=== PATIENT | female | born 1970 | race Caucasian/White ===

== ENCOUNTER → 2016-09-02 | Outpatient (CLI) | payer OTHER ==
[~2016-09-02] MED LIST: AC500T PO; ALBU0.8322 IH; ALBU2.5V4 IH; ALBU8.5H2 IH; AZIT250T5 PO; BETA15CR3 TP; CEFP100T2 PO; CIPR500T78 PO; CYCL10TA45 PO; DXCC100C PO; FAMO20TA27 PO; FLUT1DIS26 IH; HCT25T PO; HYOS0.1216 PO; IBUP-15 PO; IBUP-30 PO; KETO-22 PO; KETO10TA PO; LISI10TA2 PO; LISI20TA PO; LSNP10T PO; METO100T2 PO; METO50TA7 PO; MTP50T PO; NITR-65 PO; NITR100C3 PO; NITR100C44 PO; ONDA-42 SL; PHEN100T26 PO; PRD10T PO; PRD20T PO; RNT150T PO; SULF1TAB23 PO; TAMS0.4C98 PO; TMSL.4C PO; TRAM-42 PO; TRAM50TA2 PO; TRM50T PO
[2016-09-02 12:03] LABS: MEAN PLATELET VOLUME 9.4 FL (7.4-10.4); RED BLOOD COUNT 4.09 10^6/uL (4.35-5.85); RED CELL DISTRIBUTION WIDTH 13.6 % (10.0-14.5); WHITE BLOOD COUNT 6.8 10^3/uL (4.3-11.0)
[2016-09-02 12:22] LABS: ALANINE AMINOTRANSFERASE 18 U/L (0-55); ANION GAP 5 MMOL/L (5-14); ASPARTATE AMINO TRANSFERASE 10 U/L (5-34); BILIRUBIN,TOTAL 0.8 MG/DL (0.1-1.0); BLOOD UREA NITROGEN 8 MG/DL (7-18); BUN/CREATININE RATIO 11; CALCIUM 9.3 MG/DL (8.5-10.1); CARBON DIOXIDE 27 MMOL/L (21-32); CHLORIDE 106 MMOL/L (98-107); CHOLESTEROL 169 MG/DL (< 200); CREATININE SERUM 0.73 MG/DL (0.60-1.30); DIRECT LDL 110 MG/DL (1-129); GFR ESTIMATED > 60; GLUCOSE 125 MG/DL (70-105); POTASSIUM 4.3 MMOL/L (3.6-5.0); SODIUM 138 MMOL/L (135-145); TOTAL PROTEIN 7.3 GM/DL (6.4-8.2); TRIGLYCERIDES 94 MG/DL (<150); VLDL CHOLESTEROL 19 MG/DL (5-40)
[2016-09-02 12:42] LABS: THYROID STIMULATING HORMONE 2.21 UIU/ML (0.35-4.94); TROPONIN I < 0.30 NG/ML (<0.30)
== END ==
LOC: LAB 11:40
PROVIDERS: ATTEND Family Medicine
DX: R73.09 Other abnormal glucose (principal); I10 Essential (primary) hypertension
CPT/HCPCS: 36415; 80053; 80061; 83735; 84443; 84484; 85027

== ENCOUNTER 2016-09-16 13:41 | Observation (INO) | payer OTHER ==
[~2016-09-16] VITALS: Ht 175.3 cm; Wt 118.1 kg
--- OUTSIDE RECORDS SUMMARY | 2016-09-16 13:48 | XMS REPORT ---
Author Author CAROLINA PAULSON [facility] eClinicalWorks Address Unknown Phone Unavailable Care Team Providers Care Water Server Name Role Phone CAROLINA PAULSON CP Unavailable Allergies No Known Allergies Problems Problem Type Condition Code Onset Dates Condition Status Problem Pure hypercholesterolemia E78.0 Active Problem Chronic airway obstruction, not elsewhere classified 496 Active Problem Hypertension 401.9 Active Problem Lumbago 724.2 Active Assessment Subclinical hypothyroidism E03.9 Active Problem Sciatica 724.3 Active Problem Nondependent tobacco use disorder 305.1 Active Medications No Known Medications Results No Known Results Summary Purpose eClinicalWorks Submission
--- OUTSIDE RECORDS SUMMARY | 2016-09-16 13:48 | XMS REPORT ---
Author YOHANNES Ardon [facility] eClinicalWorks Address Unknown Phone Unavailable Care Team Providers Care Nuclear Pharmacist Name Role Phone YOHANNES TABOR CP Unavailable Allergies No Known Allergies Problems Problem Type Condition Code Onset Dates Condition Status Assessment Abnormal mammogram R92.8 Active Assessment Enlarged lymph nodes in armpit R59.0 Active Problem Hypertension I10 Active Problem Enlarged lymph node R59.9 Active Problem Abnormal mammogram R92.8 Active Problem COPD (chronic obstructive pulmonary disease) J44.9 Active Problem Pure hypercholesterolemia E78.0 Active Problem Bilateral ovarian cysts N83.20 Active Problem Polyarthralgia M25.50 Active Medications No Known Medications Results No Known Results Summary Purpose eClinicalWorks Submission
--- OUTSIDE RECORDS SUMMARY | 2016-09-16 13:48 | XMS REPORT ---
Author Author CAROLINA PAULSON [facility] eClinicalWorks Address Unknown Phone Unavailable Care Team Providers Care Escape Wheel Tooth Cutter Name Role Phone CAROLINA PAULSON Unavailable Allergies No Known Allergies Problems Problem Type Condition ICD-9 Code Onset Dates Condition Status Problem Chronic airway obstruction, not elsewhere classified 496 Active Problem Sciatica 724.3 Active Problem Hypertension 401.9 Active Problem Nondependent tobacco use disorder 305.1 Active Problem Lumbago 724.2 Active Medications Medication Code System Code Instructions Start Date End Date Status Dosage Spiriva HandiHaler [facility] [address]-63 18 MCG Inhalation Once a day Nov 21, 2014 1 capsule Results No Known Results Summary Purpose eClinicalWorks Submission
--- OUTSIDE RECORDS SUMMARY | 2016-09-16 13:48 | XMS REPORT ---
Author Author CAROLINA PAULSON eClinicalWorks Address Unknown Phone Unavailable Care Team Providers Care Barrel Filler Name Role Phone CAROLINA PAULSON CP Unavailable Allergies No Known Allergies Problems Problem Type Condition Code Onset Dates Condition Status Problem Pure hypercholesterolemia E78.0 Active Problem Chronic airway obstruction, not elsewhere classified 496 Active Problem Hypertension 401.9 Active Problem Lumbago 724.2 Active Assessment Pain in joint, pain in unspecified joint M25.50 Active Problem Sciatica 724.3 Active Problem Nondependent tobacco use disorder 305.1 Active Medications No Known Medications Procedures Procedure Coding System Code Date ASSAY, TRIIODOTHYRONINE (T3) CPT-4 35219 Jan 01, 2015 VENIPUNCT, ROUTINE* CPT-4 40814 Jan 01, 2015 ASSAY OF FREE THYROXINE CPT-4 55220 Jan 01, 2015 Results Name Result Date Reference Range Unit Abnormality Flag ROUTINE VENIPUNCTURE Summary Purpose eClinicalWorks Submission
--- OUTSIDE RECORDS SUMMARY | 2016-09-16 13:48 | XMS REPORT ---
Author CAROLINA Lyon [facility] eClinicalWorks Address Unknown Phone Unavailable Care Team Providers Care Gang Sawyer Name Role Phone CAROLINA PAULSON Unavailable Allergies No Known Allergies Problems Problem Type Condition Code Onset Dates Condition Status Assessment Pure hypercholesterolemia E78.0 Active Problem Pure hypercholesterolemia E78.0 Active Assessment Hypertension I10 Active Assessment Primary osteoarthritis of right hip M16.11 Active Assessment Dyshidrotic eczema L30.1 Active Problem Dyshidrotic eczema L30.1 Active Problem Abnormal mammogram R92.8 Active Problem Primary osteoarthritis of right hip M16.11 Active Problem Polyarthralgia M25.50 Active Problem COPD (chronic obstructive pulmonary disease) J44.9 Active Problem Hypertension I10 Active Problem Enlarged lymph node R59.9 Active Medications Medication Code System Code Instructions Start Date End Date Status Dosage Tylenol Extra Strength [facility] [address]-28 500 mg August 30, 2011 take 2 tablets (1,000 mg) by oral route every 6 hours as needed Ibuprofen [facility] [address]-57 200 mg Oct 08, 2012 2 Tablet every 8 hours PRN Albuterol Sulfate [facility] [address]-75 90 mcg/actuation July 08, 2013 2 Puffs by Inhalation route every 6 hours Metoprolol Tartrate [facility] [address]-94 50 mg Orally Twice a day 1 tablet with food Zantac [facility] [address]-61 150 mg Jan 03, 2013 take 1 tablet (150 mg ) by oral route 2 times per day Benadryl [facility] [address]-92 25 MG Orally every 6 hrs 1 tablet as needed Flexeril NDC 0 10 mg Orally Three times a day Dec 28, 2015 1 tablet as needed Lisinopril [facility] [address]-82 10 mg Orally Once a day 1 tablet Betamethasone Dipropionate [facility] [address]-14 0.05 % Externally Twice a day Oct 29, 2015 Dec 24, 2015 1 application to affected area tramadol NDC 0 50 mg July 31, 2013 take 1 tablet (50 mg) by oral route every 4-6 hours as needed Procedures Procedure Coding System Code Date Office Visit, Est Pt., Level 3 CPT-4 90579 Oct 29, 2015 X-RAY EXAM HIP UNI 2-3 VIEWS CPT-4 00499 Oct 29, 2015 Vital Signs Date/Time: Oct 29, 2015 Cardiac Monitoring Heart Rate 80 bpm Weight 270.0 lbs Height 69 in BMI 39.87 Index Blood Pressure Diastolic 78 mmHg Blood Pressure Systolic 134 mmHg Results No Known Results Summary Purpose eClinicalWorks Submission
--- OUTSIDE RECORDS SUMMARY | 2016-09-16 13:48 | XMS REPORT ---
Author QIAN Mathis [facility] eClinicalWorks Address Unknown Phone Unavailable Care Team Providers Care Center Director Name Role Phone QIAN HICKS CP Unavailable Allergies, Adverse Reactions, Alerts Substance Reaction Event Type Codeine Sulfate anaphylaxis Drug Allergy Problems Problem Type Condition Code Onset Dates Condition Status Problem Pure hypercholesterolemia E78.0 Active Problem Chronic airway obstruction, not elsewhere classified 496 Active Problem Hypertension 401.9 Active Problem Lumbago 724.2 Active Assessment Pain in joint, pain in unspecified joint M25.50 Active Problem Sciatica 724.3 Active Problem Nondependent tobacco use disorder 305.1 Active Medications Medication Code System Code Instructions Start Date End Date Status Dosage Lisinopril [facility] [address]-01 10 MG Orally Once a day 1 tablet Metoprolol Tartrate [facility] 12522242727 50 MG TAKE ONE TABLET BY MOUTH TWICE DAILY tramadol ND 0 50 mg July 31, 2013 take 1 tablet (50 mg) by oral route every 4-6 hours as needed Albuterol Sulfate [facility] [address]-77 90 mcg/actuation July 08, 2013 2 Puffs by Inhalation route every 6 hours Flexeril [facility] [address]-07 10 MG Orally Three times a day 1 tablet as needed Spiriva HandiHaler [facility] [address]-03 18 MCG Inhalation Once a day Nov 21, 2014 1 capsule Ibuprofen [facility] [address]-84 200 mg Oct 08, 2012 2 Tablet every 8 hours PRN Tylenol Extra Strength [facility] [address]-63 500 mg August 30, 2011 take 2 tablets (1,000 mg) by oral route every 6 hours as needed Albuterol Sulfate [facility] [address]-98 (2.5 MG/3ML) 0.083% Inhalation every 4 hrs as needed 3 ml Zantac [facility] [address]-43 150 mg Jan 03, 2013 take 1 tablet (150 mg ) by oral route 2 times per day Procedures Procedure Coding System Code Date C-REACTIVE PROTEIN CPT-4 70200 Dec 30, 2014 ANTINUCLEAR ANTIBODIES CPT-4 33660 Dec 30, 2014 RBC SED RATE, NONAUTOMATED CPT-4 34718 Dec 30, 2014 VENIPUNCT, ROUTINE* CPT-4 65054 Dec 30, 2014 ASSAY THYROID STIM HORMONE CPT-4 94123 Dec 30, 2014 COMPLETE CBC W/AUTO DIFF WBC CPT-4 45540 Dec 30, 2014 RHEUMATOID FACTOR, QUANT CPT-4 21212 Dec 30, 2014 Office Visit, Est Pt., Level 3 CPT-4 14887 Dec 30, 2014 Vital Signs Date/Time: Dec 30, 2014 Temperature 97.3 F Weight 242.8 lbs Height 69 in Pain Scale 6-8 1-10 Blood Pressure Diastolic 90 mmHg Blood Pressure Systolic 136 mmHg Cardiac Monitoring Heart Rate 80 bpm BMI 35.85 Index Results Name Result Date Reference Range Unit Abnormality Flag ROUTINE VENIPUNCTURE SHARLENE ANALYZER Summary Purpose eClinicalWorks Submission
--- OUTSIDE RECORDS SUMMARY | 2016-09-16 13:48 | XMS REPORT ---
Author Author CAROLINA PAULSON [facility] eClinicalWorks Address Unknown Phone Unavailable Care Team Providers Care Foam Tank Laminator Name Role Phone CAROLINA PAULSON CP Unavailable [...]
--- OUTSIDE RECORDS SUMMARY | 2016-09-16 13:48 | XMS REPORT ---
Author CAROLINA Lyon eClinicalWorks Address Unknown Phone Unavailable Care Team Providers Care Rug Inspector Helper Name Role Phone CAROLINA PAULSON Unavailable Allergies, Adverse Reactions, Alerts Substance Reaction Event Type Codeine Sulfate Info Not Available Drug Allergy Problems Problem Type Condition ICD-9 Code Onset Dates Condition Status Problem Chronic airway obstruction, not elsewhere classified 496 Active Problem Sciatica 724.3 Active Problem Hypertension 401.9 Active Assessment Chronic airway obstruction, not elsewhere classified 496 Active Assessment Hypertension 401.9 Active Problem Nondependent tobacco use disorder 305.1 Active Problem Lumbago 724.2 Active Medications Medication Code System Code Instructions Start Date End Date Status Dosage Flexeril [facility] [address]-11 10 MG Orally Three times a day 1 tablet as needed Ibuprofen [facility] [address]-43 200 mg Oct 08, 2012 2 Tablet every 8 hours PRN Albuterol Sulfate [facility] [address]-42 90 mcg/actuation July 08, 2013 2 Puffs by Inhalation route every 6 hours Metoprolol Tartrate [facility] 05918960776 50 MG TAKE ONE TABLET BY MOUTH TWICE DAILY Tylenol Extra Strength [facility] [address]-31 500 mg August 30, 2011 take 2 tablets (1,000 mg) by oral route every 6 hours as needed tramadol ND 0 50 mg July 31, 2013 take 1 tablet (50 mg) by oral route every 4-6 hours as needed Albuterol Sulfate [facility] [address]-69 (2.5 MG/3ML) 0.083% Inhalation every 4 hrs as needed 3 ml Lisinopril [facility] [address]-43 10 MG Orally Once a day 1 tablet Combivent Respimat [facility] [address]-76 20-100 MCG/ACT Inhalation Four times a day Nov 18, 2014 1 puff Zantac [facility] [address]-07 150 mg Jan 03, 2013 take 1 tablet (150 mg ) by oral route 2 times per day Procedures Procedure Coding System Code Date Office Visit, Ibrahima Pt., Level 3 CPT-4 86480 Nov 18, 2014 Vital Signs Date/Time: Nov 18, 2014 Temperature 97.0 F Weight 228.0 lbs Height 69 in BMI 33.67 Index Blood Pressure Diastolic 80 mmHg Blood Pressure Systolic 118 mmHg Cardiac Monitoring Heart Rate 80 bpm Results No Known Results Summary Purpose eClinicalWorks Submission
--- OUTSIDE RECORDS SUMMARY | 2016-09-16 13:48 | XMS REPORT ---
Author Author CAROLINA PAULSON eClinicalWorks Address Unknown Phone Unavailable Care Team Providers Care [place] Machine Operator Name Role Phone CAROLINA PAULSON CP Unavailable Allergies No Known Allergies Problems Problem Type Condition Code Onset Dates Condition Status Assessment Pure hypercholesterolemia E78.0 Active Problem Pure hypercholesterolemia E78.0 Active Assessment Hypertension I10 Active Problem Dyshidrotic eczema L30.1 Active Problem Abnormal mammogram R92.8 Active Problem Primary osteoarthritis of right hip M16.11 Active Problem Polyarthralgia M25.50 Active Problem COPD (chronic obstructive pulmonary disease) J44.9 Active Problem Hypertension I10 Active Problem Enlarged lymph node R59.9 Active Medications No Known Medications Procedures Procedure Coding System Code Date COMPREHEN METABOLIC PANEL CPT-4 76664 Nov 05, 2015 VENIPUNCT, ROUTINE* CPT-4 54837 Nov 05, 2015 LIPID PANEL CPT-4 22205 Nov 05, 2015 Results No Known Results Summary Purpose eClinicalWorks Submission
--- OUTSIDE RECORDS SUMMARY | 2016-09-16 13:48 | XMS REPORT ---
Author Author ABDIFATAH FREEMAN [facility] eClinicalWorks Address Unknown Phone Unavailable Care Team Providers Care Retail Service Specialist Name Role Phone ABDIFATAH FREEMAN CP Unavailable Allergies No Known Allergies Problems Problem Type Condition ICD-9 Code Onset Dates Condition Status Problem Excessive or frequent menstruation 626.2 Active Problem Unspecified breast screening V76.10 Active Problem Screening for malignant neoplasm of the cervix V76.2 Active Assessment Dental examination V72.2 Active Problem Special screening examination, human papillomavirus [HPV] V73.81 Active Problem Other dyspnea and respiratory abnormalities 786.09 Active Problem Sciatica 724.3 Active Problem Chronic airway obstruction, not elsewhere classified 496 Active Problem Scanty or infrequent menstruation 626.1 Active Problem Lumbago 724.2 Active Problem Intestinal infection due to other organism, NEC 008.8 Active Problem Nondependent tobacco use disorder 305.1 Active Medications No Known Medications Procedures Procedure Coding System Code Date INTRAORL-PERIAPICAL 1 FILM 56041 CPT-4 D0220 Oct 23, 2014 INTRAORL-PERIAPICAL EA ADD FILM CPT-4 D0230 Oct 23, 2014 COMP ORAL EVALUATION - NEW/EST PT CPT-4 D0150 Oct 23, 2014 TOPICAL FLUORIDE VARNISH CPT-4 D1206 Oct 23, 2014 INTRAORL-PERIAPICAL EA ADD FILM CPT-4 D0230 Oct 23, 2014 INTRAORL-PERIAPICAL EA ADD FILM CPT-4 D0230 Oct 23, 2014 PROPHYLAXIS - ADULT CPT-4 D1110 Oct 23, 2014 INTRAORL-PERIAPICAL EA ADD FILM CPT-4 D0230 Oct 23, 2014 Results No Known Results Summary Purpose eClinicalWorks Submission
--- OUTSIDE RECORDS SUMMARY | 2016-09-16 13:49 | XMS REPORT | Continuity of Care Document ---
Author Author [facility] Ctr of [facility] Ctr of [facility] Address Unknown Phone Unavailable Allergies Active Description Code Type Severity Reaction Onset Reported/Identified Relationship to Patient Clinical Status Yes codeine Drug Allergy N/A N/A 09/01/2008 Yes codeine [id number] Drug Allergy Severe THROAT SWELLS S 06/28/2013 Medications Problems Date Dx Coded Attending Type Code Diagnosis Diagnosed By 09/01/2008 616.0 Cervicitis And Endocervicitis 09/01/2008 V72.3 GYNECOLOGICAL EXAMINATION 09/01/2008 YOHANNES TABOR DO 616.0 Cervicitis And Endocervicitis 09/01/2008 YOHANNES TABOR DO V72.3 GYNECOLOGICAL EXAMINATION 09/01/2008 DRAKE PENA APRN 616.0 Cervicitis And Endocervicitis 09/01/2008 DRAKE PENA APRN V72.3 GYNECOLOGICAL EXAMINATION 09/01/2008 CAROLINA PAULSON MD 616.0 Cervicitis And Endocervicitis 09/01/2008 CAROLINA PAULSON MD V72.3 GYNECOLOGICAL EXAMINATION 09/01/2008 CAROLINA PAULSON MD 616.0 Cervicitis And Endocervicitis 09/01/2008 CAROLINA PAULSON MD V72.3 GYNECOLOGICAL EXAMINATION 09/01/2008 CAROLINA PAULSON MD 616.0 Cervicitis And Endocervicitis 09/01/2008 CAROLINA PAULSON MD V72.3 GYNECOLOGICAL EXAMINATION 09/01/2008 YOHANNES TABOR DO 616.0 Cervicitis And Endocervicitis 09/01/2008 YOHANNES TABOR DO V72.3 GYNECOLOGICAL EXAMINATION 09/01/2008 RIO MOULTON MD 616.0 Cervicitis And Endocervicitis 09/01/2008 RIO MOULTON MD V72.3 GYNECOLOGICAL EXAMINATION 09/01/2008 ROE CALERO APRN 616.0 Cervicitis And Endocervicitis 09/01/2008 GALILEA GUPTA, ROE L V72.3 GYNECOLOGICAL EXAMINATION 09/01/2008 CIERRA CALERO APRNA L 616.0 Cervicitis And Endocervicitis 09/01/2008 [facility] ALON[facility], ROE L V72.3 GYNECOLOGICAL EXAMINATION 09/01/2008 CAROLINA PAULSON MD N 616.0 Cervicitis And Endocervicitis 09/01/2008 CAROLINA PAULSON MD V72.3 GYNECOLOGICAL EXAMINATION 09/01/2008 DRAKE PENA APRN A 616.0 Cervicitis And Endocervicitis 09/01/2008 DRAKE PENA APRN V72.3 GYNECOLOGICAL EXAMINATION 09/01/2008 YOHANNES TABOR DO 616.0 Cervicitis And Endocervicitis 09/01/2008 YOHANNES TABOR DO V72.3 GYNECOLOGICAL EXAMINATION 01/06/2009 724.3 Sciatica 01/06/2009 YOHANNES TABOR DO 724.3 Sciatica 01/06/2009 DRAKE PENA APRN A 724.3 Sciatica 01/06/2009 CAROLINA PAULSON MD N 724.3 Sciatica 01/06/2009 CAROLINA PAULSON MD 724.3 Sciatica 01/06/2009 CAROLINA PAULSON MD N 724.3 Sciatica 01/06/2009 YOHANNES TABOR DO 724.3 Sciatica 01/06/2009 RIO MOULTON MD 724.3 Sciatica 01/06/2009 ROE CALERO APRN L 724.3 Sciatica 01/06/2009 CIERRA CALERO APRNA L 724.3 Sciatica 01/06/2009 CAROLINA PAULSON MD N 724.3 Sciatica 01/06/2009 DRAKE PENA APRN 724.3 Sciatica 01/06/2009 YOHANNES TABOR DO 724.3 Sciatica 12/23/2009 Ot 401.9 12/23/2009 Ot 490 12/23/2009 Ot 786.50 12/25/2009 NODX No Diagnosis 12/25/2009 YOHANNES TABOR DO NODX No Diagnosis 12/25/2009 JEAN GAS PUMPING ST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, DRAKE A NODX No Diagnosis 12/25/2009 CAROLINA PAULSON MD NODX No Diagnosis 12/25/2009 CAROLINA PAULSON MD NODX No Diagnosis 12/25/2009 CAROLINA PAULSON MD NODX No Diagnosis 12/25/2009 YOHANNES TABOR DO K NODX No Diagnosis 12/25/2009 RIO MOULTON MD NODX No Diagnosis 12/25/2009 MADL GAS PUMPING ST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, ROE [place] NODX No Diagnosis 12/25/2009 GALILEA GAS PUMPING ST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, ROE L NODX No Diagnosis 12/25/2009 CAROLINA PAULSON MD NODX No Diagnosis 12/25/2009 JEANNAVA GUPTA, DRAKE A NODX No Diagnosis 12/25/2009 FARNAZ TABOR DOA K NODX No Diagnosis 12/29/2009 401.1 ESSENTIAL HYPERTENSION BENIGN 12/29/2009 V17.49 FAMILY HISTORY OF OTHER CARDIOVASCULAR DISEASES 12/29/2009 YOHANNES TABOR DO K 401.1 ESSENTIAL HYPERTENSION BENIGN 12/29/2009 YOHANNES TABOR DO V17.49 FAMILY HISTORY OF OTHER CARDIOVASCULAR DISEASES 12/29/2009 JEAN GUPTA DRAKE A 401.1 ESSENTIAL HYPERTENSION BENIGN 12/29/2009 JEAN GUPTA DRAKE A V17.49 FAMILY HISTORY OF OTHER CARDIOVASCULAR DISEASES 12/29/2009 CAROLINA PAULSON MD 401.1 ESSENTIAL HYPERTENSION BENIGN 12/29/2009 CAROLINA PAULSON MD V17.49 FAMILY HISTORY OF OTHER CARDIOVASCULAR DISEASES 12/29/2009 CAROLINA PAULSON MD 401.1 ESSENTIAL HYPERTENSION BENIGN 12/29/2009 CAROLINA PAULSON MD V17.49 FAMILY HISTORY OF OTHER CARDIOVASCULAR DISEASES 12/29/2009 CAROLINA PAULSON MD 401.1 ESSENTIAL HYPERTENSION BENIGN 12/29/2009 CAROLINA PAULSON MD V17.49 FAMILY HISTORY OF OTHER CARDIOVASCULAR DISEASES 12/29/2009 YOHANNES TABOR DO 401.1 ESSENTIAL HYPERTENSION BENIGN 12/29/2009 YOHANNES TABOR DO V17.49 FAMILY HISTORY OF OTHER CARDIOVASCULAR DISEASES 12/29/2009 RIO MOULTON MD 401.1 ESSENTIAL HYPERTENSION BENIGN 12/29/2009 RIO MOULTON MD V17.49 FAMILY HISTORY OF OTHER CARDIOVASCULAR DISEASES 12/29/2009 MADDarvin GAS PUMPING ST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, ROE L 401.1 ESSENTIAL HYPERTENSION BENIGN 12/29/2009 MADL GAS PUMPING ST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, ROE L V17.49 FAMILY HISTORY OF OTHER CARDIOVASCULAR DISEASES 12/29/2009 MADL GAS PUMPING ST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, ROE L 401.1 ESSENTIAL HYPERTENSION BENIGN 12/29/2009 MADL GAS PUMPING ST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, ROE L V17.49 FAMILY HISTORY OF OTHER CARDIOVASCULAR DISEASES 12/29/2009 CAROLINA PAULSON MD 401.1 ESSENTIAL HYPERTENSION BENIGN 12/29/2009 CAROLINA PAULSON MD V17.49 FAMILY HISTORY OF OTHER CARDIOVASCULAR DISEASES 12/29/2009 JEANSHEKHAR Ortega APRNIDI A 401.1 ESSENTIAL HYPERTENSION BENIGN 12/29/2009 JEAN GAS PUMPING ST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, DRAKE A V17.49 FAMILY HISTORY OF OTHER CARDIOVASCULAR DISEASES 12/29/2009 YOHANNES TABOR DO K 401.1 ESSENTIAL HYPERTENSION BENIGN 12/29/2009 YOHANNES TABOR DO V17.49 FAMILY HISTORY OF OTHER CARDIOVASCULAR DISEASES 02/01/2010 Ot 288.60 02/01/2010 Ot 305.1 02/01/2010 Ot 401.9 02/01/2010 Ot 466.0 02/01/2010 Ot 530.81 02/01/2010 Ot 790.29 02/01/2010 Ot 799.02 02/01/2010 Ot E932.0 02/05/2010 493.90 ASTHMA UNSPECIFIED 02/05/2010 YOHANNES TABOR DO 493.90 ASTHMA UNSPECIFIED 02/05/2010 DRAKE PNEA APRN A 493.90 ASTHMA UNSPECIFIED 02/05/2010 CAROLINA PAULSON MD 493.90 ASTHMA UNSPECIFIED 02/05/2010 CAROLINA PAULSON MD 493.90 ASTHMA UNSPECIFIED 02/05/2010 CAROLINA PAULSON MD 493.90 ASTHMA UNSPECIFIED 02/05/2010 YOHANNES TABOR DO 493.90 ASTHMA UNSPECIFIED 02/05/2010 RIO MOULTON MD 493.90 ASTHMA UNSPECIFIED 02/05/2010 MADL GAS PUMPING ST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, ROE L 493.90 ASTHMA UNSPECIFIED 02/05/2010 MADL GAS PUMPING ST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CIERRA OrtegaA L 493.90 ASTHMA UNSPECIFIED 02/05/2010 CAROLINA PAULSON MD 493.90 ASTHMA UNSPECIFIED 02/05/2010 DRAKE PENA APRN A 493.90 ASTHMA UNSPECIFIED 02/05/2010 TABOR DO, YOHANNES K 493.90 ASTHMA UNSPECIFIED 02/22/2010 462 Sore Throat 02/22/2010 478.75 Croup Spasmodic 02/22/2010 TABOR DO, YOHANNES K 462 Sore Throat 02/22/2010 TABOR DO, YOHANNES K 478.75 Croup Spasmodic 02/22/2010 JEAN GAS PUMPING ST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, DRAKE A 462 Sore Throat 02/22/2010 JEAN GAS PUMPING ST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, DRAKE A 478.75 Croup Spasmodic 02/22/2010 KHURRAM GALVIN, CAROLINA N 462 Sore Throat 02/22/2010 KHURRAM GALVIN, CAROLINA N 478.75 Croup Spasmodic 02/22/2010 KHURRAM GALVIN, CAROLINA N 462 Sore Throat 02/22/2010 KHURRAM GALVIN, CAROLINA N 478.75 Croup Spasmodic 02/22/2010 KHURRAM GALVIN, CAROLINA N 462 Sore Throat 02/22/2010 KHURRAM GALVIN, CAROL[place] N 478.75 Croup Spasmodic 02/22/2010 TABOR DO, YOHANNES K 462 Sore Throat 02/22/2010 TABOR DO, YOHANNES K 478.75 Croup Spasmodic 02/22/2010 RIO MOULTON MD 462 Sore Throat 02/22/2010 RIO MOULTON MD 478.75 Croup Spasmodic 02/22/2010 MADL GAS PUMPING ST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, ROE L 462 Sore Throat 02/22/2010 MADL GAS PUMPING ST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, ROE L 478.75 Croup Spasmodic 02/22/2010 MADL GAS PUMPING ST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, ROE L 462 Sore Throat 02/22/2010 MADL GAS PUMPING ST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, ROE L 478.75 Croup Spasmodic 02/22/2010 KHURRAM GALVIN, CAROLINA N 462 Sore Throat 02/22/2010 CAROLINA PAULSON MD N 478.75 Croup Spasmodic 02/22/2010 JEAN GAS PUMPING ST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, DRAKE A 462 Sore Throat 02/22/2010 JEAN GAS PUMPING ST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, DRAKE A 478.75 Croup Spasmodic 02/22/2010 TABOR DO, YOHANNES K 462 Sore Throat 02/22/2010 TABOR DO, YOHANNES K 478.75 Croup Spasmodic 08/18/2011 Ot 278.00 08/18/2011 Ot 305.1 08/18/2011 Ot 401.9 08/18/2011 Ot 491.22 08/18/2011 Ot 530.81 08/18/2011 Ot 799.02 08/18/2011 Ot V85.33 08/30/2011 305.1 NONDEPENDENT TOBACCO USE DISORDER 08/30/2011 466.0 Acute Bronchitis 08/30/2011 YOHANNES TABOR DO K 305.1 NONDEPENDENT TOBACCO USE DISORDER 08/30/2011 YOHANNES TABOR DO K 466.0 Acute Bronchitis 08/30/2011 DRAKE PENA APRN A 305.1 NONDEPENDENT TOBACCO USE DISORDER 08/30/2011 DRAKE PENA APRN A 466.0 Acute Bronchitis 08/30/2011 CAROLINA PAULSON MD N 305.1 NONDEPENDENT TOBACCO USE DISORDER 08/30/2011 CAROLINA PAULSON MD N 466.0 Acute Bronchitis 08/30/2011 CAROLINA PAULSON MD N 305.1 NONDEPENDENT TOBACCO USE DISORDER 08/30/2011 CAROLINA PAULSON MD N 466.0 Acute Bronchitis 08/30/2011 CAROLINA PAULSON MD N 305.1 NONDEPENDENT TOBACCO USE DISORDER 08/30/2011 CAROLINA PAULSON MD N 466.0 Acute Bronchitis 08/30/2011 YOHANNES TABOR DO K 305.1 NONDEPENDENT TOBACCO USE DISORDER 08/30/2011 YOHANNES TABOR DO K 466.0 Acute Bronchitis 08/30/2011 RIO MOULTON MD 305.1 NONDEPENDENT TOBACCO USE DISORDER 08/30/2011 RIO MOULTON MD 466.0 Acute Bronchitis 08/30/2011 GALILEA GUPTA ROE L 305.1 NONDEPENDENT TOBACCO USE DISORDER 08/30/2011 GALILEA GUPTA, ROE L 466.0 Acute Bronchitis 08/30/2011 GALILEA GUPTA ROE L 305.1 NONDEPENDENT TOBACCO USE DISORDER 08/30/2011 GALILEA GUPTA, ROE L 466.0 Acute Bronchitis 08/30/2011 CAROLINA PAULSON MD N 305.1 NONDEPENDENT TOBACCO USE DISORDER 08/30/2011 CAROLINA PAULSON MD N 466.0 Acute Bronchitis 08/30/2011 JEAN GAS PUMPING ST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, DRAKE A 305.1 NONDEPENDENT TOBACCO USE DISORDER 08/30/2011 DRAKE PENA APRN A 466.0 Acute Bronchitis 08/30/2011 YOHANNES TABOR DO 305.1 NONDEPENDENT TOBACCO USE DISORDER 08/30/2011 YOHANENS TABOR DO K 466.0 Acute Bronchitis 10/08/2012 692.9 CONTACT DERMATITIS AND OTHER ECZEMA UNSPECIFIED CAUSE 10/08/2012 YOHANNES TABOR DO 692.9 CONTACT DERMATITIS AND OTHER ECZEMA UNSPECIFIED CAUSE 10/08/2012 DRAKE PENA APRN A 692.9 CONTACT DERMATITIS AND OTHER ECZEMA UNSPECIFIED CAUSE 10/08/2012 CAROLINA PAULSON MD 692.9 CONTACT DERMATITIS AND OTHER ECZEMA UNSPECIFIED CAUSE 10/08/2012 CAROLINA PAULSON MD 692.9 CONTACT DERMATITIS AND OTHER ECZEMA UNSPECIFIED CAUSE 10/08/2012 CAROLINA PAULSON MD 692.9 CONTACT DERMATITIS AND OTHER ECZEMA UNSPECIFIED CAUSE 10/08/2012 YOHANNES TABOR DO 692.9 CONTACT DERMATITIS AND OTHER ECZEMA UNSPECIFIED CAUSE 10/08/2012 RIO MOULTON MD 692.9 CONTACT DERMATITIS AND OTHER ECZEMA UNSPECIFIED CAUSE 10/08/2012 ROE CALREO APRN 692.9 CONTACT DERMATITIS AND OTHER ECZEMA UNSPECIFIED CAUSE 10/08/2012 ROE CALERO APRN 692.9 CONTACT DERMATITIS AND OTHER ECZEMA UNSPECIFIED CAUSE 10/08/2012 CAROLINA PAULSON MD 692.9 CONTACT DERMATITIS AND OTHER ECZEMA UNSPECIFIED CAUSE 10/08/2012 DRAKE PENA APRN A 692.9 CONTACT DERMATITIS AND OTHER ECZEMA UNSPECIFIED CAUSE 10/08/2012 YOHANNES TABOR DO 692.9 CONTACT DERMATITIS AND OTHER ECZEMA UNSPECIFIED CAUSE 01/03/2013 DRAKE PENA APRN A 626.2 MENORRHAGIA 01/03/2013 DRAKE PENA APRN V73.81 HPV SCREENING 01/03/2013 DRAKE PENA APRN V76.10 BREAST CANCER SCREENING 01/03/2013 DRAKE PENA APRN V76.2 CERVICAL CANCER SCREENING (PAP SMEAR) 01/03/2013 CAROLINA PAULSON MD 626.2 MENORRHAGIA 01/03/2013 CAROLINA PAULSON MD V73.81 HPV SCREENING 01/03/2013 CAROLINA PAULSON MD V76.10 BREAST CANCER SCREENING 01/03/2013 CAROLINA PAULSON MD V76.2 CERVICAL CANCER SCREENING (PAP SMEAR) 01/03/2013 CAROLINA PAULSON MD 626.2 MENORRHAGIA 01/03/2013 CAROLINA PAULSON MD V73.81 HPV SCREENING 01/03/2013 CAROLINA PAULSON MD V76.10 BREAST CANCER SCREENING 01/03/2013 CAROLINA PAULSON MD V76.2 CERVICAL CANCER SCREENING (PAP SMEAR) 01/03/2013 CAROLINA PAULSON MD 626.2 MENORRHAGIA 01/03/2013 CAROLINA PAULSON MD V73.81 HPV SCREENING 01/03/2013 CAROLINA PAULSON MD V76.10 BREAST CANCER SCREENING 01/03/2013 CAROLINA PAULSON MD V76.2 CERVICAL CANCER SCREENING (PAP SMEAR) 01/03/2013 YOHANNES TABOR DO K 626.2 MENORRHAGIA 01/03/2013 YOHANNES TABOR DO K V73.81 HPV SCREENING 01/03/2013 FARNAZ TABOR DOA K V76.10 BREAST CANCER SCREENING 01/03/2013 FARNAZ TABOR DOA K V76.2 CERVICAL CANCER SCREENING (PAP SMEAR) 01/03/2013 RIO MOULTON MD 626.2 MENORRHAGIA 01/03/2013 RIO MOULTON MD V73.81 HPV SCREENING 01/03/2013 RIO MOULTON MD V76.10 BREAST CANCER SCREENING 01/03/2013 RIO MOULTON MD V76.2 CERVICAL CANCER SCREENING (PAP SMEAR) 01/03/2013 CIERRA CALERO APRNA L 626.2 MENORRHAGIA 01/03/2013 GALILEA GUPTA ROE L V73.81 HPV SCREENING 01/03/2013 GALILEA GUPTA ROE L V76.10 BREAST CANCER SCREENING 01/03/2013 GALILEA GUPTA ROE L V76.2 CERVICAL CANCER SCREENING (PAP SMEAR) 01/03/2013 LAURA CALERO APRNWNYA L 626.2 MENORRHAGIA 01/03/2013 GALILEA GUPTA ROE L V73.81 HPV SCREENING 01/03/2013 CIERRA CALERO APRNA L V76.10 BREAST CANCER SCREENING 01/03/2013 ROE CALERO APRN L V76.2 CERVICAL CANCER SCREENING (PAP SMEAR) 01/03/2013 CAROLINA PAULSON MD N 626.2 MENORRHAGIA 01/03/2013 CAROLINA PAULSON MD V73.81 HPV SCREENING 01/03/2013 CAROLINA PAULSON MD V76.10 BREAST CANCER SCREENING 01/03/2013 CAROLINA PAULSON MD V76.2 CERVICAL CANCER SCREENING (PAP SMEAR) 01/03/2013 DRAKE PENA APRN A 626.2 MENORRHAGIA 01/03/2013 DRAKE PENA APRN A V73.81 HPV SCREENING 01/03/2013 DRAKE PENA APRN A V76.10 BREAST CANCER SCREENING 01/03/2013 DRAKE PENA APRN A V76.2 CERVICAL CANCER SCREENING (PAP SMEAR) 01/03/2013 YOHANNES TABOR DO K 626.2 MENORRHAGIA 01/03/2013 FARNAZ TABOR DOA K V73.81 HPV SCREENING 01/03/2013 FARNAZ TABOR DOA K V76.10 BREAST CANCER SCREENING 01/03/2013 FARNAZ TABOR DOA K V76.2 CERVICAL CANCER SCREENING (PAP SMEAR) 02/22/2013 AROLDO BEGUM APRN Ot 724.2 02/22/2013 AROLDO BEGUM APRN Ot 724.3 04/25/2013 CAROLINA PAULSON MD N 724.3 SCIATICA 04/25/2013 CAROLINA PAULSON MD 724.3 SCIATICA 04/25/2013 CAROLINA PAULSON MD 724.3 SCIATICA 04/25/2013 YOHANNES TABOR DO K 724.3 SCIATICA 04/25/2013 RIO MOULTON MD 724.3 SCIATICA 04/25/2013 ROE CALERO APRN 724.3 SCIATICA 04/25/2013 ROE CALERO APRN 724.3 SCIATICA 04/25/2013 CAROLINA PAULSON MD N 724.3 SCIATICA 04/25/2013 DRAKE PENA APRN 724.3 SCIATICA 04/25/2013 YOHANNES TABOR DO K 724.3 SCIATICA 06/25/2013 KHURRAM GALVIN, CAROLINA N Ot 305.1 06/25/2013 KHURRAM GALVIN, CAROLINA N Ot 401.9 06/25/2013 KHURRAM GALVIN, CAROLINA N Ot 491.20 06/25/2013 KHURRAM GALVIN, CAROLINA N Ot 530.81 06/25/2013 KHURRAM GALVIN, CAROLINA N Ot 591 06/25/2013 KHURRAM GALVIN, CAROLINA N Ot 592.0 06/25/2013 KHURRAM GALVIN, CAROLINA N Ot 592.1 06/25/2013 KHURRAM GALVIN, CAROLINA N Ot 618.01 07/01/2013 KENNEY GALVIN, RIO Dorantes Ot 256.4 07/01/2013 KENNEY GALVIN, RIO F Ot 278.00 07/01/2013 KENNEY GALVIN, RIO F Ot 288.60 07/01/2013 KENNEY GALVIN, RIO Dorantes Ot 305.1 07/01/2013 KENNEY GALVIN, RIO F Ot 401.9 07/01/2013 KENNEY GALVIN, RIO F Ot 491.21 07/01/2013 KENNEY GALVIN, RIO Dorantes Ot 530.81 07/01/2013 KENNEY GALVIN, RIO Dorantes Ot 592.0 07/01/2013 KENNEY GALVIN, RIO Dorantes Ot 799.02 07/01/2013 KENNEY GALVIN, RIO Dorantes Ot E932.0 07/01/2013 KENNEY GALVIN, RIO Dorantes Ot V85.34 07/08/2013 LEANDER CHRISTIAN, YOHANNES K 496 CHRONIC AIRWAY OBSTRUCTION NOT ELSEWHERE CLASSIFIED 07/08/2013 LEANDER CHRISTIAN, YOHANNES K 786.09 RESPIRATORY ABNORMALITY OTHER 07/08/2013 RIO MOULTON MD 496 CHRONIC AIRWAY OBSTRUCTION NOT ELSEWHERE CLASSIFIED 07/08/2013 RIO MOULTON MD 786.09 RESPIRATORY ABNORMALITY OTHER 07/08/2013 RAMIREZL GAS PUMPING ST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, ROE L 496 CHRONIC AIRWAY OBSTRUCTION NOT ELSEWHERE CLASSIFIED 07/08/2013 MADL GAS PUMPING ST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, ROE L 786.09 RESPIRATORY ABNORMALITY OTHER 07/08/2013 MADL GAS PUMPING ST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, ROE L 496 CHRONIC AIRWAY OBSTRUCTION NOT ELSEWHERE CLASSIFIED 07/08/2013 MADL GAS PUMPING ST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, ROE L 786.09 RESPIRATORY ABNORMALITY OTHER 07/08/2013 CAROLINA PAULSON MD 496 CHRONIC AIRWAY OBSTRUCTION NOT ELSEWHERE CLASSIFIED 07/08/2013 CAROLINA PAULSON MD 786.09 RESPIRATORY ABNORMALITY OTHER 07/08/2013 DRAKE PENA APRN A 496 CHRONIC AIRWAY OBSTRUCTION NOT ELSEWHERE CLASSIFIED 07/08/2013 DRAKE PENA APRN A 786.09 RESPIRATORY ABNORMALITY OTHER 07/08/2013 YOHANNES TABOR DO 496 CHRONIC AIRWAY OBSTRUCTION NOT ELSEWHERE CLASSIFIED 07/08/2013 YOHANNES TABOR DO 786.09 RESPIRATORY ABNORMALITY OTHER 07/16/2013 MOHAMUD FONG MD Ot 592.1 07/18/2013 CINTHIADAMIEN Gomez DO Ot 592.0 07/18/2013 CINTHIA DAMIEN CHRISTIAN Ot 789.09 07/31/2013 MADROE Boston APRN L 724.2 BACK PAIN, LOWER 07/31/2013 CIERRA CALERO APRNA L 724.2 BACK PAIN, LOWER 07/31/2013 CAROLINA PAULSON MD 724.2 BACK PAIN, LOWER 07/31/2013 DRAKE PENA APRN A 724.2 BACK PAIN, LOWER 07/31/2013 YOHANNES TABOR DO 724.2 BACK PAIN, LOWER 12/03/2013 CAROLINA PAULSON MD Ot 305.1 12/03/2013 CAROLINA PAULSON MD Ot 401.9 12/03/2013 CAROLINA PAULSON MD Ot 496 12/03/2013 CAROLINA PAULSON MD Ot 530.81 12/03/2013 CAROLINA PAULSON MD Ot 780.4 12/03/2013 CAROLINA PAULSON MD Ot 786.50 03/31/2014 DRAKE PENA APRN 008.8 GASTROENTERITIS, VIRAL 03/31/2014 YOHANNES TABOR DO 008.8 GASTROENTERITIS, VIRAL 05/29/2014 DRAKE PENA APRN A 626.1 SCANTY OR INFREQUENT MENSTRUATION 05/29/2014 YOHANNES TABOR DO 626.1 SCANTY OR INFREQUENT MENSTRUATION 06/10/2014 YOHANNES TABOR DO V65.42 COUNSELING - SMOKING CESSATION 06/10/2014 YOHANNES TABOR DO V72.31 ION EXCHANGE OPERATOR EXAM, ROUTINE 06/22/2014 BELINDA ESTRELLA HELICOPTER CREW CHIEF Ot V76.12 06/22/2014 AJIT GALVIN, MOHAMUD A Ot 592.0 06/22/2014 AJIT GALVIN, MOHAMUD A Ot V72.63 06/22/2014 AIJT GALVIN, MOHAMUD A Ot V72.81 06/22/2014 AJIT GALVIN, MOHAMUD A Ot V72.83 06/22/2014 AJIT GALVIN, MOHAMUD A Ot V72.84 06/22/2014 AJIT GALVIN, MOHAMUD A Ot 592.1 06/22/2014 AJIT GALVIN, MOHAMUD A Ot 592.1 06/22/2014 RU GALVIN, PANCHITO Salazar Ot 682.4 CELLULITIS OF HAND 06/22/2014 RU GALVIN, PANCHITO Salazar Ot 729.5 PAIN IN LIMB 07/03/2014 BELINDA ESTRELLA HELICOPTER CREW CHIEF Ot V76.12 07/03/2014 AJIT GALVIN, MOHAMUD A Ot 592.0 07/03/2014 AJIT GALVIN, MOHAMUD A Ot V72.63 07/03/2014 AJIT GALVIN, MOHAMUD A Ot V72.81 07/03/2014 AJIT GALVIN, MOHAMUD A Ot V72.83 07/03/2014 AJIT GALVIN, MOHAMUD A Ot V72.84 07/03/2014 AJIT GALVIN, MOHAMUD A Ot 592.1 07/03/2014 AJIT GALVIN, MOHAMUD A Ot 592.1 07/03/2014 DRAKE PENA GAS PUMPING ST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 Ot V76.12 07/03/2014 DRAKE PENA GAS PUMPING ST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 Ot V76.12 07/25/2014 DRAKE PENA GAS PUMPING ST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 Ot V76.12 11/12/2014 DRAKE PENA GAS PUMPING ST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 Ot V76.12 11/12/2014 TYREE GALVIN, DARLENE Hewitt Ot 466.0 ACUTE BRONCHITIS 11/12/2014 TYREE GALVIN, DARLENE Hewitt Ot 491.21 OBSTR CHRONIC BRONCHITIS, W (ACUTE) EXAC 11/12/2014 TYREE GALVIN, DARLENE Hewitt Ot 786.2 COUGH 11/12/2014 TYREE GALVIN, DARLENE Hewitt Ot 786.59 CHEST PAIN NEC 03/19/2015 DRAKE PENA GAS PUMPING ST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 Ot V76.12 03/20/2015 DRAKE PENA GAS PUMPING ST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 Ot V76.12 03/20/2015 DAMIEN VICENTE DO Ot F17.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, CIGARETTES, IN JESSY 03/20/2015 DAMIEN VICENTE DO Ot N13.2 HYDRONEPHROSIS WITH RENAL AND URETERAL C 03/20/2015 DAMIEN VICENTE DO Ot N39.0 URINARY TRACT INFECTION, SITE NOT SPECIF 03/20/2015 DRAKE PENA GAS PUMPING ST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 Ot V76.12 05/27/2015 DRAKE PENA GAS PUMPING ST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 Ot V76.12 06/24/2015 BOBBI KATE GAS PUMPING ST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 Ot R59.0 LOCALIZED ENLARGED LYMPH NODES 06/25/2015 BOBBI KATE GAS PUMPING ST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 Ot R59.0 LOCALIZED ENLARGED LYMPH NODES 06/30/2015 BOBBI KATE A GAS PUMPING ST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 Ot R59.0 LOCALIZED ENLARGED LYMPH NODES 08/26/2015 DRAKE PENA GAS PUMPING ST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 Ot V76.12 OTH SCREEN MAMMO-MALIGN NEOPLASM OF RONNA 08/26/2015 BOBBI KATE GAS PUMPING ST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 Ot 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 08/26/2015 BOBBI KATE GAS PUMPING ST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 Ot N60.12 DIFFUSE CYSTIC MASTOPATHY OF LEFT BREAST 08/26/2015 BOBBI KATE GAS PUMPING ST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 Ot N92.6 IRREGULAR MENSTRUATION, UNSPECIFIED 08/26/2015 BOBBI KATE GAS PUMPING ST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 Ot R14.0 ABDOMINAL DISTENSION (GASEOUS) 08/26/2015 BOBBI KATE [employer]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 Ot R59.0 LOCALIZED ENLARGED LYMPH NODES 08/27/2015 KHURRAM GALVIN, [place] Ortega Ot R92.8 OTH ABN AND INCONCLUSIVE FINDINGS ON DX 08/27/2015 KHURRAM GALVIN, [place] Ortega Ot R92.8 OTH ABN AND INCONCLUSIVE FINDINGS ON DX 08/31/2015 KHURRAM GALVIN, [place] Ortega Ot N83.20 UNSPECIFIED OVARIAN CYSTS 09/03/2015 CAR[place]INA PAULSON MD Ot N83.20 UNSPECIFIED OVARIAN CYSTS 10/30/2015 [place] PAULSON MD Ot R59.0 LOCALIZED ENLARGED LYMPH NODES 10/30/2015 [place] PAULSON MD Ot R92.8 OTH ABN AND INCONCLUSIVE FINDINGS ON DX 11/03/2015 [place] PAULSON MD Ot R59.0 LOCALIZED ENLARGED LYMPH NODES 11/03/2015 [place] PAULSON MD Ot R92.8 OTH ABN AND INCONCLUSIVE FINDINGS ON DX 03/16/2016 DRAKE PENA Janet 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 Ot V76.12 OTH SCREEN MAMMO-MALIGN NEOPLASM OF RONNA 03/16/2016 BOBBI KATE 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 Ot 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 03/16/2016 BOBIB K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 Ot N60.12 DIFFUSE CYSTIC MASTOPATHY OF LEFT BREAST 03/16/2016 BOBBI KATE 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 Ot N92.6 IRREGULAR MENSTRUATION, UNSPECIFIED 03/16/2016 BOBBI KATE 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 Ot R14.0 ABDOMINAL DISTENSION (GASEOUS) 03/16/2016 BOBBI KATE APRN Ot R59.0 LOCALIZED ENLARGED LYMPH NODES 03/16/2016 [place] PAULSON MD Ot N83.20 UNSPECIFIED OVARIAN CYSTS 03/16/2016 [place] PAULSON MD Ot R92.8 OTH ABN AND INCONCLUSIVE FINDINGS ON DX 03/16/2016 CAR[place] PAULSON MD Ot R59.0 LOCALIZED ENLARGED LYMPH NODES 03/16/2016 CAR[place]INA PAULSON MD Ot R92.8 OTH ABN AND INCONCLUSIVE FINDINGS ON DX Procedures Code [place] [address] UA W/ CULTURE IF INDICATED 10/08/2012 08900 CULTURE URINE 08/2012 14533 MAMMOGRAM, SCREENING 01/03/2013 Q0091 PAP SMEAR OBTAIN SMEAR 01/03/2013 54908 PAP SMEAR 2012 35410 ROUTINE VENIPUNCTURE 04/29/2013 72070 LIPID PANEL 04/29 76818 XRAY HIP RIGHT UNILATERAL MIN 2 VIEWS 05/23/2013 96087 ROUTINE VENIPUNCTURE 07/08/2013 05953 CMP 07/08/2013 65506 CBC 07/08/2013 71675 OXIMETRY 2013 58517 XRAY SI JOINTS LESS THAN 3 VIEWS 08/08/2013 81880 TEST, URINE (IN-HOUSE) 05/29/2014 31736 MAMMOGRAM, SCREENING 06/10/2014 Results Test Result Range Automated blood complete blood count (hemogram) panel - 09/02/16 11:48 Blood leukocytes automated count (number/volume) 6.8 10*3/ uL 4.3-11.0 Blood erythrocytes automated count (number/volume) 4.09 10*6 /uL 4.35-5.85 Venous blood hemoglobin measurement (mass/volume) 11.8 g/dL 11.5-16.0 Blood hematocrit (volume fraction) 36 % 35-52 Automated erythrocyte mean corpuscular volume 88 [foz_us] 80-99 Automated erythrocyte mean corpuscular hemoglobin (mass per erythrocyte) 29 pg 25-34 Automated erythrocyte mean corpuscular hemoglobin concentration measurement ( mass/volume) 33 g/dL 32-36 Automated erythrocyte distribution width ratio 13.6 % 10.0-14.5 Automated blood platelet count (count/volume) 340 10*3/uL 130-400 Automated blood platelet mean volume measurement 9.4 [foz_us ] 7.4-10.4 Comprehensive metabolic panel - 09/02/16 11:48 Serum or plasma sodium measurement (moles/volume) 138 mmol/ L 135-145 Serum or plasma potassium measurement (moles/volume) 4.3 mmol/L 3.6-5.0 Serum or plasma chloride measurement (moles/volume) 106 mmol /L 98-107 Carbon dioxide 27 mmol/L 21-32 Serum or plasma anion gap determination (moles/volume) 5 mmol/L 5-14 Serum or plasma urea nitrogen measurement (mass/volume) 8 mg /dL 7-18 Serum or plasma creatinine measurement (mass/volume) 0.73 mg /dL 0.60-1.30 Serum or plasma urea nitrogen/creatinine mass ratio 11 NRG Serum or plasma creatinine measurement with calculation of estimated glomerular filtration rate > NRG Serum or plasma glucose measurement (mass/volume) 125 mg/dL 70-105 Serum or plasma calcium measurement (mass/volume) 9.3 mg/dL 8.5-10.1 Serum or plasma total bilirubin measurement (mass/volume) 0.8 mg/dL 0.1-1.0 Serum or plasma alkaline phosphatase measurement (enzymatic activity/volume) 97 U/L 40-136 Serum or plasma aspartate aminotransferase measurement (enzymatic activity/ volume) 10 U/L 5-34 Serum or plasma alanine aminotransferase measurement (enzymatic activity/volume ) 18 U/L 0-55 Serum or plasma protein measurement (mass/volume) 7.3 g/dL 6.4-8.2 Serum or plasma albumin measurement (mass/volume) 4.0 g/dL 3.2-4.5 Magnesium - 09/02/16 11:48 Magnesium 2.0 mg/dL 1.8-2.4 Serum or plasma troponin i.cardiac measurement (mass/volume) - 09/02/16 11:48 Serum or plasma troponin i.cardiac measurement (mass/volume) < ng/mL <0.30 Lipid 1996 panel - 09/02/16 11:48 Serum or plasma triglyceride measurement (mass/volume) 94 mg /dL <150 Serum or plasma cholesterol measurement (mass/volume) 169 mg /dL < 200 Serum or plasma cholesterol in HDL measurement (mass/volume) 40 mg/dL 40-60 Cholesterol in LDL [mass/volume] in serum or plasma by direct assay 110 mg/dL 1-129 Serum or plasma cholesterol in VLDL measurement (mass/volume) 19 mg/dL 5-40 THYROID STIMULATING HORMONE - 09/02/16 11:48 THYROID STIMULATING HORMONE 2.21 u[iU]/mL 0.35-4.94 Encounters ACCT No. Visit Date/Time Discharge Status Pt. Type Provider Facility Loc./Unit Complaint [id number] 06/10/2014 10:19:00 06/10/2014 23: 59:59 CLS Outpatient LEANDER CHRISTIAN YOHANNES Martin [id number] 05/29/2014 14:48:00 05/29/2014 23: 59:59 CLS Outpatient DRAKE PENA APRN [id number] 01/14/2014 14:42:00 01/14/2014 23: 59:59 CLS Outpatient CAROLINA PAULSON MD [id number] 08/07/2013 10:01:00 08/07/2013 23: 59:59 CLS Outpatient ROE CALERO APRN [id number] 07/31/2013 13:56:00 07/31/2013 23: 59:59 CLS Outpatient ROE CALERO APRN [id number] 07/11/2013 06:13:00 07/11/2013 23: 59:59 CLS Outpatient RIO MOULTON MD [id number] 07/08/2013 14:08:00 07/08/2013 23: 59:59 CLS Outpatient YOHANNES TABOR DO [id number] 05/23/2013 14:54:00 05/23/2013 23: 59:59 CLS Outpatient CAROLINA PAULSON MD [id number] 04/29/2013 15:02:00 04/29/2013 23: 59:59 CLS Outpatient CAROLINA PAULSON MD [id number] 04/25/2013 14:34:00 04/25/2013 23: 59:59 CLS Outpatient CAROLINA PAULSON MD [id number] 01/03/2013 09:26:00 01/03/2013 23: 59:59 CLS Outpatient DRAKE PENA APRN [id number] 01/01/2013 09:51:00 01/01/2013 23: 59:59 CLS Outpatient YOHANNES TABOR DO [id number] 10/08/2012 08:36:00 Document Registration
[2016-09-16] MEDS ORDERED: RANI150T15 PO (13:50)
--- NOTE | 2016-09-16 14:07 | ED Chest Pain ---
General Chief Complaint: Chest Pain Stated Complaint: CHEST PAIN/SOB Nursing Triage Note: CHEST PAIN ON AND OFF X1 MONTH. HAS AN UPCOMING APPT WITH DR VIGIL. STATES TODAY SHE IS ALSO HAVING PAIN IN HER LEFT JAW WHICH IS NEW. Nursing Sepsis Screen: No Definite Risk Source: patient Exam Limitations: no limitations History of Present Illness Time seen by provider: 14:03 Initial Comments This 46-year-old white female presents with pressure type chest pain which radiates into her left jaw. The patient has been having chest pain intermittently for the last month. The radiation to the jaw is new onset today. The patient has had mild associated shortness of breath. She has had no diaphoresis or nausea. The patient has had a previous normal cardiac catheterization approximately 5 years ago. The patient suffers from hypertension which is now under good control. Allergies and Home Medications Allergies Coded Allergies: codeine (Verified Allergy, Severe, THROAT SWELLS SHUT, 06/28/13) Home Medications Lisinopril 10 Mg Tab, 10 MG PO DAILY, #30 Ref 1 Prescribed by: JOE HEREDIA on 12/03/13 1153 Metoprolol Tartrate 50 Mg Tab, 50 MG PO BID, #60 Ref 2 Prescribed by: JOE HEREDIA on 12/03/13 1153 Ranitidine HCl 150 Mg Tablet, 150 MG PO BID, (Reported) Tramadol HCl 50 Mg Tablet, 50 MG PO Q4H, #20 Prescribed by: DAMIEN VICENTE on 03/20/15 0657 Review of Systems Constitutional: No chills, No fever EENTM: No Eye Pain, No Mouth Pain, Other (jaw pain which appears to be radiating from the chest.) Respiratory: Shortness of Air Cardiovascular: See HPI, Chest Pain, Denies Irregular Heart Rate, Denies Syncope Gastrointestinal: Denies Abdomen Distended, Denies Abdominal Pain, Denies Diarrhea, Denies Nausea, Denies Vomiting Genitourinary: Denies Burning, Denies Frequency Musculoskeletal: No see HPI, No joint swelling Skin: No change in color, No rash Psychiatric/Neurological: No Symptoms Reported Endocrine: No Symptoms Reported Hematologic/Lymphatic: No Symptoms Reported Past Myxiuuk-Exleot-Euqmmg Hx Patient Social History Alcohol Use: Denies Use Recreational Drug Use: No Smoking Status: Never a Smoker Former Smoker/When Quit: Nov 12, 2014 Recent Foreign Travel: No Contact w/Someone Who Travel: No Recent Infectious Disease Expo: No Recent Hopitalizations: Yes (Kidney stones//premature labor) Immunizations Up To Date Tetanus Booster (TDap): Unknown PED Vaccines UTD: No Date of Pneumonia Vaccine: Jun 29, 2013 Date of Influenza Vaccine: Nov 28, 2013 Seasonal Allergies Seasonal Allergies: No Surgeries HX Surgeries: Yes (R ROTATOR CUFF, KIDNEY STONE REMOVED/LITHOTRIPSY + STENT; OVARIAN CYST) Surgeries: Abdominal, Appendectomy, Cardiac, Orthopedic, Renal Respiratory Hx Respiratory Disorders: Yes Respiratory Disorders: Asthma, COPD Cardiovascular Hx Cardiac Disorders: Yes Cardiac Disorders: Hypertension Neurological Hx Neurological Disorders: Yes (CONCUSSION AT AGE 22) Neurological Disorders: Concussion Reproductive System Hx Reproductive Disorders: Yes (POLYCYSTIC OVARY--SURGERY 1999) Sexually Transmitted Disease: No HIV/AIDS: No Female Reproductive Disorders: Ovarian Cyst, Polycystic Ovarian Dis Genitourinary Hx Genitourinary Disorders: Yes ( URETERAL STENT, LITHOTRIPSY; INCONT PROBLEMS SINCE KIDNEY STONE REMOVED) Genitourinary Disorders: Kidney Infection, Bladder Infection, Kidney Stones Gastrointestinal Hx Gastrointestinal Disorders: Yes Gastrointestinal Disorders: Gastroesophageal Reflux Musculoskeletal Hx Musculoskeletal Disorders: Yes (BULGING DISC) Musculoskeletal Disorders: Degenerate Disk Disease, Chronic Back Pain Endocrine Hx Endocrine Disorders: No HEENT HX ENT Disorders: No Cancer Hx Cancer: No Psychosocial Hx Psychiatric Problems: No Integumentary HX Skin/Integumentary Disorder: Yes Skin/Integumentary Disorders: Psoriasis Blood Transfusions Hx Blood Disorders: No Adverse Reaction to a Blood Tr: No Reviewed Nursing Assessment Reviewed/Agree w Nursing PMH: Yes Family Medical History Family Medial History: Family history: Diabetes mellitus 03 MOTHER Family history: Hypertension 03 MOTHER Family history: Osteoporosis 03 MOTHER Family history: Thyroid disorder 03 MOTHER Heart disease 03 MOTHER (TRIPLE BYPASS 2009) History of - disorder 09 SISTER (lupus) History of - respiratory disease 03 FATHER (COPD) Kidney disease 03 MOTHER (KINDEY FAILURE) Myocardial infarction 03 FATHER (1990-TRIPLE BYPASS 1996 DIFIB[address] PLACES) 09 BROTHER (2010) Seizure disorder 03 FATHER (GRAND MAL) Physical Exam Vital Signs Vital Sign - Last 12Hours 09/16/16 13:41 Temp 98.0 Pulse 111 Resp 18 B/P (MAP) 128/74 Pulse Ox 98 O2 Delivery Room Air Capillary Refill : Less Than 3 Seconds General Appearance: No Apparent Distress, WD/WN HEENT: Normal ENT Inspection Neck: Normal Inspection Respiratory: Lungs Clear Cardiovascular: Regular Rate, Rhythm, No Murmur Gastrointestinal: Normal Bowel Sounds, No Organomegaly Extremity: Normal Inspection, Normal Range of Motion Neurologic/Psychiatric: Oriented x3, No Motor/Sensory Deficits Skin: Normal Color, Warm/Dry Progress/Results/Core Measures Results/Orders Lab Results Laboratory Tests Test 09/16/16 13:53 Range/Units White Blood Count 8.1 4.3-11.0 10^3/uL Red Blood Count 4.14 L 4.35-5.85 10^6/uL Hemoglobin 11.9 11.5-16.0 G/DL Hematocrit 36 35-52 % Mean Corpuscular Volume 87 80-99 FL Mean Corpuscular Hemoglobin 29 25-34 PG Mean Corpuscular Hemoglobin Concent 33 32-36 G/DL Red Cell Distribution Width 13.7 10.0-14.5 % Platelet Count 325 130-400 10^3/uL Mean Platelet Volume 9.3 7.4-10.4 FL Neutrophils (%) (Auto) 61 42-75 % Lymphocytes (%) (Auto) 29 12-44 % Monocytes (%) (Auto) 5 0-12 % Eosinophils (%) (Auto) 5 0-10 % Basophils (%) (Auto) 0 0-10 % Neutrophils # (Auto) 5.0 1.8-7.8 X 10^3 Lymphocytes # (Auto) 2.3 1.0-4.0 X 10^3 Monocytes # (Auto) 0.4 0.0-1.0 X 10^3 Eosinophils # (Auto) 0.4 H 0.0-0.3 10^3/uL Basophils # (Auto) 0.0 0.0-0.1 10^3/uL Prothrombin Time 11.5 L 12.2-14.7 SEC INR Comment 0.9 0.8-1.4 Activated Partial Thromboplast Time 34 24-35 SEC D-Dimer 0.42 0.00-0.49 UG/ML Sodium Level 138 135-145 MMOL/L Potassium Level 3.7 3.6-5.0 MMOL/L Chloride Level 106 98-107 MMOL/L Carbon Dioxide Level 23 21-32 MMOL/L Anion Gap 9 5-14 MMOL/L Blood Urea Nitrogen 8 7-18 MG/DL Creatinine 0.77 0.60-1.30 MG/DL Estimat Glomerular Filtration Rate > 60 BUN/Creatinine Ratio 10 Glucose Level 156 H 70-105 MG/DL Calcium Level 9.0 8.5-10.1 MG/DL Magnesium Level 2.0 1.8-2.4 MG/DL Total Bilirubin 0.6 0.1-1.0 MG/DL Aspartate Amino Transf (AST/SGOT) 8 5-34 U/L Alanine Aminotransferase (ALT/SGPT) 18 0-55 U/L Alkaline Phosphatase 110 40-136 U/L Myoglobin 18.3 10.0-92.0 NG/ML Troponin I < 0.30 <0.30 NG/ML B-Type Natriuretic Peptide 10.4 <100.0 PG/ML Total Protein 7.1 6.4-8.2 GM/DL Albumin 3.9 3.2-4.5 GM/DL Lipase 17 8-78 U/L My Orders Orders - DAVIS BAH MD Cbc With Automated Diff (09/16/16 14:01) Magnesium (09/16/16 14:01) Chest 1 View, Ap/Pa Only (09/16/16 14:01) Ekg Tracing (09/16/16 14:01) Cardiac Profile 1 (09/16/16 14:01) Comprehensive Metabolic Panel (09/16/16 14:) Myoglobin Serum (09/16/16 14:01) Protime With Inr (09/16/16 14:) Partial Thromboplastin Time (09/16/16 14:01) O2 (09/16/16 14:01) Monitor-Rhythm Ecg Trace Only (09/16/16 14:) Lipid Panel (09/17/16 06:00) Aspirin Chewable Tablet (Baby Aspirin Ch (09/16/16 14:15) Rx-Nitroglycerin Sl Tabs (Rx-Nitrostat S (09/16/16 14:15) Saline Lock/Iv-Start (09/16/16 14:01) Lipase (09/16/16 14:01) BNP (09/16/16 14:01) Fibrin Degradation Products (09/16/16 14:) Medications Given in ED Current Medications Medications Dose Ordered Sig/Edgardo Route Start Time Stop Time Status Last Admin Dose Admin Aspirin 324 mg ONCE ONCE PO 09/16/16 14:15 09/16/16 14:16 DC 09/16/16 14:08 324 MG Nitroglycerin 0.4 mg PRN PRN SL 09/16/16 14:15 09/16/16 14:22 0.4 MG Vital Signs/I&O Vital Sign - Last 12Hours 09/16/16 13:41 Temp 98.0 Pulse 111 Resp 18 B/P (MAP) 128/74 Pulse Ox 98 O2 Delivery Room Air Blood Pressure Mean: 92 Progress Note : Time: 14:56 Progress Note The patient's chest pain abated with 2 nitroglycerin. Chest pain diminished from a 6-0. The patient was given aspirin orally. The patient's laboratory evaluation including troponin, BNP, and d-dimer were normal. The patient's EKG demonstrated normal sinus rhythm. No acute current of injury was noted. After telephone consultation with cardiology in family practice from [facility] the patient was admitted to Dr. Talley's service for further observation and care. She was placed on a cardiac stepdown bed with telemetry. ECG Initial ECG Rhythm: Normal Sinus Initial ECG Intervals: Normal Initial ECG Impression: Normal Departure Communication Time/Spoke to Admitting Phy: 14:[address] Talley. Impression Impression: Primary Impression: Chest pain Qualified Codes: R07.9 - Chest pain, unspecified Disposition: ADMITTED INPATIENT Condition: Improved Decision to Admit Reason: Admit from ER (General) Decision to Admit/Date: Sep 16, 2016 Time/Decision to Admit Time: 14:58 Departure-Patient Inst. Referrals: CAROLINA PAULSON MD (PCP/Family) Primary Care Physician DAVIS BAH MD Sep 16, 2016 14:07
[2016-09-16 14:08] LABS: BASOPHILS % (AUTO) 0 % (0-10); EOSINOPHILS # (AUTO) 0.4 10^3/uL (0.0-0.3); EOSINOPHILS % (AUTO) 5 % (0-10); LYMPHOCYTES # (AUTO) 2.3 X 10^3 (1.0-4.0); LYMPHOCYTES % (AUTO) 29 % (12-44); MEAN CORPUSCULAR HEMOGLOBIN 29 PG (25-34); MEAN CORPUSCULAR HGB CONC 33 G/DL (32-36); MEAN CORPUSCULAR VOLUME 87 FL (80-99); MEAN PLATELET VOLUME 9.3 FL (7.4-10.4); MONOCYTES # (AUTO) 0.4 X 10^3 (0.0-1.0); MONOCYTES % (AUTO) 5 % (0-12); NEUTROPHILS % (AUTO) 61 % (42-75); PLATELET COUNT 325 10^3/uL (130-400); RED BLOOD COUNT 4.14 10^6/uL (4.35-5.85); RED CELL DISTRIBUTION WIDTH 13.7 % (10.0-14.5); WHITE BLOOD COUNT 8.1 10^3/uL (4.3-11.0)
[2016-09-16] MEDS: RX-NITROGLYCERIN 0.4 MG TAB BTL 25'S SL PRN ×2 (14:09→14:22)
[2016-09-16 14:12] LABS: INR 0.9 (0.8-1.4); PROTHROMBIN TIME PATIENT 11.5 SEC (12.2-14.7)
[2016-09-16] MEDS ORDERED: ASPIRIN 81 MG CHEW (CHILDREN'S ASA) PO ONE (14:15)
[2016-09-16 14:24] LABS: ALANINE AMINOTRANSFERASE 18 U/L (0-55); ALBUMIN 3.9 GM/DL (3.2-4.5); ANION GAP 9 MMOL/L (5-14); ASPARTATE AMINO TRANSFERASE 8 U/L (5-34); BILIRUBIN,TOTAL 0.6 MG/DL (0.1-1.0); BLOOD UREA NITROGEN 8 MG/DL (7-18); BUN/CREATININE RATIO 10; CARBON DIOXIDE 23 MMOL/L (21-32); CHLORIDE 106 MMOL/L (98-107); CREATININE SERUM 0.77 MG/DL (0.60-1.30); GFR ESTIMATED > 60; GLUCOSE 156 MG/DL (70-105); LIPASE 17 U/L (8-78); POTASSIUM 3.7 MMOL/L (3.6-5.0); SODIUM 138 MMOL/L (135-145); TOTAL PROTEIN 7.1 GM/DL (6.4-8.2)
[2016-09-16 14:31] LABS: MYOGLOBIN SERUM 18.3 NG/ML (10.0-92.0)
--- NOTE | 2016-09-16 14:59 | Diagnostic Imaging Report ---
INDICATION: Left-sided chest pain. Portable chest at 02:35 p.m. FINDINGS: Heart size and pulmonary vascularity are normal. Lungs are clear. There are no effusions or pneumothoraces. IMPRESSION: Negative chest. Dictated by: Dictated on workstation # [id number]
--- OUTSIDE RECORDS SUMMARY | 2016-09-16 15:21 | XMS REPORT | Continuity of Care Document ---
Author Author [facility] Address Unknown Phone Unavailable Allergies Active Description Code Type Severity Reaction Onset Reported/Identified Relationship to Patient Clinical Status Yes codeine Drug Allergy N/A N/A 09/01/2008 Yes codeine [id number] Drug Allergy Severe THROAT SWELLS S 06/28/2013 Medications Problems Date Dx Coded Attending Type Code Diagnosis Diagnosed By 09/01/2008 616.0 Cervicitis And Endocervicitis 09/01/2008 V72.3 GYNECOLOGICAL EXAMINATION 09/01/2008 YOHANNES TABOR DO 616.0 Cervicitis And Endocervicitis 09/01/2008 YOHANNES TABOR DO V72.3 GYNECOLOGICAL EXAMINATION 09/01/2008 DRAKE PENA APRN 616.0 Cervicitis And Endocervicitis 09/01/2008 DRAKE PENA APRN V72.3 GYNECOLOGICAL EXAMINATION 09/01/2008 CAROLINA PAULSNO MD 616.0 Cervicitis And Endocervicitis 09/01/2008 CAROLINA [...] APRNA L 616.0 Cervicitis And Endocervicitis 09/01/2008 [facility], ROE L V72.3 GYNECOLOGICAL EXAMINATION [...] TABOR DO NODX No Diagnosis 12/25/2009 JEAN OCCUPATIONAL THERAPY ASSISTANT, DRAKE A NODX No Diagnosis 12/25/2009 CAROLINA PAULSON MD NODX No Diagnosis 12/25/2009 CAROLINA PAULSON MD NODX No Diagnosis 12/25/2009 CAROLINA PAULSON MD NODX No Diagnosis 12/25/2009 YOHANNES TABOR DO K NODX No Diagnosis 12/25/2009 RIO MOULTON MD NODX No Diagnosis 12/25/2009 MADL OCCUPATIONAL THERAPY ASSISTANT, ROE [place] NODX No Diagnosis 12/25/2009 GALILEA OCCUPATIONAL THERAPY ASSISTANT, ROE L NODX No Diagnosis 12/25/2009 CAROLINA [...] HISTORY OF OTHER CARDIOVASCULAR DISEASES 12/29/2009 MADDarvin OCCUPATIONAL THERAPY ASSISTANT, ROE L 401.1 ESSENTIAL HYPERTENSION BENIGN 12/29/2009 MADL OCCUPATIONAL THERAPY ASSISTANT, ROE L V17.49 FAMILY HISTORY OF OTHER CARDIOVASCULAR DISEASES 12/29/2009 MADL OCCUPATIONAL THERAPY ASSISTANT, ROE L 401.1 ESSENTIAL HYPERTENSION BENIGN 12/29/2009 MADL OCCUPATIONAL THERAPY ASSISTANT, ROE L V17.49 FAMILY HISTORY OF OTHER CARDIOVASCULAR DISEASES 12/29/2009 CAROLINA PAULSON MD 401.1 ESSENTIAL HYPERTENSION BENIGN 12/29/2009 CAROLINA PAULSON MD V17.49 FAMILY HISTORY OF OTHER CARDIOVASCULAR DISEASES 12/29/2009 JEANSHEKHAR Ortega APRNIDI A 401.1 ESSENTIAL HYPERTENSION BENIGN 12/29/2009 JEAN OCCUPATIONAL THERAPY ASSISTANT, DRAKE A V17.49 FAMILY HISTORY OF OTHER [...] TABOR DO 493.90 ASTHMA UNSPECIFIED 02/05/2010 DRAKE PENA APRN A 493.90 ASTHMA UNSPECIFIED 02/05/2010 CAROLINA PAULSON MD 493.90 ASTHMA UNSPECIFIED 02/05/2010 CAROLINA PAULSON MD 493.90 ASTHMA UNSPECIFIED 02/05/2010 CAROLINA PAULSON MD 493.90 ASTHMA UNSPECIFIED 02/05/2010 YOHANNES TABOR DO 493.90 ASTHMA UNSPECIFIED 02/05/2010 RIO MOULTON MD 493.90 ASTHMA UNSPECIFIED 02/05/2010 MADL OCCUPATIONAL THERAPY ASSISTANT, ROE L 493.90 ASTHMA UNSPECIFIED 02/05/2010 MADL OCCUPATIONAL THERAPY ASSISTANTCIERRA OrtegaA L 493.90 ASTHMA UNSPECIFIED 02/05/2010 CAROLINA PAULSON MD 493.90 ASTHMA UNSPECIFIED 02/05/2010 DRAKE PENA APRN A 493.90 ASTHMA UNSPECIFIED 02/05/2010 TABOR DO, YOHANNES K 493.90 ASTHMA UNSPECIFIED 02/22/2010 462 Sore Throat 02/22/2010 478.75 Croup Spasmodic 02/22/2010 TABOR DO, YOHANNES K 462 Sore Throat 02/22/2010 TABOR DO, YOHANNES K 478.75 Croup Spasmodic 02/22/2010 JEAN OCCUPATIONAL THERAPY ASSISTANT, DRAKE A 462 Sore Throat 02/22/2010 JEAN OCCUPATIONAL THERAPY ASSISTANT, DRAKE A 478.75 Croup Spasmodic 02/22/2010 KHURRAM [...] MOULTON MD 478.75 Croup Spasmodic 02/22/2010 MADL OCCUPATIONAL THERAPY ASSISTANT, ROE L 462 Sore Throat 02/22/2010 MADL OCCUPATIONAL THERAPY ASSISTANT, ROE L 478.75 Croup Spasmodic 02/22/2010 MADL OCCUPATIONAL THERAPY ASSISTANT, ROE L 462 Sore Throat 02/22/2010 MADL OCCUPATIONAL THERAPY ASSISTANT, ROE L 478.75 Croup Spasmodic 02/22/2010 KHURRAM GALVIN, CAROLINA N 462 Sore Throat 02/22/2010 CAROLINA PAULSON MD N 478.75 Croup Spasmodic 02/22/2010 JEAN OCCUPATIONAL THERAPY ASSISTANT, DRAKE A 462 Sore Throat 02/22/2010 JEAN OCCUPATIONAL THERAPY ASSISTANT, DRAKE A 478.75 Croup Spasmodic 02/22/2010 TABOR [...] MD N 466.0 Acute Bronchitis 08/30/2011 JEAN OCCUPATIONAL THERAPY ASSISTANT, DRAKE A 305.1 NONDEPENDENT TOBACCO USE DISORDER 08/30/2011 DRAKE PENA APRN A 466.0 Acute Bronchitis 08/30/2011 YOHANNES TABOR DO 305.1 NONDEPENDENT TOBACCO USE DISORDER 08/30/2011 YOHANNES TABOR DO K 466.0 Acute Bronchitis 10/08/2012 [...] DOA K V76.10 BREAST CANCER SCREENING 01/03/2013 FRANAZ TABOR DOA K V76.2 CERVICAL CANCER SCREENING [...] MD 786.09 RESPIRATORY ABNORMALITY OTHER 07/08/2013 RAMIREZL OCCUPATIONAL THERAPY ASSISTANT, ROE L 496 CHRONIC AIRWAY OBSTRUCTION NOT ELSEWHERE CLASSIFIED 07/08/2013 MADL OCCUPATIONAL THERAPY ASSISTANT, ROE L 786.09 RESPIRATORY ABNORMALITY OTHER 07/08/2013 MADL OCCUPATIONAL THERAPY ASSISTANT, ROE L 496 CHRONIC AIRWAY OBSTRUCTION NOT ELSEWHERE CLASSIFIED 07/08/2013 MADL OCCUPATIONAL THERAPY ASSISTANT, ROE L 786.09 RESPIRATORY ABNORMALITY OTHER 07/08/2013 CARLOINA PAULSON MD 496 CHRONIC AIRWAY OBSTRUCTION NOT [...] SMOKING CESSATION 06/10/2014 YOHANNES TABOR DO V72.31 HOOP COILER EXAM, ROUTINE 06/22/2014 BELINDA ESTRELLA AIRBORNE SENSOR SPECIALIST Ot V76.12 06/22/2014 AJIT GALVIN, MOHAMUD A Ot 592.0 06/22/2014 AJIT GALVIN, MOHAMUD A Ot V72.63 06/22/2014 AJIT GALVIN, MOHAMUD A Ot V72.81 06/22/2014 AJIT GALVIN, MOHAMUD A Ot V72.83 06/22/2014 AJIT GALVIN, MOHAMUD A Ot V72.84 06/22/2014 AJIT GALVIN, MOHAMUD A Ot 592.1 06/22/2014 AJIT GALVIN, MOHAMUD A Ot 592.1 06/22/2014 UR GALVIN, PANCHITO Salazar Ot 682.4 CELLULITIS OF HAND 06/22/2014 RU GALVIN, PANCHITO Salazar Ot 729.5 PAIN IN LIMB 07/03/2014 BELINDA ESTRELLA AIRBORNE SENSOR SPECIALIST Ot V76.12 07/03/2014 AJIT GALVIN, MOHAMUD A Ot 592.0 07/03/2014 AJIT GALVIN, MOHAMUD A Ot V72.63 07/03/2014 AJIT GALVIN, MOHAMUD A Ot V72.81 07/03/2014 AJIT GALVIN, MOHAMUD A Ot V72.83 07/03/2014 AJIT GALVIN, MOHAMUD A Ot V72.84 07/03/2014 AJIT GALVIN, MOHAMUD A Ot 592.1 07/03/2014 AJIT GALVIN, MOHAMUD A Ot 592.1 07/03/2014 DRAKE PENA OCCUPATIONAL THERAPY ASSISTANT Ot V76.12 07/03/2014 DRAKE PENA OCCUPATIONAL THERAPY ASSISTANT Ot V76.12 07/25/2014 DRAKE PENA OCCUPATIONAL THERAPY ASSISTANT Ot V76.12 11/12/2014 DRAKE PENA OCCUPATIONAL THERAPY ASSISTANT Ot V76.12 11/12/2014 TYREE GALVIN, DARLENE Hewitt Ot 466.0 ACUTE BRONCHITIS 11/12/2014 TYREE GALVIN, DARLENE Hewitt Ot 491.21 OBSTR CHRONIC BRONCHITIS, W (ACUTE) EXAC 11/12/2014 TYREE GALVIN, DARLENE Hewitt Ot 786.2 COUGH 11/12/2014 TYREE GALVIN, DARLENE Hewitt Ot 786.59 CHEST PAIN NEC 03/19/2015 DRAKE PENA OCCUPATIONAL THERAPY ASSISTANT Ot V76.12 03/20/2015 DRAKE PENA OCCUPATIONAL THERAPY ASSISTANT Ot V76.12 03/20/2015 DAMIEN VICENTE DO Ot F17.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, CIGARETTES, IN JESSY 03/20/2015 DAMIEN VICENTE DO Ot N13.2 HYDRONEPHROSIS WITH RENAL AND URETERAL C 03/20/2015 DAMIEN VICENTE DO Ot N39.0 URINARY TRACT INFECTION, SITE NOT SPECIF 03/20/2015 DRAKE PENA OCCUPATIONAL THERAPY ASSISTANT Ot V76.12 05/27/2015 DRAKE PENA OCCUPATIONAL THERAPY ASSISTANT Ot V76.12 06/24/2015 BOBBI KATE OCCUPATIONAL THERAPY ASSISTANT Ot R59.0 LOCALIZED ENLARGED LYMPH NODES 06/25/2015 BOBBI KATE OCCUPATIONAL THERAPY ASSISTANT Ot R59.0 LOCALIZED ENLARGED LYMPH NODES 06/30/2015 BOBBI KATE A OCCUPATIONAL THERAPY ASSISTANT Ot R59.0 LOCALIZED ENLARGED LYMPH NODES 08/26/2015 DRAKE PENA OCCUPATIONAL THERAPY ASSISTANT Ot V76.12 OTH SCREEN MAMMO-MALIGN NEOPLASM OF RONNA 08/26/2015 BOBBI KATE OCCUPATIONAL THERAPY ASSISTANT Ot 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 08/26/2015 BOBBI KATE OCCUPATIONAL THERAPY ASSISTANT Ot N60.12 DIFFUSE CYSTIC MASTOPATHY OF LEFT BREAST 08/26/2015 BOBBI KATE OCCUPATIONAL THERAPY ASSISTANT Ot N92.6 IRREGULAR MENSTRUATION, UNSPECIFIED 08/26/2015 BOBBI KATE OCCUPATIONAL THERAPY ASSISTANT Ot R14.0 ABDOMINAL DISTENSION (GASEOUS) 08/26/2015 BOBBI KATE OCCUPATIONAL THERAPY ASSISTANT Ot R59.0 LOCALIZED ENLARGED LYMPH NODES 08/27/2015 [...] FINDINGS ON DX 03/16/2016 DRAKE PENA Janet OCCUPATIONAL THERAPY ASSISTANT Ot V76.12 OTH SCREEN MAMMO-MALIGN NEOPLASM OF RONNA 03/16/2016 BOBBI KATE OCCUPATIONAL THERAPY ASSISTANT Ot 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 03/16/2016 BOBBI KATE OCCUPATIONAL THERAPY ASSISTANT Ot N60.12 DIFFUSE CYSTIC MASTOPATHY OF LEFT BREAST 03/16/2016 BOBBI KATE OCCUPATIONAL THERAPY ASSISTANT Ot N92.6 IRREGULAR MENSTRUATION, UNSPECIFIED 03/16/2016 BOBBI KATE OCCUPATIONAL THERAPY ASSISTANT Ot R14.0 ABDOMINAL DISTENSION (GASEOUS) 03/16/2016 BOBBI [...] Procedures Code Description [place] [address] UA W/ CULTURE IF INDICATED 10/08/2012 51592 CULTURE URINE 08/2012 41801 MAMMOGRAM, SCREENING 01/03/2013 Q0091 PAP SMEAR OBTAIN SMEAR 01/03/2013 34136 PAP SMEAR 2012 22344 ROUTINE VENIPUNCTURE 04/29/2013 35867 LIPID PANEL 04/29 51704 XRAY HIP RIGHT UNILATERAL MIN 2 VIEWS 05/23/2013 04340 ROUTINE VENIPUNCTURE 07/08/2013 53706 CMP 07/08/2013 15744 CBC 07/08/2013 14390 OXIMETRY 2013 80935 XRAY SI JOINTS LESS THAN 3 VIEWS 08/08/2013 35124 TEST, URINE (IN-HOUSE) 05/29/2014 13691 MAMMOGRAM, SCREENING 06/10/2014 Results Test Result Range [...] 11:48 THYROID STIMULATING HORMONE 2.21 u[iU]/mL 0.35-4.94 Complete blood count (CBC) with automated white blood cell (WBC) differential - 09/16/16 13:53 Blood leukocytes automated count (number/volume) 8.1 10*3/ uL 4.3-11.0 Blood erythrocytes automated count (number/volume) 4.14 10*6 /uL 4.35-5.85 Venous blood hemoglobin measurement (mass/volume) 11.9 g/dL 11.5-16.0 Blood hematocrit (volume fraction) 36 % 35-52 Automated erythrocyte mean corpuscular volume 87 [foz_us] 80-99 Automated erythrocyte mean corpuscular hemoglobin (mass per erythrocyte) 29 pg 25-34 Automated erythrocyte mean corpuscular hemoglobin concentration measurement ( mass/volume) 33 g/dL 32-36 Automated erythrocyte distribution width ratio 13.7 % 10.0-14.5 Automated blood platelet count (count/volume) 325 10*3/uL 130-400 Automated blood platelet mean volume measurement 9.3 [foz_us ] 7.4-10.4 Automated blood neutrophils/100 leukocytes 61 % 42-75 Automated blood lymphocytes/100 leukocytes 29 % 12-44 Blood monocytes/100 leukocytes 5 % 0-12 Automated blood eosinophils/100 leukocytes 5 % 0-10 Automated blood basophils/100 leukocytes 0 % 0-10 Blood neutrophils automated count (number/volume) 5.0 10*3 1.8-7.8 Blood lymphocytes automated count (number/volume) 2.3 10*3 1.0-4.0 Blood monocytes automated count (number/volume) 0.4 10*3 0.0-1.0 Automated eosinophil count 0.4 10*3/uL 0.0-0.3 Automated blood basophil count (count/volume) 0.0 10*3/uL 0.0-0.1 PT panel in platelet poor plasma by coagulation assay - 09/16/16 13:53 Prothrombin time (PT) in platelet poor plasma by coagulation assay 11.5 s 12.2-14.7 INR in platelet poor plasma or blood by coagulation assay 0.9 0.8-1.4 Activated partial thromboplastin time (aPTT) in platelet poor plasma bycoagulation assay - 09/16/16 13:53 Activated partial thromboplastin time (aPTT) in platelet poor plasma bycoagulation assay 34 s 24-35 Fibrin D-dimer FEU measurement in platelet poor plasma (mass/volume) - 13:53 Fibrin D-dimer FEU measurement in platelet poor plasma (mass/volume) 0.42 ug/mL 0.00-0.49 Comprehensive metabolic panel - 09/16/16 13:53 Serum or plasma sodium measurement (moles/volume) 138 mmol/ L 135-145 Serum or plasma potassium measurement (moles/volume) 3.7 mmol/L 3.6-5.0 Serum or plasma chloride measurement (moles/volume) 106 mmol /L 98-107 Carbon dioxide 23 mmol/L 21-32 Serum or plasma anion gap determination (moles/volume) 9 mmol/L 5-14 Serum or plasma urea nitrogen measurement (mass/volume) 8 mg /dL 7-18 Serum or plasma creatinine measurement (mass/volume) 0.77 mg /dL 0.60-1.30 Serum or plasma urea nitrogen/creatinine mass ratio 10 NRG Serum or plasma creatinine measurement with calculation of estimated glomerular filtration rate > NRG Serum or plasma glucose measurement (mass/volume) 156 mg/dL 70-105 Serum or plasma calcium measurement (mass/volume) 9.0 mg/dL 8.5-10.1 Serum or plasma total bilirubin measurement (mass/volume) 0.6 mg/dL 0.1-1.0 Serum or plasma alkaline phosphatase measurement (enzymatic activity/volume) 110 U/L 40-136 Serum or plasma aspartate aminotransferase measurement (enzymatic activity/ volume) 8 U/L 5-34 Serum or plasma alanine aminotransferase measurement (enzymatic activity/volume ) 18 U/L 0-55 Serum or plasma protein measurement (mass/volume) 7.1 g/dL 6.4-8.2 Serum or plasma albumin measurement (mass/volume) 3.9 g/dL 3.2-4.5 Magnesium - 09/16/16 13:53 Magnesium 2.0 mg/dL 1.8-2.4 Myoglobin, serum - 09/16/16 13:53 Myoglobin, serum 18.3 ng/mL 10.0-92.0 Serum or plasma troponin i.cardiac measurement (mass/volume) - 09/16/16 13:53 Serum or plasma troponin i.cardiac measurement (mass/volume) < ng/mL <0.30 Lipase - 09/16/16 13:53 Lipase 17 U/L 8-78 Myoglobin, serum - 09/16/16 13:53 Myoglobin, serum 18.3 ng/mL 10.0-92.0 Lipase - 09/16/16 13:53 Lipase 17 U/L 8-78 Serum or plasma lithium measurement (moles/volume) - 09/16/16 13:53 BNP level 10.4 pg/mL <100.0 Encounters ACCT No. Visit Date/Time Discharge Status Pt. Type Provider Facility Loc./Unit Complaint [id number] 06/10/2014 10:19:00 06/10/2014 23: 59:59 CLS Outpatient YOHANNES TABOR DO [id number] 05/29/2014 14:48:00 05/29/2014 23: 59:59 CLS Outpatient DRAKE PENA APRN [id number] 01/14/2014 14:42:00 01/14/2014 23: 59:59 CLS Outpatient CAROLINA PAULSON MD [id number] 08/07/2013 10:01:00 08/07/2013 23: 59:59 CLS Outpatient ROE CALERO APRN [id number] 07/31/2013 13:56:00 07/31/2013 23: 59:59 CLS Outpatient ROE CALERO APRN Darvin [id number] 07/11/2013 06:13:00 07/11/2013 23: 59:59 CLS Outpatient RIO MOULTON MD [id number] 07/08/2013 14:08:00 07/08/2013 23: 59:59 CLS Outpatient YOHANNES TABOR DO [id number] 05/23/2013 14:54:00 05/23/2013 23: 59:59 CLS Outpatient CAROLINA PAULSON MD [id number] 04/29/2013 15:02:00 04/29/2013 23: 59:59 CLS Outpatient CAROLINA PAULSON MD [id number] 04/25/2013 14:34:00 04/25/2013 23: 59:59 CLS Outpatient CAROLINA PAULSON MD [id number] 01/03/2013 09:26:00 01/03/2013 23: 59:59 CLS Outpatient DRAKE PENA APRN [id number] 01/01/2013 09:51:00 01/01/2013 23: 59:59 CLS Outpatient YOHANNES TABOR DO [id number] 10/08/2012 08:36:00 Document Registration
[2016-09-16] MEDS ORDERED: METO50TA2 PO (15:27)
[2016-09-16] MEDS ORDERED: LISI10TA2 PO (15:27)
[2016-09-16] MEDS ORDERED: CYCL10TA9 PO (15:29)
[2016-09-16] MEDS ORDERED: DIPH25CA79 PO (15:30)
[2016-09-16] MEDS ORDERED: NAPR220T66 PO (15:30)
[2016-09-16] MEDS ORDERED: ACETAMINOPHEN 325 MG TABLET/CAPLET (TYLENOL) PO PRN (16:15)
[2016-09-16] MEDS ORDERED: CATHETER FLUSH 10 ML SYR IV PRN (16:15)
[2016-09-16] MEDS ORDERED: NS IV 1000 ML 1,000 ML IV SCH (16:15)
[2016-09-16] MEDS ORDERED: NITROGLYCERIN SUBLINGUAL 0.4 MG TAB (NITROSTAT) SL PRN ×2 (16:15→16:45)
[2016-09-16] MEDS ORDERED: PATIENT MAY USE OWN MEDS, ALL MC SCH (16:45)
[2016-09-16 20:00] VITALS: BP 125/79
[2016-09-17] VITALS: BP 120/78
[2016-09-17 02:31] LABS: BASOPHILS % (AUTO) 0 % (0-10); EOSINOPHILS # (AUTO) 0.4 10^3/uL (0.0-0.3); EOSINOPHILS % (AUTO) 6 % (0-10); LYMPHOCYTES # (AUTO) 2.4 X 10^3 (1.0-4.0); LYMPHOCYTES % (AUTO) 34 % (12-44); MEAN CORPUSCULAR HEMOGLOBIN 29 PG (25-34); MEAN CORPUSCULAR HGB CONC 32 G/DL (32-36); MEAN CORPUSCULAR VOLUME 88 FL (80-99); MEAN PLATELET VOLUME 9.3 FL (7.4-10.4); MONOCYTES # (AUTO) 0.5 X 10^3 (0.0-1.0); MONOCYTES % (AUTO) 7 % (0-12); NEUTROPHILS # (AUTO) 3.7 X 10^3 (1.8-7.8); NEUTROPHILS % (AUTO) 53 % (42-75); PLATELET COUNT 276 10^3/uL (130-400); RED BLOOD COUNT 3.86 10^6/uL (4.35-5.85); RED CELL DISTRIBUTION WIDTH 13.8 % (10.0-14.5); WHITE BLOOD COUNT 6.9 10^3/uL (4.3-11.0)
[2016-09-17 02:39] LABS: ALANINE AMINOTRANSFERASE 17 U/L (0-55); ALBUMIN 3.5 GM/DL (3.2-4.5); ANION GAP 8 MMOL/L (5-14); ASPARTATE AMINO TRANSFERASE 8 U/L (5-34); BILIRUBIN,TOTAL 0.5 MG/DL (0.1-1.0); BLOOD UREA NITROGEN 10 MG/DL (7-18); BUN/CREATININE RATIO 13; CALCIUM 8.8 MG/DL (8.5-10.1); CARBON DIOXIDE 24 MMOL/L (21-32); CHLORIDE 106 MMOL/L (98-107); CHOLESTEROL 153 MG/DL (< 200); CREATININE SERUM 0.75 MG/DL (0.60-1.30); DIRECT LDL 98 MG/DL (1-129); GFR ESTIMATED > 60; GLUCOSE 159 MG/DL (70-105); POTASSIUM 3.8 MMOL/L (3.6-5.0); SODIUM 138 MMOL/L (135-145); TOTAL PROTEIN 6.3 GM/DL (6.4-8.2); TRIGLYCERIDES 86 MG/DL (<150); VLDL CHOLESTEROL 17 MG/DL (5-40)
[2016-09-17 04:00] VITALS: BP 121/76
[2016-09-17 08:45] VITALS: BP 121/77
[2016-09-17] MEDS ORDERED: ASPIRIN 325 MG (5 GR) TABLET PO SCH (09:00)
--- NOTE | 2016-09-17 11:06 | Short Stay Summary ---
HPI History of Present Illness: 46 yo F with intermittent chest pain for over a month. She has seen Dr Unger several times for the pain. States that the pain starts in her left shoulder then goes up her jaw. She also has some epigastric pain. Numbness present. Also has anxiety about the symptoms. Denies any alleviating or aggravating symptoms. + family history of early CAD with IN in brother, father, mother and grandparents. Denies fatal IN. Has appt with Dr Obregon next month. h/o Cath in 2010 normal. Former tobacco use. Source: patient Exam Limitations: no limitations Date seen by provider: Sep 17, 2016 Time Seen by Provider: 11:03 Attending Physician Lisa Talley MD PCP Carolina Unger MD Consult Date of Admission Sep 16, 2016 at 15:14 Home Medications Home Medications Reviewed patient Home Medication Reconciliation Form Allergies Coded Allergies: codeine (Verified Allergy, Severe, THROAT SWELLS SHUT, 06/28/13) MKA-Lfobua-Djgtea Hx Patient Social History Living Status: Home Alcohol Use: Denies Use Recreational Drug Use: No Smoking Status: Former Smoker Former smoker/When Quit: Nov 12, 2014 Recent Foreign Travel: No Contact w/other who traveled: No Recent Hopitalizations: Yes (Kidney stones//premature labor) Recent Infectious Disease Expo: No Physical Abuse Screen: No Sexual Abuse: No Immunizations Up To Date Tetanus Booster (TDap): Unknown Date of Pneumonia Vaccine: Jun 29, 2013 Date of Influenza Vaccine: Nov 28, 2013 Past Medical History Past Medical History 1. PCOS 2. HTN 3. COPD with chronic bronchitis 4. Tobaccoism 5. Obesity 6. GERD 7. Right ureteral stone sp. JJ stent placement 8. Chronic Back Pain with "sciatica" 9. 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 NON-compliance with medications. Not taking medications as prescribed. 11. Psoriasis Past Surgical History 1. Appendectomy 2. Abdominal Surgery with lysis of adhesions 3. Rt. shoulder surgery 4. Cardiac Cath with normal coronaries 2010 Baqir 5.Cystoscopy with right ureteroscopy, JJ stent placement right ureter with Lithotripsy- [place] 06-25-13 6. Right ESWL cysto with removal of stent Family Medical History Significant Family History: Heart Disease, Diabetes Family History: Family history: Diabetes mellitus 03 MOTHER Family history: Hypertension 03 MOTHER Family history: Osteoporosis 03 MOTHER Family history: Thyroid disorder 03 MOTHER Heart disease 03 MOTHER (TRIPLE BYPASS 2009) History of - disorder 09 SISTER (lupus) History of - respiratory disease 03 FATHER (COPD) Kidney disease 03 MOTHER (KINDEY FAILURE) Myocardial infarction 03 FATHER (1990-TRIPLE BYPASS [address] DIFIB[address] PLACES) 09 BROTHER (2010) Seizure disorder 03 FATHER (GRAND MAL) Review of Systems (CHC) Constitutional: no symptoms reported EENTM: no symptoms reported Respiratory: no symptoms reported, No cough, No orthopnea, No short of breath Cardiovascular: chest pain, No edema, No palpitations, No syncope Gastrointestinal: no symptoms reported, No abdominal pain, No constipation, No diarrhea, No nausea, No vomiting Genitourinary: no symptoms reported, No dysuria, No frequency, No hematuria : No Musculoskeletal: muscle pain (Left arm) Skin: no symptoms reported Psychiatric/Neurological: Anxiety, Numbness, Denies Weakness Reviewed Test Results Reviewed Test Results Lab Laboratory Tests Test 09/16/16 13:53 09/16/16 20:05 09/17/16 02:10 09/17/16 08:24 Range/Units White Blood Count 8.1 6.9 4.3-11.0 10^3/uL Red Blood Count 4.14 L 3.86 L 4.35-5.85 10^6/uL Hemoglobin 11.9 11.0 L 11.5-16.0 G/DL Hematocrit 36 34 L 35-52 % Mean Corpuscular Volume 87 88 80-99 FL Mean Corpuscular Hemoglobin 29 29 25-34 PG Mean Corpuscular Hemoglobin Concent 33 32 32-36 G/DL Red Cell Distribution Width 13.7 13.8 10.0-14.5 % Platelet Count 325 276 130-400 10^3/uL Mean Platelet Volume 9.3 9.3 7.4-10.4 FL Neutrophils (%) (Auto) 61 53 42-75 % Lymphocytes (%) (Auto) 29 34 12-44 % Monocytes (%) (Auto) 5 7 0-12 % Eosinophils (%) (Auto) 5 6 0-10 % Basophils (%) (Auto) 0 0 0-10 % Neutrophils # (Auto) 5.0 3.7 1.8-7.8 X 10^3 Lymphocytes # (Auto) 2.3 2.4 1.0-4.0 X 10^3 Monocytes # (Auto) 0.4 0.5 0.0-1.0 X 10^3 Eosinophils # (Auto) 0.4 H 0.4 H 0.0-0.3 10^3/uL Basophils # (Auto) 0.0 0.0 0.0-0.1 10^3/uL Prothrombin Time 11.5 L 12.2-14.7 SEC INR Comment 0.9 0.8-1.4 Activated Partial Thromboplast Time 34 24-35 SEC D-Dimer 0.42 0.00-0.49 UG/ML Sodium Level 138 138 135-145 MMOL/L Potassium Level 3.7 3.8 3.6-5.0 MMOL/L Chloride Level 106 106 98-107 MMOL/L Carbon Dioxide Level 23 24 21-32 MMOL/L Anion Gap 9 8 5-14 MMOL/L Blood Urea Nitrogen 8 10 7-18 MG/DL Creatinine 0.77 0.75 0.60-1.30 MG/DL Estimat Glomerular Filtration Rate > 60 > 60 BUN/Creatinine Ratio 10 13 Glucose Level 156 H 159 H 70-105 MG/DL Calcium Level 9.0 8.8 8.5-10.1 MG/DL Magnesium Level 2.0 1.8-2.4 MG/DL Total Bilirubin 0.6 0.5 0.1-1.0 MG/DL Aspartate Amino Transf (AST/SGOT) 8 8 5-34 U/L Alanine Aminotransferase (ALT/SGPT) 18 17 0-55 U/L Alkaline Phosphatase 110 96 40-136 U/L Myoglobin 18.3 10.0-92.0 NG/ML Troponin I < 0.30 < 0.30 < 0.30 < 0.30 <0.30 NG/ML B-Type Natriuretic Peptide 10.4 <100.0 PG/ML Total Protein 7.1 6.3 L 6.4-8.2 GM/DL Albumin 3.9 3.5 3.2-4.5 GM/DL Lipase 17 8-78 U/L Triglycerides Level 86 <150 MG/DL Cholesterol Level 153 < 200 MG/DL LDL Cholesterol Direct 98 1-129 MG/DL VLDL Cholesterol 17 5-40 MG/DL HDL Cholesterol 37 L 40-60 MG/DL Radiology Date of Exam: 09/16/16 CHEST 1 VIEW, AP/PA ONLY INDICATION: Left-sided chest pain. Portable chest at 02:35 p.m. FINDINGS: Heart size and pulmonary vascularity are normal. Lungs are clear. There are no effusions or pneumothoraces. IMPRESSION: Negative chest. Physical Exam-([facility]) Physical Exam Vital Signs VS - Last 72 Hours, by Label 09/16/16 09/16/16 09/16/16 09/16/16 13:41 15:40 19:00 20:00 Temp 98.0 Pulse 111 92 102 Resp 18 16 B/P (MAP) 128/74 Pulse Ox 98 100 97 O2 Delivery Room Air Room Air Room Air 09/16/16 09/17/16 09/17/16 09/17/16 20:00 00:00 00:00 01:00 Temp 98.0 98.0 Pulse 86 85 89 Resp 14 16 B/P (MAP) 125/79 120/78 Pulse Ox 97 97 97 O2 Delivery Room Air Room Air Room Air 09/17/16 09/17/16 09/17/16 09/17/16 04:00 04:00 07:00 08:45 Temp 98.0 98.2 Pulse 84 85 84 Resp 14 20 B/P (MAP) 121/76 121/77 Pulse Ox 97 97 97 O2 Delivery Room Air Room Air Room Air 09/17/16 08:45 O2 Delivery Room Air Capillary Refill : Less Than 3 Seconds General Appearance: WD/WN, no apparent distress, obese Neck: full range of motion, normal inspection Respiratory: chest non-tender, lungs clear, normal breath sounds, no respiratory distress, no accessory muscle use Cardiovascular: normal peripheral pulses, regular rate, rhythm, no JVD, no murmur Gastrointestinal: normal bowel sounds, non tender, soft, no organomegaly Extremities: normal range of motion, non-tender, no calf tenderness, other ( trace edema bilaterally) Neurologic/Psychiatric: supervisor scouring pads II-XII nml as tested, no motor/sensory deficits, alert, normal mood/affect, oriented x 3 Skin: normal color, warm/dry Lymphatic: no adenopathy Short Stay Diagnosis Discharge Diagnosis-Short Stay Admission Diagnosis Atypical Chest pain Morbid Obesity Elevated Glucose Final Discharge Diagnosis See Above Conclusion Plan Atypical Chest pain: - CE normal x3, has outpatient appt next month with Mindi - Continue daily ASA - Discussed looking for alternative causes such as GERD and anxiety, consider EGD if cardiac workup is normal Morbid Obesity - Discussed the need for weight loss Elevated Glucose - Recommend DM screen as outpatient Clinical Quality Measures DVT/VTE Risk/Contraindication: Risk Factor Score Per Nursin RFS Level Per Nursing on Admit: 2=Moderate Copy Copies To 1: CAROLINA UNGER MD, HOLLY R MD Sep 17, 2016 11:06
[2016-09-17] MEDS ORDERED: ASPI-586 PO (11:11)
--- NOTE | 2016-09-17 11:14 | Discharge Instructions ---
Discharge Inst-[facility] Discharge Medications New, Converted or Re-Newed RX: Other (No new medications) New Medications: Aspirin (Aspir 81) 81 Mg Tablet.dr 81 MG PO DAILY for 30 Days, TAB Continued Medications: Cyclobenzaprine HCl (Cyclobenzaprine HCl) 10 Mg Tablet 10 MG PO TID PRN for MUSCLE SPASMS, TAB Lisinopril (Lisinopril) 10 Mg Tablet 10 MG PO DAILY, TAB Metoprolol Tartrate (Metoprolol Tartrate) 50 Mg Tablet 50 MG PO BID, TAB Ranitidine HCl (Zantac) 150 Mg Tablet 150 MG PO BID, TAB Discontinued Medications: Diphenhydramine HCl (Benadryl) 25 Mg Capsule 25-50 MG PO HS PRN for DRAINAGE, CAP Naproxen Sodium (Aleve) 220 Mg Tablet 220 MG PO Q8H PRN for PAIN-MILD, TAB Patient Instructions Goal/Follow Up Appt: Nurse from [facility] will call on monday with hospital followup appt Patient Instructions: - Make sure to take a daily low dose aspirin Return to The Hospital For: Shortness of breath Unable to tolerate medications Worsening chest pain Activity & Diet Discharge Diet: Cardiac Diet Activity as Tolerated: Yes Copy Copies To 1: CAROLINA PAULSON MD, HOLLY R MD Sep 17, 2016 11:14
[2016-09-17 12:55] VITALS: BP 150/75
[2016-09-17 13:25] VITALS: BP 150/75
== END 2016-09-17 11:07 | disposition home or self-care (01) ==
LOC: EDUNIT# 13:41 → ER 13:43 → ICU 15:14 → UNDOADMOB 15:14 → ICU 15:45 → UNDODISOB 09-17 13:25
PROVIDERS: ADMIT Pediatrics; ATTEND Pediatrics
DX: R07.9 Chest pain, unspecified (principal); R73.9 Hyperglycemia, unspecified; I10 Essential (primary) hypertension; J44.9 Chronic obstructive pulmonary disease, unspecified; K21.9 Gastro-esophageal reflux disease without esophagitis; E66.01 Morbid (severe) obesity due to excess calories; L40.9 Psoriasis, unspecified; Z79.899 Other long term (current) drug therapy; Z87.891 Personal history of nicotine dependence; Z96.0 Presence of urogenital implants; Z87.442 Personal history of urinary calculi
CPT/HCPCS: 36415; 71010; 80053; 80061; 83690; 83735; 83874; 83880; 84484; 85025; 85379; 85610; 85730; 93005; 93041

== ENCOUNTER → 2016-10-28 | Outpatient (CLI) | payer OTHER ==
[~2016-10-28] MED LIST changes: +ASPI-586 PO; +AZIT250T12 PO; -AZIT250T5 PO; +CYCL10TA9 PO; +DIPH25CA79 PO; +METO50TA2 PO; +NAPR220T66 PO; +RANI150T15 PO
== END ==
LOC: RAD 09:48
PROVIDERS: ATTEND Nurse Practitioner
DX: M54.31 Sciatica, right side (principal)

== ENCOUNTER → 2017-06-14 | Outpatient (CLI) | payer OTHER ==
[~2017-06-14] MED LIST changes: +METO50TA15 PO; -METO50TA2 PO
--- NOTE | 2017-06-14 17:50 | Diagnostic Imaging Report ---
INDICATION: Prominent bilateral axillary lymph nodes. Study is performed for follow-up. Correlation is made with the prior ultrasound from 10/28/2015. FINDINGS: Sonographic interrogation of the axillae was performed. Two lymph nodes in the left axilla are noted which maintain normal architecture and fatty dominique. Largest measures approximately 1.6 x 1.0 x 2.5 cm, stable. A fatty lymph node with thin overlying cortex in the right axilla measures 2.6 x 1.1 x 1.6 cm, decreased when compared to prior exam. No concerning appearing lymph nodes are identified. IMPRESSION: Fatty benign-appearing lymph nodes in the axillae bilaterally. Patient can return to routine annual screening mammography. ACR BI-RADS Category 2: Benign findings. Dictated by: Dictated on workstation # [id number]
== END ==
LOC: RAD 13:42
PROVIDERS: ATTEND Family Medicine
DX: R92.8 Other abnormal and inconclusive findings on diagnostic imaging of breast (principal)
CPT/HCPCS: 76642

== ENCOUNTER → 2017-06-14 | Outpatient (CLI) | payer OTHER ==
--- NOTE | 2017-06-14 14:53 | Diagnostic Imaging Report ---
INDICATION: Followup enlarged axillary lymph nodes. COMPARISON: 10/28/2015 and 05/27/2015. TECHNIQUE: Bilateral CC and MLO 3D mammography was performed. The current study was also evaluated with a Computer Aided Detection (CAD) system. FINDINGS: Both breasts are primarily involutional. Occasional benign calcifications are noted. No spiculated mass or malignant appearing microcalcifications are seen. The axillary lymph nodes appear stable. The right axillary lymph nodes actually appear less prominent. IMPRESSION: Stable bilateral mammograms. No mammographic features suspicious for malignancy are identified. The patient is scheduled to undergo bilateral axillary ultrasound to further evaluate the previously noted prominent axillary lymph nodes. ACR BI-RADS Category 0: Incomplete. (Needs additional imaging evaluation). Result letter will be mailed to the patient. Note: At least 10% of breast cancer is not imaged by mammography. Dictated by: Dictated on workstation # [id number]
== END ==
LOC: RAD 13:32
PROVIDERS: ATTEND Nurse Practitioner Family
DX: R92.8 Other abnormal and inconclusive findings on diagnostic imaging of breast (principal)
CPT/HCPCS: 77066

== ENCOUNTER 2018-09-10 08:15 | Emergency (ER) | payer SELFPAY ==
[~2018-09-10] VITALS: Ht 157.5 cm; Wt 81.6 kg
[~2018-09-10 08:15] MED LIST changes: -RANI150T15 PO; +RANI150T46 PO
[2018-09-10] MEDS ORDERED: LACTATED RINGERS 1,000 ML IV ONE (08:46)
[2018-09-10 08:59] LABS: BASOPHILS % (AUTO) 0 % (0-10); EOSINOPHILS # (AUTO) 0.2 10^3/uL (0.0-0.3); EOSINOPHILS % (AUTO) 3 % (0-10); HEMATOCRIT 35 % (35-52); HEMOGLOBIN 11.4 G/DL (11.5-16.0); LYMPHOCYTES # (AUTO) 1.9 X 10^3 (1.0-4.0); LYMPHOCYTES % (AUTO) 30 % (12-44); MEAN CORPUSCULAR HEMOGLOBIN 28 PG (25-34); MEAN CORPUSCULAR HGB CONC 32 G/DL (32-36); MEAN CORPUSCULAR VOLUME 88 FL (80-99); MEAN PLATELET VOLUME 9.4 FL (7.4-10.4); MONOCYTES # (AUTO) 0.5 X 10^3 (0.0-1.0); MONOCYTES % (AUTO) 7 % (0-12); NEUTROPHILS # (AUTO) 3.8 X 10^3 (1.8-7.8); NEUTROPHILS % (AUTO) 59 % (42-75); PLATELET COUNT 290 10^3/uL (130-400); RED CELL DISTRIBUTION WIDTH 14.6 % (10.0-14.5); WHITE BLOOD COUNT 6.3 10^3/uL (4.3-11.0)
[2018-09-10] MEDS ORDERED: ONDANSETRON 4 MG/2 ML (SDV) Z0FRAN IVP ONE (09:00)
[2018-09-10] MEDS ORDERED: PANTOPRAZOLE 40 MG (PROTONIX) VIAL IV ONE (09:00)
[2018-09-10] MEDS ORDERED: ESCI10TA PO (09:04)
[2018-09-10] MEDS ORDERED: METF-397 PO (09:04)
[2018-09-10] MEDS ORDERED: LEVO50TA6 PO (09:04)
[2018-09-10] MEDS ORDERED: CELE200C PO (09:04)
[2018-09-10 09:20] LABS: ALANINE AMINOTRANSFERASE 19 U/L (0-55); ALKALINE PHOSPHATASE 106 U/L (40-136); AMYLASE 41 U/L (25-125); BILIRUBIN,TOTAL 0.5 MG/DL (0.1-1.0); BUN/CREATININE RATIO 19; CALCIUM 9.1 MG/DL (8.5-10.1); CARBON DIOXIDE 24 MMOL/L (21-32); CHLORIDE 105 MMOL/L (98-107); GFR ESTIMATED > 60; GLUCOSE 123 MG/DL (70-105); LIPASE 13 U/L (8-78); SODIUM 135 MMOL/L (135-145); TOTAL PROTEIN 6.9 GM/DL (6.4-8.2)
--- NOTE | 2018-09-10 09:56 | Diagnostic Imaging Report ---
PROCEDURE: US abdomen complete. TECHNIQUE: Multiple real-time grayscale images were obtained over the abdomen in various projections. INDICATION: Abdominal pain. Study is somewhat compromised due to patient body habitus. The liver is enlarged at 20 cm. No discrete liver mass is identified. The portal vein is patent and shows normal direction of flow. Gallbladder is without stones or sludge. No wall thickening or definite biliary ductal dilatation is seen. Pancreas was obscured by is bowel gas. Spleen is normal in size at 12.4 cm. Aorta was obscured by bowel gas. IVC is patent. Kidneys are without calculi or hydronephrosis. There is no ascites. IMPRESSION: Somewhat limited study due to body habitus. The liver is enlarged. No definite cholelithiasis or acute cholecystitis is seen. No acute feature is identified. Dictated by: Dictated on workstation # [id number]
[2018-09-10 10:03] LABS: BILIRUBIN,URINE NEGATIVE (NEGATIVE); CLARITY,URINE CLEAR; COLOR,URINE YELLOW; GLUCOSE, URINE (UA) NEGATIVE (NEGATIVE); KETONES,URINE NEGATIVE (NEGATIVE); LEUKOCYTE ESTERASE ,URINE 1+ (NEGATIVE); NITRITE,URINE NEGATIVE (NEGATIVE); PH,URINE 6 (5-9); PROTEIN,URINE NEGATIVE (NEGATIVE); UROBILINOGEN,URINE NORMAL (NORMAL)
[2018-09-10 10:14] LABS: BACTERIA,URINE MODERATE /HPF
[2018-09-10] MEDS ORDERED: NS 100 ML (IVPB) BAG IV ONE (10:30)
[2018-09-10] MEDS ORDERED: IOHEXOL 350 MG/ML 100 ML (OMNIPAQUE 350) VIAL IV ONE (10:30)
[2018-09-10] MEDS ORDERED: HOLD METFORMIN - RECEIVED CONTRAST 20 ML VIAL IV SCH (10:30)
--- NOTE | 2018-09-10 11:03 | Diagnostic Imaging Report ---
PROCEDURE: CT abdomen and pelvis with contrast. TECHNIQUE: Multiple contiguous axial images were obtained through the abdomen and pelvis after administration of intravenous contrast. Auto Exposure Controls were utilized during the CT exam to meet ALARA standards for radiation dose reduction. INDICATION: Upper abdominal pain COMPARISON: CT abdomen and pelvis from 03/20/2015 FINDINGS: Lower chest: The lung bases are clear. No pericardial or pleural effusion. Peritoneum: No free intraperitoneal air or fluid. Liver and biliary system: Liver is borderline enlarged measuring 19 cm in length. It has diffuse hypoattenuation indicative of hepatic steatosis. No focal hepatic lesion. The gallbladder is normal. No biliary duct dilation. Spleen and Pancreas: Spleen is normal. The pancreas enhances normally without mass lesion or peripancreatic inflammatory changes. 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 Right adrenal gland is normal. tract: The kidneys enhance normally without suspicious mass or obstruction. There are two punctate nonobstructing 2 mm stones within the right kidney. No ureteral stones on either side. Urinary bladder is distended without wall thickening. Uterus and ovaries are normal in appearance. GI tract: Stomach is decompressed. No bowel obstruction. No pericolonic inflammatory changes. Appendix is not seen and may be surgically absent. In the absence of appendectomy, there are no features that would indicate acute appendicitis. Vasculature and Lymph nodes: Normal caliber aorta. No abdominal or pelvic lymphadenopathy. Musculoskeletal: No concerning osseous lesion. IMPRESSION: 1. No acute obstructive or inflammatory process in the abdomen or pelvis. 2. There are two punctate nonobstructing right renal stones measuring up to 2 mm. 3. Borderline hepatomegaly with mild steatosis. Dictated by: Dictated on workstation # [id number]
--- NOTE | 2018-09-10 11:14 | ED Abdominal Pain ---
General Chief Complaint: Abdominal/GI Problems Stated Complaint: UPPER ABD PAIN Nursing Triage Note: PT PRESENTS TO ED WITH COMPLAINTS OF UPPER ABDOMINAL PAIN, BLOATING , INDIGESTION, AND DIAHRREA STARTING AROUND 1630 YESTERDAY. Sepsis Screen: No Definite Risk Allergies and Home Medications Allergies Coded Allergies: codeine (Verified Allergy, Severe, THROAT SWELLS SHUT, 06/28/13) Home Medications Aspirin 81 Mg Tablet.dr, 81 MG PO DAILY Prescribed by: SHIRA MARTINEZ on 09/17/16 1111 Cyclobenzaprine HCl 10 Mg Tablet, 10 MG PO TID PRN for MUSCLE SPASMS, (Reported) Dicyclomine HCl 20 Mg Tablet, 20 MG PO Q6H Prescribed by: DAMIEN VICENTE on 09/10/18 1116 Hyoscyamine Sulfate 0.125 Mg Tab.subl, 1-2 TAB SL Q4H Prescribed by: DAMIEN VICENTE on 09/10/18 1116 Lisinopril 10 Mg Tablet, 10 MG PO DAILY, (Reported) Metformin HCl 500 Mg Tablet, 500 MG PO BID, (Reported) Metoprolol Tartrate 50 Mg Tablet, 50 MG PO BID, (Reported) Ondansetron 4 Mg Tab.rapdis, 4 MG PO Q4H Prescribed by: DAMIEN VICENTE on 09/10/18 1116 Pantoprazole Sodium 40 Mg Tablet.dr, 40 MG PO DAILY Prescribed by: DAMIEN VICENTE on 09/10/18 1116 Ranitidine HCl 150 Mg Tablet, 150 MG PO BID, (Reported) Past Wnycycl-Whlqed-Poiwyp Hx Patient Social History Alcohol Use: Denies Use Recreational Drug Use: No Smoking Status: Former Smoker Former Smoker, Quit: Nov 12, 2014 Recent Foreign Travel: No Contact w/Someone Who Travel: No Recent Infectious Disease Expo: No Recent Hopitalizations: Yes (Kidney stones//premature labor) Physical Abuse: No Sexual Abuse: No Mistreated: No Fear: No Immunizations Up To Date Tetanus Booster (TDap): Unknown PED Vaccines UTD: No Date of Pneumonia Vaccine: Jun 29, 2013 Date of Influenza Vaccine: Nov 28, 2013 Seasonal Allergies Seasonal Allergies: No Past Medical History Surgeries: Yes (R ROTATOR CUFF, KIDNEY STONE REMOVED/LITHOTRIPSY + STENT;OVARIAN CYST) Abdominal, Appendectomy, Cardiac, Orthopedic, Renal Respiratory: Yes Asthma, COPD Cardiac: Yes Hypertension Neurological: Yes (CONCUSSION AT AGE 22) Concussion Reproductive Disorders: Yes (POLYCYSTIC OVARY--SURGERY 1999) Female Reproductive Disorders: Ovarian Cyst, Polycystic Ovarian Dis Sexually Transmitted Disease: No HIV/AIDS: No Kidney Infection, Bladder Infection, Kidney Stones Gastrointestinal: Yes Gastroesophageal Reflux Musculoskeletal: Yes (BULGING DISC) Degenerate Disk Disease, Chronic Back Pain Endocrine: No Hypothyroidsim, Diabetes, Non-Insulin dep HEENT: Yes (SINUS DRAINAGE) Loss of Vision: Denies Cancer: No Psychosocial: Yes Depression Integumentary: Yes Psoriasis Blood Disorders: No Adverse Reaction/Blood Tranf: No Family Medical History Family history: Diabetes mellitus 03 MOTHER Family history: Hypertension 03 MOTHER Family history: Osteoporosis 03 MOTHER Family history: Thyroid disorder 03 MOTHER Heart disease 03 MOTHER (TRIPLE BYPASS 2009) History of - disorder 09 SISTER (lupus) History of - respiratory disease 03 FATHER (COPD) Kidney disease 03 MOTHER (KINDEY FAILURE) Myocardial infarction 03 FATHER (1990-TRIPLE BYPASS [address]) 09 BROTHER (2010) Seizure disorder 03 FATHER (GRAND MAL) Heart Disease, Diabetes Physical Exam Vital Signs Vital Signs - First Documented 09/10/18 08:53 Temp 96.9 Pulse 84 Resp 20 B/P (MAP) 140/80 (100) Pulse Ox 97 Capillary Refill : Less Than 3 Seconds Height/Weight/BMI Height: 5'2.00" Weight: 180lbs. 5.0oz. [id number]; 38.5 BMI Method:Estimated Progress/Results/Core Measures Results/Orders Lab Results Laboratory Tests Test 09/10/18 08:50 09/10/18 09:45 Range/Units White Blood Count 6.3 4.3-11.0 10^3/uL Red Blood Count 4.02 L 4.35-5.85 10^6/uL Hemoglobin 11.4 L 11.5-16.0 G/DL Hematocrit 35 35-52 % Mean Corpuscular Volume 88 80-99 FL Mean Corpuscular Hemoglobin 28 25-34 PG Mean Corpuscular Hemoglobin Concent 32 32-36 G/DL Red Cell Distribution Width 14.6 H 10.0-14.5 % Platelet Count 290 130-400 10^3/uL Mean Platelet Volume 9.4 7.4-10.4 FL Neutrophils (%) (Auto) 59 42-75 % Lymphocytes (%) (Auto) 30 12-44 % Monocytes (%) (Auto) 7 0-12 % Eosinophils (%) (Auto) 3 0-10 % Basophils (%) (Auto) 0 0-10 % Neutrophils # (Auto) 3.8 1.8-7.8 X 10^3 Lymphocytes # (Auto) 1.9 1.0-4.0 X 10^3 Monocytes # (Auto) 0.5 0.0-1.0 X 10^3 Eosinophils # (Auto) 0.2 0.0-0.3 10^3/uL Basophils # (Auto) 0.0 0.0-0.1 10^3/uL Sodium Level 135 135-145 MMOL/L Potassium Level 4.0 3.6-5.0 MMOL/L Chloride Level 105 98-107 MMOL/L Carbon Dioxide Level 24 21-32 MMOL/L Anion Gap 6 5-14 MMOL/L Blood Urea Nitrogen 13 7-18 MG/DL Creatinine 0.70 0.60-1.30 MG/DL Estimat Glomerular Filtration Rate > 60 BUN/Creatinine Ratio 19 Glucose Level 123 H 70-105 MG/DL Calcium Level 9.1 8.5-10.1 MG/DL Corrected Calcium 9.1 8.5-10.1 MG/DL Total Bilirubin 0.5 0.1-1.0 MG/DL Aspartate Amino Transf (AST/SGOT) 10 5-34 U/L Alanine Aminotransferase (ALT/SGPT) 19 0-55 U/L Alkaline Phosphatase 106 40-136 U/L Total Protein 6.9 6.4-8.2 GM/DL Albumin 4.0 3.2-4.5 GM/DL Amylase Level 41 25-125 U/L Lipase 13 8-78 U/L Urine Color YELLOW Urine Clarity CLEAR Urine pH 6 5-9 Urine Specific Buckner 1.020 1.016-1.022 Urine Protein NEGATIVE NEGATIVE Urine Glucose (UA) NEGATIVE NEGATIVE Urine Ketones NEGATIVE NEGATIVE Urine Nitrite NEGATIVE NEGATIVE Urine Bilirubin NEGATIVE NEGATIVE Urine Urobilinogen NORMAL NORMAL MG/DL Urine Leukocyte Esterase 1+ H NEGATIVE Urine RBC (Auto) NEGATIVE NEGATIVE Urine RBC NONE /HPF Urine WBC 5-10 H /HPF Urine Crystals NONE /LPF Urine Bacteria MODERATE H /HPF Urine Casts NONE /LPF Urine Mucus MODERATE H /LPF Urine Culture Indicated YES My Orders Orders - DAMIEN VICENTE DO Ed Iv/Invasive Line Start (09/10/18 08:46) Us Abdomen Complete 49617 (09/10/18 08:46) Amylase (09/10/18 08:46) Cbc With Automated Diff (09/10/18 08:46) Comprehensive Metabolic Panel (09/10/18 08:46) Lipase (09/10/18 08:46) Ua Culture If Indicated (09/10/18 08:46) Ed Iv/Invasive Line Start (09/10/18 08:46) Lactated Ringers (Lr 1000 Ml Iv Solution (09/10/18 08:46) Ondansetron Injection (Zofran Injectio (09/10/18 09:00) Pantoprazole Injection (Protonix Injecti (09/10/18 09:00) Urine Bedside (09/10/18 08:46) Urine Culture (09/10/18 09:45) Ct Abdomen/Pelvis W (09/10/18 09:59) Iohexol Injection (Omnipaque 350 Mg/Ml 1 (09/10/18 10:30) Received Contrast (Hold Metformin- Contr (09/10/18 10:30) Ns (Ivpb) (Sodium Chloride 0.9% Ivpb Bag (09/10/18 10:30) Medications Given in ED Current Medications Medications Dose Ordered Sig/Edgardo Route Start Time Stop Time Status Last Admin Dose Admin Iohexol 100 ml ONCE ONCE IV 09/10/18 10:30 09/10/18 10:31 DC 09/10/18 10:37 100 ML Lactated Ringer's 1,000 ml @ 0 mls/hr Q0M ONCE IV 09/10/18 08:46 09/10/18 08:49 DC 09/10/18 09:25 0 MLS/HR Ondansetron HCl 4 mg ONCE ONCE IVP 09/10/18 09:00 09/10/18 09:01 DC 09/10/18 09:25 4 MG Pantoprazole 40 mg ONCE ONCE IV 09/10/18 09:00 09/10/18 09:01 DC 09/10/18 09:25 40 MG Sodium Chloride 100 ml ONCE ONCE IV 09/10/18 10:30 09/10/18 10:31 DC 09/10/18 10:37 100 ML Vital Signs/I&O 09/10/18 08:53 Temp 96.9 Pulse 84 Resp 20 B/P (MAP) 140/80 (100) Pulse Ox 97 Blood Pressure Mean: 100 Diagnostic Imaging Comments ABDOMINAL ULTRASOUND--NO ACUTE PROCESS, PER RADIOLOGIST REPORT CT ABDOMEN/PELVIS--NO ACUTE PROCESS, 2 TINY NON-OBSTRUCTING INTRARENAL STONES, HEPATIC STEATOSIS--PER RADIOLOGIST REPORT AT 1110 Reviewed: Reviewed by Me Departure Impression Primary Impression: Abdominal pain Additional Impression: UTI (urinary tract infection) Disposition: HOME, SELF-CARE Condition: Improved Departure-Patient Inst. Referrals: [facility] (PCP) Primary Care Physician Patient Instructions: Acute Abdomen (Belly Pain), Adult (DC), Urinary Tract Infection, Adult (DC) Add. Discharge Instructions: CLEAR LIQUIDS--WATER, BROTH, JELLO, GATORADE BRATS DIET--BANANAS, RICE, APPLESAUCE, TOAST, SALTINES FOLLOW UP WITH YOUR DR THIS WEEK FOR FURTHER CARE All discharge instructions reviewed with patient and/or family. Voiced understan malika. Scripts Nitrofurantoin Monohyd/M-Cryst (Macrobid 100 mg Capsule) 100 Mg Capsule 100 MG PO BID, #20 CAP Prov: DAMIEN VICENTE DO 09/10/18 Pantoprazole Sodium (Protonix) 40 Mg Tablet.dr 40 MG PO DAILY, #15 TAB Prov: DAMIEN VICENTE DO 09/10/18 Dicyclomine HCl (Dicyclomine HCl) 20 Mg Tablet 20 MG PO Q6H for Abdominal Pain, #20 TAB Prov: DAMIEN VICENTE DO 09/10/18 Hyoscyamine Sulfate (Levsin-Sl) 0.125 Mg Tab.subl 1-2 TAB SL Q4H for Abdominal Pain, #15 TAB Prov: DAMIEN VICENTE DO 09/10/18 Ondansetron (Ondansetron Odt) 4 Mg Tab.rapdis 4 MG PO Q4H for Nausea/Vomiting, #10 TAB Prov: DAMIEN VICENTE DO 09/10/18 DAMIEN VICENTE DO Sep 10, 2018 11:14
[2018-09-10] MEDS ORDERED: DICY20TA10 PO (11:16)
[2018-09-10] MEDS ORDERED: PANT40TA2 PO (11:16)
[2018-09-10] MEDS ORDERED: ONDA4TAB11 PO (11:16)
[2018-09-10] MEDS ORDERED: HYOS0.1283 SL (11:16)
[2018-09-10] MEDS ORDERED: NITR-65 PO (11:18)
[2018-09-10 11:39] VITALS: BP 123/72
== END 2018-09-10 11:39 | disposition home or self-care (01) ==
LOC: EDUNIT# 08:15 → ER 08:16
DX: N39.0 Urinary tract infection, site not specified (principal); J44.9 Chronic obstructive pulmonary disease, unspecified; I10 Essential (primary) hypertension; K21.9 Gastro-esophageal reflux disease without esophagitis; E03.9 Hypothyroidism, unspecified; E11.9 Type 2 diabetes mellitus without complications; F32.9 Major depressive disorder, single episode, unspecified; Z87.442 Personal history of urinary calculi; Z88.5 Allergy status to narcotic agent; Z79.82 Long term (current) use of aspirin; Z79.84 Long term (current) use of oral hypoglycemic drugs; Z87.891 Personal history of nicotine dependence; Z90.49 Acquired absence of other specified parts of digestive tract; Z95.5 Presence of coronary angioplasty implant and graft; Z82.49 Family history of ischemic heart disease and other diseases of the circulatory system
CPT/HCPCS: 36415; 74177; 76700; 80053; 81000; 82150; 83690; 85025; 87077; 87088; 87186; 96361; 96374; 96375

== ENCOUNTER → 2018-12-06 | Outpatient (CLI) | payer OTHER ==
[~2018-12-06] MED LIST changes: +CELE200C PO; +DICY20TA10 PO; +ESCI10TA PO; +HYOS0.1283 SL; +LEVO50TA6 PO; +METF-397 PO; +ONDA4TAB11 PO; +PANT40TA2 PO; +RANI-613 PO; -RANI150T46 PO
--- NOTE | 2018-12-06 19:11 | Diagnostic Imaging Report ---
Digital mammogram bilateral screening The current study was also evaluated with a Computer Aided Detection (CAD) system. 3-D tomosynthesis was also performed and reviewed. The study was compared to the prior exams of 06/14/17, 10/28/2015 and 05/27/2015. At this time, there are no current complaints. The breasts are predominantly fatty. When compared to the previous studies there does not appear to have been any significant change. There is no primary or secondary sign of malignancy noted. IMPRESSION: There is no evidence for malignancy. ACR BI-RADS Category 1: Negative. Result letter will be mailed to the patient. Note: At least 10% of breast cancer is not imaged by mammography. Dictated by: Dictated on workstation # [id number]
== END ==
LOC: RAD 10:22
PROVIDERS: ATTEND Nurse Practitioner Family
DX: Z12.31 Encounter for screening mammogram for malignant neoplasm of breast (principal)
CPT/HCPCS: 77067

== ENCOUNTER 2019-05-13 23:06 | Inpatient (IN) | payer SELFPAY ==
[~2019-05-13] VITALS: Ht 175 cm; Wt 129.0 kg
[~2019-05-13 23:06] MED LIST changes: -TAMS0.4C98 PO
[2019-05-13] MEDS ORDERED: RT-ALBUTEROL/IPRATROPIUM 3 ML (DUONEB) VIAL INH ONE (23:15)
[2019-05-13 23:25] LABS: BASOPHILS % (AUTO) 1 % (0-10); EOSINOPHILS # (AUTO) 0.2 10^3/uL (0.0-0.3); EOSINOPHILS % (AUTO) 4 % (0-10); HEMATOCRIT 40 % (35-52); HEMOGLOBIN 12.9 G/DL (11.5-16.0); LYMPHOCYTES # (AUTO) 1.6 X 10^3 (1.0-4.0); LYMPHOCYTES % (AUTO) 37 % (12-44); MEAN CORPUSCULAR HEMOGLOBIN 28 PG (25-34); MEAN CORPUSCULAR HGB CONC 32 G/DL (32-36); MEAN CORPUSCULAR VOLUME 88 FL (80-99); MONOCYTES # (AUTO) 0.6 X 10^3 (0.0-1.0); MONOCYTES % (AUTO) 15 % (0-12); NEUTROPHILS # (AUTO) 1.9 X 10^3 (1.8-7.8); NEUTROPHILS % (AUTO) 44 % (42-75); PLATELET COUNT 289 10^3/uL (130-400); RED CELL DISTRIBUTION WIDTH 14.9 % (10.0-14.5); WHITE BLOOD COUNT 4.3 10^3/uL (4.3-11.0)
[2019-05-13 23:42] LABS: ALANINE AMINOTRANSFERASE 36 U/L (0-55); ALBUMIN 4.1 GM/DL (3.2-4.5); ALKALINE PHOSPHATASE 110 U/L (40-136); BILIRUBIN,TOTAL 0.5 MG/DL (0.1-1.0); BUN/CREATININE RATIO 14; CARBON DIOXIDE 23 MMOL/L (21-32); CHLORIDE 103 MMOL/L (98-107); CREATININE SERUM 0.76 MG/DL (0.60-1.30); GFR ESTIMATED > 60; GLUCOSE 150 MG/DL (70-105); POTASSIUM 3.9 MMOL/L (3.6-5.0); SODIUM 138 MMOL/L (135-145); TOTAL PROTEIN 7.4 GM/DL (6.4-8.2)
[2019-05-14] VITALS (7 sets, daily range): BP systolic 94–166; BP diastolic 64–166
[2019-05-14] MEDS ORDERED: cefTRIAXone FOR IV USE 1,000 MG in WATER (STERILE) FOR INJECTION 10 ML IV ONE (00:30)
[2019-05-14] MEDS ORDERED: NS IV 1000 ML 1,000 ML IV SCH ×2 (00:30→02:30)
--- NOTE | 2019-05-14 00:44 | ED Respiratory ---
General Chief Complaint: Respiratory Problems Stated Complaint: SOB Nursing Triage Note: PT PRESENTS TO THE ED AMBULATORY C/O SOB AT REST FOR THE LAST THREE DAYS THAT WORSENED TODAY. PT VERBALIZES A HX OF COPD Source: patient Exam Limitations: no limitations History of Present Illness Date Seen by Provider: May 13, 2019 Time Seen by Provider: 23:10 Initial Comments This 48-year-old woman presents to the emergency room with extreme shortness of breath and wheezing. She has a history of COPD which she has had not really had to treat since quitting smoking a few years ago. She states she sometimes requires an inhaler if she gets ill. She has been ill for about 3 days with cough and shortness of breath. She denies fever. She has not used any kind of inhaled treatment over the last 3 days. Allergies and Home Medications Allergies Coded Allergies: codeine (Verified Allergy, Severe, THROAT SWELLS SHUT, 06/28/13) Home Medications Aspirin 81 Mg Tablet.dr, 81 MG PO DAILY Prescribed by: SHIRA MARTINEZ on 09/17/16 1111 Cyclobenzaprine HCl 10 Mg Tablet, 10 MG PO TID PRN for MUSCLE SPASMS, (Reported) Dicyclomine HCl 20 Mg Tablet, 20 MG PO Q6H Prescribed by: DAMIEN VICENTE on 09/10/18 111 Hyoscyamine Sulfate 0.125 Mg Tab.subl, 1-2 TAB SL Q4H Prescribed by: DAMIEN VICENTE on 09/10/18 111 Lisinopril 10 Mg Tablet, 10 MG PO DAILY, (Reported) Metformin HCl 500 Mg Tablet, 500 MG PO BID, (Reported) Metoprolol Tartrate 50 Mg Tablet, 50 MG PO BID, (Reported) Nitrofurantoin Monohyd/M-Cryst 100 Mg Capsule, 100 MG PO BID Prescribed by: DAMIEN VICENTE on 09/10/18 1118 Ondansetron 4 Mg Tab.rapdis, 4 MG PO Q4H Prescribed by: DAMIEN VICENTE on 09/10/18 111 Pantoprazole Sodium 40 Mg Tablet.dr, 40 MG PO DAILY Prescribed by: DAMIEN VICENTE on 09/10/18 111 Ranitidine HCl 150 Mg Tablet, 150 MG PO BID, (Reported) Patient Home Medication List Home Medication List Reviewed: Yes Review of Systems Review of Systems Constitutional: no symptoms reported EENTM: no symptoms reported Respiratory: see HPI Cardiovascular: no symptoms reported Gastrointestinal: no symptoms reported Genitourinary: no symptoms reported : No Musculoskeletal: no symptoms reported Skin: no symptoms reported Psychiatric/Neurological: No Symptoms Reported Hematologic/Lymphatic: No Symptoms Reported Immunological/Allergic: no symptoms reported Past Kvkzboz-Kowuds-Aybcep Hx Past Med/Social Hx: Reviewed Nursing Past Med/Soc Hx Patient Social History Alcohol Use: Denies Use Recreational Drug Use: No Smoking Status: Former Smoker Type Used: Cigarettes Former Smoker, Quit: May 08, 2014 2nd Hand Smoke Exposure: No Recent Foreign Travel: No Contact w/Someone Who Travel: No Recent Infectious Disease Expo: No Recent Hopitalizations: Yes (Kidney stones//premature labor) Physical Abuse: No Sexual Abuse: No Mistreated: No Fear: No Immunizations Up To Date Tetanus Booster (TDap): Unknown PED Vaccines UTD: Yes Date of Pneumonia Vaccine: Jun 29, 2013 Date of Influenza Vaccine: Nov 28, 2013 Seasonal Allergies Seasonal Allergies: No Past Medical History Surgeries: Yes Abdominal, Appendectomy, Cardiac, Orthopedic, Renal Respiratory: Yes Asthma, COPD Cardiac: Yes Hypertension Neurological: Yes (CONCUSSION AT AGE 22) Concussion : No Reproductive Disorders: Yes (POLYCYSTIC OVARY--SURGERY 1999) Female Reproductive Disorders: Ovarian Cyst, Polycystic Ovarian Dis Sexually Transmitted Disease: No HIV/AIDS: No Genitourinary: Yes Kidney Infection, Bladder Infection, Kidney Stones Gastrointestinal: Yes Gastroesophageal Reflux Musculoskeletal: Yes (BULGING DISC) Degenerate Disk Disease, Chronic Back Pain Endocrine: Yes Hypothyroidsim, Diabetes, Non-Insulin dep HEENT: Yes (SINUS DRAINAGE) Loss of Vision: Denies Cancer: No Psychosocial: Yes Depression Integumentary: Yes Psoriasis Blood Disorders: No Adverse Reaction/Blood Tranf: No Family Medical History Family history: Diabetes mellitus 03 MOTHER Family history: Hypertension 03 MOTHER Family history: Osteoporosis 03 MOTHER Family history: Thyroid disorder 03 MOTHER Heart disease 03 MOTHER (TRIPLE BYPASS 2009) History of - disorder 09 SISTER (lupus) History of - respiratory disease 03 FATHER (COPD) Kidney disease 03 MOTHER (KINDEY FAILURE) Myocardial infarction 03 FATHER (1990-TRIPLE BYPASS [address]) 09 BROTHER (2010) Seizure disorder 03 FATHER (GRAND MAL) Heart Disease, Diabetes Physical Exam Vital Signs - First Documented 05/13/19 23:10 Temp 37.0 Pulse 115 Resp 26 B/P (MAP) 149/92 (111) Pulse Ox 96 O2 Delivery Nasal Cannula O2 Flow Rate 4.00 Capillary Refill : Less Than 3 Seconds Height: 5'2.00" Weight: 180lbs. 5.0oz. 81.634254mv; 35.00 BMI Method:Estimated General Appearance: WD/WN, moderate distress HEENT: PERRL/EOMI, normal ENT inspection, TMs normal, pharynx normal Neck: normal inspection Respiratory: no accessory muscle use, respiratory distress, wheezing Cardiovascular: regular rate, rhythm, no edema, no murmur Gastrointestinal: normal bowel sounds, non tender, soft Extremities: normal inspection, no pedal edema Neurologic/Psychiatric: director outpatient services II-XII nml as tested, no motor/sensory deficits, alert, normal mood/affect, oriented x 3 Skin: normal color, warm/dry Focused Exam Lactate Level 05/14/19 00:40: Lactic Acid Level 1.63 Lactic Acid Level Laboratory Tests Test 05/14/19 00:40 Lactic Acid Level 1.63 MMOL/L (0.50-2.00) Progress/Results/Core Measures Suspected Sepsis Recent Fever Within 48 Hours: Yes Infection Criteria Present: Suspected New Infection New/Unexplained Altered Menta: No Sepsis Screen: Possible Sepsis Risk SIRS Temperature: Pulse: 115 Respiratory Rate: 26 Laboratory Tests 05/13/19 23:15: White Blood Count 4.3 Blood Pressure 149 /92 Mean: 111 05/14/19 00:40: Lactic Acid Level 1.63 Laboratory Tests 05/13/19 23:15: Creatinine 0.76, Platelet Count 289, Total Bilirubin 0.5 Results/Orders Lab Results Laboratory Tests Test 05/13/19 23:15 05/14/19 00:40 Range/Units White Blood Count 4.3 4.3-11.0 10^3/uL Red Blood Count 4.61 4.35-5.85 10^6/uL Hemoglobin 12.9 11.5-16.0 G/DL Hematocrit 40 35-52 % Mean Corpuscular Volume 88 80-99 FL Mean Corpuscular Hemoglobin 28 25-34 PG Mean Corpuscular Hemoglobin Concent 32 32-36 G/DL Red Cell Distribution Width 14.9 H 10.0-14.5 % Platelet Count 289 130-400 10^3/uL Mean Platelet Volume 9.0 7.4-10.4 FL Neutrophils (%) (Auto) 44 42-75 % Lymphocytes (%) (Auto) 37 12-44 % Monocytes (%) (Auto) 15 H 0-12 % Eosinophils (%) (Auto) 4 0-10 % Basophils (%) (Auto) 1 0-10 % Neutrophils # (Auto) 1.9 1.8-7.8 X 10^3 Lymphocytes # (Auto) 1.6 1.0-4.0 X 10^3 Monocytes # (Auto) 0.6 0.0-1.0 X 10^3 Eosinophils # (Auto) 0.2 0.0-0.3 10^3/uL Basophils # (Auto) 0.0 0.0-0.1 10^3/uL Sodium Level 138 135-145 MMOL/L Potassium Level 3.9 3.6-5.0 MMOL/L Chloride Level 103 98-107 MMOL/L Carbon Dioxide Level 23 21-32 MMOL/L Anion Gap 12 5-14 MMOL/L Blood Urea Nitrogen 11 7-18 MG/DL Creatinine 0.76 0.60-1.30 MG/DL Estimat Glomerular Filtration Rate > 60 BUN/Creatinine Ratio 14 Glucose Level 150 H 70-105 MG/DL Calcium Level 9.0 8.5-10.1 MG/DL Corrected Calcium 8.9 8.5-10.1 MG/DL Total Bilirubin 0.5 0.1-1.0 MG/DL Aspartate Amino Transf (AST/SGOT) 22 5-34 U/L Alanine Aminotransferase (ALT/SGPT) 36 0-55 U/L Alkaline Phosphatase 110 40-136 U/L C-Reactive Protein High Sensitivity 2.78 H 0.00-0.50 MG/DL Total Protein 7.4 6.4-8.2 GM/DL Albumin 4.1 3.2-4.5 GM/DL Serum Test, Qualitative NEGATIVE NEGATIVE Lactic Acid Level 1.63 0.50-2.00 MMOL/L Micro Results Microbiology 05/13/19 Influenza Types A,B Antigen ([place]) - Final, Complete My Orders Orders - DARLENE CLEMENTS MD Albuterol/Ipra Inhalation Soln (Duoneb I (05/13/19 23:15) Svn Small Volume Nebulizer (05/13/19 23:14) Chest Pa/Lat (2 View) (05/13/19 23:14) Cbc With Automated Diff (3/9/20 23:14) Comprehensive Metabolic Panel (05/13/19 23:14) Hs C Reactive Protein (05/13/19 23:14) Influenza A And B Antigens (05/13/19 23:14) Ed Iv/Invasive Line Start (05/13/19 23:14) O2 (05/13/19 23:14) Hcg,Qualitative Serum (05/14/19 00:29) Blood Culture (05/14/19 00:30) Vital Signs Adult Sepsis Patie Q15M (05/14/19 00:30) Remove Rings In Anticipation O (05/14/19 00:30) Lactic Acid Analyzer (05/14/19 00:30) Ceftriaxone For Iv Use (Rocephin For I (05/14/19 00:30) Ns Iv 1000 Ml (Sodium Chloride 0.9%) (05/14/19 00:30) Methylprednisolone Sod Succ (Solu-Medrol (05/14/19 00:45) Medications Given in ED Current Medications Medications Dose Ordered Sig/Edgardo Route Start Time Stop Time Status Last Admin Dose Admin Albuterol/ Ipratropium 3 ml ONCE ONCE INH 05/13/19 23:15 05/13/19 23:16 DC 05/13/19 23:26 3 ML Ceftriaxone Sodium 1000 mg/ Sterile Water 10 ml @ 200 mls/hr ONCE ONCE IV 05/14/19 00:30 05/14/19 00:32 DC 05/14/19 00:58 200 MLS/HR Vital Signs/I&O 05/13/19 05/13/19 05/13/19 23:10 23:15 23:27 Temp 37.0 Pulse 115 Resp 26 B/P (MAP) 149/92 (111) Pulse Ox 96 97 96 O2 Delivery Nasal Cannula Nasal Cannula Nasal Cannula O2 Flow Rate 4.00 2.00 2.00 Capillary Refill : Less Than 3 Seconds Blood Pressure Mean: 111 Progress Note : Progress Note Patient received a DuoNeb treatment which improved the wheezing significantly. However, she still developed some mild hypoxia. There was some question about haziness in the left lower lung on the chest x-ray. Due to these features of her illness, admission was felt appropriate. She was started on azithromycin and Rocephin as a precaution. A repeat chest x-ray will be performed after she is hydrated well in the morning. A liter of IV fluids was initiated in the emergency room. Solu-Medrol was administered in the ER as well. Diagnostic Imaging Diagonstic Imaging: Xray Plain Films/CT/US/NM/MRI: chest Comments Two-view chest x-ray viewed by me. Report not yet available. There are some question of haziness in the left lower lung that could be early infiltrate. Departure Communication (Admissions) Time/Spoke to Admitting Phy: 00:30 Dr. Luis Impression Primary Impression: COPD exacerbation Additional Impression: Hypoxia Disposition: ADMITTED INPATIENT Condition: Improved Admissions Decision to Admit Reason: Admit from ER (General) Decision to Admit/Date: May 14, 2019 Time/Decision to Admit Time: 00:30 Departure-Patient Inst. Referrals: [facility] [place] (PCP) Primary Care Physician KAREN MARTELL (Family) Primary Care Physician DARLENE CLEMENTS MD May 14, 2019 00:44
[2019-05-14] MEDS ORDERED: methylPREDNISolone 125 MG (Solu-MEDROL) VIAL IVP ONE (00:45)
[2019-05-14] MEDS ORDERED: RT-ALBUTEROL SULF 2.5 MG/3 ML PRE-MIX VIAL INH STA (00:46)
--- NOTE | 2019-05-14 01:20 | NUR ---
Marian Stiles admitted to room 408-1, with an admitting diagnosis of COPD , on 05/14/19 from [place] via , accompanied by spouse. MARIAN STILES introduced to surroundings, call light, bed controls, phone, TV, temperature control, lights, meal times, smoking policy, visitor policy, side rail policy, bathrooms and showers. Patient Rights given to patient in the handbook. MARIAN STILES verbalizes understanding that [facility] is not responsible for the loss or damage to any personal effects or valuables that are kept in the patients possession during their hospitalization. Patient and/or family were informed about the Rapid Response Team and its purpose.
[2019-05-14] MEDS ORDERED: AZITHROMYCIN 500 MG/NS 250 ML IVPB IV ONE ×2 (02:30)
[2019-05-14] MEDS ORDERED: AZITHROMYCIN 500 MG (ZITHROMAX) VIAL ONE (02:41)
[2019-05-14] MEDS ORDERED: NS (IVPB) 250 ML ONE (02:42)
--- NOTE | 2019-05-14 02:50 | NUR ---
RT TO REASSESS OR REEVALUATE IN 72 HOURS OR NEEDED. 02 TO KEEP SAT ABOVE 90%. CAESAR Q4H AND PRN IS AND GABRIEL DOBBINS AND ELIZABETH Addendum: 05/14/19 at 0250 by HUMBERTO GALLEGOS RT Amended: Links added.
[2019-05-14] MEDS: methylPREDNISolone 40 MG/ML (Solu-MEDROL) VIAL IV SCH ×3 (05:51→18:00)
[2019-05-14] MEDS: LEVOTHYROXINE 125 MCG (LEVOTHROID) TABLET PO SCH (05:51)
[2019-05-14] MEDS: GLIMEPIRIDE 4 MG (AMARYL) TAB PO SCH (05:52)
--- NOTE | 2019-05-14 06:58 | Diagnostic Imaging Report ---
EXAMINATION: CHEST (PA AND LATERAL) CLINICAL INDICATION: 48-year-old female, shortness of breath. COMPARISON: September 16, 2016. FINDINGS: Heart size and mediastinal contours are unremarkable. There is no identified pneumothorax. There is no pleural effusion. There is no identified focal airspace consolidation. There are mild degenerative changes of the spine. IMPRESSION: 1. No identified acute cardiopulmonary abnormality. Dictated by: Dictated on workstation # [id number]
[2019-05-14 07:12] LABS: BASOPHILS % (AUTO) 0 % (0-10); EOSINOPHILS % (AUTO) 0 % (0-10); HEMATOCRIT 37 % (35-52); HEMOGLOBIN 11.9 G/DL (11.5-16.0); LYMPHOCYTES # (AUTO) 0.4 X 10^3 (1.0-4.0); LYMPHOCYTES % (AUTO) 10 % (12-44); MEAN CORPUSCULAR HEMOGLOBIN 28 PG (25-34); MEAN CORPUSCULAR HGB CONC 32 G/DL (32-36); MEAN CORPUSCULAR VOLUME 88 FL (80-99); MEAN PLATELET VOLUME 9.3 FL (7.4-10.4); MONOCYTES # (AUTO) 0.1 X 10^3 (0.0-1.0); MONOCYTES % (AUTO) 2 % (0-12); NEUTROPHILS # (AUTO) 3.8 X 10^3 (1.8-7.8); NEUTROPHILS % (AUTO) 88 % (42-75); PLATELET COUNT 273 10^3/uL (130-400); RED CELL DISTRIBUTION WIDTH 14.8 % (10.0-14.5); WHITE BLOOD COUNT 4.3 10^3/uL (4.3-11.0)
[2019-05-14 07:29] LABS: BUN/CREATININE RATIO 11; CALCIUM 8.3 MG/DL (8.5-10.1); CARBON DIOXIDE 19 MMOL/L (21-32); CHLORIDE 103 MMOL/L (98-107); CREATININE SERUM 0.76 MG/DL (0.60-1.30); GFR ESTIMATED > 60; GLUCOSE 325 MG/DL (70-105); POTASSIUM 4.2 MMOL/L (3.6-5.0); SODIUM 135 MMOL/L (135-145)
[2019-05-14] MEDS ORDERED: RT-ALBUTEROL/IPRATROPIUM 3 ML (DUONEB) VIAL INH PRN (08:15)
[2019-05-14 08:19] LABS: BAND NEUTROPHILS 6 %; BASOPHILS % (MANUAL) 0 %; EOSINOPHILS % (MANUAL) 0 %; LYMPHOCYTES % (MANUAL) 8 %; MONOCYTES % (MANUAL) 1 %; NEUTROPHILS % (MANUAL) 85 %
[2019-05-14 08:20] LABS: ANISOCYTOSIS SLIGHT
[2019-05-14] MEDS: meTOprolol TARTRATE 25 MG (LOPRESSOR) TABLET PO SCH ×2 (09:01→22:06)
[2019-05-14] MEDS: lisINopril 10 MG (PRINIVIL) TABLET PO SCH (09:01)
[2019-05-14] MEDS: RT-ALBUTEROL/IPRATROPIUM 3 ML (DUONEB) VIAL INH SCH ×4 (09:48→21:32)
--- NOTE | 2019-05-14 10:46 | NUR ---
Initial visit: Pt's dad is in ICU. Longstanding pastoral rapport established with the pt. She expressed concerns for her dad and requested prayer for him. I also affirmed and commended the pt who is celebrating her 5 years of not smoking. She said this was the first hospitalization since she quit smoking.
--- NOTE | 2019-05-14 11:06 | Diagnostic Imaging Report ---
EXAMINATION: CHEST (PA AND LATERAL) CLINICAL INDICATION: 48-year-old female, shortness of breath. COMPARISON: May 13, 2019. FINDINGS: Heart size and mediastinal contours are unremarkable. There is no identified pneumothorax. There is no pleural effusion. There is no identified focal airspace consolidation. IMPRESSION: No identified acute cardiopulmonary abnormality. Dictated by: Dictated on workstation # [id number]
--- NOTE | 2019-05-14 11:15 | History & Physical-Hospitalist ---
CASIMIRO HERNANDEZ [facility] [place] 05/14/19 1115: History of Present Illness HPI/Chief Complaint Patient presented to ED last night when she became SOB. Patient has history of COPD and used to smoke, she quit 5 years ago. Patient started having a productive cough, worse with neb treatments. Moving around aggravated the SOB and resting improved it. No pain associated with cough or SOB. Denies any other associated symptoms. Has no other complaints at this time. Source: patient Exam Limitations: no limitations Date Seen 05/14/19 Time Seen by a Provider: 08:25 Attending Physician Marian Tsang DO [facility] [place] Referring Physician Date of Admission May 14, 2019 at 00:43 Home Medications & Allergies Home Medications Reviewed patient Home Medication Reconciliation performed by pharmacy medication reconciliations apartment maintenance technician and/or nursing. Patients Allergies have been reviewed. Allergies Allergies Coded Allergies codeine (Verified Allergy, Severe, THROAT SWELLS SHUT, 06/28/13) Past Fasrslu-Rshppw-Fbjqxz Hx Past Med/Social Hx: Reviewed Nursing Past Med/Soc Hx Patient Social History Marrital Status: Number of Children: 1 Employed/Student: employed Alcohol Use: Occasionally Uses Number of Drinks Today: 0 Recreational Drug Use: No Smoking Status: Former Smoker (quit 5 years ago) Former Smoker, Quit: May 08, 2014 Type Used: Cigarettes 2nd Hand Smoke Exposure: No Recent Foreign Travel: No Contact w/other who traveled: No Recent Hopitalizations: Yes (Kidney stones//premature labor) Recent Infectious Disease Expo: No Immunizations Up To Date Tetanus Booster (TDap): Unknown Pediatric: Yes Date of Pneumonia Vaccine: Jun 29, 2013 Date of Influenza Vaccine: Dec 13, 2018 Seasonal Allergies Seasonal Allergies: No Past Medical History Surgeries: Abdominal (ex lap - removed adhesions from fallopian tubes), Appendectomy (1987), Cardiac (Cath), Orthopedic (R shoulder 2005. Torn cuff), Renal Respiratory: COPD Cardiac: Hypertension Neurological: Concussion : No Reproductive: Yes (POLYCYSTIC OVARY--SURGERY 1999) Sexually Transmitted Disease: No HIV/AIDS: No Female Reproductive Disorders: Ovarian Cyst, Polycystic Ovarian Dis Genitourinary: Kidney Stones Gastrointestinal: Gastroesophageal Reflux Musculoskeletal: Degenerate Disk Disease (was told by a therapist she had sthis), Arthritis (In Hip - Dr. Unger ), Chronic Back Pain Endocrine: Hypothyroidsim, Diabetes, Non-Insulin dep Loss of Vision: Denies Psychosocial: Depression Skin/Integumentary: Psoriasis History of Blood Disorders: No Adverse Reaction to Blood Ryan: No Family History Family history: Diabetes mellitus 03 MOTHER Family history: Hypertension 03 MOTHER Family history: Osteoporosis 03 MOTHER Family history: Thyroid disorder 03 MOTHER Heart disease 03 MOTHER (TRIPLE BYPASS 2009) History of - disorder 09 SISTER (lupus) History of - respiratory disease 03 FATHER (COPD) Kidney disease 03 MOTHER (KINDEY FAILURE) Myocardial infarction 03 FATHER (1990-TRIPLE BYPASS [address] DIFIB[address]ES) 09 BROTHER (2010) Seizure disorder 03 FATHER (GRAND MAL) Heart Disease, Cancer, COPD (Father), Diabetes, Hypertension, Renal Disease (Mom had renal failure) Review of Systems Constitutional: No dizziness, No fever EENTM: blurred vision, other (No teeth on top); No ear discharge, No hearing loss, No ear pain, No eye pain, No hoarseness, No mouth pain, No mouth swelling Respiratory: cough, dyspnea on exertion, short of breath Cardiovascular: No chest pain, No palpitations, No syncope Gastrointestinal: No abdominal pain, No constipation, No diarrhea Genitourinary: No dysuria, No hematuria Musculoskeletal: No back pain, No joint pain Skin: No hx of skin cancer, No lesions, No lumps; rash (psoriasis on bottom of both feet) Psychiatric/Neurological: Denies Anxiety, Denies Depressed Physical Exam Physical Exam Vital Signs Vital Signs - First Documented 05/13/19 23:10 Temp 37.0 Pulse 115 Resp 26 B/P (MAP) 149/92 (111) Pulse Ox 96 O2 Delivery Nasal Cannula O2 Flow Rate 4.00 Capillary Refill : Less Than 3 SecondsLess Than 3 Seconds Height, Weight, BMI Height: 5'2.00" Weight: 180lbs. 5.0oz. [id number]; 42.08 BMI Method:Estimated General Appearance: No Apparent Distress, Obese HEENT: PERRL/EOMI, Pharynx Normal; No Scleral Icterus (L), No Scleral Icterus (R) Neck: Normal Inspection, Non Tender, Supple Respiratory: Chest Non Tender, No Accessory Muscle Use, Decreased Breath Sounds, Wheezing Cardiovascular: Regular Rate, Rhythm, No Gallop, No Murmur Gastrointestinal: Non Tender, Soft Rectal: Deferred Back: Normal Inspection, No CVA Tenderness Extremity: Normal Inspection, No Pedal Edema Neurologic/Psychiatric: Alert, Oriented x3 Skin: Normal Color, Warm/Dry Lymphatic: No Adenopathy Results Results/Procedures Labs Laboratory Tests 05/13/19 23:15 05/14/19 06:48 Patient resulted labs reviewed. Assessment/Plan Assessment and Plan Acute COPD exacerbation Productive cough SOB Hyperglycemia HTN Previous Smoker Started Abx O2 Hep Lock Fluids Neb Treatments Glyburide Clinical Quality Measures DVT/VTE Risk/Contraindication: Risk Factor Score Per Nursin RFS Level Per Nursing on Admit: 3=High MARIAN TSANG DO 05/14/19 1432: History of Present Illness HPI/Chief Complaint CC: SOB HPI: This is a 48yoWF clinic Pt of Jerry Delgadillo at [facility] who presented with an exacerbation of COPD and hypoxia, workup was negative, influenza was negative, she quit smoking five years ago and does not use O2 or inhalers and does not check her sugars and does have DM. She was placed on Rocephin and Zithromax empirically, and IV steroids, will be able to heplock IV fluid and ambulate today to see if we will be able to discharge tomorrow. Past Hggtatn-Lbbhco-Tmzfdb Hx Past Med/Social Hx: Reviewed Nursing Past Med/Soc Hx, Reviewed and Corrections made Patient Social History Marrital Status: Employed/Student: employed Alcohol Use: Occasionally Uses Smoking Status: Former Smoker (quit 5 years ago) Past Medical History Cardiac: Hypertension Endocrine: Diabetes, Non-Insulin dep Family History Family history: Diabetes mellitus 03 MOTHER Family history: Hypertension 03 MOTHER Family history: Osteoporosis 03 MOTHER Family history: Thyroid disorder 03 MOTHER Heart disease 03 MOTHER (TRIPLE BYPASS 2009) History of - disorder 09 SISTER (lupus) History of - respiratory disease 03 FATHER (COPD) Kidney disease 03 MOTHER (KINDEY FAILURE) Myocardial infarction 03 FATHER (1990-TRIPLE BYPASS [address] DIFIBUL[address] PLACES) 09 BROTHER (2010) Seizure disorder 03 FATHER (GRAND MAL) Review of Systems Respiratory: cough, dyspnea on exertion Physical Exam Physical Exam General Appearance: No Apparent Distress Eyes: Right Eye Normal Inspection, Right Eye PERRL HEENT: PERRL/EOMI, TMs Normal, Normal ENT Inspection, Pharynx Normal, Moist Mucous Membranes Neck: Full Range of Motion, Normal Inspection, Non Tender Respiratory: Chest Non Tender, No Accessory Muscle Use, No Respiratory Distress, Crackles, Wheezing Cardiovascular: Regular Rate, Rhythm, No Edema, No Gallop, No JVD, No Murmur, Normal Peripheral Pulses Gastrointestinal: Normal Bowel Sounds, No Organomegaly, No Pulsatile Mass, Non Tender, Soft Back: Normal Inspection, No CVA Tenderness, No Vertebral Tenderness Extremity: Normal Capillary Refill, Normal Inspection, Normal Range of Motion, Non Tender, No Calf Tenderness, No Pedal Edema Neurologic/Psychiatric: Alert, Oriented x3, No Motor/Sensory Deficits, Normal Mood/Affect Skin: Normal Color, Warm/Dry Lymphatic: No Adenopathy Assessment/Plan Admission Diagnosis Assessment: AECOPD Hypoxia Former smoker Obesity DM HTN Plan: IV steroids HLIVF Nebs O2 ICS Singulair Flonase PFT out patient Admission Status: Observation Diagnosis/Problems Diagnosis/Problems (1) COPD exacerbation Status: Acute (2) Former smoker (3) Diabetes (4) Hypoxia Status: Acute (5) Acute bronchitis Status: Acute Supervisory-Addendum Brief Verification & Attestation Participated in pt care: history, MDM, physical Personally performed: exam, history, MDM, supervision of care Care discussed with: Medical Student Procedures: n/a Results interpretation: Verified all documentation Verification and Attestation of Medical Student E/M Service A medical student performed and documented this service in my presence. I reviewed and verified all information documented by the medical student and made modifications to such information, when appropriate. I personally performed the physical exam and medical decision making. Marian Tsang, May 14, 2019,19:42 CASIMIRO HERNANDEZ [facility] [place] May 14, 2019 11:15 MARIAN TSANG DO May 14, 2019 14:32
[2019-05-14] MEDS ORDERED: TIZA4TAB4 PO (14:06)
[2019-05-14] MEDS ORDERED: GLIM2TAB4 PO (14:06)
[2019-05-14] MEDS ORDERED: ASPI-983 PO (14:06)
[2019-05-14] MEDS ORDERED: ACET325T38 PO (14:06)
[2019-05-14] MEDS ORDERED: ESCI10TA55 PO (14:07)
--- NOTE | 2019-05-14 14:10 | NUR ---
SPOKE WITH THE PT AND GOT A MED LIST FROM [facility] TO COMPLETE THE MED REC. THE FOLLOWING ARE FILL DATES: 10-31-2018 TIZANIDINE 4MG #90/PRN 12-07-2018 METOPROLOL TAR 50MG #180/90DS- I UPDATED THE PAST DUE FILL IN THE MED REC 12-07-2018 LISINOPRIL 10MG #90/90DS- I UPDATED THE PAST DUE FILL IN THE MED REC 04-04-2019 CELEBREX 200MG #30/30DS 04-04-2019 GLIMEPIRIDE 2MG #30/30DS 04-04-2019 ESCITALOPRAM 10MG #30/30DS 04-04-2019 LEVOTHYROXINE 50MCG #30/30DS WHEN I ASKED THE PT ABOUT THE PAST DUE FILL DATES ON HER MEDS SHE INDICATED SHE SOMETIMES FORGETS TO TAKE THEM ON DAYS SHE DOESNT GO TO WORK AND SHE JUST HAS EXTRA TABS. 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 OTC MEDS: TYLENOL ASPIRIN
[2019-05-14] MEDS: RT-ADVAIR HFA 115/21 MCG PER PUFF IH SCH (18:21)
[2019-05-14] MEDS ORDERED: ENOXAPARIN 40 MG/0.4 ML (LOVENOX) SYR SC SCH (19:45)
[2019-05-14] MEDS ORDERED: fentaNYL INJECTION 100 MCG/2 ML AMP IVP PRN (21:00)
[2019-05-14] MEDS ORDERED: cloNIDine 0.1 MG (CATAPRES) TAB PO PRN (21:00)
[2019-05-14] MEDS ORDERED: HYDROcodone/APAP 5 MG/325 MG (LORTAB) TAB PO PRN (21:00)
[2019-05-14] MEDS ORDERED: FUROSEMIDE 40 MG/4 ML INJ (LASIX) IVP ONE (21:00)
[2019-05-14] MEDS ORDERED: ZOLPIDEM 5 MG (AMBIEN) TAB PO PRN (21:00)
[2019-05-14] MEDS ORDERED: amLODIPine 5 MG (NORVASC) TAB PO ONE (21:00)
[2019-05-14 21:37] LABS: ABG BASE EXCESS -1.8 MMOL/L (-2.5-2.5); ABG OXYGEN SATURATION 90 % (94-100); ABG PCO2 35 MMHG (35-45); ABG PH 7.42 (7.37-7.43); ABG PO2 62 MMHG (79-93); ABG TCO2 23.2 MMOL/L (21.0-31.0); ALLENS TEST YES-POS
[2019-05-14 21:38] LABS: INSPIRED O2 NOT INDICATED; VENTILATOR NO
[2019-05-14] MEDS: ENOXAPARIN 40 MG/0.4 ML (LOVENOX) SYR SC SCH (22:06)
[2019-05-14] MEDS: MONTELUKAST 10 MG (SINGULAIR) TAB PO SCH (22:06)
[2019-05-14] MEDS: cefTRIAXone 1,000 MG/SWFI 10 ML IV PUSH IV SCH ×2 (22:07)
[2019-05-14] MEDS: inSUlin ASPART (NovoLOG) 1 UNIT/0.01 ML (CHARGE PER UNIT) SC SCH (22:07)
[2019-05-15] VITALS: BP 143/83
[2019-05-15] MEDS: ALPRAZolam 0.5 MG (XANAX) TAB PO SCH ×2 (00:22→06:11)
[2019-05-15] MEDS: methylPREDNISolone 40 MG/ML (Solu-MEDROL) VIAL IV SCH ×4 (00:22→19:40)
[2019-05-15] MEDS: RT-ALBUTEROL/IPRATROPIUM 3 ML (DUONEB) VIAL INH SCH ×6 (02:14→23:16)
[2019-05-15 04:00] VITALS: BP 125/89
[2019-05-15] MEDS: LEVOTHYROXINE 125 MCG (LEVOTHROID) TABLET PO SCH (06:11)
[2019-05-15] MEDS: inSUlin ASPART (NovoLOG) 1 UNIT/0.01 ML (CHARGE PER UNIT) SC SCH ×4 (06:11→19:49)
[2019-05-15] MEDS: GLIMEPIRIDE 4 MG (AMARYL) TAB PO SCH (06:12)
[2019-05-15 07:06] LABS: BASOPHILS % (AUTO) 0 % (0-10); EOSINOPHILS % (AUTO) 0 % (0-10); HEMATOCRIT 38 % (35-52); HEMOGLOBIN 12.1 G/DL (11.5-16.0); LYMPHOCYTES # (AUTO) 0.9 X 10^3 (1.0-4.0); LYMPHOCYTES % (AUTO) 11 % (12-44); MEAN CORPUSCULAR HEMOGLOBIN 28 PG (25-34); MEAN CORPUSCULAR HGB CONC 32 G/DL (32-36); MEAN CORPUSCULAR VOLUME 88 FL (80-99); MEAN PLATELET VOLUME 9.3 FL (7.4-10.4); MONOCYTES # (AUTO) 0.3 X 10^3 (0.0-1.0); MONOCYTES % (AUTO) 4 % (0-12); NEUTROPHILS # (AUTO) 7.1 X 10^3 (1.8-7.8); NEUTROPHILS % (AUTO) 86 % (42-75); PLATELET COUNT 315 10^3/uL (130-400); RED CELL DISTRIBUTION WIDTH 15.1 % (10.0-14.5); WHITE BLOOD COUNT 8.4 10^3/uL (4.3-11.0)
--- NOTE | 2019-05-15 07:23 | NUR ---
patient was sleeping and O2 was on 5 L NC when this RT entered the patients room; she is satting low while sleeping
[2019-05-15 07:32] LABS: ALANINE AMINOTRANSFERASE 29 U/L (0-55); ALBUMIN 4.1 GM/DL (3.2-4.5); ALKALINE PHOSPHATASE 98 U/L (40-136); BILIRUBIN,TOTAL 0.4 MG/DL (0.1-1.0); BUN/CREATININE RATIO 19; CALCIUM 9.2 MG/DL (8.5-10.1); CARBON DIOXIDE 21 MMOL/L (21-32); CHLORIDE 103 MMOL/L (98-107); CREATININE SERUM 0.75 MG/DL (0.60-1.30); GFR ESTIMATED > 60; GLUCOSE 305 MG/DL (70-105); POTASSIUM 4.7 MMOL/L (3.6-5.0); SODIUM 134 MMOL/L (135-145); TOTAL PROTEIN 7.3 GM/DL (6.4-8.2)
[2019-05-15 08:00] VITALS: BP 141/70
[2019-05-15] MEDS: AZITHROMYCIN 250 MG TAB (ZITHROMAX) PO SCH (08:37)
[2019-05-15] MEDS: lisINopril 10 MG (PRINIVIL) TABLET PO SCH (08:37)
[2019-05-15] MEDS: FLUTICASONE NASAL SPRAY (FLONASE) 16 GM BTL NS SCH (08:37)
[2019-05-15] MEDS: meTOprolol TARTRATE 25 MG (LOPRESSOR) TABLET PO SCH ×2 (08:37→19:42)
[2019-05-15] MEDS: ENOXAPARIN 40 MG/0.4 ML (LOVENOX) SYR SC SCH ×2 (08:37→19:43)
[2019-05-15] MEDS ORDERED: ALPRAZolam 0.5 MG (XANAX) TAB PO PRN (09:45)
[2019-05-15] MEDS ORDERED: HOLD METFORMIN - RECEIVED CONTRAST 20 ML VIAL IV SCH (10:45)
[2019-05-15] MEDS ORDERED: NS 100 ML (IVPB) BAG IV ONE (10:45)
[2019-05-15] MEDS ORDERED: IOHEXOL 350 MG/ML 100 ML (OMNIPAQUE 350) VIAL IV ONE (10:45)
--- NOTE | 2019-05-15 11:19 | Progress Note - Hospitalist ---
CASIMIRO HERNANDEZ [facility] 05/15/19 1119: Subjective HPI/CC On Admission CC: SOB HPI: This is a 48yoWF clinic Pt of Jerry Delgadillo at [facility] who presented with an exacerbation of COPD and hypoxia, workup was negative, influenza was negative, she quit smoking five years ago and does not use O2 or inhalers and does not check her sugars and does have DM. She was placed on Rocephin and Zithromax empirically, and IV steroids, will be able to heplock IV fluid and ambulate today to see if we will be able to discharge tomorrow. Subjective/Events-last exam Patient was sleeping when I arrived. Last night she had an episode where she became tachy and hypertensive. Ddimer was ordered and was not significant for PE. Oxygen was increased to 5L and patient is very oxygen dependent now. Bowels moved yesterday morning. Still experiencing HU, resting SOB better with 5L via NC. Troponins were negative Review of Systems General: No Chills, No Night Sweats HEENT: No Visual Changes, No Eye Pain, No Ear Pain Pulmonary: Dyspnea; No Cough Cardiovascular: No: Chest Pain, Palpitations Gastrointestinal: No: Nausea, Vomiting Genitourinary: No Dysuria, No Hematuria Musculoskeletal: No: neck pain, back pain Neurological: No: Change in speech, Confusion Focused Exam Lactate Level 05/14/19 00:40: Lactic Acid Level 1.63 Objective Exam Vital Signs Vital Signs Date Time Temp Pulse Resp B/P (MAP) Pulse Ox O2 Delivery O2 Flow Rate FiO2 05/15/19 08:00 36.8 100 20 141/70 (93) 91 Nasal Cannula 5.00 Capillary Refill : Less Than 3 SecondsLess Than 3 Seconds General Appearance: No Apparent Distress, Obese HEENT: PERRL/EOMI, Pharynx Normal Neck: Non Tender, Supple Respiratory: No Accessory Muscle Use, Decreased Breath Sounds, Other (on 5L NC) Cardiovascular: Regular Rate, Rhythm, No Gallop, No Murmur Gastrointestinal: Non Tender, Soft Rectal: Deferred Back: No CVA Tenderness, No Vertebral Tenderness Extremity: Normal Inspection, Normal Range of Motion Neurologic/Psychiatric: Alert, Oriented x3 Skin: Normal Color, Warm/Dry Lymphatic: No Adenopathy Results/Procedures Lab Laboratory Tests 05/15/19 06:05 Patient resulted labs reviewed. Assessment/Plan Assessment and Plan Assess & Plan/Chief Complaint Acute COPD exacerbation Productive cough SOB Hyperglycemia HTN Previous Smoker Worsening episode of SOB, better now positive blood cultures Consult pulmonology CT Angio of chest Gram positive cocci in chains found on blood culture waiting for susceptibility to return Continue Abx - may change depend on susceptibility O2 - on 5L now, will think about starting to wean down after pulmonology sees h er. Hep Lock Fluids Neb Treatments Glyburide Clinical Quality Measures DVT/VTE Risk/Contraindication: Risk Factor Score Per Nursin RFS Level Per Nursing on Admit: 3=High MARIAN TSANG DO 05/15/19 1424: Subjective HPI/CC On Admission Date Seen by Provider: May 15, 2019 Time Seen by Provider: 09:00 Subjective/Events-last exam Pt doing much better but had a dicey night CT of the chest will be ordered and Dr. Ellis will be consulted Elevated D-Dimer is 0.6 barely elevated so I did not suspect a PE but will do angiogram regardless Xanax really helped her and will change that to prn since it can sedate her IV steroids are making her sugar go up, I did initiate sliding scale insulin regimen with A Novolog Review of Systems Pulmonary: Dyspnea Objective Exam General Appearance: No Apparent Distress, WD/WN HEENT: PERRL/EOMI, TMs Normal, Normal ENT Inspection, Pharynx Normal, Moist Mucous Membranes Neck: Full Range of Motion, Normal Inspection, Non Tender, Supple, Carotid Bruit Respiratory: Chest Non Tender, Lungs Clear, No Accessory Muscle Use, No Respiratory Distress, Wheezing Cardiovascular: Regular Rate, Rhythm, No Edema, No Gallop, No JVD, No Murmur, Normal Peripheral Pulses Gastrointestinal: Normal Bowel Sounds, No Organomegaly, No Pulsatile Mass, Non Tender, Soft Back: Normal Inspection, No CVA Tenderness, No Vertebral Tenderness Extremity: Normal Capillary Refill, Normal Inspection, Normal Range of Motion, Non Tender, No Calf Tenderness, No Pedal Edema Neurologic/Psychiatric: Alert, Oriented x3, No Motor/Sensory Deficits, Normal Mood/Affect Skin: Normal Color, Warm/Dry Lymphatic: No Adenopathy Assessment/Plan Assessment and Plan Assess & Plan/Chief Complaint CT chest Pulmo consult appreciated IV steroids SSI Diagnosis/Problems Diagnosis/Problems (1) COPD exacerbation Status: Acute (2) Diabetes (3) Acute bronchitis Status: Acute (4) Hypoxia Status: Acute Supervisory-Addendum Brief Verification & Attestation Participated in pt care: history, MDM, physical Personally performed: exam, history, MDM, supervision of care Care discussed with: Medical Student Procedures: n/a Results interpretation: Verified all documentation Verification and Attestation of Medical Student E/M Service A medical student performed and documented this service in my presence. I reviewed and verified all information documented by the medical student and made modifications to such information, when appropriate. I personally performed the physical exam and medical decision making. Marian Tsang, May 15, 2019,19:59 CASIMIRO HERNANDEZ [facility] May 15, 2019 11:19 MARIAN TSANG DO May 15, 2019 14:24
[2019-05-15] MEDS: RT-ADVAIR HFA 115/21 MCG PER PUFF IH SCH ×2 (11:30→23:09)
[2019-05-15 11:40] VITALS: BP 121/58
--- NOTE | 2019-05-15 13:34 | Diagnostic Imaging Report ---
PROCEDURE: CT angiography of the chest with contrast. TECHNIQUE: Multiple contiguous axial images were obtained through the chest after uneventful bolus administration of intravenous contrast. 3D reconstructed CTA MIP acquisitions were also performed. Auto Exposure Controls were utilized during the CT exam to meet ALARA standards for radiation dose reduction. INDICATION: COPD exacerbation and bronchitis. COMPARISON: Correlation is made with prior CT angiogram of the chest from 11/12/2014. FINDINGS: The thoracic aorta is normal in caliber. No dissection is identified. The pulmonary arterial system is without evidence of thromboembolism. No pericardial or pleural fluid is detected. There is some minimal ground-glass infiltrate in the left upper lobe, similar to prior CT from 2015. There is some minimal lingular ground-glass infiltrate. Lower lobes appear to be fairly clear apart from minimal subpleural scarring. No mass is identified in the chest. Upper abdomen again demonstrates a low-density nodule involving the left adrenal gland, stable. IMPRESSION: 1. No evidence of pulmonary embolism or thoracic aortic dissection. 2. Minimal ground-glass infiltrates in the left upper lobe, similar to prior CT. No new abnormality is detected. 3. Stable low-density left adrenal nodule, presumably an adenoma. Dictated by: Dictated on workstation # [id number]
--- NOTE | 2019-05-15 15:14 | Pulmonary Consultation ---
History of Present Illness History of Present Illness Date Seen by Provider: May 15, 2019 Time Seen by Provider: 15:11 Date of Admission History of Present Illness 48yo with hx of COPD presented to ED secondary to worsening SOB, cough, and wheezing over the last 3 days. denies fever. Allergies and Home Medications Allergies Coded Allergies: codeine (Verified Allergy, Severe, THROAT SWELLS SHUT, 06/28/13) Home Medications Acetaminophen 325 Mg Tablet, 650 MG PO Q8H PRN for PAIN-MILD (1-4), (Reported) Aspirin 81 Mg Tablet.dr, 81 MG PO 2200, (Reported) Celecoxib 200 Mg Capsule, 200 MG PO 2200, (Reported) Escitalopram Oxalate 10 Mg Tablet, 10 MG PO DAILY, (Reported) Glimepiride 2 Mg Tablet, 2 MG PO 2200, (Reported) Levothyroxine Sodium 50 Mcg Tablet, 50 MCG PO 2200, (Reported) Lisinopril 10 Mg Tablet, 10 MG PO 2200, (Reported) LAST FILLED 12-07-2018 #90/90 DAY SUPPLY Metoprolol Tartrate 50 Mg Tablet, 50 MG PO BID, (Reported) LAST FILLED 12-07-2018 #180/90 DAY SUPPLY Tizanidine HCl 4 Mg Tablet, 4 MG PO DAILY PRN for MUSCLE CRAMPS, (Reported) Past Gzrecik-Vzyclq-Mxccbg Hx Past Med/Social Hx: Reviewed Nursing Past Med/Soc Hx, Reviewed and Corrections made Patient Social History Alcohol Use: Occasionally Uses Number of Drinks Today: 0 Recreational Drug Use: No Smoking Status: Former Smoker (quit 5 years ago) Type Used: Cigarettes Former Smoker, Quit: May 08, 2014 2nd Hand Smoke Exposure: No Recent Foreign Travel: No Contact w/Someone Who Travel: No Recent Infectious Disease Expo: No Recent Hopitalizations: Yes (Kidney stones//premature labor) Physical Abuse: No Sexual Abuse: No Mistreated: No Fear: No Immunizations Up To Date Tetanus Booster (TDap): Unknown PED Vaccines UTD: Yes Date of Pneumonia Vaccine: Jun 29, 2013 Date of Influenza Vaccine: Dec 13, 2018 Seasonal Allergies Seasonal Allergies: No Past Medical History Surgeries: Yes Abdominal (ex lap - removed adhesions from fallopian tubes), Appendectomy (1987), Cardiac (Cath), Orthopedic (R shoulder 2006. Torn cuff), Renal Respiratory: Yes Asthma, COPD Cardiac: Yes Hypertension Neurological: Yes (CONCUSSION AT AGE 22) Concussion : No Reproductive Disorders: Yes (POLYCYSTIC OVARY--SURGERY 1999) Female Reproductive Disorders: Ovarian Cyst, Polycystic Ovarian Dis Sexually Transmitted Disease: No HIV/AIDS: No Genitourinary: Yes Kidney Stones Gastrointestinal: Yes Gastroesophageal Reflux Musculoskeletal: Yes (BULGING DISC) Degenerate Disk Disease (was told by a therapist she had sthis), Arthritis (In Hip - Dr. Unger ), Chronic Back Pain Endocrine: Yes Diabetes, Non-Insulin dep HEENT: Yes (SINUS DRAINAGE) Loss of Vision: Denies Cancer: No Psychosocial: Yes Depression Integumentary: Yes Psoriasis Blood Disorders: No Adverse Reaction/Blood Tranf: No Family Medical History Family history: Diabetes mellitus 03 MOTHER Family history: Hypertension 03 MOTHER Family history: Osteoporosis 03 MOTHER Family history: Thyroid disorder 03 MOTHER Heart disease 03 MOTHER (TRIPLE BYPASS 2009) History of - disorder 09 SISTER (lupus) History of - respiratory disease 03 FATHER (COPD) Kidney disease 03 MOTHER (KINDEY FAILURE) Myocardial infarction 03 FATHER (1990-TRIPLE BYPASS 1996 DIFIB[address]ACES) 09 BROTHER (2010) Seizure disorder 03 FATHER (GRAND MAL) Heart Disease, Cancer, COPD (Father), Diabetes, Hypertension, Renal Disease (Mom had renal failure) Sepsis Event Evaluation Height, Weight, BMI Height: 5'2.00" Weight: 180lbs. 5.0oz. 81.133812uk; 42.08 BMI Method:Estimated Exam Exam Vital Signs Date Time Temp Pulse Resp B/P (MAP) Pulse Ox O2 Delivery O2 Flow Rate FiO2 05/15/19 11:40 36.6 87 20 121/58 (79) 96 Nasal Cannula 5.00 05/15/19 11:30 93 Nasal Cannula 5.00 05/15/19 11:22 93 Nasal Cannula 5.00 05/15/19 08:00 36.8 100 20 141/70 (93) 91 Nasal Cannula 5.00 05/15/19 08:00 Nasal Cannula 5.00 05/15/19 07:13 90 Trach Collar 5.00 05/15/19 06:41 91 05/15/19 04:00 36.4 85 22 125/89 (101) 93 Nasal Cannula 3.00 05/15/19 02:14 94 Nasal Cannula 4.00 05/15/19 01:00 84 05/15/19 00:00 36.8 93 22 143/83 (103) 91 Nasal Cannula 3.00 05/14/19 22:04 114 05/14/19 21:33 91 Nasal Cannula 4.00 05/14/19 20:00 92 Nasal Cannula 4.00 05/14/19 19:50 37.2 120 22 160/74 (102) 90 Nasal Cannula 3.00 05/14/19 18:21 92 Nasal Cannula 2.00 05/14/19 18:08 106 91 Nasal Cannula 3.00 05/14/19 15:49 36.9 105 22 139/64 (89) 90 Nasal Cannula 2.00 I & O 05/15/19 07:00 Intake Total 2870 ml Balance 2870 ml Height & Weight Height: 5'2.00" Weight: 180lbs. 5.0oz. 81.870582ty; 42.08 BMI Method:Estimated General Appearance: No Apparent Distress, WD/WN HEENT: PERRL/EOMI, TMs Normal, Normal ENT Inspection, Pharynx Normal, Moist Mucous Membranes Neck: Full Range of Motion, Normal Inspection, Non Tender, Supple, Carotid Bruit Respiratory: Chest Non Tender, Lungs Clear, No Accessory Muscle Use, No Respiratory Distress, Wheezing Cardiovascular: Regular Rate, Rhythm, No Edema, No Gallop, No JVD, No Murmur, Normal Peripheral Pulses Capillary Refill: Less Than 3 Seconds Gastrointestinal: normal bowel sounds, non tender, soft Extremity: Normal Capillary Refill, Normal Inspection, Normal Range of Motion, Non Tender, No Calf Tenderness, No Pedal Edema Neurologic/Psychiatric: Alert, Oriented x3, No Motor/Sensory Deficits, Normal Mood/Affect Skin: Normal Color, Warm/Dry Lymphatic: No Adenopathy Results Lab Laboratory Tests 05/13/19 23:15 05/14/19 06:48 05/15/19 06:05 Assessment/Plan Assessment/Plan COPDAE -Solumedrol -DuoNeb Q 4 -CTA chest reviewed -Doubt PNA 1/2 BC positive for strep -I question if this is contamination -Repeat BC x 3 -Check urine strep Ag -Check procalcitonin IWONA GALLEGOS DO May 15, 2019 15:14
[2019-05-15 16:18] VITALS: BP 124/58
[2019-05-15] MEDS: MONTELUKAST 10 MG (SINGULAIR) TAB PO SCH (19:42)
[2019-05-15 19:55] VITALS: BP 145/72
[2019-05-15] MEDS: cefTRIAXone 1,000 MG/SWFI 10 ML IV PUSH IV SCH ×2 (23:16)
[2019-05-16] VITALS: BP 131/58
[2019-05-16] MEDS: methylPREDNISolone 40 MG/ML (Solu-MEDROL) VIAL IV SCH ×4 (00:09→17:02)
[2019-05-16] MEDS: RT-ALBUTEROL/IPRATROPIUM 3 ML (DUONEB) VIAL INH SCH ×6 (03:09→22:11)
[2019-05-16 04:00] VITALS: BP 162/75
[2019-05-16] MEDS: LEVOTHYROXINE 125 MCG (LEVOTHROID) TABLET PO SCH (05:08)
[2019-05-16] MEDS: GLIMEPIRIDE 4 MG (AMARYL) TAB PO SCH (05:08)
[2019-05-16 05:09] LABS: BASOPHILS % (AUTO) 0 % (0-10); EOSINOPHILS % (AUTO) 0 % (0-10); HEMATOCRIT 38 % (35-52); HEMOGLOBIN 12.3 G/DL (11.5-16.0); LYMPHOCYTES # (AUTO) 1.5 X 10^3 (1.0-4.0); LYMPHOCYTES % (AUTO) 15 % (12-44); MEAN CORPUSCULAR HEMOGLOBIN 28 PG (25-34); MEAN CORPUSCULAR HGB CONC 32 G/DL (32-36); MEAN CORPUSCULAR VOLUME 87 FL (80-99); MEAN PLATELET VOLUME 9.3 FL (7.4-10.4); MONOCYTES # (AUTO) 0.3 X 10^3 (0.0-1.0); MONOCYTES % (AUTO) 3 % (0-12); NEUTROPHILS # (AUTO) 8.2 X 10^3 (1.8-7.8); NEUTROPHILS % (AUTO) 82 % (42-75); PLATELET COUNT 345 10^3/uL (130-400); RED CELL DISTRIBUTION WIDTH 15.3 % (10.0-14.5)
[2019-05-16 05:12] LABS: SMEAR SCAN COMMENT YES
[2019-05-16 05:25] LABS: ALANINE AMINOTRANSFERASE 33 U/L (0-55); ALKALINE PHOSPHATASE 97 U/L (40-136); BILIRUBIN,TOTAL 0.4 MG/DL (0.1-1.0); BUN/CREATININE RATIO 20; CARBON DIOXIDE 22 MMOL/L (21-32); CHLORIDE 102 MMOL/L (98-107); CREATININE SERUM 0.91 MG/DL (0.60-1.30); GFR ESTIMATED > 60; GLUCOSE 360 MG/DL (70-105); POTASSIUM 4.7 MMOL/L (3.6-5.0); SODIUM 133 MMOL/L (135-145); TOTAL PROTEIN 7.1 GM/DL (6.4-8.2)
[2019-05-16] MEDS: inSUlin ASPART (NovoLOG) 1 UNIT/0.01 ML (CHARGE PER UNIT) SC SCH ×4 (05:29→22:04)
--- OUTSIDE RECORDS SUMMARY | 2019-05-16 06:57 | XMS REPORT ---
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 Name Role Phone KHURRAMNARGIS BROOKSY Unavailable PROBLEMS Type Condition ICD9-CM Code AYA02-YF Code Onset Dates Condition S tatus SNOMED Code Problem Pure hypercholesterolemia E78.0 Acti ve 41253517 Problem Prediabetes R73.09 Active 26648475 2 Problem Hypertension I10 Active 8600268 3 Problem COPD (chronic obstructive pulmonary disease) J44.9 Active 79042602 Problem Polyarthralgia M25.50 Active 94660 005 Problem Enlarged lymph node R59.9 Active 21316985 Problem Dyshidrotic eczema L30.1 Active 4 24421233 Problem Abnormal mammogram R92.8 Active 1 31114982 Problem BMI 39.0-39.9,adult Z68.39 Active 452572140 Problem Obesity (BMI 30-39.9) E66.9 Active 498198958 Problem Abnormal uterine bleeding N93.9 Acti ve 74211203410967 Problem Dysmenorrhea N94.6 Active 0061466 00 Problem Right sided sciatica M54.31 Active 79620264 Problem Psoriasis L40.9 Active 7501868 Problem Primary osteoarthritis of right hip M16.11 Active 207173485 Problem Mood disorder F39 Active 509449 05 Problem Other chronic pain G89.29 Active 8 0805064 Problem Arthritis M19.90 Active 0454395 Problem Hypothyroidism (acquired) E03.9 Acti ve 77740165 ALLERGIES No Information ENCOUNTERS Encounter Location Date Diagnosis [facility] [address] [id number] [place] [address] Jan, Skin tags, multiple acquired L91.8 [facility] [address] [id number] [place] [address] Nov, Screening for malignant neoplasm of vernell st Z12.39 [place] [address] [address] Oct, Prediabetes R73.09 [place] [address] [address] Oct, Prediabetes R73.09 ; Psoriasis L40.9 and Dysmenorrhea N94.6 [place] [address] [address] Oct, Plantar fasciitis of right foot M72.2 an d Tendonitis, Achilles, right M76.61 [facility] [address] [facility] [id number] [place] [address] Oct, Plantar fasciitis of right f oot M72.2 and Morbid obesity E66.01 [place] [address] [address] Sep, Morbid obesity E66.01 ; Upper abdominal pain R10.10 ; Bloating R14.0 ; Tinea corporis B35.4 and Hypothyroidism (acquired) E03.9 [place] [address] [address] Aug, Hypothyroidism (acquired) E03.9 [place] [address] [address] Aug, Morbid obesity E66.01 [place] [address] [address] Aug, Morbid obesity E66.01 ; Arthritis M19.90 ; Other chronic pain G89.29 ; Pain in left knee M25.562 ; Pain in right knee M25.561 ; Diarrhea, unspecified type R19.7 and Family history of thyroid disease Z83.49 [place] [address] [address] July, [place] [address] [address] July, Pure hypercholesterolemia E78.0 ; Hypert ension I10 ; Prediabetes R73.09 ; Pain of left heel M79.672 ; Cutaneous horn L85.8 ; Mood disorder F39 and Morbid obesity E66.01 [facility] [address] [address] May, Viral upper respiratory infe ction J06.[address] [address] Aug, Bronchitis J40 [facility] [address] [address] Aug, [address] [address] Jun, Abnormal mammogram R92.8 [place] [address] [address] Jun, Abnormal mammogram R92.[address] [address] May, [address] [address] May, Well woman exam Z01.419 ; Pain of left h and M79.642 ; Pain in right hand M79.641 ; Abnormal uterine bleeding N93.9 and BMI 39.0-39.9,adult Z68.[address] [address] Dec, Hypertension I10 ; BMI 39.0-39.9,adult Z 68.39 and Obesity (BMI 30- 39.9) E66.9 [facility] [address] [address] Oct, Asthma exacerbation J45.[address] [address] Oct, Right sided sciatica M54.31 [facility] [address] [address] Sep, Acute seasonal allergic rhin itis, unspecified trigger J30.2 [place] [address] [address] Aug, Primary osteoarthritis of right hip M16. 11 ; Prediabetes R73.09 ; Precordial pain R07.2 ; Hypertension I10 and Skin lesion L98.[address] [address] Aug, Hypertension I10 [facility] [place] [address] [place] [address] July, Sore throat J02.9 and Acute upper respiratory infection, unspecified J06.9 [facility] [address] [address] 14 Apr, 2016 Acute bacterial conjunctivit is of right eye H10.[address] [address] Mar, Primary osteoarthritis of right hip M16. 11 [place] [address] [address] Nov, Hypertension I10 and Pure hypercholester olemia E78.[address] [address] Oct, Hypertension I10 ; Pure hypercholesterol emia E78.0 ; Dyshidrotic eczema L30.1 and Primary osteoarthritis of right hip M16.11 [place] [address] [address] Aug, Hypertension I10 [address] [address] Aug, Weight gain R63.[address] [address] Aug, [address] [address] 15 Aug, 2015 Bilateral ovarian cysts N83.20 and Abnor mal mammogram R92.8 [place] [address] [address] Jun, Abnormal mammogram R92.8 and Enlarged ly mph nodes in armpit R59.0 [place] [address] [address] Jun, Enlarged lymph node R59.9 ; Bilateral ov varsha cysts N83.20 and Polyarthralgia M25.50 [place] [address] [address] May, Bilateral ovarian cysts N83.[address] [address] May, Screening for malignant neoplasm of vernell st Z12.39 and Enlarged lymph node R59.9 [place] [address] [address] 16 May, [address] [address] 14 May, 2015 Well woman exam Z01.419 ; BMI 38.0-38.9, adult Z68.38 ; Irregular menses N92.6 ; Abdominal bloating R14.0 ; Vaginal discharge N89.8 ; Routine screening for STI (sexually transmitted infection) Z11.3 ; Family history of uterine cancer Z80.49 ; Family history of breast cancer Z80.3 ; Fibrocystic breast, right N60.11 ; Fibrocystic breast, left N60.12 ; Screening for malignant neoplasm of breast Z12.39 and Subclinical hypothyroidism E03.9 [place] [address] [address] May, Tinea pedis B35.3 and Metrorrhagia N92.[address] [address] Mar, Onychomycosis B35.1 and Nail ingrowing L 60.[address] [address] Jan, Subclinical hypothyroidism E03.9 [facility] [address] [address] Dec, Pain in joint, pain in unspecified joint M25.50 [facility] [address] [address] Dec, Pain in joint, pain in unspecified joint M25.50 [facility] [address] [address] Dec, Pain in joint, pain in unspecified joint M25.50 [facility] [address] [address] Nov, Hypertension 401.9 [facility] [address] [address] 18 Nov, 2014 [place] [address] [address] 15 Nov, 2014 Chronic airway obstruction, not elsewher e classified 496 and Hypertension 401.9 [facility] [address] [place] [address] [place] [id number] Oct, Dental examination V72.2 [place] [address] [address] 30 Aug, 2014 Onychomycosis 110.1 and Ingrown nail [address] [address] Aug, [facility] [address] [address] 08 Aug, 2014 Onychomycosis 110.1 and Nail, ingrown 70 3.0 [place] [address] [address] 14 Jun, 2014 [facility] [address] [address] Jun, [facility] [address] [address] May, [address] [place] [address] May, [facility] [address] [id number] [place] [address] Apr, [facility] [address] [id number] [place] [address] Apr, [facility] [address] [id number] [place] [address] Apr, [facility] [address] [id number] [place] [address] Apr, [facility] [address] [id number] [place] [address] Mar, [facility] [address] [id number] [place] [address] Mar, [facility] [address] [id number] [place] [address] Feb, [facility] [address] [id number] [place] [address] Jan, [facility] [address] [id number] [place] [address] Jan, [facility] [address] [id number] [place] [address] Aug, [facility] [address] [id number] [place] [address] Aug, [facility] [address] [id number] [place] [address] Aug, [facility] [address] [id number] [place] [address] Aug, [facility] [address] [id number] [place] [address] July, [facility] [address] [id number] [place] [address] July, [facility] [address] [id number] [place] [address] July, [facility] [address] [facility] [id number] [place] [address] July, [facility] [address] [facility] [id number] [facility] [address] July, [facility] [address] [facility] [id number] [place] [address] July, [facility] [address] [id number] [facility] [address] July, [facility] [address] [facility] [id number] [facility] [address] July, [facility] [address] [id number] [place] [address] Jun, [facility] [address] [id number] [place] [address] May, [facility] [address] [id number] [place] [address] May, [facility] [address] [id number] [place] [address] May, [facility] [address] [id number] [place] [address] May, [facility] [address] [id number] [place] [address] Apr, [facility] [address] [id number] [place] [address] Apr, [facility] [address] [id number] [place] [address] Apr, [facility] [address] [id number] [place] [address] Apr, [facility] [address] [id number] [place] [address] Apr, [facility] [address] [id number] [place] [address] Apr, [facility] [address] [id number] [place] [address] Feb, [facility] [address] [id number] [place] [address] Feb, [facility] [address] [id number] [place] [address] Jan, [facility] [address] [id number] [place] [address] Jan, [facility] [address] [id number] [place] [address] Jan, [facility] [address] [id number] [place] [address] Dec, [facility] [address] [id number] [place] [address] Dec, [facility] [address] [id number] [place] [address] Dec, [facility] [address] [id number] [place] [address] Dec, [facility] [address] [id number] [place] [address] Oct, [facility] [address] [id number] [place] [address] Oct, [facility] [address] [id number] [place] [address] Nov, [facility] [address] [id number] [place] [address] Oct, [facility] [address] [id number] [place] [address] Oct, [facility] [address] [id number] [place] [address] Aug, [facility] [address] [id number] [place] [address] Aug, [facility] [address] [id number] [place] [address] July, [facility] [address] [place] [id number] [place] [address] Jun, [facility] [address] [place] [id number] [place] [address] Jun, [facility] [address] [place] [id number] [place] [address] Jun, [facility] [address] [place] [id number] [place] [address] Feb, [facility] [address] [place] [id number] [place] [address] Feb, [facility] [address] [address] Feb, [facility] [address] [place] [id number] [place] [address] Jan, [facility] [address] [address] Jan, [facility] [address] [place] [id number] [place] [address] Jan, [facility] [address] [place] [id number] [place] [address] Dec, [facility] [address] [place] [id number] [place] [address] Dec, [facility] [address] [place] [id number] [place] [address] Mar, [facility] [address] [place] [id number] [place] [address] Jan, IMMUNIZATIONS No Known Immunizations SOCIAL HISTORY Never Assessed REASON FOR VISIT PLAN OF CARE VITAL SIGNS Height 69 in 2013-05-23 Weight 230.31 lbs 2013-05-23 Temperature 98.2 degrees Fahrenheit 2013-05-23 Heart Rate 76 bpm 2013-05-23 Respiratory Rate 2013-05-23 Blood pressure systolic 111 mmHg 2013-05-23 Blood pressure diastolic 78 mmHg 2013-05-23 MEDICATIONS Unknown Medications RESULTS No Results PROCEDURES Procedure Date Ordered Result Body Site X-RAY EXAM OF HIP May 23, 2013 INSTRUCTIONS MEDICATIONS ADMINISTERED No Known Medications MEDICAL (GENERAL) HISTORY Type Description Date Medical History hypertension Medical History asthma Medical History chronic obstructive pulmonary disease (C OPD) Medical History psoriasis Medical History sciatica Medical History PCOS Medical History kidney stone Surgical History appendectomy Surgical History orthopedic surgery: right shoulder, torn muscle 2005 Surgical History kidney stone removed; stent placed in ri ght kidney x 2 03/2015 Hospitalization History [facility], acute bronchiti s 08/2011 Hospitalization History [facility] dys[facility]nea 11/2014
--- OUTSIDE RECORDS SUMMARY | 2019-05-16 06:57 | XMS REPORT ---
Author Author KHURRAM Marian [place] Organization [facility] Address [address] [place] [address] Care Team Providers Care Focuser Name Role Phone KHURRAMNARGIS BROOKSY Unavailable PROBLEMS Type Condition ICD9-CM Code JPI05-TP Code Onset Dates Condition S tatus SNOMED Code Problem Pure hypercholesterolemia E78.0 Acti ve 94487195 Problem Prediabetes R73.09 Active 27676643 2 Problem Hypertension I10 Active 9777445 3 Problem COPD (chronic obstructive pulmonary disease) J44.9 Active 85016598 Problem Polyarthralgia M25.50 Active 65028 005 Problem Enlarged lymph node R59.9 Active 61667355 Problem Dyshidrotic eczema L30.1 Active 4 98128346 Problem Abnormal mammogram R92.8 Active 1 69035647 Problem BMI 39.0-39.9,adult Z68.39 Active 004014287 Problem Obesity (BMI 30-39.9) E66.9 Active 257026445 Problem Abnormal uterine bleeding N93.9 Acti ve 25791790748322 Problem Dysmenorrhea N94.6 Active 2440444 00 Problem Right sided sciatica M54.31 Active 08847086 Problem Psoriasis L40.9 Active 8015989 Problem Primary osteoarthritis of right hip M16.11 Active 822275419 Problem Mood disorder F39 Active 202932 05 Problem Other chronic pain G89.29 Active 8 6002224 Problem Arthritis M19.90 Active 6736113 Problem Hypothyroidism (acquired) E03.9 Acti ve [id number] ALLERGIES No Information ENCOUNTERS Encounter Location Date Diagnosis [facility] [address] [id number] [place] [address] Jan, Skin tags, multiple acquired L91.8 [facility] [address] [id number] [place] [address] Nov, Screening for malignant neoplasm of vernell st Z12.39 [place] [address] [address] Oct, Prediabetes R73.09 [place] [address] [address] Oct, Prediabetes R73.09 ; Psoriasis L40.9 and Dysmenorrhea N94.6 [place] [address] [address] Oct, Plantar fasciitis of right foot M72.2 an d Tendonitis, Achilles, right M76.61 [facility] [address] [facility] [id number] [place] [address] Oct, Plantar fasciitis of right f oot M72.2 and Morbid obesity E66.01 [place] [address] [address] Sep, Morbid obesity E66.01 ; Upper abdominal pain R10.10 ; Bloating R14.0 ; Tinea corporis B35.4 and Hypothyroidism (acquired) E03.9 [place] [address] [address] Aug, Hypothyroidism (acquired) E03.9 [place] [address] [address] Aug, Morbid obesity E66.01 [place] [address] [address] Aug, Morbid obesity E66.01 ; Arthritis M19.90 ; Other chronic pain G89.29 ; Pain in left knee M25.562 ; Pain in right knee M25.561 ; Diarrhea, unspecified type R19.7 and Family history of thyroid disease Z83.49 [place] [address] [address] July, [place] [address] [address] July, Pure hypercholesterolemia E78.0 ; Hypert ension I10 ; Prediabetes R73.09 ; Pain of left heel M79.672 ; Cutaneous horn L85.8 ; Mood disorder F39 and Morbid obesity E66.01 [facility] IN [address] [address] May, Viral upper respiratory infe ction J06.[address] [address] Aug, Bronchitis J40 [facility] [address] [address] Aug, [address] [address] Jun, Abnormal mammogram R92.8 [place] [address] [address] Jun, Abnormal mammogram R92.[address] [address] May, [address] [address] May, Well woman exam Z01.419 ; Pain of left h and M79.642 ; Pain in right hand M79.641 ; Abnormal uterine bleeding N93.9 and BMI 39.0-39.9,adult Z68.[address] [address] Dec, Hypertension I10 ; BMI 39.0-39.9,adult Z 68.39 and Obesity (BMI 30- 39.9) E66.9 [facility] [address] [address] Oct, Asthma exacerbation J45.[address] [address] Oct, Right sided sciatica M54.31 [facility] [address] [address] Sep, Acute seasonal allergic rhin itis, unspecified trigger J30.2 [place] [address] [address] Aug, Primary osteoarthritis of right hip M16. 11 ; Prediabetes R73.09 ; Precordial pain R07.2 ; Hypertension I10 and Skin lesion L98.[address] [address] Aug, Hypertension I10 [facility] [place] [address] [place] [address] July, Sore throat J02.9 and Acute upper respiratory infection, unspecified J06.9 [facility] [address] [address] 14 Apr, 2016 Acute bacterial conjunctivit is of right eye H10.[address] [address] Mar, Primary osteoarthritis of right hip M16. 11 [place] [address] [address] Nov, Hypertension I10 and Pure hypercholester olemia E78.[address] [address] Oct, Hypertension I10 ; Pure hypercholesterol emia E78.0 ; Dyshidrotic eczema L30.1 and Primary osteoarthritis of right hip M16.11 [place] [address] [address] Aug, Hypertension I10 [address] [address] Aug, Weight gain R63.[address] [address] Aug, [address] [address] 15 Aug, 2015 Bilateral ovarian cysts N83.20 and Abnor mal mammogram R92.8 [place] [address] [address] Jun, Abnormal mammogram R92.8 and Enlarged ly mph nodes in armpit R59.0 [place] [address] [address] Jun, Enlarged lymph node R59.9 ; Bilateral ov varsha cysts N83.20 and Polyarthralgia M25.50 [place] [address] [address] May, Bilateral ovarian cysts N83.[address] [address] May, Screening for malignant neoplasm of vernell st Z12.39 and Enlarged lymph node R59.9 [place] [address] [address] 16 May, [address] [address] 14 May, 2015 Well woman exam Z01.419 [...] of breast Z12.39 and Subclinical hypothyroidism E03.9 [place] [address] [address] May, Tinea pedis B35.3 and Metrorrhagia N92.[address] [address] Mar, Onychomycosis B35.1 and Nail ingrowing L 60.[address] [address] Jan, Subclinical hypothyroidism E03.9 [facility] [address] [address] Dec, Pain in joint, pain in unspecified joint M25.50 [facility] [address] [address] Dec, Pain in joint, pain in unspecified joint M25.50 [facility] [address] [address] Dec, Pain in joint, pain in unspecified joint M25.50 [facility] [address] [address] Nov, Hypertension 401.9 [facility] [address] [address] 18 Nov, 2014 [place] [address] [address] 15 Nov, 2014 Chronic airway obstruction, not elsewher e classified 496 and Hypertension 401.9 [facility] [address] [place] [id number] [place] [id number] Oct, Dental examination V72.2 [place] [address] [address] 30 Aug, 2014 Onychomycosis 110.1 and Ingrown nail [address] [address] Aug, [facility] [address] [address] 08 Aug, 2014 Onychomycosis 110.1 and Nail, ingrown 70 3.0 [place] [address] [address] 14 Jun, 2014 [facility] [address] [address] Jun, [facility] [address] [address] May, [id number] [place] [address] May, [facility] [address] [id number] [place] [address] Apr, [facility] [address] [id number] [place] [address] Apr, [facility] [address] [id number] [place] [address] Apr, [facility] [address] [id number] [place] [address] Apr, [facility] [address] [id number] [place] [address] Mar, [facility] [address] [id number] [place] [address] Mar, [facility] [address] [id number] [place] [address] Feb, [facility] [address] [id number] [place] [address] Jan, [facility] [address] [id number] [place] [address] Jan, [facility] [address] [id number] [place] [address] Aug, [facility] [address] [id number] [place] [address] Aug, [facility] [address] [id number] [place] [address] Aug, [facility] [address] [id number] [place] [address] Aug, [facility] [address] [id number] [place] [address] July, [facility] [address] [id number] [place] [address] July, [facility] [address] [id number] [place] [address] July, [facility] [address] [facility] [id number] [place] [address] July, [facility] [address] [facility] [id number] [facility] [place] [address] July, [facility] [address] [facility] [id number] [place] [address] July, [facility] [address] [id number] [facility] [place] [address] July, [facility] [address] [facility] [id number] [facility] [place] [address] July, [facility] [address] [id number] [place] [address] Jun, [facility] [address] [id number] [place] [address] May, [facility] [address] [id number] [place] [address] May, [facility] [address] [id number] [place] [address] May, [facility] [address] [id number] [place] [address] May, [facility] [address] [id number] [place] [address] Apr, [facility] [address] [id number] [place] [address] Apr, [facility] [address] [id number] [place] [address] Apr, [facility] [address] [id number] [place] [address] Apr, [facility] [address] [id number] [place] [address] Apr, [facility] [address] [id number] [place] [address] Apr, [facility] [address] [id number] [place] [address] Feb, [facility] [address] [id number] [place] [address] Feb, [facility] [address] [id number] [place] [address] Jan, [facility] [address] [id number] [place] [address] Jan, [facility] [address] [id number] [place] [address] Jan, [facility] [address] [id number] [place] [address] Dec, [facility] [address] [id number] [place] [address] Dec, [facility] [address] [id number] [place] [address] Dec, [facility] [address] [id number] [place] [address] Dec, [facility] [address] [id number] [place] [address] Oct, [facility] [address] [id number] [place] [address] Oct, [facility] [address] [id number] [place] [address] Nov, [facility] [address] [id number] [place] [address] Oct, [facility] [address] [id number] [place] [address] Oct, [facility] [address] [id number] [place] [address] Aug, [facility] [address] [id number] [place] [address] Aug, [facility] [address] [id number] [place] [address] July, [facility] [address] [place] [id number] [place] [address] Jun, [facility] [address] [place] [id number] [place] [address] Jun, [facility] [address] [place] [id number] [place] [address] Jun, [facility] [address] [place] [id number] [place] [address] Feb, [facility] [address] [place] [id number] [place] [address] Feb, [facility] [address] [address] Feb, [facility] [address] [address] Jan, [facility] [address] [address] Jan, [facility] [address] [place] [id number] [place] [address] Jan, [facility] [address] [address] Dec, [facility] [address] [address] Dec, [facility] [address] [address] Mar, [facility] [address] [place] [id number] [place] [address] Jan, IMMUNIZATIONS No Known Immunizations SOCIAL HISTORY Never Assessed REASON FOR VISIT PLAN OF CARE VITAL SIGNS Height 69 in 2013-04-25 Weight 231.5 lbs 2013-04-25 Temperature 97.5 degrees Fahrenheit 2013-04-25 Heart Rate 84 bpm 2013-04-25 Respiratory Rate 2013-04-25 Blood pressure systolic 142 mmHg 2013-04-25 Blood pressure diastolic 98 mmHg 2013-04-25 MEDICATIONS Unknown Medications RESULTS No Results PROCEDURES No Known procedures INSTRUCTIONS MEDICATIONS ADMINISTERED No Known Medications MEDICAL (GENERAL) HISTORY Type Description Date Medical History hypertension Medical History asthma Medical History chronic obstructive pulmonary disease (C OPD) Medical History psoriasis Medical History sciatica Medical History PCOS Medical History kidney stone Surgical History appendectomy Surgical History orthopedic surgery: right shoulder, torn muscle 2005 Surgical History kidney stone removed; stent placed in ri t kidney x 2 03/2015 Hospitalization History [facility], acute bronchiti s 08/2011 Hospitalization History [facility] dys[facility]nea 11/2014
--- OUTSIDE RECORDS SUMMARY | 2019-05-16 06:57 | XMS REPORT ---
Author Author KHURRAM Marian [place] Organization [facility] Address [address] [place] [address] Care Team Providers Care Water Carter Name Role Phone KHURRAMNARGIS BROOKSY Unavailable PROBLEMS Type Condition ICD9-CM Code [id number] Code Onset Dates Condition S tatus SNOMED Code Problem Pure hypercholesterolemia E78.0 Acti ve 81327806 Problem Prediabetes R73.09 Active 25878605 2 Problem Hypertension I10 Active 5650001 3 Problem COPD (chronic obstructive pulmonary disease) J44.9 Active 60185785 Problem Polyarthralgia M25.50 Active 98647 005 Problem Enlarged lymph node R59.9 Active 97526551 Problem Dyshidrotic eczema L30.1 Active 4 56443261 Problem Abnormal mammogram R92.8 Active 1 02558491 Problem BMI 39.0-39.9,adult Z68.39 Active 107866438 Problem Obesity (BMI 30-39.9) E66.9 Active 185754577 Problem Abnormal uterine bleeding N93.9 Acti ve [id number] Problem Dysmenorrhea N94.6 Active 7519038 00 Problem Right sided sciatica M54.31 Active 78278012 Problem Psoriasis L40.9 Active 1365041 Problem Primary osteoarthritis of right hip M16.11 Active 429975990 Problem Mood disorder F39 Active 915150 05 Problem Other chronic pain G89.29 Active 8 4053359 Problem Arthritis M19.90 Active 1385933 Problem Hypothyroidism (acquired) E03.9 Acti ve [id number] ALLERGIES No Information ENCOUNTERS Encounter Location Date Diagnosis [facility] [address] [id number] [place] [address] Jan, Skin tags, multiple acquired L91.8 [facility] [address] [id number] [place] [address] Nov, Screening for malignant neoplasm of vernell st Z12.39 [place] [address] [address] Oct, Prediabetes R73.09 [place] [address] [address] Oct, Prediabetes R73.09 ; Psoriasis L40.9 and Dysmenorrhea N94.6 [place] [address] [address] Oct, Plantar fasciitis of right foot M72.2 an d Tendonitis, Achilles, right M76.61 [facility] [address] [facility] [id number] [place] [address] Oct, Plantar fasciitis of right f oot M72.2 and Morbid obesity E66.01 [place] [address] [address] Sep, Morbid obesity E66.01 ; Upper abdominal pain R10.10 ; Bloating R14.0 ; Tinea corporis B35.4 and Hypothyroidism (acquired) E03.9 [place] [address] [address] Aug, Hypothyroidism (acquired) E03.9 [place] [address] [address] Aug, Morbid obesity E66.01 [place] [address] [address] Aug, Morbid obesity E66.01 ; Arthritis M19.90 ; Other chronic pain G89.29 ; Pain in left knee M25.562 ; Pain in right knee M25.561 ; Diarrhea, unspecified type R19.7 and Family history of thyroid disease Z83.49 [place] [address] [address] July, [place] [address] [address] July, Pure hypercholesterolemia E78.0 ; Hypert ension I10 ; Prediabetes R73.09 ; Pain of left heel M79.672 ; Cutaneous horn L85.8 ; Mood disorder F39 and Morbid obesity E66.01 [facility] IN [address] [address] May, Viral upper respiratory infe ction J06.[address] [address] Aug, Bronchitis J40 [facility] [address] [address] Aug, [address] [address] Jun, Abnormal mammogram R92.8 [place] [address] [address] Jun, Abnormal mammogram R92.[address] [address] May, [address] [address] May, Well woman exam Z01.419 ; Pain of left h and M79.642 ; Pain in right hand M79.641 ; Abnormal uterine bleeding N93.9 and BMI 39.0-39.9,adult Z68.[address] [address] Dec, Hypertension I10 ; BMI 39.0-39.9,adult Z 68.39 and Obesity (BMI 30- 39.9) E66.9 [facility] [address] [address] Oct, Asthma exacerbation J45.[address] [address] Oct, Right sided sciatica M54.31 [facility] [address] [address] Sep, Acute seasonal allergic rhin itis, unspecified trigger J30.2 [place] [address] [address] Aug, Primary osteoarthritis of right hip M16. 11 ; Prediabetes R73.09 ; Precordial pain R07.2 ; Hypertension I10 and Skin lesion L98.[address] [address] Aug, Hypertension I10 [facility] [place] [address] [place] [address] July, Sore throat J02.9 and Acute upper respiratory infection, unspecified J06.9 [facility] [address] [address] 14 Apr, 2016 Acute bacterial conjunctivit is of right eye H10.[address] [address] Mar, Primary osteoarthritis of right hip M16. 11 [place] [address] [address] Nov, Hypertension I10 and Pure hypercholester olemia E78.[address] [address] Oct, Hypertension I10 ; Pure hypercholesterol emia E78.0 ; Dyshidrotic eczema L30.1 and Primary osteoarthritis of right hip M16.11 [place] [address] [address] Aug, Hypertension I10 [address] [address] Aug, Weight gain R63.[address] [address] Aug, [address] [address] 15 Aug, 2015 Bilateral ovarian cysts N83.20 and Abnor mal mammogram R92.8 [place] [address] [address] Jun, Abnormal mammogram R92.8 and Enlarged ly mph nodes in armpit R59.0 [place] [address] [address] Jun, Enlarged lymph node R59.9 ; Bilateral ov varsha cysts N83.20 and Polyarthralgia M25.50 [place] [address] [address] May, Bilateral ovarian cysts N83.[address] [address] May, Screening for malignant neoplasm of vernell st Z12.39 and Enlarged lymph node R59.9 [place] [address] [address] 16 May, [address] [address] 14 May, 2015 Well woman exam Z01.419 [...] of breast Z12.39 and Subclinical hypothyroidism E03.9 [place] [address] [address] May, Tinea pedis B35.3 and Metrorrhagia N92.[address] [address] Mar, Onychomycosis B35.1 and Nail ingrowing L 60.[address] [address] Jan, Subclinical hypothyroidism E03.9 [facility] [address] [address] Dec, Pain in joint, pain in unspecified joint M25.50 [facility] [address] [address] Dec, Pain in joint, pain in unspecified joint M25.50 [facility] [address] [address] Dec, Pain in joint, pain in unspecified joint M25.50 [facility] [address] [address] Nov, Hypertension 401.9 [facility] [address] [address] 18 Nov, 2014 [place] [address] [address] 15 Nov, 2014 Chronic airway obstruction, not elsewher e classified 496 and Hypertension 401.9 [facility] [address] [place] [id number] [place] [id number] Oct, Dental examination V72.2 [place] [address] [address] 30 Aug, 2014 Onychomycosis 110.1 and Ingrown nail [address] [address] Aug, [facility] [address] [address] 08 Aug, 2014 Onychomycosis 110.1 and Nail, ingrown 70 3.0 [place] [address] [address] 14 Jun, 2014 [facility] [address] [address] Jun, [facility] [address] [address] May, [address] [place] [address] May, [facility] [address] [id number] [place] [address] Apr, [facility] [address] [id number] [place] [address] Apr, [facility] [address] [id number] [place] [address] Apr, [facility] [address] [id number] [place] [address] Apr, [facility] [address] [id number] [place] [address] Mar, [facility] [address] [id number] [place] [address] Mar, [facility] [address] [id number] [place] [address] Feb, [facility] [address] [id number] [place] [address] Jan, [facility] [address] [id number] [place] [address] Jan, [facility] [address] [id number] [place] [address] Aug, [facility] [address] [id number] [place] [address] Aug, [facility] [address] [id number] [place] [address] Aug, [facility] [address] [id number] [place] [address] Aug, [facility] [address] [id number] [place] [address] July, [facility] [address] [id number] [place] [address] July, [facility] [address] [id number] [place] [address] July, [facility] [address] [facility] [id number] [place] [address] July, [facility] [address] [facility] [id number] [place] [address] July, [facility] [address] [facility] [id number] [place] [address] July, [facility] [address] [id number] [facility] [address] July, [facility] [address] [facility] [id number] [facility] [address] July, [facility] [address] [id number] [place] [address] Jun, [facility] [address] [id number] [place] [address] May, [facility] [address] [id number] [place] [address] May, [facility] [address] [id number] [place] [address] May, [facility] [address] [id number] [place] [address] May, [facility] [address] [id number] [place] [address] Apr, [facility] [address] [id number] [place] [address] Apr, [facility] [address] [id number] [place] [address] Apr, [facility] [address] [id number] [place] [address] Apr, [facility] [address] [id number] [place] [address] Apr, [facility] [address] [id number] [place] [address] Apr, [facility] [address] [id number] [place] [address] Feb, [facility] [address] [id number] [place] [address] Feb, [facility] [address] [id number] [place] [address] Jan, [facility] [address] [id number] [place] [address] Jan, [facility] [address] [id number] [place] [address] Jan, [facility] [address] [id number] [place] [address] Dec, [facility] [address] [id number] [place] [address] Dec, [facility] [address] [id number] [place] [address] Dec, [facility] [address] [id number] [place] [address] Dec, [facility] [address] [id number] [place] [address] Oct, [facility] [address] [id number] [place] [address] Oct, [facility] [address] [id number] [place] [address] Nov, [facility] [address] [id number] [place] [address] Oct, [facility] [address] [id number] [place] [address] Oct, [facility] [address] [id number] [place] [address] Aug, [facility] [address] [id number] [place] [address] Aug, [facility] [address] [id number] [place] [address] July, [facility] [address] [place] [id number] [place] [address] Jun, [facility] [address] [place] [id number] [place] [address] Jun, [facility] [address] [place] [id number] [place] [address] Jun, [facility] [address] [place] [id number] [place] [address] Feb, [facility] [address] [place] [id number] [place] [address] Feb, [facility] [address] [address] Feb, [facility] [address] [address] Jan, [facility] [address] [address] Jan, [facility] [address] [place] [id number] [place] [address] Jan, [facility] [address] [address] Dec, [facility] [address] [address] Dec, [facility] [address] [address] Mar, [facility] [address] [place] [id number] [place] [address] Jan, IMMUNIZATIONS No Known Immunizations SOCIAL HISTORY Never Assessed REASON FOR VISIT PLAN OF CARE VITAL SIGNS MEDICATIONS Unknown Medications RESULTS No Results PROCEDURES [...]
--- OUTSIDE RECORDS SUMMARY | 2019-05-16 06:58 | XMS REPORT ---
Author Author Marian CALERO Organization [facility] Address [address] [place] [address] Care Team Providers Care Coremaking Supervisor Name Role Phone ROE CALERO Unavailable PROBLEMS Type Condition ICD9-CM Code [id number] Code Onset Dates Condition S tatus SNOMED Code Problem Pure hypercholesterolemia E78.0 Acti ve 55528289 Problem Prediabetes R73.09 Active 97132731 2 Problem Hypertension I10 Active 9166376 3 Problem COPD (chronic obstructive pulmonary disease) J44.9 Active 14279724 Problem Polyarthralgia M25.50 Active 98625 005 Problem Enlarged lymph node R59.9 Active 13047663 Problem Dyshidrotic eczema L30.1 Active 4 87898165 Problem Abnormal mammogram R92.8 Active 1 54329357 Problem BMI 39.0-39.9,adult Z68.39 Active 532286941 Problem Obesity (BMI 30-39.9) E66.9 Active 972892820 Problem Abnormal uterine bleeding N93.9 Acti ve [id number] Problem Dysmenorrhea N94.6 Active 8132462 00 Problem Right sided sciatica M54.31 Active 04108834 Problem Psoriasis L40.9 Active 4799656 Problem Primary osteoarthritis of right hip M16.11 Active 016342058 Problem Mood disorder F39 Active 384354 05 Problem Other chronic pain G89.29 Active 8 9183076 Problem Arthritis M19.90 Active 7156406 Problem Hypothyroidism (acquired) E03.9 Acti ve [id number] ALLERGIES No Information ENCOUNTERS Encounter Location Date Diagnosis [facility] [address] [id number] [place] [address] Jan, Skin tags, multiple acquired L91.8 [facility] [address] [id number] [place] [address] Nov, Screening for malignant neoplasm of vernell st Z12.39 [place] [address] [address] Oct, Prediabetes R73.09 [place] [address] [address] Oct, Prediabetes R73.09 ; Psoriasis L40.9 and Dysmenorrhea N94.6 [place] [address] [address] Oct, Plantar fasciitis of right foot M72.2 an d Tendonitis, Achilles, right M76.61 [facility] [address] [facility] [id number] [place] [address] Oct, Plantar fasciitis of right f oot M72.2 and Morbid obesity E66.01 [place] [address] [address] Sep, Morbid obesity E66.01 ; Upper abdominal pain R10.10 ; Bloating R14.0 ; Tinea corporis B35.4 and Hypothyroidism (acquired) E03.9 [place] [address] [address] Aug, Hypothyroidism (acquired) E03.9 [place] [address] [address] Aug, Morbid obesity E66.01 [place] [address] [address] Aug, Morbid obesity E66.01 ; Arthritis M19.90 ; Other chronic pain G89.29 ; Pain in left knee M25.562 ; Pain in right knee M25.561 ; Diarrhea, unspecified type R19.7 and Family history of thyroid disease Z83.49 [place] [address] [address] July, [place] [address] [address] July, Pure hypercholesterolemia E78.0 ; Hypert ension I10 ; Prediabetes R73.09 ; Pain of left heel M79.672 ; Cutaneous horn L85.8 ; Mood disorder F39 and Morbid obesity E66.01 [facility] [address] [address] May, Viral upper respiratory infe ction J06.[address] [address] Aug, Bronchitis J40 [facility] [place] [address] [address] Aug, [place] [address] [address] Jun, Abnormal mammogram R92.8 [place] [address] [address] Jun, Abnormal mammogram R92.8 [place] [address] [address] May, [place] [address] [address] May, Well woman exam Z01.419 ; Pain of left h and M79.642 ; Pain in right hand M79.641 ; Abnormal uterine bleeding N93.9 and BMI 39.0-39.9,adult Z68.[address] [address] Dec, Hypertension I10 ; BMI 39.0-39.9,adult Z 68.39 and Obesity (BMI 30- 39.9) E66.9 [facility] [address] [address] Oct, Asthma exacerbation J45.[address] [address] Oct, Right sided sciatica M54.31 [facility] [address] [address] Sep, Acute seasonal allergic rhin itis, unspecified trigger J30.2 [place] [address] [address] Aug, Primary osteoarthritis of right hip M16. 11 ; Prediabetes R73.09 ; Precordial pain R07.2 ; Hypertension I10 and Skin lesion L98.[address] [address] Aug, Hypertension I10 [facility] [address] [place] [address] July, Sore throat J02.9 and Acute upper respiratory infection, unspecified J06.9 [facility] [place] [id number] [place] [address] 14 Apr, 2016 Acute bacterial conjunctivit is of right eye H10.[address] [address] Mar, Primary osteoarthritis of right hip M16. [address] [address] Nov, Hypertension I10 and Pure hypercholester olemia E78.[address] [address] Oct, Hypertension I10 ; Pure hypercholesterol emia E78.0 ; Dyshidrotic eczema L30.1 and Primary osteoarthritis of right hip M16.11 [place] [address] [address] Aug, Hypertension I10 [address] [address] Aug, Weight gain R63.[address] [address] Aug, [address] [address] Aug, Bilateral ovarian cysts N83.20 and Abnor mal mammogram R92.8 [place] [address] [address] Jun, Abnormal mammogram R92.8 and Enlarged ly mph nodes in armpit R59.0 [place] [address] [address] Jun, Enlarged lymph node R59.9 ; Bilateral ov varsha cysts N83.20 and Polyarthralgia M25.50 [place] [address] [address] May, Bilateral ovarian cysts N83.[address] [address] May, Screening for malignant neoplasm of vernell st Z12.39 and Enlarged lymph node R59.[address] [address] 16 May, [address] [address] 14 May, 2015 Well woman exam Z01.419 [...] of breast Z12.39 and Subclinical hypothyroidism E03.9 [place] [address] [address] May, Tinea pedis B35.3 and Metrorrhagia N92.[address] [address] Mar, Onychomycosis B35.1 and Nail ingrowing L 60.[address] [address] Jan, Subclinical hypothyroidism E03.9 [facility] [address] [address] Dec, Pain in joint, pain in unspecified joint M25.50 [facility] [address] [address] Dec, Pain in joint, pain in unspecified joint M25.50 [facility] [address] [address] Dec, Pain in joint, pain in unspecified joint M25.50 [facility] [address] [address] Nov, Hypertension 401.9 [place] [address] [address] 18 Nov, 2014 [place] [address] [address] 15 Nov, 2014 Chronic airway obstruction, not elsewher e classified 496 and Hypertension 401.9 [facility] [address] [facility] [place] [id number] Oct, Dental examination V72.2 [place] [address] [address] 30 Aug, 2014 Onychomycosis 110.1 and Ingrown nail [address] [address] Aug, [place] [address] [address] 08 Aug, 2014 Onychomycosis 110.1 and Nail, ingrown 70 3.0 [place] [address] [address] 14 Jun, 2014 [facility] [address] [address] Jun, [facility] [address] [address] May, [place] [address] [id number] [place] [address] May, [facility] [address] [id number] [place] [address] Apr, [facility] [address] [id number] [place] [address] Apr, [facility] [address] [id number] [place] [address] Apr, [facility] [address] [id number] [place] [address] Apr, [facility] [address] [id number] [place] [address] Mar, [facility] [address] [id number] [place] [address] Mar, [facility] [address] [place] [id number] [place] [address] Feb, [facility] [address] [id number] [place] [address] Jan, [facility] [address] [id number] [place] [address] Jan, [facility] [address] [id number] [place] [address] Aug, [facility] [address] [id number] [place] [address] Aug, [facility] [address] [id number] [place] [address] Aug, [facility] [address] [id number] [place] [address] Aug, [facility] [address] [place] [id number] [place] [address] July, [facility] [address] [id number] [place] [address] July, [facility] [address] [id number] [place] [address] July, [facility] [address] [id number] [place] [address] July, [facility] [address] [id number] [place] [address] July, [facility] [address] [id number] [place] [address] July, [facility] [address] [id number] [place] [address] July, [facility] [address] [facility] [id number] [facility] [address] July, [facility] [address] [id number] [place] [address] Jun, [facility] [address] [id number] [place] [address] May, [facility] [address] [id number] [place] [address] May, [facility] [address] [id number] [place] [address] May, [facility] [address] [id number] [place] [address] May, [facility] [address] [id number] [place] [address] Apr, [facility] [address] [id number] [place] [address] Apr, [facility] [address] [id number] [place] [address] Apr, [facility] [address] [id number] [place] [address] Apr, [facility] [address] [id number] [place] [address] Apr, [facility] [address] [id number] [place] [address] Apr, [facility] [address] [id number] [place] [address] Feb, [facility] [address] [id number] [place] [address] Feb, [facility] [address] [id number] [place] [address] Jan, [facility] [address] [id number] [place] [address] Jan, [facility] [address] [id number] [place] [address] Jan, [facility] [address] [id number] [place] [address] Dec, [facility] [address] [id number] [place] [address] Dec, [facility] [address] [id number] [place] [address] Dec, [facility] [address] [id number] [place] [address] Dec, [facility] [address] [id number] [place] [address] Oct, [facility] [address] [id number] [place] [address] Oct, [facility] [address] [id number] [place] [address] Nov, [facility] [address] [id number] [place] [address] Oct, [facility] [address] [id number] [place] [address] Oct, [facility] [address] [place] [id number] [place] [address] Aug, [facility] [address] [id number] [place] [address] Aug, [facility] [address] [id number] [place] [address] July, [facility] [address] [place] [id number] [place] [address] Jun, [facility] [address] [place] [id number] [place] [address] Jun, [facility] [address] [place] [id number] [place] [address] Jun, [facility] [address] [place] [id number] [place] [address] Feb, [facility] [address] [place] [id number] [place] [address] Feb, [facility] [address] [address] Feb, [facility] [address] [address] Jan, [facility] [address] [address] Jan, [facility] [address] [place] [id number] [place] [address] Jan, [facility] [address] [place] [id number] [place] [address] Dec, [facility] [address] [address] Dec, [facility] [address] [address] Mar, [facility] [address] [place] [id number] [place] [address] Jan, IMMUNIZATIONS No Known Immunizations SOCIAL HISTORY [...]
--- OUTSIDE RECORDS SUMMARY | 2019-05-16 06:58 | XMS REPORT ---
Author Author Marian CALERO Organization [facility] Address [address] [place] [address] Care Team Providers Care Automotive Service Director Name Role Phone ROE CALERO Unavailable PROBLEMS Type Condition ICD9-CM Code [id number] Code Onset Dates Condition S tatus SNOMED Code Problem Pure hypercholesterolemia E78.0 Acti ve 05061738 Problem Prediabetes R73.09 Active 01856376 2 Problem Hypertension I10 Active 3252146 3 Problem COPD (chronic obstructive pulmonary disease) J44.9 Active 13628543 Problem Polyarthralgia M25.50 Active 40742 005 Problem Enlarged lymph node R59.9 Active 52615133 Problem Dyshidrotic eczema L30.1 Active 4 86662088 Problem Abnormal mammogram R92.8 Active 1 52154025 Problem BMI 39.0-39.9,adult Z68.39 Active 909025375 Problem Obesity (BMI 30-39.9) E66.9 Active 105033674 Problem Abnormal uterine bleeding N93.9 Acti ve [id number] Problem Dysmenorrhea N94.6 Active 0183171 00 Problem Right sided sciatica M54.31 Active 31873268 Problem Psoriasis L40.9 Active 2357881 Problem Primary osteoarthritis of right hip M16.11 Active 359657256 Problem Mood disorder F39 Active 903100 05 Problem Other chronic pain G89.29 Active 8 8069469 Problem Arthritis M19.90 Active 1719086 Problem Hypothyroidism (acquired) E03.9 Acti ve [id number] ALLERGIES No Information ENCOUNTERS Encounter Location Date Diagnosis [facility] [address] [id number] [place] [address] Jan, Skin tags, multiple acquired L91.8 [facility] [address] [id number] [place] [address] Nov, Screening for malignant neoplasm of vernell st Z12.39 [place] [address] [address] Oct, Prediabetes R73.09 [place] [address] [address] Oct, Prediabetes R73.09 ; Psoriasis L40.9 and Dysmenorrhea N94.6 [place] [address] [address] Oct, Plantar fasciitis of right foot M72.2 an d Tendonitis, Achilles, right M76.61 [facility] [address] [facility] [id number] [place] [address] Oct, Plantar fasciitis of right f oot M72.2 and Morbid obesity E66.01 [place] [address] [address] Sep, Morbid obesity E66.01 ; Upper abdominal pain R10.10 ; Bloating R14.0 ; Tinea corporis B35.4 and Hypothyroidism (acquired) E03.9 [place] [address] [address] Aug, Hypothyroidism (acquired) E03.9 [place] [address] [address] Aug, Morbid obesity E66.01 [place] [address] [address] Aug, Morbid obesity E66.01 ; Arthritis M19.90 ; Other chronic pain G89.29 ; Pain in left knee M25.562 ; Pain in right knee M25.561 ; Diarrhea, unspecified type R19.7 and Family history of thyroid disease Z83.49 [place] [address] [address] July, [place] [address] [address] July, Pure hypercholesterolemia E78.0 ; Hypert ension I10 ; Prediabetes R73.09 ; Pain of left heel M79.672 ; Cutaneous horn L85.8 ; Mood disorder F39 and Morbid obesity E66.01 [facility] IN [address] [address] May, Viral upper respiratory infe ction J06.[address] [address] Aug, Bronchitis J40 [facility] [place] [address] [address] Aug, [place] [address] [address] Jun, Abnormal mammogram R92.8 [place] [address] [address] Jun, Abnormal mammogram R92.8 [place] [address] [address] May, [place] [address] [address] May, Well woman exam Z01.419 ; Pain of left h and M79.642 ; Pain in right hand M79.641 ; Abnormal uterine bleeding N93.9 and BMI 39.0-39.9,adult Z68.[address] [address] Dec, Hypertension I10 ; BMI 39.0-39.9,adult Z 68.39 and Obesity (BMI 30- 39.9) E66.9 [facility] [address] [address] Oct, Asthma exacerbation J45.[address] [address] Oct, Right sided sciatica M54.31 [facility] [address] [address] Sep, Acute seasonal allergic rhin itis, unspecified trigger J30.2 [place] [address] [address] Aug, Primary osteoarthritis of right hip M16. 11 ; Prediabetes R73.09 ; Precordial pain R07.2 ; Hypertension I10 and Skin lesion L98.[address] [address] Aug, Hypertension I10 [facility] [address] [place] [address] July, Sore throat J02.9 and Acute upper respiratory infection, unspecified J06.9 [facility] IN [place] [id number] [place] [address] 14 Apr, 2016 Acute bacterial conjunctivit is of right eye H10.[address] [address] Mar, Primary osteoarthritis of right hip M16. [address] [address] Nov, Hypertension I10 and Pure hypercholester olemia E78.[address] [address] Oct, Hypertension I10 ; Pure hypercholesterol emia E78.0 ; Dyshidrotic eczema L30.1 and Primary osteoarthritis of right hip M16.11 [place] [address] [address] Aug, Hypertension I10 [address] [address] Aug, Weight gain R63.[address] [address] Aug, [address] [address] Aug, Bilateral ovarian cysts N83.20 and Abnor mal mammogram R92.8 [place] [address] [address] Jun, Abnormal mammogram R92.8 and Enlarged ly mph nodes in armpit R59.0 [place] [address] [address] Jun, Enlarged lymph node R59.9 ; Bilateral ov varsha cysts N83.20 and Polyarthralgia M25.50 [place] [address] [address] May, Bilateral ovarian cysts N83.[address] [address] May, Screening for malignant neoplasm of vernell st Z12.39 and Enlarged lymph node R59.[address] [address] 16 May, [address] [address] 14 May, 2015 Well woman exam Z01.419 [...] of breast Z12.39 and Subclinical hypothyroidism E03.9 [place] [address] [address] May, Tinea pedis B35.3 and Metrorrhagia N92.[address] [address] Mar, Onychomycosis B35.1 and Nail ingrowing L 60.[address] [address] Jan, Subclinical hypothyroidism E03.9 [facility] [address] [address] Dec, Pain in joint, pain in unspecified joint M25.50 [facility] [address] [address] Dec, Pain in joint, pain in unspecified joint M25.50 [facility] [address] [address] Dec, Pain in joint, pain in unspecified joint M25.50 [facility] [address] [address] Nov, Hypertension 401.9 [place] [address] [address] 18 Nov, 2014 [place] [address] [address] 15 Nov, 2014 Chronic airway obstruction, not elsewher e classified [address] [facility] [address] [id number] [place] [id number] Oct, Dental examination V72.2 [place] [address] [address] 30 Aug, 2014 Onychomycosis 110.1 and Ingrown nail [address] [address] Aug, [place] [address] [address] 08 Aug, 2014 Onychomycosis 110.1 and Nail, ingrown 70 3.0 [place] [address] [address] 14 Jun, 2014 [facility] [address] [address] Jun, [facility] [address] [address] May, [place] [address] [id number] [place] [address] May, [facility] [address] [id number] [place] [address] Apr, [facility] [address] [id number] [place] [address] Apr, [facility] [address] [id number] [place] [address] Apr, [facility] [address] [id number] [place] [address] Apr, [facility] [address] [id number] [place] [address] Mar, [facility] [address] [id number] [place] [address] Mar, [facility] [address] [place] [id number] [place] [address] Feb, [facility] [address] [id number] [place] [address] Jan, [facility] [address] [id number] [place] [address] Jan, [facility] [address] [id number] [place] [address] Aug, [facility] [address] [id number] [place] [address] Aug, [facility] [address] [id number] [place] [address] Aug, [facility] [address] [id number] [place] [address] Aug, [facility] [address] [place] [id number] [place] [address] July, [facility] [address] [id number] [place] [address] July, [facility] [address] [id number] [place] [address] July, [facility] [address] [id number] [place] [address] July, [facility] [address] [id number] [place] [address] July, [facility] [address] [id number] [place] [address] July, [facility] [address] [id number] [place] [address] July, [facility] [address] [facility] [id number] [facility] [address] July, [facility] [address] [id number] [place] [address] Jun, [facility] [address] [id number] [place] [address] May, [facility] [address] [id number] [place] [address] May, [facility] [address] [id number] [place] [address] May, [facility] [address] [id number] [place] [address] May, [facility] [address] [id number] [place] [address] Apr, [facility] [address] [id number] [place] [address] Apr, [facility] [address] [id number] [place] [address] Apr, [facility] [address] [id number] [place] [address] Apr, [facility] [address] [id number] [place] [address] Apr, [facility] [address] [id number] [place] [address] Apr, [facility] [address] [id number] [place] [address] Feb, [facility] [address] [id number] [place] [address] Feb, [facility] [address] [id number] [place] [address] Jan, [facility] [address] [id number] [place] [address] Jan, [facility] [address] [id number] [place] [address] Jan, [facility] [address] [id number] [place] [address] Dec, [facility] [address] [id number] [place] [address] Dec, [facility] [address] [id number] [place] [address] Dec, [facility] [address] [id number] [place] [address] Dec, [facility] [address] [id number] [place] [address] Oct, [facility] [address] [id number] [place] [address] Oct, [facility] [address] [id number] [place] [address] Nov, [facility] [address] [id number] [place] [address] Oct, [facility] [address] [id number] [place] [address] Oct, [facility] [address] [place] [id number] [place] [address] Aug, [facility] [address] [id number] [place] [address] Aug, [facility] [address] [id number] [place] [address] July, [facility] [address] [place] [id number] [place] [address] Jun, [facility] [address] [place] [id number] [place] [address] Jun, [facility] [address] [place] [id number] [place] [address] Jun, [facility] [address] [place] [id number] [place] [address] Feb, [facility] [address] [place] [id number] [place] [address] Feb, [facility] [address] [address] Feb, [facility] [address] [address] Jan, [facility] [address] [address] Jan, [facility] [address] [place] [id number] [place] [address] Jan, [facility] [address] [place] [id number] [place] [address] Dec, [facility] [address] [address] Dec, [facility] [address] [address] Mar, [facility] [address] [place] [id number] [place] [address] Jan, IMMUNIZATIONS No Known Immunizations SOCIAL HISTORY [...]
--- OUTSIDE RECORDS SUMMARY | 2019-05-16 06:58 | XMS REPORT ---
Author Author Marian CALERO Organization [facility] Address [address] [place] [address] Care Team Providers Care Manager Customer Service Name Role Phone ROE CALERO Unavailable PROBLEMS Type Condition ICD9-CM Code AOS32-AX Code Onset Dates Condition S tatus SNOMED Code Problem Pure hypercholesterolemia E78.0 Acti ve 86294151 Problem Prediabetes R73.09 Active 12474707 2 Problem Hypertension I10 Active 7216711 3 Problem COPD (chronic obstructive pulmonary disease) J44.9 Active 24123690 Problem Polyarthralgia M25.50 Active 65859 005 Problem Enlarged lymph node R59.9 Active 83174498 Problem Dyshidrotic eczema L30.1 Active 4 66761414 Problem Abnormal mammogram R92.8 Active 1 07611040 Problem BMI 39.0-39.9,adult Z68.39 Active 253646399 Problem Obesity (BMI 30-39.9) E66.9 Active 953021805 Problem Abnormal uterine bleeding N93.9 Acti ve [id number] Problem Dysmenorrhea N94.6 Active 1353025 00 Problem Right sided sciatica M54.31 Active 84138121 Problem Psoriasis L40.9 Active 3754271 Problem Primary osteoarthritis of right hip M16.11 Active 145616936 Problem Mood disorder F39 Active 450172 05 Problem Other chronic pain G89.29 Active 8 8617166 Problem Arthritis M19.90 Active 8459606 Problem Hypothyroidism (acquired) E03.9 Acti ve 85339130 ALLERGIES No Information ENCOUNTERS Encounter Location Date Diagnosis [facility] [address] [id number] [place] [address] Jan, Skin tags, multiple acquired L91.8 [facility] [address] [id number] [place] [address] Nov, Screening for malignant neoplasm of vernell st Z12.39 [place] [address] [address] Oct, Prediabetes R73.09 [place] [address] [address] Oct, Prediabetes R73.09 ; Psoriasis L40.9 and Dysmenorrhea N94.6 [place] [address] [address] Oct, Plantar fasciitis of right foot M72.2 an d Tendonitis, Achilles, right M76.61 [facility] [address] [facility] [id number] [place] [address] Oct, Plantar fasciitis of right f oot M72.2 and Morbid obesity E66.01 [place] [address] [address] Sep, Morbid obesity E66.01 ; Upper abdominal pain R10.10 ; Bloating R14.0 ; Tinea corporis B35.4 and Hypothyroidism (acquired) E03.9 [place] [address] [address] Aug, Hypothyroidism (acquired) E03.9 [place] [address] [address] Aug, Morbid obesity E66.01 [place] [address] [address] Aug, Morbid obesity E66.01 ; Arthritis M19.90 ; Other chronic pain G89.29 ; Pain in left knee M25.562 ; Pain in right knee M25.561 ; Diarrhea, unspecified type R19.7 and Family history of thyroid disease Z83.49 [place] [address] [address] July, [place] [address] [address] July, Pure hypercholesterolemia E78.0 ; Hypert ension I10 ; Prediabetes R73.09 ; Pain of left heel M79.672 ; Cutaneous horn L85.8 ; Mood disorder F39 and Morbid obesity E66.01 [facility] [address] [address] May, Viral upper respiratory infe ction J06.[address] [address] Aug, Bronchitis J40 [facility] [place] [address] [address] Aug, [place] [address] [address] Jun, Abnormal mammogram R92.8 [place] [address] [address] Jun, Abnormal mammogram R92.8 [place] [address] [address] May, [place] [address] [address] May, Well woman exam Z01.419 ; Pain of left h and M79.642 ; Pain in right hand M79.641 ; Abnormal uterine bleeding N93.9 and BMI 39.0-39.9,adult Z68.[address] [address] Dec, Hypertension I10 ; BMI 39.0-39.9,adult Z 68.39 and Obesity (BMI 30- 39.9) E66.9 [facility] [address] [address] Oct, Asthma exacerbation J45.[address] [address] Oct, Right sided sciatica M54.31 [facility] [address] [address] Sep, Acute seasonal allergic rhin itis, unspecified trigger J30.2 [place] [address] [address] Aug, Primary osteoarthritis of right hip M16. 11 ; Prediabetes R73.09 ; Precordial pain R07.2 ; Hypertension I10 and Skin lesion L98.[address] [address] Aug, Hypertension I10 [facility] [address] [place] [address] July, Sore throat J02.9 and Acute upper respiratory infection, unspecified J06.9 [facility] [place] [id number] [place] [address] 14 Apr, 2016 Acute bacterial conjunctivit is of right eye H10.[address] [address] Mar, Primary osteoarthritis of right hip M16. [address] [address] Nov, Hypertension I10 and Pure hypercholester olemia E78.[address] [address] Oct, Hypertension I10 ; Pure hypercholesterol emia E78.0 ; Dyshidrotic eczema L30.1 and Primary osteoarthritis of right hip M16.11 [place] [address] [address] Aug, Hypertension I10 [address] [address] Aug, Weight gain R63.[address] [address] Aug, [address] [address] Aug, Bilateral ovarian cysts N83.20 and Abnor mal mammogram R92.8 [place] [address] [address] Jun, Abnormal mammogram R92.8 and Enlarged ly mph nodes in armpit R59.0 [place] [address] [address] Jun, Enlarged lymph node R59.9 ; Bilateral ov varsha cysts N83.20 and Polyarthralgia M25.50 [place] [address] [address] May, Bilateral ovarian cysts N83.[address] [address] May, Screening for malignant neoplasm of vernell st Z12.39 and Enlarged lymph node R59.[address] [address] 16 May, [address] [address] 14 May, 2015 Well woman exam Z01.419 [...] of breast Z12.39 and Subclinical hypothyroidism E03.9 [place] [address] [address] May, Tinea pedis B35.3 and Metrorrhagia N92.[address] [address] Mar, Onychomycosis B35.1 and Nail ingrowing L 60.[address] [address] Jan, Subclinical hypothyroidism E03.9 [facility] [address] [address] Dec, Pain in joint, pain in unspecified joint M25.50 [facility] [address] [address] Dec, Pain in joint, pain in unspecified joint M25.50 [facility] [address] [address] Dec, Pain in joint, pain in unspecified joint M25.50 [facility] [address] [address] Nov, Hypertension 401.9 [place] [address] [address] 18 Nov, 2014 [place] [address] [address] 15 Nov, 2014 Chronic airway obstruction, not elsewher e classified 496 and Hypertension 401.9 [facility] [address] [facility] [place] [id number] Oct, Dental examination V72.2 [place] [address] [address] 30 Aug, 2014 Onychomycosis 110.1 and Ingrown nail [address] [address] Aug, [place] [address] [address] 08 Aug, 2014 Onychomycosis 110.1 and Nail, ingrown 70 3.0 [place] [address] [address] 14 Jun, 2014 [facility] [address] [address] Jun, [facility] [address] [address] May, [place] [address] [id number] [place] [address] May, [facility] [address] [id number] [place] [address] Apr, [facility] [address] [id number] [place] [address] Apr, [facility] [address] [id number] [place] [address] Apr, [facility] [address] [id number] [place] [address] Apr, [facility] [address] [id number] [place] [address] Mar, [facility] [address] [id number] [place] [address] Mar, [facility] [address] [place] [id number] [place] [address] Feb, [facility] [address] [id number] [place] [address] Jan, [facility] [address] [id number] [place] [address] Jan, [facility] [address] [id number] [place] [address] Aug, [facility] [address] [id number] [place] [address] Aug, [facility] [address] [id number] [place] [address] Aug, [facility] [address] [id number] [place] [address] Aug, [facility] [address] [place] [id number] [place] [address] July, [facility] [address] [id number] [place] [address] July, [facility] [address] [id number] [place] [address] July, [facility] [address] [id number] [place] [address] July, [facility] [address] [id number] [place] [address] July, [facility] [address] [id number] [place] [address] July, [facility] [address] [id number] [place] [address] July, [facility] [address] [facility] [id number] [facility] [place] [facility] [place] [address] July, [facility] [address] [id number] [place] [address] Jun, [facility] [address] [id number] [place] [address] May, [facility] [address] [id number] [place] [address] May, [facility] [address] [id number] [place] [address] May, [facility] [address] [id number] [place] [address] May, [facility] [address] [id number] [place] [address] Apr, [facility] [address] [id number] [place] [address] Apr, [facility] [address] [id number] [place] [address] Apr, [facility] [address] [id number] [place] [address] Apr, [facility] [address] [id number] [place] [address] Apr, [facility] [address] [id number] [place] [address] Apr, [facility] [address] [id number] [place] [address] Feb, [facility] [address] [id number] [place] [address] Feb, [facility] [address] [id number] [place] [address] Jan, [facility] [address] [id number] [place] [address] Jan, [facility] [address] [id number] [place] [address] Jan, [facility] [address] [id number] [place] [address] Dec, [facility] [address] [id number] [place] [address] Dec, [facility] [address] [id number] [place] [address] Dec, [facility] [address] [id number] [place] [address] Dec, [facility] [address] [id number] [place] [address] Oct, [facility] [address] [id number] [place] [address] Oct, [facility] [address] [id number] [place] [address] Nov, [facility] [address] [id number] [place] [address] Oct, [facility] [address] [id number] [place] [address] Oct, [facility] [address] [place] [id number] [place] [address] Aug, [facility] [address] [id number] [place] [address] Aug, [facility] [address] [id number] [place] [address] July, [facility] [address] [place] [id number] [place] [address] Jun, [facility] [address] [place] [id number] [place] [address] Jun, [facility] [address] [place] [id number] [place] [address] Jun, [facility] [address] [place] [id number] [place] [address] Feb, [facility] [address] [place] [id number] [place] [address] Feb, [facility] [address] [address] Feb, [facility] [address] [address] Jan, [facility] [address] [address] Jan, [facility] [address] [place] [id number] [place] [address] Jan, [facility] [address] [place] [id number] [place] [address] Dec, [facility] [address] [address] Dec, [facility] [address] [address] Mar, [facility] [address] [place] [id number] [place] [address] Jan, IMMUNIZATIONS No Known Immunizations SOCIAL HISTORY [...]
--- OUTSIDE RECORDS SUMMARY | 2019-05-16 06:58 | XMS REPORT ---
Author Author Marian CALERO Organization [facility] Address [address] [place] [address] Care Team Providers Care Spanish Instructor Name Role Phone ROE CALERO Unavailable PROBLEMS Type Condition ICD9-CM Code JQW23-EC Code Onset Dates Condition S tatus SNOMED Code Problem Pure hypercholesterolemia E78.0 Acti ve 37521681 Problem Prediabetes R73.09 Active 61069167 2 Problem Hypertension I10 Active 0016259 3 Problem COPD (chronic obstructive pulmonary disease) J44.9 Active 01805199 Problem Polyarthralgia M25.50 Active 35019 005 Problem Enlarged lymph node R59.9 Active 11168317 Problem Dyshidrotic eczema L30.1 Active 4 18539380 Problem Abnormal mammogram R92.8 Active 1 08619993 Problem BMI 39.0-39.9,adult Z68.39 Active 470815354 Problem Obesity (BMI 30-39.9) E66.9 Active 943924193 Problem Abnormal uterine bleeding N93.9 Acti ve [id number] Problem Dysmenorrhea N94.6 Active 5328269 00 Problem Right sided sciatica M54.31 Active 78201845 Problem Psoriasis L40.9 Active 5977171 Problem Primary osteoarthritis of right hip M16.11 Active 478198186 Problem Mood disorder F39 Active 686975 05 Problem Other chronic pain G89.29 Active 8 2822558 Problem Arthritis M19.90 Active 4451983 Problem Hypothyroidism (acquired) E03.9 Acti ve [id number] ALLERGIES No Information ENCOUNTERS Encounter Location Date Diagnosis [facility] [address] [facility] [id number] [address] [place] [address] Nov, Screening for malignant neop lasm of breast Z12.39 [facility] [address] [facility] [id number] [address] [place] [address] Oct, Prediabetes R73.09 [place] [address] [address] Oct, Prediabetes R73.09 ; Psorias is L40.9 and Dysmenorrhea N94.6 [place] [address] [address] [place] [id number] [address] [place] [address] Oct, Plantar fasciitis of right f oot M72.2 and Tendonitis, Achilles, right M76.61 [facility] [address] [address] Oct, Plantar fasciitis of right f oot M72.2 and Morbid obesity E66.01 [place] [address] [address] Sep, Morbid obesity E66.01 ; Uppe r abdominal pain R10.10 ; Bloating R14.0 ; Tinea corporis B35.4 and Hypothyroidism (acquired) E03.9 [place] [address] [address] Aug, Hypothyroidism (acquired) E0 3.[address] [address] Aug, Morbid obesity E66.01 [place] [address] [address] Aug, Morbid obesity E66.01 ; Arth ritis M19.90 ; Other chronic pain G89.29 ; Pain in left knee M25.562 ; Pain in right knee M25.561 ; Diarrhea, unspecified type R19.7 and Family history of thyroid disease Z83.49 [place] [address] [address] July, [place] [address] [address] July, Pure hypercholesterolemia E7 8.0 ; Hypertension I10 ; Prediabetes R73.09 ; Pain of left heel M79.672 ; Cutaneous horn L85.8 ; Mood disorder F39 and Morbid obesity E66.01 [facility] [place] [address] [address] May, Viral upper respiratory infe ction J06.9 [place] [address] [address] Aug, Bronchitis J40 [facility] [place] [address] [address] Aug, [place] [address] [address] Jun, Abnormal mammogram R92.8 [place] [address] [address] Jun, Abnormal mammogram R92.8 [place] [address] [address] May, [place] [address] [address] May, Well woman exam Z01.419 ; Pa in of left hand M79.642 ; Pain in right hand M79.641 ; Abnormal uterine bleeding N93.9 and BMI 39.0-39.9,adult Z68.39 [place] [address] [address] Dec, Hypertension I10 ; BMI 39.0- 39.9,adult Z68.39 and Obesity (BMI 30- 39.9) E66.9 [facility] [place] [address] [address] Oct, Asthma exacerbation J45.901 [place] [address] [address] Oct, Right sided sciatica M54.31 [facility] [place] [address] [address] Sep, Acute seasonal allergic rhin itis, unspecified trigger J30.2 [facility] [address] [place] [id number] [address] [place] [address] Aug, Primary osteoarthritis of ri ght hip M16.11 ; Prediabetes R73.09 ; Precordial pain R07.2 ; Hypertension I10 and Skin lesion L98.9 [facility] [address] [address] Aug, Hypertension I10 [facility] [address] [place] [id number] [place] [address] July, Sore throat J02.9 and Acute upper respiratory infection, unspecified J06.9 [facility] [address] [place] [id number] [place] [address] 14 Apr, 2016 Acute bacterial conjunctivit is of right eye H10.31 [place] [address] [address] Mar, Primary osteoarthritis of ri ght hip M16.11 [place] [address] [address] Nov, Hypertension I10 and Pure hy percholesterolemia E78.0 [place] [address] [address] [place] [id number] [address] [place] [address] Oct, Hypertension I10 ; Pure hype rcholesterolemia E78.0 ; Dyshidrotic eczema L30.1 and Primary osteoarthritis of right hip M16.11 [place] [address] [place] [address] Aug, Hypertension I10 [place] [address] [address] Aug, Weight gain R63.5 [place] [address] [address] [place] [id number] [address] [place] [address] Aug, [place] [address] [address] Aug, Bilateral ovarian cysts N83. 20 and Abnormal mammogram R92.[address] [address] Jun, Abnormal mammogram R92.8 and Enlarged lymph nodes in armpit R59.[address] [address] Jun, Enlarged lymph node R59.9 ; Bilateral ovarian cysts N83.20 and Polyarthralgia M25.[address] [address] May, Bilateral ovarian cysts N83. [address] [address] May, Screening for malignant neop lasm of breast Z12.39 and Enlarged lymph node R59.[address] [address] May, [address] [address] 14 May, 2015 Well woman exam Z01.419 ; BM I 38.0-38.9,adult Z68.38 ; Irregular menses N92.6 ; Abdominal bloating R14.0 ; Vaginal discharge N89.8 ; Routine screening for STI (sexually transmitted infection) Z11.3 ; Family history of uterine cancer Z80.49 ; Family history of breast cancer Z80.3 ; Fibrocystic breast, right N60.11 ; Fibrocystic breast, left N60.12 ; Screening for malignant neoplasm of breast Z12.39 and Subclinical hypothyroidism E03.[address] [address] May, Tinea pedis B35.3 and Metror rhagia N92.[address] [address] Mar, Onychomycosis B35.1 and Nail ingrowing L60.0 [facility] [address] [id number] [address] [place] [address] Jan, Subclinical hypothyroidism E 03.9 [facility] [address] [id number] [address] [place] [address] Dec, Pain in joint, pain in unspe cified joint M25.50 [facility] [address] [id number] [address] [place] [address] Dec, Pain in joint, pain in unspe cified joint M25.50 [facility] [address] [id number] [address] [place] [address] Dec, Pain in joint, pain in unspe cified joint M25.50 [facility] [address] [id number] [address] [place] [address] Nov, Hypertension 401.9 [facility] [address] [id number] [address] [place] [address] 18 Nov, 2014 [facility] [address] [id number] [address] [place] [address] 15 Nov, 2014 Chronic airway obstruction, not elsewhere classified [address] [facility] [address] [id number] [address] [place] [id number] Oct, Dental examination V72.2 [facility] [address] [id number] [address] [place] [address] Aug, Onychomycosis 110.1 and Ingr own nail 703.0 [facility] [address] [id number] [address] [place] [address] Aug, [place] [address] [facility] [id number] [address] [place] [address] 08 Aug, 2014 Onychomycosis 110.1 and Nail , ingrown 703.0 [facility] [address] [facility] [id number] [address] [place] [address] 14 Jun, 2014 [facility] [address] [id number] [address] [place] [address], [place] [address] Jun, [facility] [address] [id number] [address] [place] [address], [place] [address] May, [facility] [address] [id number] [address] [place] [address], [place] [address] May, [facility] [address] [id number] [address] [place] [address], [place] [address] Apr, [facility] [address] [id number] [address] [place] [address], [place] [address] Apr, [facility] [address] [id number] [address] [place] [address], [place] [address] Apr, [facility] [address] [id number] [address] [place] [address], [place] [address] Apr, [facility] [address] [id number] [address] [place] [address], [place] [address] Mar, [facility] [address] [id number] [address] [place] [address], [place] [address] Mar, [facility] [address] [id number] [address] [place] [address], [place] [address] Feb, [facility] [address] [id number] [address] [place] [address], [place] [address] Jan, [facility] [address] [id number] [address] [place] [address], [place] [address] Jan, [facility] [address] [id number] [address] [place] [address], [place] [address] Aug, [facility] [address] [id number] [address] [place] [address], [place] [address] Aug, [facility] [address] [id number] [address] [place] [address], [place] [address] Aug, [facility] [address] [id number] [address] [place] [address], [place] [address] Aug, [facility] [address] [id number] [address] [place] [address], [place] [address] July, [facility] [address] [id number] [address] [place] [address], [place] [address] July, [facility] [address] [id number] [address] [place] [address], [place] [address] July, [facility] [address] [id number] [address] [place] [address], [place] [address] July, [facility] [address] [id number] [address] [place] [address], [place] [address] July, [facility] [address] [id number] [address] [place] [address], [place] [address] July, [facility] [address] [id number] [address] [place] [address], [place] [address] July, [facility] [address] [id number] [address] [place] [address], [place] [address] July, [facility] [address] [id number] [address] [place] [address], [place] [address] Jun, [facility] [address] [id number] [address] [place] [address], [place] [address] May, [facility] [address] [id number] [address] [place] [address], [place] [address] May, [facility] [address] [id number] [address] [place] [address], [place] [address] May, [facility] [address] [id number] [address] [place] [address], [place] [address] May, [facility] [address] [id number] [address] [place] [address], [place] [address] Apr, [facility] [address] [id number] [address] [place] [address], [place] [address] Apr, [facility] [address] [id number] [address] [place] [address], [place] [address] Apr, [facility] [address] [id number] [address] [place] [address], [place] [address] Apr, [facility] [address] [id number] [address] [place] [address], [place] [address] Apr, [facility] [address] [id number] [address] [place] [address], [place] [address] Apr, [facility] [address] [id number] [address] [place] [address], [place] [address] Feb, [facility] [address] [id number] [address] [place] [address], [place] [address] Feb, [facility] [address] [id number] [address] [place] [address], [place] [address] Jan, [facility] [address] [id number] [address] [place] [address], [place] [address] Jan, [facility] [address] [id number] [address] [place] [address], [place] [address] Jan, [facility] [address] [id number] [address] [place] [address], [place] [address] Dec, [facility] [address] [id number] [address] [place] [address], [place] [address] Dec, [facility] [address] [id number] [address] [place] [address], [place] [address] Dec, [facility] [address] [id number] [address] [place] [address], [place] [address] Dec, [facility] [address] [id number] [address] [place] [address], [place] [address] Oct, [facility] [address] [id number] [address] [place] [address], [place] [address] Oct, [facility] [address] [id number] [address] [place] [address], [place] [address] Nov, [facility] [address] [id number] [address] [place] [address], [place] [address] Oct, [facility] [address] [id number] [address] [place] [address], [place] [address] Oct, [facility] [address] [id number] [address] [place] [address], [place] [address] Aug, [facility] [address] [id number] [address] [place] [address], [place] [address] Aug, [facility] [address] [id number] [address] [place] [address], [place] [address] July, [facility] [address] [id number] [address] [place] [address], [place] [address] Jun, [facility] [address] [id number] [address] [place] [address], [place] [address] Jun, [facility] [address] [id number] [address] [place] [address], [place] [address] Jun, [facility] [address] [id number] [address] [place] [address], [place] [address] Feb, [facility] [address] [id number] [address] [place] [address], [place] [address] Feb, [facility] [address] [id number] [address] [place] [address], [place] [address] Feb, [facility] [address] [id number] [address] [place] [address], [place] [address] 30 Jan, 2010 [facility] [address] [id number] [address] [place] [address], [place] [address] 24 Jan, 2010 [facility] [address] [id number] [address] [place] [address], [place] [address] 15 Jan, 2010 [facility] [address] [id number] [address] [place] [address], [place] [address] Dec, [facility] [address] [facility] [id number] [address] [place] [address] Dec, [facility] [address] [facility] [id number] [address] [place] [id number] Mar, [facility] [address] [facility] [id number] [address] [place] [address] Jan, IMMUNIZATIONS No Known Immunizations SOCIAL HISTORY Never Assessed REASON FOR VISIT PLAN OF CARE VITAL SIGNS Height 69 in 2013-08-07 Weight 235 lbs 2013-08-07 Temperature 98 degrees Fahrenheit 2013-08-07 Heart Rate 80 bpm 2013-08-07 Respiratory Rate 18 2013-08-07 Blood pressure systolic 130 mmHg 2013-08-07 Blood pressure diastolic 72 mmHg 2013-08-07 MEDICATIONS No Known Medications RESULTS No Results PROCEDURES Procedure Date Ordered Result Body Site X-RAY EXAM SACROILIAC JOINTS August 07, 2013 INSTRUCTIONS MEDICATIONS ADMINISTERED No Known Medications [...]
--- OUTSIDE RECORDS SUMMARY | 2019-05-16 06:58 | XMS REPORT ---
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 Name Role Phone ROE CALERO Unavailable PROBLEMS Type Condition ICD9-CM Code BUF24-UE Code Onset Dates Condition S tatus SNOMED Code Problem Pure hypercholesterolemia E78.0 Acti ve 46175092 Problem Prediabetes R73.09 Active 20521038 2 Problem Hypertension I10 Active 3925773 3 Problem COPD (chronic obstructive pulmonary disease) J44.9 Active 03183005 Problem Polyarthralgia M25.50 Active 91118 005 Problem Enlarged lymph node R59.9 Active 28664696 Problem Dyshidrotic eczema L30.1 Active 4 85635414 Problem Abnormal mammogram R92.8 Active 1 06095558 Problem BMI 39.0-39.9,adult Z68.39 Active 191452092 Problem Obesity (BMI 30-39.9) E66.9 Active 165926875 Problem Abnormal uterine bleeding N93.9 Acti ve [id number] Problem Dysmenorrhea N94.6 Active 8366834 00 Problem Right sided sciatica M54.31 Active 86007971 Problem Psoriasis L40.9 Active 7382623 Problem Primary osteoarthritis of right hip M16.11 Active 613529777 Problem Mood disorder F39 Active 839057 05 Problem Other chronic pain G89.29 Active 8 9936418 Problem Arthritis M19.90 Active 8031262 Problem Hypothyroidism (acquired) E03.9 Acti ve [id number] ALLERGIES No Information ENCOUNTERS Encounter Location Date Diagnosis [facility] [address] [id number] [place] [address] Jan, Skin tags, multiple acquired L91.8 [facility] [place] [address] [id number] [place] [address] Nov, Screening for malignant neoplasm of vernell st Z12.39 [place] [address] [address] Oct, Prediabetes R73.09 [place] [address] [address] Oct, Prediabetes R73.09 ; Psoriasis L40.9 and Dysmenorrhea N94.6 [place] [address] [address] Oct, Plantar fasciitis of right foot M72.2 an d Tendonitis, Achilles, right M76.61 [facility] [address] [facility] [id number] [place] [address] Oct, Plantar fasciitis of right f oot M72.2 and Morbid obesity E66.01 [place] [address] [address] Sep, Morbid obesity E66.01 ; Upper abdominal pain R10.10 ; Bloating R14.0 ; Tinea corporis B35.4 and Hypothyroidism (acquired) E03.9 [place] [address] [address] Aug, Hypothyroidism (acquired) E03.9 [place] [address] [address] Aug, Morbid obesity E66.01 [place] [address] [address] Aug, Morbid obesity E66.01 ; Arthritis M19.90 ; Other chronic pain G89.29 ; Pain in left knee M25.562 ; Pain in right knee M25.561 ; Diarrhea, unspecified type R19.7 and Family history of thyroid disease Z83.49 [place] [address] [address] July, [place] [address] [address] July, Pure hypercholesterolemia E78.0 ; Hypert ension I10 ; Prediabetes R73.09 ; Pain of left heel M79.672 ; Cutaneous horn L85.8 ; Mood disorder F39 and Morbid obesity E66.01 [facility] [address] [address] May, Viral upper respiratory infe ction J06.[address] [address] Aug, Bronchitis J40 [facility] [place] [address] [address] Aug, [place] [address] [address] Jun, Abnormal mammogram R92.8 [place] [address] [address] Jun, Abnormal mammogram R92.8 [place] [address] [address] May, [place] [address] [address] May, Well woman exam Z01.419 ; Pain of left h and M79.642 ; Pain in right hand M79.641 ; Abnormal uterine bleeding N93.9 and BMI 39.0-39.9,adult Z68.[address] [address] Dec, Hypertension I10 ; BMI 39.0-39.9,adult Z 68.39 and Obesity (BMI 30- 39.9) E66.9 [facility] [address] [address] Oct, Asthma exacerbation J45.[address] [address] Oct, Right sided sciatica M54.31 [facility] [address] [address] Sep, Acute seasonal allergic rhin itis, unspecified trigger J30.2 [place] [address] [address] Aug, Primary osteoarthritis of right hip M16. 11 ; Prediabetes R73.09 ; Precordial pain R07.2 ; Hypertension I10 and Skin lesion L98.[address] [address] Aug, Hypertension I10 [facility] IN [address] [place] [address] July, Sore throat J02.9 and Acute upper respiratory infection, unspecified J06.9 [facility] IN [place] [id number] [place] [address] 14 Apr, 2016 Acute bacterial conjunctivit is of right eye H10.[address] [address] Mar, Primary osteoarthritis of right hip M16. [address] [address] Nov, Hypertension I10 and Pure hypercholester olemia E78.[address] [address] Oct, Hypertension I10 ; Pure hypercholesterol emia E78.0 ; Dyshidrotic eczema L30.1 and Primary osteoarthritis of right hip M16.11 [place] [address] [address] Aug, Hypertension I10 [address] [address] Aug, Weight gain R63.[address] [address] Aug, [address] [address] Aug, Bilateral ovarian cysts N83.20 and Abnor mal mammogram R92.8 [place] [address] [address] Jun, Abnormal mammogram R92.8 and Enlarged ly mph nodes in armpit R59.0 [place] [address] [address] Jun, Enlarged lymph node R59.9 ; Bilateral ov varsha cysts N83.20 and Polyarthralgia M25.50 [place] [address] [address] May, Bilateral ovarian cysts N83.[address] [address] May, Screening for malignant neoplasm of vernell st Z12.39 and Enlarged lymph node R59.[address] [address] 16 May, [address] [address] 14 May, 2015 Well woman exam Z01.419 [...] of breast Z12.39 and Subclinical hypothyroidism E03.9 [place] [address] [address] May, Tinea pedis B35.3 and Metrorrhagia N92.[address] [address] Mar, Onychomycosis B35.1 and Nail ingrowing L 60.[address] [address] Jan, Subclinical hypothyroidism E03.9 [facility] [place] [address] [address] Dec, Pain in joint, pain in unspecified joint M25.50 [facility] [place] [address] [address] Dec, Pain in joint, pain in unspecified joint M25.50 [facility] [place] [address] [address] Dec, Pain in joint, pain in unspecified joint M25.50 [facility] [place] [address] [address] Nov, Hypertension 401.9 [place] [address] [address] 18 Nov, 2014 [place] [address] [address] 15 Nov, 2014 Chronic airway obstruction, not elsewher e classified 496 and Hypertension 401.9 [facility] [address] [id number] [place] [id number] Oct, Dental examination V72.2 [place] [address] [address] 30 Aug, 2014 Onychomycosis 110.1 and Ingrown nail [address] [address] Aug, [place] [address] [address] 08 Aug, 2014 Onychomycosis 110.1 and Nail, ingrown 70 3.0 [place] [address] [address] 14 Jun, 2014 [facility] [address] [address] Jun, [facility] [place] [address] [address] May, [place] [address] [id number] [place] [address] May, [facility] [address] [id number] [place] [address] Apr, [facility] [address] [id number] [place] [address] Apr, [facility] [address] [id number] [place] [address] Apr, [facility] [address] [id number] [place] [address] Apr, [facility] [address] [id number] [place] [address] Mar, [facility] [address] [id number] [place] [address] Mar, [facility] [address] [place] [id number] [place] [address] Feb, [facility] [address] [id number] [place] [address] Jan, [facility] [address] [id number] [place] [address] Jan, [facility] [address] [id number] [place] [address] Aug, [facility] [address] [id number] [place] [address] Aug, [facility] [address] [id number] [place] [address] Aug, [facility] [address] [id number] [place] [address] Aug, [facility] [address] [place] [id number] [place] [address] July, [facility] [address] [id number] [place] [address] July, [facility] [address] [id number] [place] [address] July, [facility] [address] [id number] [place] [address] July, [facility] [address] [id number] [place] [address] July, [facility] [address] [id number] [place] [address] July, [facility] [address] [id number] [place] [address] July, [facility] [address] [facility] [id number] [place] [address] July, [facility] [address] [id number] [place] [address] Jun, [facility] [address] [id number] [place] [address] May, [facility] [address] [id number] [place] [address] May, [facility] [address] [id number] [place] [address] May, [facility] [address] [id number] [place] [address] May, [facility] [address] [id number] [place] [address] Apr, [facility] [address] [id number] [place] [address] Apr, [facility] [address] [id number] [place] [address] Apr, [facility] [address] [id number] [place] [address] Apr, [facility] [address] [id number] [place] [address] Apr, [facility] [address] [id number] [place] [address] Apr, [facility] [address] [id number] [place] [address] Feb, [facility] [address] [id number] [place] [address] Feb, [facility] [address] [id number] [place] [address] Jan, [facility] [address] [id number] [place] [address] Jan, [facility] [address] [id number] [place] [address] Jan, [facility] [address] [id number] [place] [address] Dec, [facility] [address] [id number] [place] [address] Dec, [facility] [address] [id number] [place] [address] Dec, [facility] [address] [id number] [place] [address] Dec, [facility] [address] [id number] [place] [address] Oct, [facility] [address] [id number] [place] [address] Oct, [facility] [address] [id number] [place] [address] Nov, [facility] [address] [id number] [place] [address] Oct, [facility] [address] [id number] [place] [address] Oct, [facility] [address] [place] [id number] [place] [address] Aug, [facility] [address] [id number] [place] [address] Aug, [facility] [address] [id number] [place] [address] July, [facility] [place] [address] [place] [id number] [place] [address] Jun, [facility] [place] [address] [place] [id number] [place] [address] Jun, [facility] [place] [address] [place] [id number] [place] [address] Jun, [facility] [place] [address] [place] [id number] [place] [address] Feb, [facility] [place] [address] [place] [id number] [place] [address] Feb, [facility] [place] [address] [address] Feb, [facility] [place] [address] [place] [id number] [place] [address] Jan, [facility] [place] [address] [place] [id number] [place] [address] Jan, [facility] [place] [address] [place] [id number] [place] [address] Jan, [facility] [place] [address] [place] [id number] [place] [address] Dec, [facility] [place] [address] [place] [id number] [place] [address] Dec, [facility] [place] [address] [place] [id number] [place] [address] Mar, [facility] [place] [address] [place] [id number] [place] [address] Jan, IMMUNIZATIONS No Known Immunizations SOCIAL HISTORY Never Assessed REASON FOR VISIT PLAN OF CARE VITAL SIGNS Height 69 in 2013-07-08 Weight 235 lbs 2013-07-08 Temperature 96.5 degrees Fahrenheit 2013-07-08 Heart Rate 90 bpm 2013-07-08 Respiratory Rate 22 2013-07-08 Blood pressure systolic 112 mmHg 2013-07-08 Blood pressure diastolic 64 mmHg 2013-07-08 MEDICATIONS Unknown Medications RESULTS No Results PROCEDURES Procedure Date Ordered Result Body Site COMPLETE CBC W/AUTO DIFF WBC July 08, 2013 MEASURE BLOOD OXYGEN LEVEL July 08, 2013 COMPREHEN METABOLIC PANEL July 08, 2013 VENIPUNCT, ROUTINE* July 08, 2013 INSTRUCTIONS MEDICATIONS ADMINISTERED No Known Medications [...]
--- OUTSIDE RECORDS SUMMARY | 2019-05-16 06:59 | XMS REPORT ---
Author Author Marian MEZA Organization [facility] Address [address] [place] [address] Care Team Providers Care Talent Engineer Name Role Phone CAREY MEZA Unavailable PROBLEMS Type Condition ICD9-CM Code VTZ18-PM Code Onset Dates Condition S tatus SNOMED Code Problem Pure hypercholesterolemia E78.0 Acti ve 32106218 Problem Prediabetes R73.09 Active 51460954 2 Problem Hypertension I10 Active 6634930 3 Problem COPD (chronic obstructive pulmonary disease) J44.9 Active 49423218 Problem Polyarthralgia M25.50 Active 24095 005 Problem Enlarged lymph node R59.9 Active 44804825 Problem Dyshidrotic eczema L30.1 Active 4 02274352 Problem Abnormal mammogram R92.8 Active 1 76393790 Problem BMI 39.0-39.9,adult Z68.39 Active 738947123 Problem Obesity (BMI 30-39.9) E66.9 Active 886001844 Problem Abnormal uterine bleeding N93.9 Acti ve [id number] Problem Dysmenorrhea N94.6 Active 4274749 00 Problem Right sided sciatica M54.31 Active 60318142 Problem Psoriasis L40.9 Active 4566430 Problem Primary osteoarthritis of right hip M16.11 Active 535517933 Problem Mood disorder F39 Active 708842 05 Problem Other chronic pain G89.29 Active 8 0401452 Problem Arthritis M19.90 Active 9469249 Problem Hypothyroidism (acquired) E03.9 Acti ve 27431044 ALLERGIES No Information ENCOUNTERS Encounter Location Date Diagnosis [facility] [address] [facility] [id number] [address] [place] [id number] 04 Dec, 2018 [facility] [address] [facility] [id number] [address] [place] [address] Nov, Screening for malignant neop lasm of breast Z12.39 [place] [address] [address] [place] [id number] [address] [place] [address] Oct, Prediabetes R73.09 [place] [address] [address] Oct, Prediabetes R73.09 ; Psorias is L40.9 and Dysmenorrhea N94.6 [place] [address] [address] Oct, Plantar fasciitis of right f oot M72.2 and Tendonitis, Achilles, right M76.61 [facility] [place] [address] [address] Oct, Plantar fasciitis of right f oot M72.2 and Morbid obesity E66.01 [place] [address] [address] Sep, Morbid obesity E66.01 ; Uppe r abdominal pain R10.10 ; Bloating R14.0 ; Tinea corporis B35.4 and Hypothyroidism (acquired) E03.[address] [address] Aug, Hypothyroidism (acquired) E0 3.9 [place] [address] [address] Aug, Morbid obesity E66.01 [place] [address] [address] Aug, Morbid obesity E66.01 ; Arth ritis M19.90 ; Other chronic pain G89.29 ; Pain in left knee M25.562 ; Pain in right knee M25.561 ; Diarrhea, unspecified type R19.7 and Family history of thyroid disease Z83.49 [place] [address] [address] July, [place] [address] [address] July, Pure hypercholesterolemia E7 8.0 ; Hypertension I10 ; Prediabetes R73.09 ; Pain of left heel M79.672 ; Cutaneous horn L85.8 ; Mood disorder F39 and Morbid obesity E66.01 [facility] [place] [address] [address] May, Viral upper respiratory infe ction J06.9 [place] [address] [address] Aug, Bronchitis J40 [facility] [place] [address] [address] Aug, [place] [address] [address] Jun, Abnormal mammogram R92.8 [place] [address] [address] Jun, Abnormal mammogram R92.8 [place] [address] [address] May, [place] [address] [address] May, Well woman exam Z01.419 ; Pa in of left hand M79.642 ; Pain in right hand M79.641 ; Abnormal uterine bleeding N93.9 and BMI 39.0-39.9,adult Z68.39 [place] [address] [address] Dec, Hypertension I10 ; BMI 39.0- 39.9,adult Z68.39 and Obesity (BMI 30- 39.9) E66.9 [facility] [place] [address] [address] Oct, Asthma exacerbation J45.901 [place] [address] [address] Oct, Right sided sciatica M54.31 [facility] [address] [place] [id number] [address] [place] [address] Sep, Acute seasonal allergic rhin itis, unspecified trigger J30.2 [facility] [address] [place] [id number] [address] [place] [address] 30 Aug, 2016 Primary osteoarthritis of ri ght hip M16.11 ; Prediabetes R73.09 ; Precordial pain R07.2 ; Hypertension I10 and Skin lesion L98.9 [place] [address] [address] Aug, Hypertension I10 [facility] [address] [address] July, Sore throat J02.9 and Acute upper respiratory infection, unspecified J06.9 [facility] [address] [address] 14 Apr, 2016 Acute bacterial conjunctivit is of right eye H10.31 [place] [address] [place] [id number] [address] [place] [address] Mar, Primary osteoarthritis of ri ght hip M16.11 [place] [address] [address] Nov, Hypertension I10 and Pure hy percholesterolemia E78.0 [place] [address] [address] [place] [id number] [address] [place] [address] Oct, Hypertension I10 ; Pure hype rcholesterolemia E78.0 ; Dyshidrotic eczema L30.1 and Primary osteoarthritis of right hip M16.11 [place] [address] [address] Aug, Hypertension I10 [place] [address] [address] Aug, Weight gain R63.5 [place] [address] [address] [place] [id number] [place] [address] 17 Aug, 2015 [place] [address] [address] 15 Aug, 2015 Bilateral ovarian cysts N83. 20 and Abnormal mammogram R92.8 [place] [address] [address] Jun, Abnormal mammogram R92.8 and Enlarged lymph nodes in armpit R59.0 [place] [address] [address] Jun, Enlarged lymph node R59.9 ; Bilateral ovarian cysts N83.20 and Polyarthralgia M25.50 [place] [address] [address] May, Bilateral ovarian cysts N83. 20 [place] [address] [address] May, Screening for malignant neop lasm of breast Z12.39 and Enlarged lymph node R59.9 [place] [address] [address] 16 May, 2015 [place] [address] [address] 14 May, 2015 Well woman exam Z01.419 [...] of breast Z12.39 and Subclinical hypothyroidism E03.9 [place] [address] [address] [place] [id number] [address] [place] [address] 04 May, 2015 Tinea pedis B35.3 and Metror rhagia N92.1 [facility] [address] [id number] [address] [place] [address] Mar, Onychomycosis B35.1 and Nail ingrowing L60.0 [facility] [address] [facility] [id number] [address] [place] [address] Jan, Subclinical hypothyroidism E 03.9 [facility] [address] [id number] [address] [place] [address] Dec, Pain in joint, pain in unspe cified joint M25.50 [facility] [address] [id number] [address] [place] [address] Dec, Pain in joint, pain in unspe cified joint M25.50 [facility] [address] [facility] [id number] [address] [place] [address] Dec, Pain in joint, pain in unspe cified joint M25.50 [facility] [address] [facility] [id number] [address] [place] [address] Nov, Hypertension 401.9 [facility] [address] [id number] [address] [place] [address] Nov, [facility] [address] [facility] [id number] [address] [place] [address] 15 Nov, 2014 Chronic airway obstruction, not elsewhere classified 496 and Hypertension 401.9 [facility] [address] [id number] [address] [place] [id number] Oct, Dental examination V72.2 [facility] [address] [facility] [id number] [address] [place] [address] Aug, Onychomycosis 110.1 and Ingr own nail 703.0 [facility] [address] [facility] [id number] [address] [place] [address] Aug, [facility] [address] [facility] [id number] [address] [place] [address] Aug, Onychomycosis 110.1 and Nail , ingrown 703.0 [facility] [address] [id number] [address] [place] [address], [place] [address] Jun, [facility] [address] [id number] [address] [place] [address], [place] [address] Jun, [facility] [address] [id number] [address] [place] [address], [place] [address] May, [facility] [address] [id number] [address] [place] [address], [place] [address] May, [facility] [address] [id number] [address] [place] [address], [place] [address] Apr, [facility] [address] [id number] [address] [place] [address], [place] [address] Apr, [facility] [address] [id number] [address] [place] [address], [place] [address] Apr, [facility] [address] [id number] [address] [place] [address], [place] [address] Apr, [facility] [address] [id number] [address] [place] [address], [place] [address] Mar, [facility] [address] [id number] [address] [place] [address], [place] [address] Mar, [facility] [address] [id number] [address] [place] [address], [place] [address] Feb, [facility] [address] [id number] [address] [place] [address], [place] [address] Jan, [facility] [address] [id number] [address] [place] [address], [place] [address] Jan, [facility] [address] [id number] [address] [place] [address], [place] [address] Aug, [facility] [address] [id number] [address] [place] [address], [place] [address] Aug, [facility] [address] [id number] [address] [place] [address], [place] [address] Aug, [facility] [address] [id number] [address] [place] [address], [place] [address] Aug, [facility] [address] [id number] [address] [place] [address], [place] [id number] July, [facility] [address] [id number] [address] [place] [address], [place] [id number] July, [facility] [address] [id number] [address] [place] [address], [place] [address] July, [facility] [address] [id number] [address] [place] [address], [place] [address] July, [facility] [address] [id number] [address] [place] [address], [place] [id number] July, [facility] [address] [id number] [address] [place] [address], [place] [address] July, [facility] [address] [id number] [address] [place] [address], [place] [id number] July, [facility] [address] [id number] [address] [place] [address], [place] [address] July, [facility] [address] [id number] [address] [place] [address], [place] [id number] Jun, [facility] [address] [id number] [address] [place] [address], [place] [address] May, [facility] [address] [id number] [address] [place] [address], [place] [address] May, [facility] [address] [id number] [address] [place] [address], [place] [address] May, [facility] [address] [id number] [address] [place] [address], [place] [address] May, [facility] [address] [id number] [address] [place] [address], [place] [address] Apr, [facility] [address] [id number] [address] [place] [address], [place] [address] Apr, [facility] [address] [id number] [address] [place] [address], [place] [address] Apr, [facility] [address] [id number] [address] [place] [address], [place] [address] Apr, [facility] [address] [id number] [address] [place] [address], [place] [address] Apr, [facility] [address] [id number] [address] [place] [address], [place] [address] Apr, [facility] [address] [id number] [address] [place] [address], [place] [id number] Feb, [facility] [address] [id number] [address] [place] [address], [place] [id number] Feb, [facility] [address] [id number] [address] [place] [address], [place] [address] Jan, [facility] [address] [id number] [address] [place] [address], [place] [id number] Jan, [facility] [address] [id number] [address] [place] [address], [place] [id number] Jan, [facility] [address] [id number] [address] [place] [address], [place] [id number] Dec, [facility] [address] [id number] [address] [place] [address], [place] [id number] Dec, [facility] [address] [id number] [address] [place] [address], [place] [address] Dec, [facility] [address] [id number] [address] [place] [address], [place] [address] Dec, [facility] [address] [id number] [address] [place] [address], [place] [address] Oct, [facility] [address] [id number] [address] [place] [address], [place] [id number] Oct, [facility] [address] [id number] [address] [place] [address], [place] [address] Nov, [facility] [address] [id number] [address] [place] [address], [place] [id number] Oct, [facility] [address] [id number] [address] [place] [address], [place] [address] Oct, [facility] [address] [id number] [address] [place] [address], [place] [address] Aug, [facility] [address] [id number] [address] [place] [address], [place] [address] Aug, [facility] [address] [id number] [address] [place] [address], [place] [address] July, [facility] [address] [id number] [address] [place] [address], [place] [address] Jun, [facility] [address] [id number] [address] [place] [address], [place] [address] Jun, [facility] [address] [id number] [address] [place] [address], [place] [address] Jun, [facility] [address] [id number] [address] [place] [address], [place] [address] Feb, [facility] [address] [id number] [address] [place] [address], [place] [address] Feb, [facility] [address] [id number] [address] [place] [address], [place] [address] Feb, [facility] [address] [id number] [address] [place] [address], [place] [address] 30 Jan, 2010 [facility] [address] [id number] [address] [place] [address], [place] [address] 24 Jan, 2010 [facility] [address] [id number] [address] [place] [address], [place] [address] Jan, [facility] [address] [facility] [id number] [address] [place] [id number] Dec, [facility] [address] [facility] [id number] [address] [place] [id number] Dec, [facility] [address] [facility] [id number] [address] [place] [id number] Mar, [facility] [address] [facility] [id number] [address] [place] [id number] Jan, IMMUNIZATIONS No Known Immunizations SOCIAL HISTORY Never Assessed REASON FOR VISIT PLAN OF CARE VITAL SIGNS Height 69 in 2014-03-31 Weight 227.3 lbs 2014-03-31 Temperature 99.2 degrees Fahrenheit 2014-03-31 Heart Rate 88 bpm 2014-03-31 Respiratory Rate 20 2014-03-31 Blood pressure systolic 104 mmHg 2014-03-31 Blood pressure diastolic 60 mmHg 2014-03-31 MEDICATIONS Unknown Medications RESULTS No Results PROCEDURES [...]
--- OUTSIDE RECORDS SUMMARY | 2019-05-16 06:59 | XMS REPORT ---
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 Name Role Phone KHURRAMNARGIS BROOKSY Unavailable PROBLEMS Type Condition ICD9-CM Code NKS04-SO Code Onset Dates Condition S tatus SNOMED Code Problem Pure hypercholesterolemia E78.0 Acti ve 99473770 Problem Prediabetes R73.09 Active 14369588 2 Problem Hypertension I10 Active 7848322 3 Problem COPD (chronic obstructive pulmonary disease) J44.9 Active 82717728 Problem Polyarthralgia M25.50 Active 06671 005 Problem Enlarged lymph node R59.9 Active 65055050 Problem Dyshidrotic eczema L30.1 Active 4 08485607 Problem Abnormal mammogram R92.8 Active 1 55512352 Problem BMI 39.0-39.9,adult Z68.39 Active 788522278 Problem Obesity (BMI 30-39.9) E66.9 Active 489665059 Problem Abnormal uterine bleeding N93.9 Acti ve [id number] Problem Dysmenorrhea N94.6 Active 7466908 00 Problem Right sided sciatica M54.31 Active 28020701 Problem Psoriasis L40.9 Active 0795752 Problem Primary osteoarthritis of right hip M16.11 Active 655756439 Problem Mood disorder F39 Active 681265 05 Problem Other chronic pain G89.29 Active 8 3228081 Problem Arthritis M19.90 Active 0661933 Problem Hypothyroidism (acquired) E03.9 Acti ve [id number] ALLERGIES No Information ENCOUNTERS Encounter Location Date Diagnosis [facility] [address] [facility] [id number] [address] [place] [address] 04 Dec, 2018 [facility] [address] [facility] [id number] [address] [place] [address] Nov, Screening for malignant neop lasm of breast Z12.39 [place] [address] [address] Oct, Prediabetes R73.09 [place] [address] [address] Oct, Prediabetes R73.09 ; Psorias is L40.9 and Dysmenorrhea N94.6 [place] [address] [address] Oct, Plantar fasciitis of right f oot M72.2 and Tendonitis, Achilles, right M76.61 [facility] [place] [address] [address] Oct, Plantar fasciitis of right f oot M72.2 and Morbid obesity E66.01 [place] [address] [address] Sep, Morbid obesity E66.01 ; Uppe r abdominal pain R10.10 ; Bloating R14.0 ; Tinea corporis B35.4 and Hypothyroidism (acquired) E03.[address] [address] Aug, Hypothyroidism (acquired) E0 3.9 [place] [address] [address] Aug, Morbid obesity E66.[address] [address] Aug, Morbid obesity E66.01 ; Arth ritis M19.90 ; Other chronic pain G89.29 ; Pain in left knee M25.562 ; Pain in right knee M25.561 ; Diarrhea, unspecified type R19.7 and Family history of thyroid disease Z83.49 [place] [address] [address] July, [place] [address] [address] July, Pure hypercholesterolemia E7 8.0 ; Hypertension I10 ; Prediabetes R73.09 ; Pain of left heel M79.672 ; Cutaneous horn L85.8 ; Mood disorder F39 and Morbid obesity E66.01 [facility] [address] [address] May, Viral upper respiratory infe ction J06.9 [place] [address] [address] Aug, Bronchitis J40 [facility] [place] [address] [address] Aug, [place] [address] [address] Jun, Abnormal mammogram R92.8 [place] [address] [address] Jun, Abnormal mammogram R92.8 [place] [address] [address] May, [place] [address] [address] May, Well woman exam Z01.419 ; Pa in of left hand M79.642 ; Pain in right hand M79.641 ; Abnormal uterine bleeding N93.9 and BMI 39.0-39.9,adult Z68.39 [place] [address] [address] Dec, Hypertension I10 ; BMI 39.0- 39.9,adult Z68.39 and Obesity (BMI 30- 39.9) E66.9 [facility] [place] [address] [address] Oct, Asthma exacerbation J45.901 [place] [address] [address] Oct, Right sided sciatica M54.31 [facility] [address] [place] [id number] [address] [place] [address] Sep, Acute seasonal allergic rhin itis, unspecified trigger J30.2 [facility] [address] [place] [id number] [address] [place] [address] 30 Aug, 2016 Primary osteoarthritis of ri ght hip M16.11 ; Prediabetes R73.09 ; Precordial pain R07.2 ; Hypertension I10 and Skin lesion L98.9 [facility] [address] [address] Aug, Hypertension I10 [facility] [address] [address] July, Sore throat J02.9 and Acute upper respiratory infection, unspecified J06.9 [facility] [address] [address] 14 Apr, 2016 Acute bacterial conjunctivit is of right eye H10.31 [place] [address] [address] Mar, Primary osteoarthritis of ri ght hip M16.11 [place] [address] [address] Nov, Hypertension I10 and Pure hy percholesterolemia E78.0 [place] [address] [address] Oct, Hypertension I10 ; Pure hype rcholesterolemia E78.0 ; Dyshidrotic eczema L30.1 and Primary osteoarthritis of right hip M16.11 [place] [address] [address] Aug, Hypertension I10 [place] [address] [address] Aug, Weight gain R63.5 [place] [address] [place] [address] 17 Aug, 2015 [place] [address] [address] 15 Aug, 2015 Bilateral ovarian cysts N83. 20 and Abnormal mammogram R92.8 [place] [address] [address] Jun, Abnormal mammogram R92.8 and Enlarged lymph nodes in armpit R59.0 [place] [address] [address] Jun, Enlarged lymph node R59.9 ; Bilateral ovarian cysts N83.20 and Polyarthralgia M25.50 [place] [address] [address] May, Bilateral ovarian cysts N83. 20 [place] [address] [address] May, Screening for malignant neop lasm of breast Z12.39 and Enlarged lymph node R59.9 [place] [address] [address] 16 May, 2015 [place] [address] [address] 14 May, 2015 Well woman exam Z01.419 [...] of breast Z12.39 and Subclinical hypothyroidism E03.9 [place] [address] [address] [place] [id number] [address] [place] [address] 04 May, 2015 Tinea pedis B35.3 and Metror rhagia N92.1 [facility] [address] [id number] [address] [place] [address] Mar, Onychomycosis B35.1 and Nail ingrowing L60.0 [facility] [address] [facility] [id number] [address] [place] [address] Jan, Subclinical hypothyroidism E 03.9 [facility] [address] [id number] [address] [place] [address] Dec, Pain in joint, pain in unspe cified joint M25.50 [facility] [address] [id number] [address] [place] [address] Dec, Pain in joint, pain in unspe cified joint M25.50 [facility] [address] [id number] [address] [place] [address] Dec, Pain in joint, pain in unspe cified joint M25.50 [facility] [address] [facility] [id number] [address] [place] [address] Nov, Hypertension 401.9 [facility] [address] [id number] [address] [place] [address] Nov, [facility] [address] [facility] [id number] [address] [place] [address] 15 Nov, 2014 Chronic airway obstruction, not elsewhere classified 496 and Hypertension 401.9 [facility] [address] [id number] [address] [place] [id number] Oct, Dental examination V72.2 [facility] [address] [id number] [address] [place] [address] Aug, Onychomycosis 110.1 and Ingr own nail 703.0 [facility] [address] [id number] [address] [place] [address] Aug, [facility] [address] [facility] [id number] [address] [place] [address] Aug, Onychomycosis 110.1 and Nail , ingrown 703.0 [facility] [address] [id number] [address] [place] [address], [place] [address] 14 Jun, 2014 [facility] [place] [facility] [address] [id number] [address] [place] [address], [place] [address] Jun, [facility] [address] [id number] [address] [place] [address], [place] [address] May, [facility] [place] [facility] [address] [id number] [address] [place] [address], [place] [address] May, [facility] [address] [id number] [address] [place] [address], [place] [address] Apr, [facility] [place] [facility] [address] [id number] [address] [place] [address], [place] [address] Apr, [facility] [address] [id number] [address] [place] [address], [place] [address] Apr, [facility] [address] [id number] [address] [place] [address], [place] [address] Apr, [facility] [address] [id number] [address] [place] [address], [place] [address] Mar, [facility] [address] [id number] [address] [place] [address], [place] [address] Mar, [facility] [address] [id number] [address] [place] [address], [place] [address] Feb, [facility] [place] [facility] [address] [id number] [address] [place] [address] Jan, [facility] [place] [facility] [address] [id number] [address] [place] [address], [place] [address] Jan, [facility] [place] [facility] [address] [id number] [address] [place] [address], [place] [address] Aug, [facility] [place] [facility] [address] [id number] [address] [place] [address], [place] [address] Aug, [facility] [place] [facility] [address] [id number] [address] [place] [address], [place] [address] Aug, [facility] [address] [id number] [address] [place] [address], [place] [address] Aug, [facility] [address] [id number] [address] [place] [address], [place] [address] July, [facility] [address] [id number] [address] [place] [address], [place] [address] July, [facility] [address] [id number] [address] [place] [address], [place] [address] July, [facility] [address] [id number] [address] [place] [address], [place] [address] July, [facility] [address] [id number] [address] [place] [address], [place] [address] July, [facility] [address] [id number] [address] [place] [address], [place] [address] July, [facility] [address] [id number] [address] [place] [address], [place] [address] July, [facility] [address] [id number] [address] [place] [address], [place] [address] July, [facility] [address] [id number] [address] [place] [address], [place] [address] Jun, [facility] [address] [id number] [address] [place] [address], [place] [address] May, [facility] [address] [id number] [address] [place] [address], [place] [address] May, [facility] [address] [id number] [address] [place] [address], [place] [address] May, [facility] [address] [id number] [address] [place] [address], [place] [address] May, [facility] [address] [id number] [address] [place] [address], [place] [address] Apr, [facility] [address] [id number] [address] [place] [address], [place] [address] Apr, [facility] [address] [id number] [address] [place] [address], [place] [address] Apr, [facility] [address] [id number] [address] [place] [address], [place] [address] Apr, [facility] [address] [id number] [address] [place] [address], [place] [address] Apr, [facility] [address] [id number] [address] [place] [address], [place] [address] Apr, [facility] [address] [id number] [address] [place] [address], [place] [address] Feb, [facility] [address] [id number] [address] [place] [address], [place] [address] Feb, [facility] [address] [id number] [address] [place] [address], [place] [address] Jan, [facility] [address] [id number] [address] [place] [address], [place] [address] Jan, [facility] [address] [id number] [address] [place] [address], [place] [address] Jan, [facility] [address] [id number] [address] [place] [address], [place] [address] Dec, [facility] [place] [facility] [address] [id number] [address] [place] [address] Dec, [facility] [place] [facility] [address] [id number] [address] [place] [address], [place] [address] Dec, [facility] [address] [id number] [address] [place] [address], [place] [address] Dec, [facility] [place] [facility] [address] [id number] [address] [place] [address], [place] [address] Oct, [facility] [address] [id number] [address] [place] [address], [place] [address] Oct, [facility] [address] [id number] [address] [place] [address], [place] [address] Nov, [facility] [address] [id number] [address] [place] [address], [place] [address] Oct, [facility] [address] [id number] [address] [place] [address], [place] [address] Oct, [facility] [address] [id number] [address] [place] [address], [place] [address] Aug, [facility] [address] [id number] [address] [place] [address], [place] [address] Aug, [facility] [address] [id number] [address] [place] [address], [place] [address] July, [facility] [address] [id number] [address] [place] [address], [place] [address] Jun, [facility] [address] [id number] [address] [place] [address], [place] [address] Jun, [facility] [address] [id number] [address] [place] [address], [place] [address] Jun, [facility] [address] [id number] [address] [place] [address], [place] [address] Feb, [facility] [address] [id number] [address] [place] [address], [place] [address] Feb, [facility] [address] [id number] [address] [place] [address], [place] [address] Feb, [facility] [address] [id number] [address] [place] [address], [place] [address] 30 Jan, 2010 [facility] [address] [id number] [address] [place] [address], [place] [address] Jan, [facility] [address] [id number] [address] [place] [address], [place] [address] 15 Jan, 2010 [facility] [address] [facility] [id number] [address] [place] [address] Dec, [facility] [address] [facility] [id number] [address] [place] [address] Dec, [facility] [address] [facility] [id number] [address] [place] [address] Mar, [facility] [address] [facility] [id number] [address] [place] [address] Jan, IMMUNIZATIONS No Known Immunizations SOCIAL HISTORY [...]
--- OUTSIDE RECORDS SUMMARY | 2019-05-16 06:59 | XMS REPORT ---
Author Author Marian CALERO Organization [facility] Address [address] [place] [address] Care Team Providers Care Sock Examiner Name Role Phone ROE CALERO Unavailable PROBLEMS Type Condition ICD9-CM Code [id number] Code Onset Dates Condition S tatus SNOMED Code Problem Pure hypercholesterolemia E78.0 Acti ve 91187205 Problem Prediabetes R73.09 Active 05988937 2 Problem Hypertension I10 Active 7539832 3 Problem COPD (chronic obstructive pulmonary disease) J44.9 Active 76457248 Problem Polyarthralgia M25.50 Active 95524 005 Problem Enlarged lymph node R59.9 Active 08952171 Problem Dyshidrotic eczema L30.1 Active 4 06856182 Problem Abnormal mammogram R92.8 Active 1 32224921 Problem BMI 39.0-39.9,adult Z68.39 Active 939123786 Problem Obesity (BMI 30-39.9) E66.9 Active 878130725 Problem Abnormal uterine bleeding N93.9 Acti ve [id number] Problem Dysmenorrhea N94.6 Active 7963010 00 Problem Right sided sciatica M54.31 Active 93943483 Problem Psoriasis L40.9 Active 9768955 Problem Primary osteoarthritis of right hip M16.11 Active 918682097 Problem Mood disorder F39 Active 451472 05 Problem Other chronic pain G89.29 Active 8 5370610 Problem Arthritis M19.90 Active 5436169 Problem Hypothyroidism (acquired) E03.9 Acti ve [id number] ALLERGIES No Information ENCOUNTERS Encounter Location Date Diagnosis [facility] [address] [facility] [facility] [id number] [address] [place] [address] Nov, Screening for malignant neop lasm of breast Z12.39 [facility] [address] [id number] [address] [address] Oct, Prediabetes R73.09 [place] [address] [address] Oct, Prediabetes R73.09 ; Psorias is L40.9 and Dysmenorrhea N94.6 [place] [address] [address] [place] [id number] [address] [address] Oct, Plantar fasciitis of right f oot M72.2 and Tendonitis, Achilles, right M76.61 [facility] [address] [address] Oct, Plantar fasciitis of right f oot M72.2 and Morbid obesity E66.01 [place] [address] [address] Sep, Morbid obesity E66.01 ; Uppe r abdominal pain R10.10 ; Bloating R14.0 ; Tinea corporis B35.4 and Hypothyroidism (acquired) E03.9 [place] [address] [address] Aug, Hypothyroidism (acquired) E0 3.[address] [address] Aug, Morbid obesity E66.01 [place] [address] [address] Aug, Morbid obesity E66.01 ; Arth ritis M19.90 ; Other chronic pain G89.29 ; Pain in left knee M25.562 ; Pain in right knee M25.561 ; Diarrhea, unspecified type R19.7 and Family history of thyroid disease Z83.49 [place] [address] [address] July, [place] [address] [address] July, Pure hypercholesterolemia E7 8.0 ; Hypertension I10 ; Prediabetes R73.09 ; Pain of left heel M79.672 ; Cutaneous horn L85.8 ; Mood disorder F39 and Morbid obesity E66.01 [facility] [place] [address] [address] May, Viral upper respiratory infe ction J06.9 [place] [address] [address] Aug, Bronchitis J40 [facility] [place] [address] [address] Aug, [place] [address] [address] Jun, Abnormal mammogram R92.8 [place] [address] [address] Jun, Abnormal mammogram R92.8 [place] [address] [address] May, [place] [address] [address] May, Well woman exam Z01.419 ; Pa in of left hand M79.642 ; Pain in right hand M79.641 ; Abnormal uterine bleeding N93.9 and BMI 39.0-39.9,adult Z68.39 [place] [address] [address] Dec, Hypertension I10 ; BMI 39.0- 39.9,adult Z68.39 and Obesity (BMI 30- 39.9) E66.9 [facility] [place] [address] [address] Oct, Asthma exacerbation J45.901 [place] [address] [address] Oct, Right sided sciatica M54.31 [facility] [place] [address] [address] Sep, Acute seasonal allergic rhin itis, unspecified trigger J30.2 [facility] [address] [place] [id number] [address] [address] Aug, Primary osteoarthritis of ri ght hip M16.11 ; Prediabetes R73.09 ; Precordial pain R07.2 ; Hypertension I10 and Skin lesion L98.9 [facility] [address] [address] Aug, Hypertension I10 [facility] [address] [place] [id number] [place] [address] July, Sore throat J02.9 and Acute upper respiratory infection, unspecified J06.9 [facility] [address] [place] [id number] [place] [address] 14 Apr, 2016 Acute bacterial conjunctivit is of right eye H10.31 [place] [address] [address] Mar, Primary osteoarthritis of ri ght hip M16.11 [place] [address] [address] Nov, Hypertension I10 and Pure hy percholesterolemia E78.0 [place] [address] [place] [id number] [address] [place] [address] Oct, Hypertension I10 ; Pure hype rcholesterolemia E78.0 ; Dyshidrotic eczema L30.1 and Primary osteoarthritis of right hip M16.11 [place] [address] [place] [address] Aug, Hypertension I10 [place] [address] [address] Aug, Weight gain R63.5 [place] [address] [place] [id number] [address] [place] [address] Aug, [place] [address] [address] Aug, Bilateral ovarian cysts N83. 20 and Abnormal mammogram R92.[address] [address] Jun, Abnormal mammogram R92.8 and Enlarged lymph nodes in armpit R59.[address] [address] Jun, Enlarged lymph node R59.9 ; Bilateral ovarian cysts N83.20 and Polyarthralgia M25.[address] [address] May, Bilateral ovarian cysts N83. [address] [address] May, Screening for malignant neop lasm of breast Z12.39 and Enlarged lymph node R59.[address] [address] May, [address] [address] 14 May, 2015 Well woman exam Z01.419 [...] of breast Z12.39 and Subclinical hypothyroidism E03.[address] [address] May, Tinea pedis B35.3 and Metror rhagia N92.[address] [address] Mar, Onychomycosis B35.1 and Nail ingrowing L60.0 [facility] [address] [id number] [address] [address] Jan, Subclinical hypothyroidism E 03.9 [facility] [address] [id number] [address] [address] Dec, Pain in joint, pain in unspe cified joint M25.50 [facility] [address] [id number] [address] [address] Dec, Pain in joint, pain in unspe cified joint M25.50 [facility] [address] [id number] [address] [address] Dec, Pain in joint, pain in unspe cified joint M25.50 [facility] [address] [id number] [address] [address] Nov, Hypertension 401.9 [facility] [address] [id number] [address] [address] 18 Nov, 2014 [facility] [address] [id number] [address] [address] 15 Nov, 2014 Chronic airway obstruction, not elsewhere classified 496 and Hypertension 401.9 [facility] [address] [id number] [address] [place] [id number] Oct, Dental examination V72.2 [facility] [address] [id number] [address] [address] Aug, Onychomycosis 110.1 and Ingr own nail 703.0 [facility] [address] [id number] [address] [address] Aug, [place] [address] [facility] [id number] [address] [address] 08 Aug, 2014 Onychomycosis 110.1 and Nail , ingrown 703.0 [facility] [address] [id number] [address] [address] 14 Jun, 2014 [facility] [address] [id number] [address] [place] [address], [place] [address] Jun, [facility] [address] [id number] [address] [place] [address], [place] [address] May, [facility] [address] [id number] [address] [place] [address], [place] [address] May, [facility] [address] [id number] [address] [place] [address], [place] [address] Apr, [facility] [address] [id number] [address] [place] [address], [place] [address] Apr, [facility] [address] [id number] [address] [place] [address], [place] [address] Apr, [facility] [address] [id number] [address] [place] [address], [place] [address] Apr, [facility] [address] [id number] [address] [place] [address], [place] [address] Mar, [facility] [address] [id number] [address] [place] [address], [place] [address] Mar, [facility] [address] [id number] [address] [place] [address], [place] [address] Feb, [facility] [address] [id number] [address] [place] [address], [place] [address] Jan, [facility] [address] [id number] [address] [place] [address], [place] [address] Jan, [facility] [address] [id number] [address] [place] [address], [place] [address] Aug, [facility] [address] [id number] [address] [place] [address], [place] [address] Aug, [facility] [address] [id number] [address] [place] [address], [place] [address] Aug, [facility] [address] [id number] [address] [place] [address], [place] [address] Aug, [facility] [address] [id number] [address] [place] [address], [place] [address] July, [facility] [address] [id number] [address] [place] [address], [place] [address] July, [facility] [address] [id number] [address] [place] [address], [place] [address] July, [facility] [address] [id number] [address] [place] [address], [place] [address] July, [facility] [address] [id number] [address] [place] [address], [place] [address] July, [facility] [address] [id number] [address] [place] [address], [place] [address] July, [facility] [address] [id number] [address] [place] [address], [place] [address] July, [facility] [address] [id number] [address] [place] [address], [place] [address] July, [facility] [address] [id number] [address] [place] [address], [place] [address] Jun, [facility] [address] [id number] [address] [place] [address], [place] [address] May, [facility] [address] [id number] [address] [place] [address], [place] [address] May, [facility] [address] [id number] [address] [place] [address], [place] [address] May, [facility] [address] [id number] [address] [place] [address], [place] [address] May, [facility] [address] [id number] [address] [place] [address], [place] [address] Apr, [facility] [address] [id number] [address] [place] [address], [place] [address] Apr, [facility] [address] [id number] [address] [place] [address], [place] [address] Apr, [facility] [address] [id number] [address] [place] [address], [place] [address] Apr, [facility] [address] [id number] [address] [place] [address], [place] [address] Apr, [facility] [address] [id number] [address] [place] [address], [place] [address] Apr, [facility] [address] [id number] [address] [place] [address], [place] [address] Feb, [facility] [address] [id number] [address] [place] [address], [place] [address] Feb, [facility] [address] [id number] [address] [place] [address], [place] [address] Jan, [facility] [address] [id number] [address] [place] [address], [place] [address] Jan, [facility] [address] [id number] [address] [place] [address], [place] [address] Jan, [facility] [address] [id number] [address] [place] [address], [place] [address] Dec, [facility] [address] [id number] [address] [place] [address], [place] [address] Dec, [facility] [address] [id number] [address] [place] [address], [place] [address] Dec, [facility] [address] [id number] [address] [place] [address], [place] [address] Dec, [facility] [address] [id number] [address] [place] [address], [place] [address] Oct, [facility] [address] [id number] [address] [place] [address], [place] [address] Oct, [facility] [address] [id number] [address] [place] [address], [place] [address] Nov, [facility] [address] [id number] [address] [place] [address], [place] [address] Oct, [facility] [address] [id number] [address] [place] [address], [place] [address] Oct, [facility] [address] [id number] [address] [place] [address], [place] [address] Aug, [facility] [address] [id number] [address] [place] [address], [place] [address] Aug, [facility] [address] [id number] [address] [place] [address], [place] [address] July, [facility] [address] [id number] [address] [place] [address], [place] [address] Jun, [facility] [address] [id number] [address] [place] [address], [place] [address] Jun, [facility] [address] [id number] [address] [place] [address], [place] [address] Jun, [facility] [address] [id number] [address] [place] [address], [place] [address] Feb, [facility] [address] [id number] [address] [place] [address], [place] [address] Feb, [facility] [address] [id number] [address] [place] [address], [place] [address] Feb, [facility] [address] [id number] [address] [place] [address], [place] [address] 30 Jan, 2010 [facility] [address] [id number] [address] [place] [address], [place] [address] 24 Jan, 2010 [facility] [address] [id number] [address] [place] [address], [place] [address] 15 Jan, 2010 [facility] [address] [id number] [address] [place] [address], [place] [address] Dec, [facility] [address] [id number] [place] [address] Dec, [facility] [address] [id number] [address] [place] [address] Mar, [facility] [address] [id number] [address] [place] [address] Jan, IMMUNIZATIONS No Known Immunizations SOCIAL HISTORY Never Assessed REASON FOR VISIT PLAN OF CARE VITAL SIGNS Height 69 in 2013-07-31 Weight 233.3 lbs 2013-07-31 Temperature 98.2 degrees Fahrenheit 2013-07-31 Heart Rate 92 bpm 2013-07-31 Respiratory Rate 16 2013-07-31 Blood pressure systolic 102 mmHg 2013-07-31 Blood pressure diastolic 64 mmHg 2013-07-31 MEDICATIONS No Known Medications RESULTS No Results PROCEDURES No Known [...]
--- OUTSIDE RECORDS SUMMARY | 2019-05-16 06:59 | XMS REPORT ---
Author Author Marian King Organization [facility] Address [address] [place] [address] Care Team Providers Care Autotransfusionist Name Role Phone LUIS King Unavailable PROBLEMS Type Condition ICD9-CM Code UHG48-HN Code Onset Dates Condition S tatus SNOMED Code Problem Pure hypercholesterolemia E78.0 Acti ve 25462967 Problem Prediabetes R73.09 Active 67210071 2 Problem Hypertension I10 Active 9084099 3 Problem COPD (chronic obstructive pulmonary disease) J44.9 Active 99100803 Problem Polyarthralgia M25.50 Active 07337 005 Problem Enlarged lymph node R59.9 Active 05690788 Problem Primary osteoarthritis of right hip M16.11 Active 957186941 Problem Right sided sciatica M54.31 Active 47686399 Problem BMI 39.0-39.9,adult Z68.39 Active 705432974 Problem Arthritis M19.90 Active 0711524 Problem Dyshidrotic eczema L30.1 Active 4 71713149 Problem Hypothyroidism (acquired) E03.9 Acti ve 18993334 Problem Abnormal mammogram R92.8 Active 1 21863420 Problem Obesity (BMI 30-39.9) E66.9 Active 484208794 Problem Abnormal uterine bleeding N93.9 Acti ve [id number] Problem Mood disorder F39 Active 097570 05 Problem Other chronic pain G89.29 Active 8 [id number] ALLERGIES No Information ENCOUNTERS Encounter Location Date Diagnosis [facility] [address] [facility] [id number] [address] [place] [address] Oct, [facility] [address] [facility] [id number] [address] [place] [address] Oct, [facility] [address] [facility] [id number] [address] [place] [address] Sep, Morbid obesity E66.01 ; Uppe r abdominal pain R10.10 ; Bloating R14.0 ; Tinea corporis B35.4 and Hypothyroidism (acquired) E03.9 [place] [address] [address] Aug, Hypothyroidism (acquired) E0 3.[address] [address] Aug, Morbid obesity E66.01 [place] [address] [address] Aug, Morbid obesity E66.01 ; Arth ritis M19.90 ; Other chronic pain G89.29 ; Pain in left knee M25.562 ; Pain in right knee M25.561 ; Diarrhea, unspecified type R19.7 and Family history of thyroid disease Z83.[address] [address] July, [place] [address] [address] July, Pure hypercholesterolemia E7 8.0 ; Hypertension I10 ; Prediabetes R73.09 ; Pain of left heel M79.672 ; Cutaneous horn L85.8 ; Mood disorder F39 and Morbid obesity E66.01 [facility] [place] [address] [address] May, Viral upper respiratory infe ction J06.9 [place] [address] [address] Aug, Bronchitis J40 [facility] [place] [address] [address] Aug, [place] [address] [address] Jun, Abnormal mammogram R92.[address] [address] Jun, Abnormal mammogram R92.8 [place] [address] [address] May, [place] [address] [address] May, Well woman exam Z01.419 ; Pa in of left hand M79.642 ; Pain in right hand M79.641 ; Abnormal uterine bleeding N93.9 and BMI 39.0-39.9,adult Z68.39 [place] [address] [address] Dec, Hypertension I10 ; BMI 39.0- 39.9,adult Z68.39 and Obesity (BMI 30- 39.9) E66.9 [facility] [place] [address] [address] Oct, Asthma exacerbation J45.901 [place] [address] [address] Oct, Right sided sciatica M54.31 [facility] [address] [address] Sep, Acute seasonal allergic rhin itis, unspecified trigger J30.[address] [address] Aug, Primary osteoarthritis of ri ght hip M16.11 ; Prediabetes R73.09 ; Precordial pain R07.2 ; Hypertension I10 and Skin lesion L98.9 [place] [address] [address] Aug, Hypertension I10 [facility] [address] [address] July, Sore throat J02.9 and Acute upper respiratory infection, unspecified J06.9 [facility] [address] [address] 14 Apr, 2016 Acute bacterial conjunctivit is of right eye H10.31 [place] [address] [place] [id number] [address] [place] [address] Mar, Primary osteoarthritis of ri ght hip M16.11 [place] [address] [place] [id number] [address] [place] [address] Nov, Hypertension I10 and Pure hy percholesterolemia E78.0 [place] [address] [facility] [id number] [address] [place] [address] Oct, Hypertension I10 ; Pure hype rcholesterolemia E78.0 ; Dyshidrotic eczema L30.1 and Primary osteoarthritis of right hip M16.11 [place] [address] [place] [id number] [address] [place] [address] 29 Aug, 2015 Hypertension I10 [place] [address] [place] [id number] [place] [address] Aug, Weight gain R63.5 [place] [address] [place] [id number] [address] [place] [address] 17 Aug, 2015 [place] [address] [address] 15 Aug, 2015 Bilateral ovarian cysts N83. 20 and Abnormal mammogram R92.8 [place] [address] [place] [id number] [address] [place] [address] Jun, Abnormal mammogram R92.8 and Enlarged lymph nodes in armpit R59.0 [place] [address] [place] [id number] [address] [place] [address] 08 Jun, 2015 Enlarged lymph node R59.9 ; Bilateral ovarian cysts N83.20 and Polyarthralgia M25.50 [place] [address] [place] [id number] [address] [place] [address] May, Bilateral ovarian cysts N83. 20 [place] [address] [place] [id number] [address] [place] [address] 24 May, 2015 Screening for malignant neop lasm of breast Z12.39 and Enlarged lymph node R59.9 [place] [address] [facility] [id number] [address] [place] [address] 16 May, 2015 [place] [address] [facility] [id number] [address] [place] [address] 14 May, 2016 Well woman exam Z01.419 ; BM I [...] of breast Z12.39 and Subclinical hypothyroidism E03.9 [place] [address] [facility] [id number] [address] [place] [address] 04 May, 2015 Tinea pedis B35.3 and Metror rhagia N92.1 [place] [address] [facility] [id number] [address] [place] [address] Mar, Onychomycosis B35.1 and Nail ingrowing L60.0 [place] [address] [facility] [id number] [address] [place] [address] Jan, Subclinical hypothyroidism E 03.9 [place] [address] [facility] [id number] [address] [place] [address] Dec, Pain in joint, pain in unspe cified joint M25.50 [place] [address] [id number] [address] [place] [address] Dec, Pain in joint, pain in unspe cified joint M25.50 [place] [address] [id number] [address] [place] [address] Dec, Pain in joint, pain in unspe cified joint M25.50 [place] [address] [id number] [address] [place] [address] 25 Nov, 2014 Hypertension 401.9 [facility] [address] [id number] [address] [place] [address] 18 Nov, 2014 [facility] [address] [facility] [id number] [address] [place] [address] 15 Nov, 2014 Chronic airway obstruction, not elsewhere classified 496 and Hypertension 401.9 [facility] [address] [id number] [address] [place] [id number] Oct, Dental examination V72.2 [facility] [address] [id number] [address] [place] [address] 30 Aug, 2014 Onychomycosis 110.1 and Ingr own nail 703.0 [facility] [address] [id number] [address] [place] [address] Aug, [facility] [address] [id number] [address] [place] [address] 08 Aug, 2014 Onychomycosis 110.1 and Nail , ingrown 703.0 [facility] [address] [id number] [address] [place] [address] Jun, [facility] [address] [facility] [id number] [address] [place] [address] Jun, [facility] [address] [facility] [id number] [address] [place] [address] May, [facility] [address] [id number] [address] [place] [address] May, [facility] [address] [id number] [address] [place] [address] Apr, [facility] [address] [facility] [id number] [address] [place] [id number] Apr, [facility] [address] [facility] [id number] [address] [place] [address] Apr, [facility] [address] [id number] [address] [place] [address], [place] [address] Apr, [facility] [address] [id number] [address] [place] [address], [place] [address] Mar, [facility] [address] [id number] [address] [place] [address], [place] [address] Mar, [facility] [address] [id number] [address] [place] [address], [place] [address] Feb, [facility] [address] [id number] [address] [place] [address], [place] [address] Jan, [facility] [address] [id number] [address] [place] [address], [place] [address] Jan, [facility] [address] [id number] [address] [place] [address], [place] [address] Aug, [facility] [address] [id number] [address] [place] [address], [place] [address] Aug, [facility] [address] [id number] [address] [place] [address], [place] [address] Aug, [facility] [address] [id number] [address] [place] [address], [place] [address] Aug, [facility] [address] [id number] [address] [place] [address], [place] [address] July, [facility] [address] [id number] [address] [place] [address], [place] [address] July, [facility] [address] [id number] [address] [place] [address], [place] [address] July, [facility] [address] [id number] [address] [place] [address], [place] [address] July, [facility] [address] [id number] [address] [place] [address], [place] [address] July, [facility] [address] [id number] [address] [place] [address], [place] [address] July, [facility] [address] [id number] [address] [place] [address], [place] [address] July, [facility] [address] [id number] [address] [place] [address], [place] [address] July, [facility] [address] [id number] [address] [place] [address], [place] [address] Jun, [facility] [address] [id number] [address] [place] [address], [place] [address] May, [facility] [address] [id number] [address] [place] [address], [place] [address] May, [facility] [address] [id number] [address] [place] [address], [place] [address] May, [facility] [address] [id number] [address] [place] [address], [place] [address] May, [facility] [address] [id number] [address] [place] [address], [place] [address] Apr, [facility] [address] [id number] [address] [place] [address], [place] [address] Apr, [facility] [address] [id number] [address] [place] [address], [place] [address] Apr, [facility] [address] [id number] [address] [place] [address], [place] [address] Apr, [facility] [address] [id number] [address] [place] [address], [place] [address] Apr, [facility] [address] [id number] [address] [place] [address], [place] [address] Apr, [facility] [address] [id number] [address] [place] [address], [place] [address] Feb, [facility] [address] [id number] [address] [place] [address], [place] [address] Feb, [facility] [address] [id number] [address] [place] [address], [place] [address] Jan, [facility] [address] [id number] [address] [place] [address], [place] [address] Jan, [facility] [address] [id number] [address] [place] [address], [place] [address] Jan, [facility] [address] [id number] [address] [place] [address], [place] [address] Dec, [facility] [address] [id number] [address] [place] [address], [place] [address] Dec, [facility] [address] [id number] [address] [place] [address], [place] [address] Dec, [facility] [address] [id number] [address] [place] [address], [place] [address] Dec, [facility] [address] [id number] [address] [place] [address], [place] [address] Oct, [facility] [address] [id number] [address] [place] [address], [place] [address] Oct, [facility] [address] [id number] [address] [place] [address], [place] [address] Nov, [facility] [address] [id number] [address] [place] [address], [place] [address] Oct, [facility] [address] [id number] [address] [place] [address], [place] [address] Oct, [facility] [address] [id number] [address] [place] [address], [place] [address] Aug, [facility] [address] [id number] [address] [place] [address], [place] [address] Aug, [facility] [address] [id number] [address] [place] [address], [place] [address] July, [facility] [address] [id number] [address] [place] [address], [place] [address] Jun, [facility] [address] [id number] [address] [place] [address] Jun, [facility] [address] [id number] [address] [place] [address] Jun, [facility] [address] [id number] [address] [place] [address] Feb, [facility] [address] [id number] [address] [place] [address] Feb, [facility] [address] [id number] [address] [place] [address] Feb, [facility] [address] [id number] [address] [place] [address] Jan, [facility] [address] [id number] [address] [place] [address] Jan, [facility] [address] [id number] [address] [place] [address] Jan, [facility] [address] [id number] [address] [place] [address] Dec, [facility] [address] [id number] [address] [place] [address] Dec, [facility] [address] [id number] [address] [place] [address] Mar, [facility] [address] [id number] [address] [place] [address] Jan, IMMUNIZATIONS No Known Immunizations SOCIAL HISTORY [...] kidney x 2 03/2015 Hospitalization History [facility]-dyspnea, acute bronchiti s 08/2011 Hospitalization History [facility] dys[facility] 11/2014
--- OUTSIDE RECORDS SUMMARY | 2019-05-16 06:59 | XMS REPORT ---
Author Author KHURRAM Marian BARILLASY Organization [facility] Address [address] [place] [address] Care Team Providers Care Public Affairs Officer Name Role Phone CAROLINA PAULSON Unavailable PROBLEMS Type Condition ICD9-CM Code QOL05-SC Code Onset Dates Condition S tatus SNOMED Code Problem Pure hypercholesterolemia E78.0 Acti ve 19842248 Problem Prediabetes R73.09 Active 95562443 2 Problem Hypertension I10 Active 4002074 3 Problem COPD (chronic obstructive pulmonary disease) J44.9 Active 19850062 Problem Polyarthralgia M25.50 Active 53294 005 Problem Enlarged lymph node R59.9 Active 29212559 Problem Primary osteoarthritis of right hip M16.11 Active 072751560 Problem Right sided sciatica M54.31 Active 68584172 Problem BMI 39.0-39.9,adult Z68.39 Active 430490981 Problem Arthritis M19.90 Active 5824259 Problem Dyshidrotic eczema L30.1 Active 4 36392020 Problem Hypothyroidism (acquired) E03.9 Acti ve 84326853 Problem Abnormal mammogram R92.8 Active 1 96669087 Problem Obesity (BMI 30-39.9) E66.9 Active 335619591 Problem Abnormal uterine bleeding N93.9 Acti ve [id number] Problem Mood disorder F39 Active 738026 05 Problem Other chronic pain G89.29 Active 8 [id number] ALLERGIES No Information ENCOUNTERS Encounter Location Date Diagnosis [facility] [address] [facility] [id number] [address] [place] [address] Oct, [facility] [address] [facility] [id number] [address] [place] [address] Oct, [facility] [address] [facility] [id number] [address] [place] [address] Sep, Morbid obesity E66.01 ; Uppe r abdominal pain R10.10 ; Bloating R14.0 ; Tinea corporis B35.4 and Hypothyroidism (acquired) E03.9 [place] [address] [address] Aug, Hypothyroidism (acquired) E0 3.[address] [address] Aug, Morbid obesity E66.[address] [address] Aug, Morbid obesity E66.01 ; Arth ritis M19.90 ; Other chronic pain G89.29 ; Pain in left knee M25.562 ; Pain in right knee M25.561 ; Diarrhea, unspecified type R19.7 and Family history of thyroid disease Z83.[address] [address] July, [address] [address] July, Pure hypercholesterolemia E7 8.0 ; Hypertension I10 ; Prediabetes R73.09 ; Pain of left heel M79.672 ; Cutaneous horn L85.8 ; Mood disorder F39 and Morbid obesity E66.01 [facility] [address] [address] May, Viral upper respiratory infe ction J06.[address] [address] Aug, Bronchitis J40 [facility] [address] [address] Aug, [address] [address] Jun, Abnormal mammogram R92.[address] [address] Jun, Abnormal mammogram R92.8 [place] [address] [address] May, [place] [address] [address] May, Well woman exam Z01.419 ; Pa in of left hand M79.642 ; Pain in right hand M79.641 ; Abnormal uterine bleeding N93.9 and BMI 39.0-39.9,adult Z68.39 [place] [address] [address] Dec, Hypertension I10 ; BMI 39.0- 39.9,adult Z68.39 and Obesity (BMI 30- 39.9) E66.9 [facility] [place] [address] [address] Oct, Asthma exacerbation J45.[address] [address] Oct, Right sided sciatica M54.31 [facility] [address] [address] Sep, Acute seasonal allergic rhin itis, unspecified trigger J30.[address] [address] Aug, Primary osteoarthritis of ri ght hip M16.11 ; Prediabetes R73.09 ; Precordial pain R07.2 ; Hypertension I10 and Skin lesion L98.9 [place] [address] [address] Aug, Hypertension I10 [facility] [address] [address] July, Sore throat J02.9 and Acute upper respiratory infection, unspecified J06.9 [facility] [address] [address] Apr, Acute bacterial conjunctivit is of right eye H10.31 [place] [address] [place] [id number] [address] [place] [address] Mar, Primary osteoarthritis of ri ght hip M16.11 [place] [address] [place] [id number] [address] [place] [address] Nov, Hypertension I10 and Pure hy percholesterolemia E78.0 [place] [address] [address] Oct, Hypertension I10 ; Pure hype rcholesterolemia E78.0 ; Dyshidrotic eczema L30.1 and Primary osteoarthritis of right hip M16.11 [place] [address] [address] 29 Aug, 2015 Hypertension I10 [place] [address] [address] 28 Aug, 2015 Weight gain R63.5 [place] [address] [address] 17 Aug, 2015 [place] [address] [address] 15 Aug, 2015 Bilateral ovarian cysts N83. 20 and Abnormal mammogram R92.8 [place] [address] [address] Jun, Abnormal mammogram R92.8 and Enlarged lymph nodes in armpit R59.0 [place] [address] [place] [id number] [address] [place] [address] Jun, Enlarged lymph node R59.9 ; Bilateral ovarian cysts N83.20 and Polyarthralgia M25.50 [place] [address] [place] [address] May, Bilateral ovarian cysts N83. 20 [place] [address] [address] May, Screening for malignant neop lasm of breast Z12.39 and Enlarged lymph node R59.9 [place] [address] [id number] [address] [place] [address] 16 May, 2015 [place] [address] [id number] [address] [place] [address] 14 May, 2015 Well woman exam Z01.419 [...] of breast Z12.39 and Subclinical hypothyroidism E03.9 [place] [address] [id number] [address] [place] [address] 04 May, 2015 Tinea pedis B35.3 and Metror rhagia N92.1 [place] [address] [id number] [address] [place] [address] Mar, Onychomycosis B35.1 and Nail ingrowing L60.0 [place] [address] [id number] [address] [place] [address] Jan, Subclinical hypothyroidism E 03.9 [place] [address] [id number] [address] [place] [address] Dec, Pain in joint, pain in unspe cified joint M25.50 [place] [address] [id number] [address] [place] [address] Dec, Pain in joint, pain in unspe cified joint M25.50 [place] [address] [id number] [address] [place] [address] Dec, Pain in joint, pain in unspe cified joint M25.50 [place] [address] [id number] [address] [place] [address] 25 Nov, 2014 Hypertension 401.9 [facility] [address] [id number] [address] [place] [address] 18 Nov, 2014 [facility] [address] [facility] [id number] [address] [place] [address] 15 Nov, 2014 Chronic airway obstruction, not elsewhere classified 496 and Hypertension 401.9 [facility] [address] [id number] [address] [place] [id number] Oct, Dental examination V72.2 [facility] [address] [facility] [id number] [address] [place] [address] 30 Aug, 2014 Onychomycosis 110.1 and Ingr own nail 703.0 [facility] [address] [id number] [address] [place] [address] Aug, [facility] [address] [facility] [id number] [address] [place] [address] 08 Aug, 2014 Onychomycosis 110.1 and Nail , ingrown 703.0 [facility] [address] [id number] [address] [place] [address] 14 Jun, 2014 [facility] [address] [facility] [id number] [address] [place] [address] Jun, [facility] [address] [id number] [address] [place] [address] May, [facility] [address] [facility] [id number] [address] [place] [address] May, [facility] [address] [facility] [id number] [address] [place] [address] Apr, [facility] [address] [facility] [id number] [address] [place] [address] Apr, [facility] [address] [facility] [id number] [address] [place] [address] Apr, [facility] [address] [id number] [address] [place] [address], [place] [address] Apr, [facility] [address] [id number] [address] [place] [address], [place] [address] Mar, [facility] [address] [id number] [address] [place] [address], [place] [address] Mar, [facility] [address] [id number] [address] [place] [address], [place] [address] Feb, [facility] [address] [id number] [address] [place] [address], [place] [address] Jan, [facility] [address] [id number] [address] [place] [address], [place] [address] Jan, [facility] [address] [id number] [address] [place] [address], [place] [address] Aug, [facility] [address] [id number] [address] [place] [address], [place] [address] Aug, [facility] [address] [id number] [address] [place] [address], [place] [address] Aug, [facility] [address] [id number] [address] [place] [address], [place] [address] Aug, [facility] [address] [id number] [address] [place] [address], [place] [address] July, [facility] [address] [id number] [address] [place] [address], [place] [address] July, [facility] [address] [id number] [address] [place] [address], [place] [address] July, [facility] [address] [id number] [address] [place] [address], [place] [address] July, [facility] [address] [id number] [address] [place] [address], [place] [address] July, [facility] [address] [id number] [address] [place] [address], [place] [address] July, [facility] [address] [id number] [address] [place] [address], [place] [address] July, [facility] [address] [id number] [address] [place] [address], [place] [address] July, [facility] [address] [id number] [address] [place] [address], [place] [address] Jun, [facility] [address] [id number] [address] [place] [address], [place] [address] May, [facility] [address] [id number] [address] [place] [address], [place] [address] May, [facility] [address] [id number] [address] [place] [address], [place] [address] May, [facility] [address] [id number] [address] [place] [address], [place] [address] May, [facility] [address] [id number] [address] [place] [address], [place] [address] Apr, [facility] [address] [id number] [address] [place] [address], [place] [address] Apr, [facility] [address] [id number] [address] [place] [address], [place] [address] Apr, [facility] [address] [id number] [address] [place] [address], [place] [address] Apr, [facility] [address] [id number] [address] [place] [address], [place] [address] Apr, [facility] [address] [id number] [address] [place] [address], [place] [address] Apr, [facility] [address] [id number] [address] [place] [address], [place] [address] Feb, [facility] [address] [id number] [address] [place] [address], [place] [address] Feb, [facility] [address] [id number] [address] [place] [address], [place] [address] Jan, [facility] [address] [id number] [address] [place] [address], [place] [address] Jan, [facility] [address] [id number] [address] [place] [address], [place] [address] Jan, [facility] [address] [id number] [address] [place] [address], [place] [address] Dec, [facility] [address] [id number] [address] [place] [address], [place] [address] Dec, [facility] [address] [id number] [address] [place] [address], [place] [address] Dec, [facility] [address] [id number] [address] [place] [address], [place] [address] Dec, [facility] [address] [id number] [address] [place] [address], [place] [address] Oct, [facility] [address] [id number] [address] [place] [address], [place] [address] Oct, [facility] [address] [id number] [address] [place] [address], [place] [address] Nov, [facility] [address] [id number] [address] [place] [address], [place] [address] Oct, [facility] [address] [id number] [address] [place] [address], [place] [address] Oct, [facility] [address] [id number] [address] [place] [address], [place] [address] Aug, [facility] [address] [id number] [address] [place] [address], [place] [address] Aug, [facility] [address] [id number] [address] [place] [address], [place] [address] July, [facility] [address] [id number] [address] [place] [address], [place] [address] Jun, [facility] [address] [id number] [address] [place] [address] Jun, [facility] [address] [id number] [address] [place] [address] Jun, [facility] [address] [id number] [address] [place] [address] Feb, [facility] [address] [id number] [address] [place] [address] Feb, [facility] [address] [id number] [address] [place] [address] Feb, [facility] [address] [id number] [address] [place] [address] Jan, [facility] [address] [id number] [address] [place] [address] Jan, [facility] [address] [id number] [address] [place] [address] Jan, [facility] [address] [id number] [address] [place] [address] Dec, [facility] [address] [id number] [address] [place] [address] Dec, [facility] [address] [id number] [address] [place] [address] Mar, [facility] [address] [id number] [address] [place] [address] Jan, IMMUNIZATIONS No Known Immunizations SOCIAL HISTORY [...]
--- OUTSIDE RECORDS SUMMARY | 2019-05-16 06:59 | XMS REPORT ---
Author Author KHURRAM Marian CAROLINA Organization [facility] Address [address] [place] [address] Care Team Providers Care Healthcare Social Worker Name Role Phone CAROLINA PAULSON Unavailable PROBLEMS Type Condition ICD9-CM Code WSR48-JJ Code Onset Dates Condition S tatus SNOMED Code Problem Pure hypercholesterolemia E78.0 Acti ve 80279752 Problem Prediabetes R73.09 Active 11931131 2 Problem Hypertension I10 Active 5096145 3 Problem COPD (chronic obstructive pulmonary disease) J44.9 Active 34289447 Problem Polyarthralgia M25.50 Active 84967 005 Problem Enlarged lymph node R59.9 Active 28011356 Problem Primary osteoarthritis of right hip M16.11 Active 727558885 Problem Right sided sciatica M54.31 Active 50418810 Problem BMI 39.0-39.9,adult Z68.39 Active 991555214 Problem Arthritis M19.90 Active 5532720 Problem Dyshidrotic eczema L30.1 Active 4 77720845 Problem Hypothyroidism (acquired) E03.9 Acti ve 91092326 Problem Abnormal mammogram R92.8 Active 1 84514628 Problem Obesity (BMI 30-39.9) E66.9 Active 697143466 Problem Abnormal uterine bleeding N93.9 Acti ve [id number] Problem Mood disorder F39 Active 975087 05 Problem Other chronic pain G89.29 Active 8 [id number] ALLERGIES No Information ENCOUNTERS Encounter Location Date Diagnosis [facility] [address] [facility] [id number] [address] [place] [id number] Oct, [facility] [address] [facility] [id number] [address] [place] [id number] Oct, [facility] [address] [facility] [id number] [address] [place] [address] Oct, Plantar fasciitis of right f oot M72.2 and Morbid obesity E66.01 [place] [address] [address] Sep, Morbid obesity E66.01 ; Uppe r abdominal pain R10.10 ; Bloating R14.0 ; Tinea corporis B35.4 and Hypothyroidism (acquired) E03.[address] [address] Aug, Hypothyroidism (acquired) E0 3.9 [place] [address] [address] Aug, Morbid obesity E66.[address] [address] Aug, Morbid obesity E66.01 ; Arth ritis M19.90 ; Other chronic pain G89.29 ; Pain in left knee M25.562 ; Pain in right knee M25.561 ; Diarrhea, unspecified type R19.7 and Family history of thyroid disease Z83.49 [place] [address] [address] July, [address] [address] July, Pure hypercholesterolemia E7 8.0 ; Hypertension I10 ; Prediabetes R73.09 ; Pain of left heel M79.672 ; Cutaneous horn L85.8 ; Mood disorder F39 and Morbid obesity E66.01 [facility] [address] [address] May, Viral upper respiratory infe ction J06.[address] [address] Aug, Bronchitis J40 [facility] [address] [address] Aug, [place] [address] [address] Jun, Abnormal mammogram R92.8 [place] [address] [address] Jun, Abnormal mammogram R92.8 [place] [address] [address] May, [place] [address] [address] May, Well woman exam Z01.419 ; Pa in of left hand M79.642 ; Pain in right hand M79.641 ; Abnormal uterine bleeding N93.9 and BMI 39.0-39.9,adult Z68.39 [place] [address] [address] Dec, Hypertension I10 ; BMI 39.0- 39.9,adult Z68.39 and Obesity (BMI 30- 39.9) E66.9 [facility] [place] [address] [address] Oct, Asthma exacerbation J45.[address] [address] Oct, Right sided sciatica M54.31 [facility] [address] [address] Sep, Acute seasonal allergic rhin itis, unspecified trigger J30.2 [place] [address] [address] Aug, Primary osteoarthritis of ri ght hip M16.11 ; Prediabetes R73.09 ; Precordial pain R07.2 ; Hypertension I10 and Skin lesion L98.9 [place] [address] [address] Aug, Hypertension I10 [facility] [address] [address] July, Sore throat J02.9 and Acute upper respiratory infection, unspecified J06.9 [facility] [address] [address] 14 Apr, 2016 Acute bacterial conjunctivit is of right eye H10.31 [facility] [address] [address] Mar, Primary osteoarthritis of ri ght hip M16.11 [facility] [address] [address] Nov, Hypertension I10 and Pure hy percholesterolemia E78.0 [place] [address] [address] Oct, Hypertension I10 ; Pure hype rcholesterolemia E78.0 ; Dyshidrotic eczema L30.1 and Primary osteoarthritis of right hip M16.11 [place] [address] [address] 29 Aug, 2015 Hypertension I10 [place] [address] [address] 28 Aug, 2015 Weight gain R63.5 [place] [address] [address] 17 Aug, 2015 [place] [address] [address] 15 Aug, 2015 Bilateral ovarian cysts N83. 20 and Abnormal mammogram R92.8 [place] [address] [address] Jun, Abnormal mammogram R92.8 and Enlarged lymph nodes in armpit R59.0 [place] [address] [address] 08 Jun, 2015 Enlarged lymph node R59.9 ; Bilateral ovarian cysts N83.20 and Polyarthralgia M25.50 [place] [address] [place] [address] May, Bilateral ovarian cysts N83. 20 [place] [address] [address] 24 May, 2015 Screening for malignant neop lasm of breast Z12.39 and Enlarged lymph node R59.9 [place] [address] [address] 16 May, 2015 [place] [address] [address] 14 May, 2015 Well woman exam Z01.419 [...] of breast Z12.39 and Subclinical hypothyroidism E03.9 [place] [address] [address] May, Tinea pedis B35.3 and Metror rhagia N92.1 [place] [address] [address] Mar, Onychomycosis B35.1 and Nail ingrowing L60.0 [place] [address] [address] Jan, Subclinical hypothyroidism E 03.9 [place] [address] [address] Dec, Pain in joint, pain in unspe cified joint M25.50 [place] [address] [place] [id number] [address] [place] [address] Dec, Pain in joint, pain in unspe cified joint M25.50 [place] [address] [place] [id number] [address] [place] [address] 27 Dec, 2014 Pain in joint, pain in unspe cified joint M25.50 [facility] [address] [id number] [address] [place] [address] 25 Nov, 2014 Hypertension 401.9 [facility] [address] [facility] [id number] [address] [place] [address] 18 Nov, 2014 [facility] [address] [facility] [id number] [address] [place] [address] 15 Nov, 2014 Chronic airway obstruction, not elsewhere classified 496 and Hypertension 401.9 [facility] [address] [id number] [address] [place] [id number] Oct, Dental examination V72.2 [facility] [address] [facility] [id number] [address] [place] [address] 30 Aug, 2014 Onychomycosis 110.1 and Ingr own nail 703.0 [facility] [address] [id number] [address] [place] [address] Aug, [facility] [address] [id number] [address] [place] [address] 08 Aug, 2014 Onychomycosis 110.1 and Nail , ingrown 703.0 [facility] [address] [facility] [id number] [address] [place] [address] 14 Jun, 2014 [facility] [address] [facility] [id number] [address] [place] [address] Jun, [facility] [address] [facility] [id number] [address] [place] [id number] May, [facility] [address] [facility] [id number] [address] [place] [id number] May, [facility] [address] [facility] [id number] [address] [place] [id number] 16 Apr, 2014 [facility] [address] [facility] [id number] [address] [place] [id number] Apr, [facility] [address] [id number] [address] [place] [address], [place] [address] Apr, [facility] [address] [id number] [address] [place] [address], [place] [address] Apr, [facility] [address] [id number] [address] [place] [address], [place] [address] Mar, [facility] [address] [id number] [address] [place] [address], [place] [address] Mar, [facility] [address] [id number] [address] [place] [address], [place] [address] Feb, [facility] [address] [id number] [address] [place] [address], [place] [address] Jan, [facility] [address] [id number] [address] [place] [address], [place] [address] Jan, [facility] [address] [id number] [address] [place] [address], [place] [address] Aug, [facility] [address] [id number] [address] [place] [address], [place] [address] Aug, [facility] [address] [id number] [address] [place] [address], [place] [address] Aug, [facility] [address] [id number] [address] [place] [address], [place] [address] Aug, [facility] [address] [id number] [address] [place] [address], [place] [address] July, [facility] [address] [id number] [address] [place] [address], [place] [address] July, [facility] [address] [id number] [address] [place] [address], [place] [address] July, [facility] [address] [id number] [address] [place] [address], [place] [address] July, [facility] [address] [id number] [address] [place] [address], [place] [address] July, [facility] [address] [id number] [address] [place] [address], [place] [address] July, [facility] [address] [id number] [address] [place] [address], [place] [address] July, [facility] [address] [id number] [address] [place] [address], [place] [address] July, [facility] [address] [id number] [address] [place] [address], [place] [address] Jun, [facility] [address] [id number] [address] [place] [address], [place] [address] May, [facility] [address] [id number] [address] [place] [address], [place] [address] May, [facility] [address] [id number] [address] [place] [address], [place] [address] May, [facility] [address] [id number] [address] [place] [address], [place] [address] May, [facility] [address] [id number] [address] [place] [address], [place] [address] Apr, [facility] [address] [id number] [address] [place] [address], [place] [address] Apr, [facility] [address] [id number] [address] [place] [address], [place] [address] Apr, [facility] [address] [id number] [address] [place] [address], [place] [address] Apr, [facility] [address] [id number] [address] [place] [address], [place] [address] Apr, [facility] [address] [id number] [address] [place] [address], [place] [address] Apr, [facility] [address] [id number] [address] [place] [address], [place] [address] Feb, [facility] [address] [id number] [address] [place] [address], [place] [address] Feb, [facility] [address] [id number] [address] [place] [address], [place] [address] Jan, [facility] [address] [id number] [address] [place] [address], [place] [address] Jan, [facility] [address] [id number] [address] [place] [address], [place] [address] Jan, [facility] [address] [id number] [address] [place] [address], [place] [address] Dec, [facility] [address] [id number] [address] [place] [address], [place] [address] Dec, [facility] [address] [id number] [address] [place] [address], [place] [address] Dec, [facility] [address] [id number] [address] [place] [address], [place] [address] Dec, [facility] [address] [id number] [address] [place] [address], [place] [address] Oct, [facility] [address] [id number] [address] [place] [address], [place] [address] Oct, [facility] [address] [id number] [address] [place] [address], [place] [address] Nov, [facility] [address] [id number] [address] [place] [address], [place] [address] Oct, [facility] [address] [id number] [address] [place] [address], [place] [address] Oct, [facility] [address] [id number] [address] [place] [address], [place] [address] Aug, [facility] [address] [id number] [address] [place] [address], [place] [address] Aug, [facility] [address] [id number] [address] [place] [id number] July, [facility] [address] [id number] [address] [place] [id number] Jun, [facility] [address] [id number] [address] [place] [address] Jun, [facility] [address] [id number] [address] [place] [id number] Jun, [facility] [address] [id number] [address] [place] [id number] Feb, [facility] [address] [id number] [address] [place] [id number] Feb, [facility] [address] [id number] [address] [place] [id number] Feb, [facility] [address] [id number] [address] [place] [id number] Jan, [facility] [address] [id number] [address] [place] [id number] Jan, [facility] [address] [id number] [address] [place] [id number] Jan, [facility] [address] [id number] [address] [place] [id number] Dec, [facility] [address] [id number] [address] [place] [id number] Dec, [facility] [address] [id number] [address] [place] [id number] Mar, [facility] [address] [id number] [address] [place] [id number] Jan, IMMUNIZATIONS No Known Immunizations SOCIAL HISTORY [...]
--- OUTSIDE RECORDS SUMMARY | 2019-05-16 07:00 | XMS REPORT ---
Author Author Marian MARTELL Organization [facility] Address [address] [place] [address] Care Team Providers Care Junior Automation Engineer Name Role Phone KAREN MARTELL Unavailable PROBLEMS Type Condition ICD9-CM Code [id number] Code Onset Dates Condition S tatus SNOMED Code Problem Pure hypercholesterolemia E78.0 Acti ve 46895917 Problem Prediabetes R73.09 Active 08769565 2 Problem Hypertension I10 Active 4880099 3 Problem COPD (chronic obstructive pulmonary disease) J44.9 Active 55536828 Problem Polyarthralgia M25.50 Active 22486 005 Problem Enlarged lymph node R59.9 Active 51228701 Problem Primary osteoarthritis of right hip M16.11 Active 982628135 Problem Right sided sciatica M54.31 Active 34267925 Problem BMI 39.0-39.9,adult Z68.39 Active 126827140 Problem Arthritis M19.90 Active 3032332 Problem Dyshidrotic eczema L30.1 Active 4 90407162 Problem Hypothyroidism (acquired) E03.9 Acti ve 47266971 Problem Abnormal mammogram R92.8 Active 1 68931054 Problem Obesity (BMI 30-39.9) E66.9 Active 409701456 Problem Abnormal uterine bleeding N93.9 Acti ve [id number] Problem Mood disorder F39 Active 719551 05 Problem Other chronic pain G89.29 Active 8 6190365 ALLERGIES Substance Reaction Event Type Date Status Codeine Sulfate anaphylaxis Drug Allergy May, Active ENCOUNTERS Encounter Location Date Diagnosis [facility] [address] [facility] [id number] [address] [place] [address] Oct, [facility] [address] [facility] [id number] [address] [place] [address] Sep, [facility] [address] [facility] [id number] [address] [place] [address] Aug, Hypothyroidism (acquired) E0 3.9 [facility] [address] [address] Aug, Morbid obesity E66.01 [place] [address] [address] Aug, Morbid obesity E66.01 ; Arth ritis M19.90 ; Other chronic pain G89.29 ; Pain in left knee M25.562 ; Pain in right knee M25.561 ; Diarrhea, unspecified type R19.7 and Family history of thyroid disease Z83.49 [place] [address] [address] July, [place] [address] [address] July, Pure hypercholesterolemia E7 8.0 ; Hypertension I10 ; Prediabetes R73.09 ; Pain of left heel M79.672 ; Cutaneous horn L85.8 ; Mood disorder F39 and Morbid obesity E66.01 [facility] [address] [address] May, Viral upper respiratory infe ction J06.9 [place] [address] [address] Aug, Bronchitis J40 [facility] [address] [address] Aug, [place] [address] [address] Jun, Abnormal mammogram R92.8 [place] [address] [address] Jun, Abnormal mammogram R92.8 [place] [address] [address] May, [place] [address] [address] May, Well woman exam Z01.419 ; Pa in of left hand M79.642 ; Pain in right hand M79.641 ; Abnormal uterine bleeding N93.9 and BMI 39.0-39.9,adult Z68.39 [place] [address] [address] Dec, Hypertension I10 ; BMI 39.0- 39.9,adult Z68.39 and Obesity (BMI 30- 39.9) E66.9 [facility] [address] [address] Oct, Asthma exacerbation J45.[address] [address] Oct, Right sided sciatica M54.31 [facility] [address] [address] Sep, Acute seasonal allergic rhin itis, unspecified trigger J30.[address] [address] Aug, Primary osteoarthritis of ri ght hip M16.11 ; Prediabetes R73.09 ; Precordial pain R07.2 ; Hypertension I10 and Skin lesion L98.[address] [address] Aug, Hypertension I10 [facility] [address] [address] July, Sore throat J02.9 and Acute upper respiratory infection, unspecified J06.9 [facility] [address] [address] Apr, Acute bacterial conjunctivit is of right eye H10.[address] [address] Mar, Primary osteoarthritis of ri ght hip M16.11 [place] [address] [place] [id number] [address] [place] [address] Nov, Hypertension I10 and Pure hy percholesterolemia E78.0 [place] [address] [address] Oct, Hypertension I10 ; Pure hype rcholesterolemia E78.0 ; Dyshidrotic eczema L30.1 and Primary osteoarthritis of right hip M16.11 [place] [address] [address] Aug, Hypertension I10 [place] [address] [address] Aug, Weight gain R63.5 [place] [address] [address] 17 Aug, 2015 [place] [address] [address] Aug, Bilateral ovarian cysts N83. 20 and Abnormal mammogram R92.8 [place] [address] [address] Jun, Abnormal mammogram R92.8 and Enlarged lymph nodes in armpit R59.0 [place] [address] [address] 08 Jun, 2015 Enlarged lymph node R59.9 ; Bilateral ovarian cysts N83.20 and Polyarthralgia M25.50 [place] [address] [place] [id number] [address] [place] [address] May, Bilateral ovarian cysts N83. 20 [place] [address] [address] May, Screening for malignant neop lasm of breast Z12.39 and Enlarged lymph node R59.9 [place] [address] [place] [id number] [place] [address] 16 May, 2015 [place] [address] [facility] [id number] [address] [place] [address] 14 May, 2016 Well woman exam Z01.419 [...] of breast Z12.39 and Subclinical hypothyroidism E03.9 [place] [address] [facility] [id number] [address] [place] [address] 04 May, 2015 Tinea pedis B35.3 and Metror rhagia N92.1 [place] [address] [facility] [id number] [address] [place] [address] 26 Mar, 2015 Onychomycosis B35.1 and Nail ingrowing L60.0 [place] [address] [id number] [address] [place] [address] Jan, Subclinical hypothyroidism E 03.9 [place] [address] [id number] [address] [place] [address] Dec, Pain in joint, pain in unspe cified joint M25.50 [place] [address] [id number] [address] [place] [address] Dec, Pain in joint, pain in unspe cified joint M25.50 [place] [address] [id number] [address] [place] [address] Dec, Pain in joint, pain in unspe cified joint M25.50 [place] [address] [id number] [address] [place] [address] Nov, Hypertension 401.9 [facility] [address] [id number] [address] [place] [address] 18 Nov, 2014 [place] [address] [facility] [id number] [address] [place] [address] 15 Nov, 2014 Chronic airway obstruction, not elsewhere classified 496 and Hypertension 401.9 [facility] [address] [id number] [address] [place] [id number] Oct, Dental examination V72.2 [facility] [address] [id number] [address] [place] [address] 30 Aug, 2014 Onychomycosis 110.1 and Ingr own nail 703.0 [facility] [address] [id number] [address] [place] [address] Aug, [facility] [address] [id number] [address] [place] [address] 08 Aug, 2014 Onychomycosis 110.1 and Nail , ingrown 703.0 [facility] [address] [id number] [address] [place] [address] Jun, [facility] [address] [id number] [address] [place] [address] Jun, [facility] [address] [id number] [address] [place] [address] May, [facility] [address] [id number] [address] [place] [address] May, [facility] [address] [id number] [address] [place] [address] Apr, [facility] [address] [id number] [address] [place] [address] Apr, [facility] [address] [id number] [address] [place] [address] Apr, [facility] [address] [id number] [address] [place] [address] Apr, [facility] [address] [id number] [address] [place] [address] Mar, [facility] [address] [id number] [address] [place] [address], [place] [address] Mar, [facility] [address] [id number] [address] [place] [address], [place] [address] Feb, [facility] [address] [id number] [address] [place] [address], [place] [address] Jan, [facility] [address] [id number] [address] [place] [address], [place] [address] Jan, [facility] [address] [id number] [address] [place] [address], [place] [address] Aug, [facility] [address] [id number] [address] [place] [address], [place] [address] Aug, [facility] [address] [id number] [address] [place] [address], [place] [address] Aug, [facility] [address] [id number] [address] [place] [address], [place] [address] Aug, [facility] [address] [id number] [address] [place] [address], [place] [address] July, [facility] [address] [id number] [address] [place] [address], [place] [address] July, [facility] [address] [id number] [address] [place] [address], [place] [address] July, [facility] [address] [id number] [address] [place] [address], [place] [address] July, [facility] [address] [id number] [address] [place] [address], [place] [address] July, [facility] [address] [id number] [address] [place] [address], [place] [address] July, [facility] [address] [id number] [address] [place] [address], [place] [address] July, [facility] [address] [id number] [address] [place] [address], [place] [address] July, [facility] [address] [id number] [address] [place] [address], [place] [address] Jun, [facility] [address] [id number] [address] [place] [address], [place] [address] May, [facility] [address] [id number] [address] [place] [address], [place] [address] May, [facility] [address] [id number] [address] [place] [address], [place] [address] May, [facility] [address] [id number] [address] [place] [address], [place] [address] May, [facility] [address] [id number] [address] [place] [address], [place] [address] Apr, [facility] [address] [id number] [address] [place] [address], [place] [address] Apr, [facility] [address] [id number] [address] [place] [address], [place] [address] Apr, [facility] [address] [id number] [address] [place] [address], [place] [address] Apr, [facility] [address] [id number] [address] [place] [address], [place] [address] Apr, [facility] [address] [id number] [address] [place] [address], [place] [address] Apr, [facility] [address] [id number] [address] [place] [address], [place] [address] Feb, [facility] [address] [id number] [address] [place] [address], [place] [address] Feb, [facility] [address] [id number] [address] [place] [address], [place] [address] Jan, [facility] [address] [id number] [address] [place] [address], [place] [address] Jan, [facility] [address] [id number] [address] [place] [address], [place] [address] Jan, [facility] [address] [id number] [address] [place] [address], [place] [address] Dec, [facility] [address] [id number] [address] [place] [address], [place] [address] Dec, [facility] [address] [id number] [address] [place] [address], [place] [address] Dec, [facility] [address] [id number] [address] [place] [address], [place] [address] Dec, [facility] [address] [id number] [address] [place] [address], [place] [address] Oct, [facility] [address] [id number] [address] [place] [address], [place] [address] Oct, [facility] [address] [id number] [address] [place] [address], [place] [address] Nov, [facility] [address] [id number] [address] [place] [address], [place] [address] Oct, [facility] [address] [id number] [address] [place] [address], [place] [address] Oct, [facility] [address] [id number] [address] [place] [address], [place] [address] Aug, [facility] [address] [id number] [address] [place] [address], [place] [address] Aug, [facility] [address] [id number] [address] [place] [address], [place] [address] July, [facility] [address] [id number] [address] [place] [address], [place] [address] Jun, [facility] [address] [id number] [address] [place] [address], [place] [address] Jun, [facility] [address] [id number] [address] [place] [address], [place] [address] Jun, [facility] [address] [id number] [address] [place] [address] Feb, [facility] [address] [id number] [address] [place] [address] Feb, [facility] [address] [id number] [address] [place] [address] Feb, [facility] [address] [id number] [address] [place] [address] Jan, [facility] [address] [id number] [address] [place] [address] Jan, [facility] [address] [id number] [address] [place] [address] Jan, [facility] [address] [id number] [address] [place] [address] Dec, [facility] [address] [id number] [address] [place] [address] Dec, [facility] [address] [id number] [address] [place] [address] Mar, [facility] [address] [id number] [address] [place] [address] Jan, IMMUNIZATIONS No Known Immunizations SOCIAL HISTORY Never Assessed REASON FOR VISIT sore throat et cough for the past week. started having diarrhea et a fever at wo rk this am. [email or web address] PLAN OF CARE VITAL SIGNS Height 69 in 2018-05-19 Weight 282.8 lbs 2018-05-19 Temperature 97.8 degrees Fahrenheit 2018-05-19 Heart Rate 88 bpm 2018-05-19 Respiratory Rate 20 2018-05-19 BMI 41.76 kg/m2 2018-05-19 Blood pressure systolic 148 mmHg 2018-05-19 Blood pressure diastolic 88 mmHg 2018-05-19 MEDICATIONS Medication Instructions Dosage Frequency Start Date End Date Duration S tatus Benadryl 25 MG Orally every 6 hrs 1 tablet as needed 6h Not-Taking PredniSONE 20 mg Orally Once a day 2 tablets 24h May, 5 days Active Tylenol Extra Strength 500 mg take 2 tab lets (1,000 mg) by oral route every 6 hours as needed Aug, Not-Taking Cetirizine HCl 10 MG Orally Once a day 1 tablet 24h Not-Taking Metoprolol Tartrate 50 MG TAKE ONE TABLET BY MOUTH TWICE D AILY WITH FOOD 90 Not-Taking Zantac 150 mg take 1 tablet (150 mg) by oral route 2 t imes per day Dec, Not-Taking Ibuprofen 200 mg 2 Tablet every 8 hours PRN Oct, Not-Taking Lisinopril 10 MG TAKE ONE TABLET BY MOUTH ONCE DAILY 90 Not-Taking Fluticasone Propionate 50 MCG/ACT Nasally Twice a day 1 spray in each nostril 12h Sep, 30 day(s) Not-Taking RESULTS No Results PROCEDURES No Known procedures [...]
--- OUTSIDE RECORDS SUMMARY | 2019-05-16 07:00 | XMS REPORT ---
Author Author Bruce, Marian Doctor Organization [facility] Address Unknown Phone Unavailable Care Team Providers Care Developer Programmer Analyst Name Role Phone Migration, Doctor Unavailable Unavailable PROBLEMS Type Condition ICD9-CM Code SRL15-YE Code Onset Dates Condition S tatus SNOMED Code Problem Prediabetes R73.09 Active 11654694 2 Problem COPD (chronic obstructive pulmonary disease) J44.9 Active 16265616 Problem Pure hypercholesterolemia E78.0 Acti ve 60880991 Problem Hypertension I10 Active 2624477 3 Problem Abnormal mammogram R92.8 Active 1 25500929 Problem Dyshidrotic eczema L30.1 Active 4 52759764 Problem Abnormal uterine bleeding N93.9 Acti ve 15782266003244 Problem Polyarthralgia M25.50 Active 71642 005 Problem Mood disorder F39 Active 598769 05 Problem Enlarged lymph node R59.9 Active 89238349 Problem Primary osteoarthritis of right hip M16.11 Active 615269132 Problem Right sided sciatica M54.31 Active 81786537 Problem Obesity (BMI 30-39.9) E66.9 Active 854440494 Problem BMI 39.0-39.9,adult Z68.39 Active [id number] ALLERGIES No Information ENCOUNTERS Encounter Location Date Diagnosis [place] [address] [facility] [id number] [address] [place] [address] Oct, [facility] [address] [facility] [id number] [address] [place] [address] Aug, [place] [address] [facility] [id number] [address] [place] [address] July, [place] [address] [facility] [id number] [address] [place] [address] July, Pure hypercholesterolemia E7 8.0 ; Hypertension I10 ; Prediabetes R73.09 ; Pain of left heel M79.672 ; Cutaneous horn L85.8 ; Mood disorder F39 and Morbid obesity E66.01 [facility] [address] [address] May, Viral upper respiratory infe ction J06.9 [place] [address] [place] [id number] [place] [address] Aug, Bronchitis J40 [facility] [place] [address] [address] Aug, [place] [address] [address] Jun, Abnormal mammogram R92.8 [place] [address] [address] Jun, Abnormal mammogram R92.8 [place] [address] [address] May, [place] [address] [address] May, Well woman exam Z01.419 ; Pa in of left hand M79.642 ; Pain in right hand M79.641 ; Abnormal uterine bleeding N93.9 and BMI 39.0-39.9,adult Z68.39 [place] [address] [address] Dec, Hypertension I10 ; BMI 39.0- 39.9,adult Z68.39 and Obesity (BMI 30- 39.9) E66.9 [facility] [address] [address] Oct, Asthma exacerbation J45.901 [place] [address] [address] Oct, Right sided sciatica M54.31 [facility] [place] [address] [address] Sep, Acute seasonal allergic rhin itis, unspecified trigger J30.2 [place] [address] [place] [id number] [address] [place] [address] 30 Aug, 2016 Primary osteoarthritis of ri ght hip M16.11 ; Prediabetes R73.09 ; Precordial pain R07.2 ; Hypertension I10 and Skin lesion L98.9 [place] [address] [address] Aug, Hypertension I10 [facility] [address] [address] July, Sore throat J02.9 and Acute upper respiratory infection, unspecified J06.9 [facility] [place] [address] [address] 14 Apr, 2016 Acute bacterial conjunctivit is of right eye H10.31 [place] [address] [address] Mar, Primary osteoarthritis of ri ght hip M16.11 [place] [address] [address] Nov, Hypertension I10 and Pure hy percholesterolemia E78.0 [place] [address] [address] Oct, Hypertension I10 ; Pure hype rcholesterolemia E78.0 ; Dyshidrotic eczema L30.1 and Primary osteoarthritis of right hip M16.11 [place] [address] [address] 29 Aug, 2015 Hypertension I10 [place] [address] [address] 28 Aug, 2015 Weight gain R63.5 [place] [address] [place] [id number] [place] [address] 17 Aug, 2015 [place] [address] [address] 15 Aug, 2015 Bilateral ovarian cysts N83. 20 and Abnormal mammogram R92.8 [place] [address] [address] Jun, Abnormal mammogram R92.8 and Enlarged lymph nodes in armpit R59.0 [place] [address] [address] Jun, Enlarged lymph node R59.9 ; Bilateral ovarian cysts N83.20 and Polyarthralgia M25.50 [place] [address] [address] May, Bilateral ovarian cysts N83. 20 [place] [address] [address] May, Screening for malignant neop lasm of breast Z12.39 and Enlarged lymph node R59.9 [place] [address] [address] May, [place] [address] [address] 14 May, 2015 Well woman exam Z01.419 [...] of breast Z12.39 and Subclinical hypothyroidism E03.9 [place] [address] [address] 04 May, 2015 Tinea pedis B35.3 and Metror rhagia N92.1 [place] [address] [place] [id number] [address] [place] [address] Mar, Onychomycosis B35.1 and Nail ingrowing L60.0 [place] [address] [id number] [address] [place] [address] 02 Jan, 2015 Subclinical hypothyroidism E 03.9 [facility] [address] [id number] [address] [place] [address] Dec, Pain in joint, pain in unspe cified joint M25.50 [facility] [address] [id number] [address] [place] [address] Dec, Pain in joint, pain in unspe cified joint M25.50 [facility] [address] [id number] [address] [place] [address] Dec, Pain in joint, pain in unspe cified joint M25.50 [facility] [address] [id number] [address] [place] [address] 25 Nov, 2014 Hypertension 401.9 [facility] [address] [id number] [address] [place] [address] 18 Nov, 2014 [facility] [address] [id number] [address] [place] [address] 15 Nov, 2014 Chronic airway obstruction, not elsewhere classified 496 and Hypertension 401.9 [facility] [address] [id number] [address] [place] [id number] Oct, Dental examination V72.2 [facility] [address] [id number] [address] [place] [address] Aug, Onychomycosis 110.1 and Ingr own nail 703.0 [facility] [address] [id number] [address] [place] [address] Aug, [facility] [address] [id number] [address] [place] [address] 08 Aug, 2014 Onychomycosis 110.1 and Nail , ingrown 703.0 [facility] [address] [id number] [address] [place] [address] Jun, [facility] [address] [id number] [address] [place] [address], [place] [address] Jun, [facility] [address] [id number] [address] [place] [address], [place] [address] May, [facility] [address] [id number] [address] [place] [address], [place] [address] May, [facility] [address] [id number] [address] [place] [address], [place] [address] Apr, [facility] [address] [id number] [address] [place] [address], [place] [address] Apr, [facility] [address] [id number] [address] [place] [address], [place] [address] Apr, [facility] [address] [id number] [address] [place] [address], [place] [address] Apr, [facility] [address] [id number] [address] [place] [address], [place] [address] Mar, [facility] [address] [id number] [address] [place] [address], [place] [address] Mar, [facility] [address] [id number] [address] [place] [address], [place] [address] Feb, [facility] [address] [id number] [address] [place] [address], [place] [address] Jan, [facility] [address] [id number] [address] [place] [address], [place] [address] Jan, [facility] [address] [id number] [address] [place] [address], [place] [address] Aug, [facility] [address] [id number] [address] [place] [address], [place] [address] Aug, [facility] [address] [id number] [address] [place] [address], [place] [address] Aug, [facility] [address] [id number] [address] [place] [address], [place] [address] Aug, [facility] [address] [id number] [address] [place] [address], [place] [address] July, [facility] [address] [id number] [address] [place] [address], [place] [address] July, [facility] [address] [id number] [address] [place] [address], [place] [address] July, [facility] [address] [id number] [address] [place] [address], [place] [address] July, [facility] [address] [id number] [address] [place] [address], [place] [address] July, [facility] [address] [id number] [address] [place] [address], [place] [address] July, [facility] [address] [id number] [address] [place] [address], [place] [address] July, [facility] [address] [id number] [address] [place] [address], [place] [address] July, [facility] [address] [id number] [address] [place] [address], [place] [address] Jun, [facility] [address] [id number] [address] [place] [address], [place] [address] May, [facility] [address] [id number] [address] [place] [address], [place] [address] May, [facility] [address] [id number] [address] [place] [address], [place] [address] May, [facility] [address] [id number] [address] [place] [address], [place] [address] May, [facility] [address] [id number] [address] [place] [address], [place] [address] Apr, [facility] [address] [id number] [address] [place] [address], [place] [address] Apr, [facility] [address] [id number] [address] [place] [address], [place] [address] Apr, [facility] [address] [id number] [address] [place] [address], [place] [address] Apr, [facility] [address] [id number] [address] [place] [address], [place] [address] Apr, [facility] [address] [id number] [address] [place] [address], [place] [address] Apr, [facility] [address] [id number] [address] [place] [address], [place] [address] Feb, [facility] [address] [id number] [address] [place] [address], [place] [address] Feb, [facility] [address] [id number] [address] [place] [address], [place] [address] Jan, [facility] [address] [id number] [address] [place] [address], [place] [address] Jan, [facility] [address] [id number] [address] [place] [address], [place] [address] Jan, [facility] [address] [id number] [address] [place] [address], [place] [address] Dec, [facility] [address] [id number] [address] [place] [address], [place] [address] Dec, [facility] [address] [id number] [address] [place] [address], [place] [address] Dec, [facility] [address] [id number] [address] [place] [address], [place] [address] Dec, [facility] [address] [id number] [address] [place] [address], [place] [address] Oct, [facility] [address] [id number] [address] [place] [address], [place] [address] Oct, [facility] [address] [id number] [address] [place] [address], [place] [address] Nov, [facility] [address] [id number] [address] [place] [address], [place] [address] Oct, [facility] [address] [id number] [address] [place] [address], [place] [address] Oct, [facility] [address] [id number] [address] [place] [address], [place] [address] Aug, [facility] [address] [id number] [address] [place] [address], [place] [address] Aug, [facility] [address] [id number] [address] [place] [address], [place] [address] July, [facility] [address] [id number] [address] [place] [address], [place] [address] Jun, [facility] [address] [id number] [address] [place] [address], [place] [address] Jun, [facility] [address] [id number] [address] [place] [address], [place] [address] Jun, [facility] [address] [id number] [address] [place] [address], [place] [address] Feb, [facility] [address] [id number] [address] [place] [address], [place] [address] Feb, [facility] [address] [id number] [address] [place] [address], [place] [address] Feb, [facility] [address] [id number] [address] [place] [address], [place] [address] Jan, [facility] [address] [id number] [address] [place] [address], [place] [address] Jan, [facility] [address] [id number] [address] [place] [address], [place] [address] Jan, [facility] [address] [id number] [address] [place] [address], [place] [address] Dec, [facility] [address] [id number] [address] [place] [address] Dec, [facility] [address] [facility] [id number] [address] [place] [address] Mar, [facility] [address] [facility] [id number] [address] [place] [address] Jan, IMMUNIZATIONS No Known Immunizations SOCIAL HISTORY Never Assessed REASON FOR VISIT EMR-[facility] PLAN OF CARE VITAL SIGNS MEDICATIONS Unknown [...]
--- OUTSIDE RECORDS SUMMARY | 2019-05-16 07:00 | XMS REPORT ---
Author Author Bruce, Marian Doctor Organization [facility] Address Unknown Phone Unavailable Care Team Providers Care Office Machines Teacher Name Role Phone Migration, Doctor Unavailable Unavailable PROBLEMS Type Condition ICD9-CM Code DOS34-SZ Code Onset Dates Condition S tatus SNOMED Code Problem Prediabetes R73.09 Active 19420260 2 Problem COPD (chronic obstructive pulmonary disease) J44.9 Active 29375072 Problem Pure hypercholesterolemia E78.0 Acti ve 59042125 Problem Hypertension I10 Active 8058700 3 Problem Abnormal mammogram R92.8 Active 1 18157923 Problem Dyshidrotic eczema L30.1 Active 4 68492643 Problem Abnormal uterine bleeding N93.9 Acti ve 59034898528701 Problem Polyarthralgia M25.50 Active 82920 005 Problem Mood disorder F39 Active 892092 05 Problem Enlarged lymph node R59.9 Active 41972613 Problem Primary osteoarthritis of right hip M16.11 Active 260448749 Problem Right sided sciatica M54.31 Active 72435521 Problem Obesity (BMI 30-39.9) E66.9 Active 885034279 Problem BMI 39.0-39.9,adult Z68.39 Active [id number] ALLERGIES No Information ENCOUNTERS Encounter Location Date Diagnosis [place] [address] [facility] [id number] [address] [place] [address] Oct, [facility] [address] [facility] [id number] [address] [place] [address] Aug, [place] [address] [place] [id number] [address] [place] [address] July, [place] [address] [facility] [id number] [address] [place] [address] July, Pure hypercholesterolemia E7 8.0 ; Hypertension I10 ; Prediabetes R73.09 ; Pain of left heel M79.672 ; Cutaneous horn L85.8 ; Mood disorder F39 and Morbid obesity E66.01 [facility] [address] [address] May, Viral upper respiratory infe ction J06.9 [place] [address] [place] [id number] [place] [address] Aug, Bronchitis J40 [facility] [place] [address] [address] Aug, [place] [address] [address] Jun, Abnormal mammogram R92.8 [place] [address] [address] Jun, Abnormal mammogram R92.8 [place] [address] [address] May, [place] [address] [address] May, Well woman exam Z01.419 ; Pa in of left hand M79.642 ; Pain in right hand M79.641 ; Abnormal uterine bleeding N93.9 and BMI 39.0-39.9,adult Z68.39 [place] [address] [address] Dec, Hypertension I10 ; BMI 39.0- 39.9,adult Z68.39 and Obesity (BMI 30- 39.9) E66.9 [facility] [address] [address] Oct, Asthma exacerbation J45.901 [place] [address] [address] Oct, Right sided sciatica M54.31 [facility] [place] [address] [address] Sep, Acute seasonal allergic rhin itis, unspecified trigger J30.2 [place] [address] [address] [place] [id number] [address] [place] [address] 30 Aug, 2016 Primary osteoarthritis of ri ght hip M16.11 ; Prediabetes R73.09 ; Precordial pain R07.2 ; Hypertension I10 and Skin lesion L98.9 [place] [address] [address] Aug, Hypertension I10 [facility] [address] [address] July, Sore throat J02.9 and Acute upper respiratory infection, unspecified J06.9 [facility] [place] [address] [address] 14 Apr, 2016 Acute bacterial conjunctivit is of right eye H10.31 [place] [address] [address] Mar, Primary osteoarthritis of ri ght hip M16.11 [place] [address] [address] Nov, Hypertension I10 and Pure hy percholesterolemia E78.0 [place] [address] [address] Oct, Hypertension I10 ; Pure hype rcholesterolemia E78.0 ; Dyshidrotic eczema L30.1 and Primary osteoarthritis of right hip M16.11 [place] [address] [address] 29 Aug, 2015 Hypertension I10 [place] [address] [address] 28 Aug, 2015 Weight gain R63.5 [place] [address] [place] [id number] [place] [address] 17 Aug, 2015 [place] [address] [address] 15 Aug, 2015 Bilateral ovarian cysts N83. 20 and Abnormal mammogram R92.8 [place] [address] [address] Jun, Abnormal mammogram R92.8 and Enlarged lymph nodes in armpit R59.0 [place] [address] [address] Jun, Enlarged lymph node R59.9 ; Bilateral ovarian cysts N83.20 and Polyarthralgia M25.50 [place] [address] [address] May, Bilateral ovarian cysts N83. 20 [place] [address] [address] May, Screening for malignant neop lasm of breast Z12.39 and Enlarged lymph node R59.9 [place] [address] [address] May, [place] [address] [address] 14 May, 2015 Well woman exam Z01.419 [...] of breast Z12.39 and Subclinical hypothyroidism E03.9 [place] [address] [address] 04 May, 2015 Tinea pedis B35.3 and Metror rhagia N92.1 [place] [address] [address] [place] [id number] [address] [place] [address] Mar, Onychomycosis B35.1 and Nail ingrowing L60.0 [place] [address] [id number] [address] [place] [address] 02 Jan, 2015 Subclinical hypothyroidism E 03.9 [facility] [address] [id number] [address] [place] [address] Dec, Pain in joint, pain in unspe cified joint M25.50 [facility] [address] [id number] [address] [place] [address] Dec, Pain in joint, pain in unspe cified joint M25.50 [facility] [address] [id number] [address] [place] [address] Dec, Pain in joint, pain in unspe cified joint M25.50 [facility] [address] [id number] [address] [place] [address] 25 Nov, 2014 Hypertension 401.9 [facility] [address] [id number] [address] [place] [address] 18 Nov, 2014 [facility] [address] [id number] [address] [place] [address] 15 Nov, 2014 Chronic airway obstruction, not elsewhere classified 496 and Hypertension 401.9 [facility] [address] [id number] [address] [place] [id number] Oct, Dental examination V72.2 [facility] [address] [id number] [address] [place] [address] Aug, Onychomycosis 110.1 and Ingr own nail 703.0 [facility] [address] [id number] [address] [place] [address] Aug, [facility] [address] [id number] [address] [place] [address] 08 Aug, 2014 Onychomycosis 110.1 and Nail , ingrown 703.0 [facility] [address] [id number] [address] [place] [address] Jun, [facility] [address] [id number] [address] [place] [address], [place] [address] Jun, [facility] [address] [id number] [address] [place] [address], [place] [address] May, [facility] [address] [id number] [address] [place] [address], [place] [address] May, [facility] [address] [id number] [address] [place] [address], [place] [address] Apr, [facility] [address] [id number] [address] [place] [address], [place] [address] Apr, [facility] [address] [id number] [address] [place] [address], [place] [address] Apr, [facility] [address] [id number] [address] [place] [address], [place] [address] Apr, [facility] [address] [id number] [address] [place] [address], [place] [address] Mar, [facility] [address] [id number] [address] [place] [address], [place] [address] Mar, [facility] [address] [id number] [address] [place] [address], [place] [address] Feb, [facility] [address] [id number] [address] [place] [address], [place] [address] Jan, [facility] [address] [id number] [address] [place] [address], [place] [address] Jan, [facility] [address] [id number] [address] [place] [address], [place] [address] Aug, [facility] [address] [id number] [address] [place] [address], [place] [address] Aug, [facility] [address] [id number] [address] [place] [address], [place] [address] Aug, [facility] [address] [id number] [address] [place] [address], [place] [address] Aug, [facility] [address] [id number] [address] [place] [address], [place] [address] July, [facility] [address] [id number] [address] [place] [address], [place] [address] July, [facility] [address] [id number] [address] [place] [address], [place] [address] July, [facility] [address] [id number] [address] [place] [address], [place] [address] July, [facility] [address] [id number] [address] [place] [address], [place] [address] July, [facility] [address] [id number] [address] [place] [address], [place] [address] July, [facility] [address] [id number] [address] [place] [address], [place] [address] July, [facility] [address] [id number] [address] [place] [address], [place] [address] July, [facility] [address] [id number] [address] [place] [address], [place] [address] Jun, [facility] [address] [id number] [address] [place] [address], [place] [address] May, [facility] [address] [id number] [address] [place] [address], [place] [address] May, [facility] [address] [id number] [address] [place] [address], [place] [address] May, [facility] [address] [id number] [address] [place] [address], [place] [address] May, [facility] [address] [id number] [address] [place] [address], [place] [address] Apr, [facility] [address] [id number] [address] [place] [address], [place] [address] Apr, [facility] [address] [id number] [address] [place] [address], [place] [address] Apr, [facility] [address] [id number] [address] [place] [address], [place] [address] Apr, [facility] [address] [id number] [address] [place] [address], [place] [address] Apr, [facility] [address] [id number] [address] [place] [address], [place] [address] Apr, [facility] [address] [id number] [address] [place] [address], [place] [address] Feb, [facility] [address] [id number] [address] [place] [address], [place] [address] Feb, [facility] [address] [id number] [address] [place] [address], [place] [address] Jan, [facility] [address] [id number] [address] [place] [address], [place] [address] Jan, [facility] [address] [id number] [address] [place] [address], [place] [address] Jan, [facility] [address] [id number] [address] [place] [address], [place] [address] Dec, [facility] [address] [id number] [address] [place] [address], [place] [address] Dec, [facility] [address] [id number] [address] [place] [address], [place] [address] Dec, [facility] [address] [id number] [address] [place] [address], [place] [address] Dec, [facility] [address] [id number] [address] [place] [address], [place] [address] Oct, [facility] [address] [id number] [address] [place] [address], [place] [address] Oct, [facility] [address] [id number] [address] [place] [address], [place] [address] Nov, [facility] [address] [id number] [address] [place] [address], [place] [address] Oct, [facility] [address] [id number] [address] [place] [address], [place] [address] Oct, [facility] [address] [id number] [address] [place] [address], [place] [address] Aug, [facility] [address] [id number] [address] [place] [address], [place] [address] Aug, [facility] [address] [id number] [address] [place] [address], [place] [address] July, [facility] [address] [id number] [address] [place] [address], [place] [address] Jun, [facility] [address] [id number] [address] [place] [address], [place] [address] Jun, [facility] [address] [id number] [address] [place] [address], [place] [address] Jun, [facility] [address] [id number] [address] [place] [address], [place] [address] Feb, [facility] [address] [id number] [address] [place] [address], [place] [address] Feb, [facility] [address] [id number] [address] [place] [address], [place] [address] Feb, [facility] [address] [id number] [address] [place] [address], [place] [address] Jan, [facility] [address] [id number] [address] [place] [address], [place] [address] Jan, [facility] [address] [id number] [address] [place] [address], [place] [address] Jan, [facility] [address] [id number] [address] [place] [address], [place] [address] Dec, [facility] [address] [id number] [address] [place] [address] Dec, [facility] [address] [facility] [id number] [address] [place] [address] Mar, [facility] [address] [facility] [id number] [address] [place] [address] Jan, IMMUNIZATIONS No Known Immunizations SOCIAL HISTORY Never Assessed REASON FOR VISIT EMR-[facility] PLAN OF CARE VITAL SIGNS MEDICATIONS Unknown [...]
--- OUTSIDE RECORDS SUMMARY | 2019-05-16 07:00 | XMS REPORT ---
Author Author Marian Barrera Doctor Organization [facility] Address Unknown Phone Unavailable Care Team Providers Care Schedule Maker Name Role Phone Migration, Doctor Unavailable Unavailable PROBLEMS Type Condition ICD9-CM Code [id number] Code Onset Dates Condition S tatus SNOMED Code Problem Pure hypercholesterolemia E78.0 Acti ve 07091720 Problem Prediabetes R73.09 Active 93507374 2 Problem Polyarthralgia M25.50 Active 92778 005 Problem Hypertension I10 Active 8571104 3 Problem Abnormal mammogram R92.8 Active 1 13361104 Problem BMI 39.0-39.9,adult Z68.39 Active 198290060 Problem Enlarged lymph node R59.9 Active 73945240 Problem Abnormal uterine bleeding N93.9 Acti ve [id number] Problem COPD (chronic obstructive pulmonary disease) J44.9 Active 26711880 Problem Primary osteoarthritis of right hip M16.11 Active 851605072 Problem Dyshidrotic eczema L30.1 Active 4 80241750 Problem Right sided sciatica M54.31 Active 41716262 Problem Obesity (BMI 30-39.9) E66.9 Active 950828532 ALLERGIES No Information ENCOUNTERS Encounter Location Date Diagnosis [facility] [address] [id number] [address] [place] [address] July, [facility] [address] [id number] [address] [place] [address] May, Viral upper respiratory infe ction J06.9 [facility] [address] [facility] [id number] [address] [place] [address] Aug, Bronchitis J40 [facility] [address] [facility] [id number] [address] [place] [id number] Aug, [facility] [address] [facility] [id number] [address] [place] [address] Jun, Abnormal mammogram R92.8 [place] [address] [place] [id number] [address] [place] [address] Jun, Abnormal mammogram R92.8 [place] [address] [address] May, [place] [address] [address] May, Well woman exam Z01.419 ; Pa in of left hand M79.642 ; Pain in right hand M79.641 ; Abnormal uterine bleeding N93.9 and BMI 39.0-39.9,adult Z68.39 [place] [address] [address] Dec, Hypertension I10 ; BMI 39.0- 39.9,adult Z68.39 and Obesity (BMI 30- 39.9) E66.9 [facility] [place] [address] [address] Oct, Asthma exacerbation J45.901 [place] [address] [address] Oct, Right sided sciatica M54.31 [facility] [place] [address] [address] Sep, Acute seasonal allergic rhin itis, unspecified trigger J30.2 [place] [address] [address] Aug, Primary osteoarthritis of ri ght hip M16.11 ; Prediabetes R73.09 ; Precordial pain R07.2 ; Hypertension I10 and Skin lesion L98.9 [place] [address] [address] Aug, Hypertension I10 [facility] [place] [address] [address] July, Sore throat J02.9 and Acute upper respiratory infection, unspecified J06.9 [facility] [id number] [place] [id number] 14 Apr, 2016 Acute bacterial conjunctivit is of right eye H10.31 [facility] [address] [id number] [address] [place] [id number] 06 Mar, 2016 Primary osteoarthritis of ri ght hip M16.11 [facility] [address] [address] Nov, Hypertension I10 and Pure hy percholesterolemia E78.0 [place] [address] [place] [address] [id number] [place] [address] Oct, Hypertension I10 ; Pure hype rcholesterolemia E78.0 ; Dyshidrotic eczema L30.1 and Primary osteoarthritis of right hip M16.11 [place] [address] [address] 29 Aug, 2015 Hypertension I10 [place] [address] [address] Aug, Weight gain R63.5 [place] [address] [address] Aug, [place] [address] [address] Aug, Bilateral ovarian cysts N83. 20 and Abnormal mammogram R92.8 [place] [address] [address] Jun, Abnormal mammogram R92.8 and Enlarged lymph nodes in armpit R59.0 [place] [address] [address] Jun, Enlarged lymph node R59.9 ; Bilateral ovarian cysts N83.20 and Polyarthralgia M25.50 [place] [address] [address] May, Bilateral ovarian cysts N83. 20 [place] [address] [place] [id number] [address] [place] [address] 24 May, 2015 Screening for malignant neop lasm of breast Z12.39 and Enlarged lymph node R59.9 [place] [address] [place] [id number] [address] [place] [id number] 16 May, 2015 [place] [address] [address] 14 May, 2015 Well woman exam Z01.419 [...] Z12.39 and Subclinical hypothyroidism E03.9 [place] [address] [address] 04 May, 2015 Tinea pedis B35.3 and Metror rhagia N92.[address] [address] Mar, Onychomycosis B35.1 and Nail ingrowing L60.0 [place] [address] [address] Jan, Subclinical hypothyroidism E 03.9 [place] [address] [place] [id number] [address] [place] [address] Dec, Pain in joint, pain in unspe cified joint M25.50 [place] [address] [place] [id number] [address] [place] [address] Dec, Pain in joint, pain in unspe cified joint M25.50 [place] [address] [address] Dec, Pain in joint, pain in unspe cified joint M25.50 [facility] [address] [id number] [address] [place] [id number] 25 Nov, 2014 Hypertension 401.9 [facility] [address] [id number] [address] [place] [id number] 18 Nov, 2014 [facility] [address] [facility] [id number] [address] [place] [id number] 15 Nov, 2014 Chronic airway obstruction, not elsewhere classified 496 and Hypertension 401.9 [facility] [address] [id number] [address] [place] [id number] Oct, Dental examination V72.2 [facility] [address] [facility] [id number] [address] [place] [id number] 30 Aug, 2014 Onychomycosis 110.1 and Ingr own nail 703.0 [facility] [address] [facility] [id number] [address] [place] [address] Aug, [facility] [address] [id number] [address] [place] [id number] 08 Aug, 2014 Onychomycosis 110.1 and Nail , ingrown 703.0 [facility] [address] [facility] [id number] [address] [place] [id number] 14 Jun, 2014 [facility] [address] [facility] [id number] [address] [place] [phone] Jun, [facility] [address] [facility] [id number] [address] [place] [address] May, [facility] [address] [facility] [id number] [address] [place] [address] May, [facility] [address] [facility] [id number] [address] [place] [address] Apr, [facility] [address] [facility] [id number] [address] [place] [address] Apr, [facility] [address] [id number] [address] [place] [address], [place] [address] Apr, [facility] [address] [id number] [address] [place] [address], [place] [address] Apr, [facility] [address] [id number] [address] [place] [address], [place] [address] Mar, [facility] [address] [id number] [address] [place] [address], [place] [address] Mar, [facility] [address] [id number] [address] [place] [address], [place] [address] Feb, [facility] [address] [id number] [address] [place] [address], [place] [address] Jan, [facility] [address] [id number] [address] [place] [address], [place] [address] Jan, [facility] [address] [id number] [address] [place] [address], [place] [address] Aug, [facility] [address] [id number] [address] [place] [address], [place] [address] Aug, [facility] [address] [id number] [address] [place] [address], [place] [address] Aug, [facility] [address] [id number] [address] [place] [address], [place] [address] Aug, [facility] [address] [id number] [address] [place] [address], [place] [address] July, [facility] [address] [id number] [address] [place] [address], [place] [address] July, [facility] [address] [id number] [address] [place] [address], [place] [address] July, [facility] [address] [id number] [address] [place] [address], [place] [address] July, [facility] [address] [id number] [address] [place] [address], [place] [address] July, [facility] [address] [id number] [address] [place] [address], [place] [address] July, [facility] [address] [id number] [address] [place] [address], [place] [address] July, [facility] [address] [id number] [address] [place] [address], [place] [address] July, [facility] [address] [id number] [address] [place] [address], [place] [address] Jun, [facility] [address] [id number] [address] [place] [address], [place] [address] May, [facility] [address] [id number] [address] [place] [address], [place] [address] May, [facility] [address] [id number] [address] [place] [address], [place] [address] May, [facility] [address] [id number] [address] [place] [address], [place] [address] May, [facility] [address] [id number] [address] [place] [address], [place] [address] Apr, [facility] [address] [id number] [address] [place] [address], [place] [address] Apr, [facility] [address] [id number] [address] [place] [address], [place] [address] Apr, [facility] [address] [id number] [address] [place] [address], [place] [address] Apr, [facility] [address] [id number] [address] [place] [address], [place] [address] Apr, [facility] [address] [id number] [address] [place] [address], [place] [address] Apr, [facility] [address] [id number] [address] [place] [address], [place] [address] Feb, [facility] [address] [id number] [address] [place] [address], [place] [address] Feb, [facility] [address] [id number] [address] [place] [address], [place] [address] Jan, [facility] [address] [id number] [address] [place] [address], [place] [address] Jan, [facility] [address] [id number] [address] [place] [address], [place] [address] Jan, [facility] [address] [id number] [address] [place] [address], [place] [address] Dec, [facility] [address] [id number] [address] [place] [address], [place] [address] Dec, [facility] [address] [id number] [address] [place] [address], [place] [address] Dec, [facility] [address] [id number] [address] [place] [address], [place] [address] Dec, [facility] [address] [id number] [address] [place] [address], [place] [address] Oct, [facility] [address] [id number] [address] [place] [address], [place] [address] Oct, [facility] [address] [id number] [address] [place] [address], [place] [address] Nov, [facility] [address] [id number] [address] [place] [address], [place] [address] Oct, [facility] [address] [id number] [address] [place] [address], [place] [address] Oct, [facility] [address] [id number] [address] [place] [address], [place] [address] Aug, [facility] [address] [id number] [address] [place] [address], [place] [address] Aug, [facility] [address] [id number] [address] [place] [address], [place] [address] July, [facility] [address] [id number] [address] [place] [address] Jun, [facility] [address] [id number] [address] [place] [address] Jun, [facility] [address] [id number] [address] [place] [address] Jun, [facility] [address] [id number] [address] [place] [address] Feb, [facility] [address] [id number] [address] [place] [address] Feb, [facility] [address] [id number] [address] [place] [address] Feb, [facility] [address] [id number] [address] [place] [address] Jan, [facility] [address] [id number] [address] [place] [address] Jan, [facility] [address] [id number] [address] [place] [address] Jan, [facility] [address] [id number] [address] [place] [address] Dec, [facility] [address] [id number] [address] [place] [address] Dec, [facility] [address] [id number] [address] [place] [address] Mar, [facility] [address] [id number] [address] [place] [id number] Jan, IMMUNIZATIONS No Known Immunizations SOCIAL HISTORY Never Assessed REASON FOR VISIT EMR-[facility] [place] PLAN OF CARE VITAL SIGNS MEDICATIONS [...]
--- OUTSIDE RECORDS SUMMARY | 2019-05-16 07:00 | XMS REPORT ---
Author Author Marian Roblero Organization [facility] Address [address] [place] [address] Care Team Providers Care Paper Winder Name Role Phone DRAKE Roblero Unavailable PROBLEMS Type Condition ICD9-CM Code [id number] Code Onset Dates Condition S tatus SNOMED Code Problem Pure hypercholesterolemia E78.0 Acti ve 83441884 Problem Prediabetes R73.09 Active 41731499 2 Problem Hypertension I10 Active 7876570 3 Problem COPD (chronic obstructive pulmonary disease) J44.9 Active 77362602 Problem Polyarthralgia M25.50 Active 48647 005 Problem Enlarged lymph node R59.9 Active 21603029 Problem Primary osteoarthritis of right hip M16.11 Active 859797572 Problem Right sided sciatica M54.31 Active 89823392 Problem BMI 39.0-39.9,adult Z68.39 Active 236010749 Problem Arthritis M19.90 Active 1776311 Problem Dyshidrotic eczema L30.1 Active 4 76091080 Problem Hypothyroidism (acquired) E03.9 Acti ve 09282465 Problem Abnormal mammogram R92.8 Active 1 42814974 Problem Obesity (BMI 30-39.9) E66.9 Active 720185644 Problem Abnormal uterine bleeding N93.9 Acti ve [id number] Problem Mood disorder F39 Active 490063 05 Problem Other chronic pain G89.29 Active 8 [id number] ALLERGIES No Information ENCOUNTERS Encounter Location Date Diagnosis [facility] [address] [facility] [id number] [address] [place] [address] Oct, [facility] [address] [facility] [id number] [address] [place] [address] Sep, [facility] [address] [facility] [id number] [address] [place] [address] Aug, Hypothyroidism (acquired) E0 3.9 [place] [id number] [address] Aug, Morbid obesity E66.01 [place] [address] [address] Aug, Morbid obesity E66.01 ; Arth ritis M19.90 ; Other chronic pain G89.29 ; Pain in left knee M25.562 ; Pain in right knee M25.561 ; Diarrhea, unspecified type R19.7 and Family history of thyroid disease Z83.49 [place] [address] [address] July, [place] [address] [address] July, Pure hypercholesterolemia E7 8.0 ; Hypertension I10 ; Prediabetes R73.09 ; Pain of left heel M79.672 ; Cutaneous horn L85.8 ; Mood disorder F39 and Morbid obesity E66.01 [facility] [address] [address] May, Viral upper respiratory infe ction J06.9 [place] [address] [address] Aug, Bronchitis J40 [facility] [address] [address] Aug, [place] [address] [address] Jun, Abnormal mammogram R92.8 [place] [address] [address] Jun, Abnormal mammogram R92.8 [place] [address] [place] [id number] [place] [address] May, [place] [address] [address] 06 Mar, 2018 Well woman exam Z01.419 ; Pa in of left hand M79.642 ; Pain in right hand M79.641 ; Abnormal uterine bleeding N93.9 and BMI 39.0-39.9,adult Z68.39 [place] [address] [place] [id number] [place] [address] Dec, Hypertension I10 ; BMI 39.0- 39.9,adult Z68.39 and Obesity (BMI 30- 39.9) E66.9 [facility] [address] [address] Oct, Asthma exacerbation J45.[address] [address] Oct, Right sided sciatica M54.31 [facility] [address] [address] Sep, Acute seasonal allergic rhin itis, unspecified trigger J30.2 [place] [address] [address] Aug, Primary osteoarthritis of ri ght hip M16.11 ; Prediabetes R73.09 ; Precordial pain R07.2 ; Hypertension I10 and Skin lesion L98.9 [place] [address] [address] Aug, Hypertension I10 [facility] [place] [address] [address] July, Sore throat J02.9 and Acute upper respiratory infection, unspecified J06.9 [facility] [address] [address] 14 Apr, 2016 Acute bacterial conjunctivit is of right eye H10.31 [place] [address] [place] [id number] [address] [place] [address] Mar, Primary osteoarthritis of ri ght hip M16.11 [place] [address] [place] [address] Nov, Hypertension I10 and Pure hy percholesterolemia E78.0 [place] [address] [address] Oct, Hypertension I10 ; Pure hype rcholesterolemia E78.0 ; Dyshidrotic eczema L30.1 and Primary osteoarthritis of right hip M16.11 [place] [address] [address] Aug, Hypertension I10 [place] [address] [address] Aug, Weight gain R63.5 [place] [address] [address] 17 Aug, 2015 [place] [address] [address] 15 Aug, 2015 Bilateral ovarian cysts N83. 20 and Abnormal mammogram R92.8 [place] [address] [address] Jun, Abnormal mammogram R92.8 and Enlarged lymph nodes in armpit R59.0 [place] [address] [address] 08 Jun, 2015 Enlarged lymph node R59.9 ; Bilateral ovarian cysts N83.20 and Polyarthralgia M25.50 [place] [address] [address] May, Bilateral ovarian cysts N83. 20 [place] [address] [address] May, Screening for malignant neop lasm of breast Z12.39 and Enlarged lymph node R59.9 [place] [address] [address] 16 May, 2015 [place] [address] [place] [address] 14 May, 2016 Well woman exam Z01.419 [...] of breast Z12.39 and Subclinical hypothyroidism E03.9 [place] [address] [facility] [id number] [address] [place] [address] 04 May, 2015 Tinea pedis B35.3 and Metror rhagia N92.1 [place] [address] [facility] [id number] [address] [place] [address] Mar, Onychomycosis B35.1 and Nail ingrowing L60.0 [place] [address] [facility] [id number] [address] [place] [address] Jan, Subclinical hypothyroidism E 03.9 [place] [address] [facility] [id number] [address] [place] [address] Dec, Pain in joint, pain in unspe cified joint M25.50 [place] [address] [facility] [id number] [address] [place] [address] Dec, Pain in joint, pain in unspe cified joint M25.50 [place] [address] [id number] [address] [place] [address] Dec, Pain in joint, pain in unspe cified joint M25.50 [place] [address] [facility] [id number] [address] [place] [address] Nov, Hypertension 401.9 [place] [address] [facility] [id number] [address] [place] [address] 18 Nov, 2014 [place] [address] [id number] [address] [place] [address] 15 Nov, 2014 Chronic airway obstruction, not elsewhere classified 496 and Hypertension 401.9 [facility] [address] [id number] [address] [place] [id number] Oct, Dental examination V72.2 [facility] [address] [id number] [address] [place] [address] 30 Aug, 2014 Onychomycosis 110.1 and Ingr own nail 703.0 [facility] [address] [id number] [address] [place] [address] Aug, [facility] [address] [id number] [address] [place] [address] Aug, Onychomycosis 110.1 and Nail , ingrown 703.0 [facility] [address] [id number] [address] [place] [address] Jun, [facility] [address] [id number] [address] [place] [address] Jun, [facility] [address] [id number] [address] [place] [address] May, [facility] [address] [id number] [address] [place] [address] May, [facility] [address] [id number] [address] [place] [address] Apr, [facility] [address] [id number] [address] [place] [address] Apr, [facility] [address] [id number] [address] [place] [address] Apr, [facility] [address] [id number] [address] [place] [address] Apr, [facility] [address] [id number] [address] [place] [address] Mar, [facility] [address] [id number] [address] [place] [address], [place] [address] Mar, [facility] [address] [id number] [address] [place] [address], [place] [address] Feb, [facility] [address] [id number] [address] [place] [address], [place] [address] Jan, [facility] [address] [id number] [address] [place] [address], [place] [address] Jan, [facility] [address] [id number] [address] [place] [address], [place] [address] Aug, [facility] [address] [id number] [address] [place] [address], [place] [address] Aug, [facility] [address] [id number] [address] [place] [address], [place] [address] Aug, [facility] [address] [id number] [address] [place] [address], [place] [address] Aug, [facility] [address] [id number] [address] [place] [address], [place] [address] July, [facility] [address] [id number] [address] [place] [address], [place] [address] July, [facility] [address] [id number] [address] [place] [address], [place] [address] July, [facility] [address] [id number] [address] [place] [address], [place] [address] July, [facility] [address] [id number] [address] [place] [address], [place] [address] July, [facility] [address] [id number] [address] [place] [address], [place] [address] July, [facility] [address] [id number] [address] [place] [address], [place] [address] July, [facility] [address] [id number] [address] [place] [address], [place] [address] July, [facility] [address] [id number] [address] [place] [address], [place] [address] Jun, [facility] [address] [id number] [address] [place] [address], [place] [address] May, [facility] [place] [facility] [address] [id number] [address] [place] [address], [place] [address] May, [facility] [place] [facility] [address] [id number] [address] [place] [address], [place] [address] May, [facility] [address] [id number] [address] [place] [address], [place] [address] May, [facility] [place] [facility] [address] [id number] [address] [place] [address], [place] [address] Apr, [facility] [address] [id number] [address] [place] [address], [place] [address] Apr, [facility] [address] [id number] [address] [place] [address], [place] [address] Apr, [facility] [address] [id number] [address] [place] [address], [place] [address] Apr, [facility] [address] [id number] [address] [place] [address], [place] [address] Apr, [facility] [address] [id number] [address] [place] [address], [place] [address] Apr, [facility] [place] [facility] [address] [id number] [address] [place] [address], [place] [address] Feb, [facility] [place] [facility] [address] [id number] [address] [place] [address], [place] [address] Feb, [facility] [place] [facility] [address] [id number] [address] [place] [address], [place] [address] Jan, [facility] [place] [facility] [address] [id number] [address] [place] [address], [place] [address] Jan, [facility] [place] [facility] [address] [id number] [address] [place] [address], [place] [address] Jan, [facility] [address] [id number] [address] [place] [address], [place] [address] Dec, [facility] [address] [id number] [address] [place] [address], [place] [address] Dec, [facility] [address] [id number] [address] [place] [address], [place] [address] Dec, [facility] [address] [id number] [address] [place] [address], [place] [address] Dec, [facility] [address] [id number] [address] [place] [address], [place] [address] Oct, [facility] [address] [id number] [address] [place] [address], [place] [address] Oct, [facility] [address] [id number] [address] [place] [address], [place] [address] Nov, [facility] [address] [id number] [address] [place] [address], [place] [address] Oct, [facility] [address] [id number] [address] [place] [address], [place] [address] Oct, [facility] [address] [id number] [address] [place] [address], [place] [address] Aug, [facility] [address] [id number] [address] [place] [address], [place] [address] Aug, [facility] [address] [id number] [address] [place] [address], [place] [address] July, [facility] [address] [id number] [address] [place] [address], [place] [address] Jun, [facility] [address] [id number] [address] [place] [address], [place] [address] Jun, [facility] [address] [id number] [address] [place] [address], [place] [address] Jun, [facility] [address] [id number] [address] [place] [address] Feb, [facility] [address] [id number] [address] [place] [address] Feb, [facility] [address] [id number] [address] [place] [address] Feb, [facility] [address] [id number] [address] [place] [address] Jan, [facility] [address] [id number] [address] [place] [address] Jan, [facility] [address] [id number] [address] [place] [address] Jan, [facility] [address] [id number] [address] [place] [address] Dec, [facility] [address] [id number] [address] [place] [address] Dec, [facility] [address] [id number] [address] [place] [address] Mar, [facility] [address] [id number] [address] [place] [address] Jan, IMMUNIZATIONS No Known Immunizations SOCIAL HISTORY Never Assessed REASON FOR VISIT PLAN OF CARE VITAL SIGNS Height 69 in 2014-05-29 Weight 229.09 lbs 2014-05-29 Temperature 97.7 degrees Fahrenheit 2014-05-29 Heart Rate 80 bpm 2014-05-29 Respiratory Rate 18 2014-05-29 Blood pressure systolic 124 mmHg 2014-05-29 Blood pressure diastolic 78 mmHg 2014-05-29 MEDICATIONS Unknown Medications RESULTS No Results PROCEDURES Procedure Date Ordered Result Body Site URINE TEST May 29, 2014 INSTRUCTIONS MEDICATIONS ADMINISTERED No Known Medications MEDICAL [...]
--- OUTSIDE RECORDS SUMMARY | 2019-05-16 07:01 | XMS REPORT ---
Author Author Marian TABOR [facility] Address [address] [place] [address] Care Team Providers Care Loan Collector Name Role Phone YOHANNES TABOR Unavailable PROBLEMS Type Condition ICD9-CM Code JKS54-AI Code Onset Dates Condition S tatus SNOMED Code Problem Polyarthralgia M25.50 Active 80312 005 Problem Abnormal mammogram R92.8 Active 1 40247986 Problem Hypertension I10 Active 7219385 3 Problem Prediabetes R73.09 Active 89694096 2 Problem Pure hypercholesterolemia E78.0 Acti ve 91817186 Problem COPD (chronic obstructive pulmonary disease) J44.9 Active 59124104 Problem Enlarged lymph node R59.9 Active 71029061 Problem Abnormal uterine bleeding N93.9 Acti ve [id number] Problem BMI 39.0-39.9,adult Z68.39 Active 914809382 Problem Dyshidrotic eczema L30.1 Active 4 98235791 Problem Primary osteoarthritis of right hip M16.11 Active 781627406 Problem Obesity (BMI 30-39.9) E66.9 Active 339243930 Problem Right sided sciatica M54.31 Active 99909808 ALLERGIES No Information ENCOUNTERS Encounter Location Date Diagnosis [facility] [address] [facility] [id number] [address] [place] [id number] Aug, Bronchitis J40 [facility] [address] [facility] [id number] [address] [place] [address] Aug, [facility] [address] [facility] [id number] [address] [place] [phone] Jun, Abnormal mammogram R92.8 [facility] [address] [facility] [id number] [address] [place] [address] Jun, Abnormal mammogram R92.8 [facility] [address] [address] May, [place] [address] [address] May, Well woman exam Z01.419 ; Pa in of left hand M79.642 ; Pain in right hand M79.641 ; Abnormal uterine bleeding N93.9 and BMI 39.0-39.9,adult Z68.39 [place] [address] [address] Dec, Hypertension I10 ; BMI 39.0- 39.9,adult Z68.39 and Obesity (BMI 30- 39.9) E66.9 [facility] [address] [address] Oct, Asthma exacerbation J45.[address] [address] Oct, Right sided sciatica M54.31 [facility] [address] [address] Sep, Acute seasonal allergic rhin itis, unspecified trigger J30.2 [place] [address] [address] Aug, Primary osteoarthritis of ri ght hip M16.11 ; Prediabetes R73.09 ; Precordial pain R07.2 ; Hypertension I10 and Skin lesion L98.9 [place] [address] [address] Aug, Hypertension I10 [facility] [address] [place] [address] July, Sore throat J02.9 and Acute upper respiratory infection, unspecified J06.9 [facility] [address] [place] [phone] 14 Apr, 2016 Acute bacterial conjunctivit is of right eye H10.31 [place] [address] [facility] [id number] [address] [place] [address] Mar, Primary osteoarthritis of ri ght hip M16.11 [place] [address] [place] [id number] [address] [place] [address] Nov, Hypertension I10 and Pure hy percholesterolemia E78.0 [place] [address] [place] [id number] [address] [place] [address] Oct, Hypertension I10 ; Pure hype rcholesterolemia E78.0 ; Dyshidrotic eczema L30.1 and Primary osteoarthritis of right hip M16.11 [place] [address] [place] [id number] [address] [place] [address] Aug, Hypertension I10 [place] [address] [place] [id number] [place] [address] Aug, Weight gain R63.5 [place] [address] [place] [id number] [address] [place] [phone] 17 Aug, 2015 [place] [address] [address] 15 Aug, 2015 Bilateral ovarian cysts N83. 20 and Abnormal mammogram R92.8 [place] [address] [place] [id number] [address] [place] [address] Jun, Abnormal mammogram R92.8 and Enlarged lymph nodes in armpit R59.0 [place] [address] [place] [id number] [address] [place] [phone] Jun, Enlarged lymph node R59.9 ; Bilateral ovarian cysts N83.20 and Polyarthralgia M25.50 [place] [address] [place] [id number] [address] [place] [phone] May, Bilateral ovarian cysts N83. 20 [place] [address] [place] [id number] [address] [place] [address] May, Screening for malignant neop lasm of breast Z12.39 and Enlarged lymph node R59.9 [place] [address] [place] [id number] [address] [place] [id number] 16 May, 2015 [place] [address] [place] [id number] [place] [address] 14 May, 2015 Well woman exam Z01.419 [...] Z12.39 and Subclinical hypothyroidism E03.9 [place] [address] [address] 04 May, 2015 Tinea pedis B35.3 and Metror rhagia N92.1 [place] [address] [place] [id number] [place] [address] Mar, Onychomycosis B35.1 and Nail ingrowing L60.0 [place] [address] [place] [id number] [address] [place] [address] Jan, Subclinical hypothyroidism E 03.9 [place] [address] [place] [id number] [address] [place] [id number] Dec, Pain in joint, pain in unspe cified joint M25.50 [place] [address] [place] [id number] [address] [place] [address] Dec, Pain in joint, pain in unspe cified joint M25.50 [place] [address] [place] [id number] [address] [place] [id number] Dec, Pain in joint, pain in unspe cified joint M25.50 [place] [address] [place] [id number] [address] [place] [phone] Nov, Hypertension 401.9 [facility] [address] [id number] [address] [place] [id number] 18 Nov, 2014 [facility] [address] [id number] [address] [place] [id number] 15 Nov, 2014 Chronic airway obstruction, not elsewhere classified 496 and Hypertension 401.9 [facility] [address] [id number] [address] [place] [id number] Oct, Dental examination V72.2 [facility] [address] [id number] [address] [place] [id number] 30 Aug, 2014 Onychomycosis 110.1 and Ingr own nail 703.0 [facility] [address] [id number] [address] [place] [phone] Aug, [facility] [address] [id number] [address] [place] [phone] 08 Aug, 2014 Onychomycosis 110.1 and Nail , ingrown 703.0 [facility] [address] [id number] [address] [place] [id number] 14 Jun, 2014 [facility] [address] [facility] [id number] [address] [place] [phone] Jun, [facility] [address] [facility] [id number] [address] [place] [phone] May, [facility] [address] [facility] [id number] [address] [place] [phone] May, [facility] [address] [id number] [address] [place] [phone] Apr, [facility] [address] [facility] [id number] [address] [place] [phone] Apr, [facility] [address] [facility] [id number] [address] [place] [phone] Apr, [facility] [address] [facility] [id number] [address] [place] [phone] Apr, [facility] [address] [id number] [address] [place] [address], [place] [address] Mar, [facility] [address] [id number] [address] [place] [address], [place] [address] Mar, [facility] [address] [id number] [address] [place] [address], [place] [address] Feb, [facility] [address] [id number] [address] [place] [address], [place] [address] Jan, [facility] [address] [id number] [address] [place] [address], [place] [address] Jan, [facility] [address] [id number] [address] [place] [address], [place] [address] Aug, [facility] [address] [id number] [address] [place] [address], [place] [address] Aug, [facility] [address] [id number] [address] [place] [address], [place] [address] Aug, [facility] [address] [id number] [address] [place] [address], [place] [address] Aug, [facility] [address] [id number] [address] [place] [address], [place] [address] July, [facility] [address] [id number] [address] [place] [address], [place] [address] July, [facility] [address] [id number] [address] [place] [address], [place] [address] July, [facility] [address] [id number] [address] [place] [address], [place] [address] July, [facility] [address] [id number] [address] [place] [address], [place] [address] July, [facility] [address] [id number] [address] [place] [address], [place] [address] July, [facility] [address] [id number] [address] [place] [address], [place] [address] July, [facility] [address] [id number] [address] [place] [address], [place] [address] July, [facility] [address] [id number] [address] [place] [address], [place] [address] Jun, [facility] [address] [id number] [address] [place] [address], [place] [address] May, [facility] [address] [id number] [address] [place] [address], [place] [address] May, [facility] [address] [id number] [address] [place] [address], [place] [address] May, [facility] [address] [id number] [address] [place] [address], [place] [address] May, [facility] [address] [id number] [address] [place] [address], [place] [address] Apr, [facility] [address] [id number] [address] [place] [address], [place] [address] Apr, [facility] [address] [id number] [address] [place] [address], [place] [address] Apr, [facility] [address] [id number] [address] [place] [address], [place] [address] Apr, [facility] [address] [id number] [address] [place] [address], [place] [address] Apr, [facility] [address] [id number] [address] [place] [address], [place] [address] Apr, [facility] [address] [id number] [address] [place] [address], [place] [address] Feb, [facility] [address] [id number] [address] [place] [address], [place] [address] Feb, [facility] [address] [id number] [address] [place] [address], [place] [address] Jan, [facility] [address] [id number] [address] [place] [address], [place] [address] Jan, [facility] [address] [id number] [address] [place] [address], [place] [address] Jan, [facility] [address] [id number] [address] [place] [address], [place] [address] Dec, [facility] [address] [id number] [address] [place] [address], [place] [address] Dec, [facility] [address] [id number] [address] [place] [address], [place] [address] Dec, [facility] [address] [id number] [address] [place] [address], [place] [address] Dec, [facility] [address] [id number] [address] [place] [address], [place] [address] Oct, [facility] [address] [id number] [address] [place] [address], [place] [address] Oct, [facility] [address] [id number] [address] [place] [address], [place] [address] Nov, [facility] [address] [id number] [address] [place] [address], [place] [address] Oct, [facility] [address] [id number] [address] [place] [address], [place] [address] Oct, [facility] [address] [id number] [address] [place] [address], [place] [address] Aug, [facility] [address] [id number] [address] [place] [address], [place] [address] Aug, [facility] [address] [id number] [address] [place] [address], [place] [address] July, [facility] [address] [id number] [address] [place] [address], [place] [address] Jun, [facility] [address] [id number] [address] [place] [address] Jun, [facility] [address] [id number] [address] [place] [phone] Jun, [facility] [address] [id number] [address] [place] [address] Feb, [facility] [address] [id number] [address] [place] [address] Feb, [facility] [address] [id number] [address] [place] [address] Feb, [facility] [address] [id number] [address] [place] [address] Jan, [facility] [address] [facility] [id number] [address] [place] [address] Jan, [facility] [address] [facility] [id number] [address] [place] [phone] Jan, [facility] [address] [id number] [address] [place] [address] Dec, [facility] [address] [facility] [id number] [address] [place] [address] Dec, [facility] [address] [facility] [id number] [address] [place] [phone] Mar, [facility] [address] [facility] [id number] [address] [place] [phone] Jan, IMMUNIZATIONS No Known Immunizations SOCIAL HISTORY Never Assessed REASON FOR VISIT sore throat that started yesterday. now has a runny nose, coughing et doesnt fee l good. perryardrn, continue with the tylenol et motrin in case fever develops. also continue zyrtec. increase fluid intake. pt scheduled with damien tomorrow at 1140. pt verbalized understanding. PLAN OF CARE VITAL SIGNS Height 69 in 2017-08-27 Weight 268.4 lbs 2017-08-27 Temperature 98.9 degrees Fahrenheit 2017-08-27 Heart Rate 78 bpm 2017-08-27 Respiratory Rate 20 2017-08-27 BMI 39.63 kg/m2 2017-08-27 Blood pressure systolic 132 mmHg 2017-08-27 Blood pressure diastolic 82 mmHg 2017-08-27 MEDICATIONS Medication Instructions Dosage Frequency Start Date End Date Duration S landon Lisinopril 10 mg Orally Once a day 1 tablet 24h 90 d ays Active Ibuprofen 200 mg 2 Tablet every 8 hours PRN Oct, Active Claritin Not-Taking Fluticasone Propionate 50 MCG/ACT Nasally Twice a day 1 spray in each nostril 12h Sep, 30 day(s) Not-Taking Tylenol Extra Strength 500 mg take 2 tab lets (1,000 mg) by oral route every 6 hours as needed Aug, Not-Taking Flexeril Active Zantac 150 mg take 1 tablet (150 mg) by oral route 2 t imes per day Dec, Active Benadryl 25 MG Orally every 6 hrs 1 tablet as needed 6h Not-Taking Metoprolol Tartrate 50 mg Orally Twice a day 1 tablet with food 12h 90 days Active Cetirizine HCl 10 MG Orally Once a day 1 tablet 24h Active RESULTS No Results PROCEDURES No Known procedures [...]
--- OUTSIDE RECORDS SUMMARY | 2019-05-16 07:01 | XMS REPORT ---
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 Name Role Phone RAVI DANIELS Unavailable PROBLEMS Type Condition ICD9-CM Code EES12-VZ Code Onset Dates Condition S tatus SNOMED Code Problem Polyarthralgia M25.50 Active 57014 005 Problem Abnormal mammogram R92.8 Active 1 63746938 Problem Hypertension I10 Active 8126581 3 Problem Prediabetes R73.09 Active 80588199 2 Problem Pure hypercholesterolemia E78.0 Acti ve 02336592 Problem COPD (chronic obstructive pulmonary disease) J44.9 Active 08557050 Problem Enlarged lymph node R59.9 Active 00089293 Problem Abnormal uterine bleeding N93.9 Acti ve [id number] Problem BMI 39.0-39.9,adult Z68.39 Active 721745168 Problem Dyshidrotic eczema L30.1 Active 4 99159612 Problem Primary osteoarthritis of right hip M16.11 Active 263335013 Problem Obesity (BMI 30-39.9) E66.9 Active 877767842 Problem Right sided sciatica M54.31 Active 81570751 ALLERGIES No Information ENCOUNTERS Encounter Location Date Diagnosis [facility] [address] [facility] [id number] [address] [place] [address] Aug, Bronchitis J40 [facility] [address] [facility] [id number] [address] [place] [address] Aug, [facility] [address] [facility] [id number] [address] [place] [address] Jun, Abnormal mammogram R92.8 [facility] [address] [facility] [id number] [address] [place] [address] Jun, Abnormal mammogram R92.8 [facility] [address] [place] [id number] [address] [place] [address] May, [address] [address] May, Well woman exam Z01.419 ; Pa in of left hand M79.642 ; Pain in right hand M79.641 ; Abnormal uterine bleeding N93.9 and BMI 39.0-39.9,adult Z68.39 [place] [address] [address] Dec, Hypertension I10 ; BMI 39.0- 39.9,adult Z68.39 and Obesity (BMI 30- 39.9) E66.9 [facility] [address] [address] Oct, Asthma exacerbation J45.[address] [address] Oct, Right sided sciatica M54.31 [facility] [address] [address] Sep, Acute seasonal allergic rhin itis, unspecified trigger J30.[address] [address] Aug, Primary osteoarthritis of ri ght hip M16.11 ; Prediabetes R73.09 ; Precordial pain R07.2 ; Hypertension I10 and Skin lesion L98.[address] [address] Aug, Hypertension I10 [facility] [address] [address] July, Sore throat J02.9 and Acute upper respiratory infection, unspecified J06.9 [facility] [address] [address] 14 Apr, 2016 Acute bacterial conjunctivit is of right eye H10.31 [place] [address] [facility] [id number] [address] [place] [address] Mar, Primary osteoarthritis of ri ght hip M16.11 [place] [address] [facility] [id number] [address] [place] [address] Nov, Hypertension I10 and Pure hy percholesterolemia E78.0 [place] [address] [place] [id number] [address] [place] [address] Oct, Hypertension I10 ; Pure hype rcholesterolemia E78.0 ; Dyshidrotic eczema L30.1 and Primary osteoarthritis of right hip M16.11 [place] [address] [place] [id number] [address] [place] [address] Aug, Hypertension I10 [place] [address] [place] [id number] [place] [address] Aug, Weight gain R63.5 [place] [id number] [place] [address] 17 Aug, 2015 [place] [address] [address] 15 Aug, 2015 Bilateral ovarian cysts N83. 20 and Abnormal mammogram R92.8 [place] [address] [place] [id number] [address] [place] [address] Jun, Abnormal mammogram R92.8 and Enlarged lymph nodes in armpit R59.0 [place] [address] [place] [id number] [address] [place] [address] Jun, Enlarged lymph node R59.9 ; Bilateral ovarian cysts N83.20 and Polyarthralgia M25.50 [place] [address] [place] [id number] [address] [place] [address] May, Bilateral ovarian cysts N83. 20 [place] [address] [place] [id number] [address] [place] [address] May, Screening for malignant neop lasm of breast Z12.39 and Enlarged lymph node R59.9 [place] [address] [facility] [id number] [address] [place] [address] 16 May, 2015 [place] [address] [facility] [id number] [address] [place] [address] 14 May, 2015 Well woman exam Z01.419 [...] of breast Z12.39 and Subclinical hypothyroidism E03.9 [place] [address] [place] [id number] [address] [place] [address] 04 May, 2015 Tinea pedis B35.3 and Metror rhagia N92.1 [place] [address] [facility] [id number] [address] [place] [address] Mar, Onychomycosis B35.1 and Nail ingrowing L60.0 [place] [address] [facility] [id number] [address] [place] [address] Jan, Subclinical hypothyroidism E 03.9 [place] [address] [facility] [id number] [address] [place] [address] Dec, Pain in joint, pain in unspe cified joint M25.50 [place] [address] [facility] [id number] [address] [place] [address] Dec, Pain in joint, pain in unspe cified joint M25.50 [place] [address] [facility] [id number] [address] [place] [address] Dec, Pain in joint, pain in unspe cified joint M25.50 [place] [address] [facility] [id number] [address] [place] [address] Nov, Hypertension 401.9 [facility] [address] [id number] [address] [place] [address] 18 Nov, 2014 [facility] [address] [id number] [address] [place] [address] 15 Nov, 2014 Chronic airway obstruction, not elsewhere classified 496 and Hypertension 401.9 [facility] [address] [id number] [address] [place] [id number] Oct, Dental examination V72.2 [facility] [address] [id number] [address] [place] [address] 30 Aug, 2014 Onychomycosis 110.1 and Ingr own nail 703.0 [facility] [address] [id number] [address] [place] [address] Aug, [facility] [address] [id number] [address] [place] [address] Aug, Onychomycosis 110.1 and Nail , ingrown 703.0 [facility] [address] [id number] [address] [place] [address] Jun, [facility] [address] [id number] [address] [place] [address] Jun, [facility] [address] [facility] [id number] [address] [place] [address] May, [facility] [address] [id number] [address] [place] [address] May, [facility] [address] [id number] [address] [place] [address] Apr, [facility] [address] [id number] [address] [place] [address] Apr, [facility] [address] [facility] [id number] [address] [place] [address] Apr, [facility] [address] [facility] [id number] [address] [place] [address] Apr, [facility] [address] [id number] [address] [place] [address], [place] [address] Mar, [facility] [address] [id number] [address] [place] [address], [place] [address] Mar, [facility] [address] [id number] [address] [place] [address], [place] [address] Feb, [facility] [address] [id number] [address] [place] [address], [place] [address] Jan, [facility] [address] [id number] [address] [place] [address], [place] [address] Jan, [facility] [address] [id number] [address] [place] [address], [place] [address] Aug, [facility] [address] [id number] [address] [place] [address], [place] [address] Aug, [facility] [address] [id number] [address] [place] [address], [place] [address] Aug, [facility] [address] [id number] [address] [place] [address], [place] [address] Aug, [facility] [address] [id number] [address] [place] [address], [place] [address] July, [facility] [address] [id number] [address] [place] [address], [place] [address] July, [facility] [address] [id number] [address] [place] [address], [place] [address] July, [facility] [address] [id number] [address] [place] [address], [place] [address] July, [facility] [address] [id number] [address] [place] [address], [place] [address] July, [facility] [address] [id number] [address] [place] [address], [place] [address] July, [facility] [address] [id number] [address] [place] [address], [place] [address] July, [facility] [address] [id number] [address] [place] [address], [place] [address] July, [facility] [address] [id number] [address] [place] [address], [place] [address] Jun, [facility] [address] [id number] [address] [place] [address], [place] [address] May, [facility] [address] [id number] [address] [place] [address], [place] [address] May, [facility] [address] [id number] [address] [place] [address], [place] [address] May, [facility] [address] [id number] [address] [place] [address], [place] [address] May, [facility] [address] [id number] [address] [place] [address], [place] [address] Apr, [facility] [address] [id number] [address] [place] [address], [place] [address] Apr, [facility] [address] [id number] [address] [place] [address], [place] [address] Apr, [facility] [address] [id number] [address] [place] [address], [place] [address] Apr, [facility] [address] [id number] [address] [place] [address], [place] [address] Apr, [facility] [address] [id number] [address] [place] [address], [place] [address] Apr, [facility] [address] [id number] [address] [place] [address], [place] [address] Feb, [facility] [address] [id number] [address] [place] [address], [place] [address] Feb, [facility] [address] [id number] [address] [place] [address] [address] Jan, [facility] [address] [id number] [address] [place] [address], [place] [address] Jan, [facility] [address] [id number] [address] [place] [address], [place] [address] Jan, [facility] [address] [id number] [address] [place] [address], [place] [address] Dec, [facility] [address] [id number] [address] [place] [address], [place] [address] Dec, [facility] [address] [id number] [address] [place] [address], [place] [address] Dec, [facility] [address] [id number] [address] [place] [address], [place] [address] Dec, [facility] [address] [id number] [address] [place] [address], [place] [address] Oct, [facility] [address] [id number] [address] [place] [address], [place] [address] Oct, [facility] [address] [id number] [address] [place] [address], [place] [address] Nov, [facility] [address] [id number] [address] [place] [address], [place] [address] Oct, [facility] [address] [id number] [address] [place] [address], [place] [address] Oct, [facility] [address] [id number] [address] [place] [address], [place] [address] Aug, [facility] [address] [id number] [address] [place] [address], [place] [address] Aug, [facility] [address] [id number] [address] [place] [address], [place] [address] July, [facility] [address] [id number] [address] [place] [address], [place] [address] Jun, [facility] [address] [id number] [address] [place] [address] Jun, [facility] [address] [id number] [address] [place] [address] Jun, [facility] [address] [id number] [address] [place] [address] Feb, [facility] [address] [id number] [address] [place] [address] Feb, [facility] [address] [id number] [address] [place] [address] Feb, [facility] [address] [id number] [address] [place] [address] Jan, [facility] [address] [id number] [address] [place] [address] Jan, [facility] [address] [id number] [address] [place] [address] Jan, [facility] [address] [id number] [address] [place] [address] Dec, [facility] [address] [id number] [address] [place] [address] Dec, [facility] [address] [id number] [address] [place] [address] Mar, [facility] [address] [id number] [address] [place] [address] Jan, IMMUNIZATIONS No Known Immunizations SOCIAL HISTORY Never Assessed REASON FOR VISIT Mammo order changed PLAN OF CARE VITAL SIGNS MEDICATIONS No Known Medications RESULTS Name Result Date Reference Range Mammogram Dx, Bilateral 2017-06-14 PROCEDURES No Known procedures INSTRUCTIONS MEDICATIONS ADMINISTERED [...]
--- OUTSIDE RECORDS SUMMARY | 2019-05-16 07:01 | XMS REPORT ---
Author Author Marian Barrera Doctor Organization [facility] Address Unknown Phone Unavailable Care Team Providers Care Bushing And Broach Operator Name Role Phone Migration, Doctor Unavailable Unavailable PROBLEMS Type Condition ICD9-CM Code [id number] Code Onset Dates Condition S tatus SNOMED Code Problem Pure hypercholesterolemia E78.0 Acti ve 48003026 Problem Prediabetes R73.09 Active 70896680 2 Problem Polyarthralgia M25.50 Active 01306 005 Problem Hypertension I10 Active 3039642 3 Problem Abnormal mammogram R92.8 Active 1 16896780 Problem BMI 39.0-39.9,adult Z68.39 Active 858800461 Problem Enlarged lymph node R59.9 Active 78667358 Problem Abnormal uterine bleeding N93.9 Acti ve [id number] Problem COPD (chronic obstructive pulmonary disease) J44.9 Active 48445680 Problem Primary osteoarthritis of right hip M16.11 Active 121259401 Problem Dyshidrotic eczema L30.1 Active 4 07976780 Problem Right sided sciatica M54.31 Active 88792830 Problem Obesity (BMI 30-39.9) E66.9 Active 900263546 ALLERGIES No Information ENCOUNTERS Encounter Location Date Diagnosis [facility] [address] [id number] [address] [place] [phone] July, [facility] [address] [id number] [address] [place] [phone] May, Viral upper respiratory infe ction J06.9 [facility] [address] [facility] [id number] [address] [place] [phone] Aug, Bronchitis J40 [facility] [address] [facility] [id number] [address] [place] [address] Aug, [facility] [address] [id number] [address] [place] [id number] Jun, Abnormal mammogram R92.8 [place] [address] [place] [address] [id number] [address] [place] [phone] Jun, Abnormal mammogram R92.8 [place] [address] [address] May, [place] [address] [address] May, Well woman exam Z01.419 ; Pa in of left hand M79.642 ; Pain in right hand M79.641 ; Abnormal uterine bleeding N93.9 and BMI 39.0-39.9,adult Z68.39 [place] [address] [address] Dec, Hypertension I10 ; BMI 39.0- 39.9,adult Z68.39 and Obesity (BMI 30- 39.9) E66.9 [facility] [place] [address] [address] Oct, Asthma exacerbation J45.901 [place] [address] [address] Oct, Right sided sciatica M54.31 [facility] [place] [address] [address] Sep, Acute seasonal allergic rhin itis, unspecified trigger J30.2 [place] [address] [address] Aug, Primary osteoarthritis of ri ght hip M16.11 ; Prediabetes R73.09 ; Precordial pain R07.2 ; Hypertension I10 and Skin lesion L98.9 [place] [address] [address] Aug, Hypertension I10 [facility] [place] [address] [address] July, Sore throat J02.9 and Acute upper respiratory infection, unspecified J06.9 [facility] [id number] [place] [id number] 14 Apr, 2016 Acute bacterial conjunctivit is of right eye H10.31 [facility] [id number] [address] [place] [id number] 06 Mar, 2016 Primary osteoarthritis of ri ght hip M16.11 [facility] [address] [address] Nov, Hypertension I10 and Pure hy percholesterolemia E78.0 [place] [address] [id number] [place] [address] Oct, Hypertension I10 ; Pure hype rcholesterolemia E78.0 ; Dyshidrotic eczema L30.1 and Primary osteoarthritis of right hip M16.11 [place] [address] [address] 29 Aug, 2015 Hypertension I10 [place] [address] [address] Aug, Weight gain R63.5 [place] [address] [address] Aug, [place] [address] [address] Aug, Bilateral ovarian cysts N83. 20 and Abnormal mammogram R92.8 [place] [address] [address] Jun, Abnormal mammogram R92.8 and Enlarged lymph nodes in armpit R59.0 [place] [address] [address] Jun, Enlarged lymph node R59.9 ; Bilateral ovarian cysts N83.20 and Polyarthralgia M25.50 [place] [address] [address] May, Bilateral ovarian cysts N83. 20 [place] [address] [place] [id number] [address] [place] [id number] 24 May, 2015 Screening for malignant neop lasm of breast Z12.39 and Enlarged lymph node R59.9 [place] [address] [id number] [place] [address] 16 May, 2015 [place] [address] [address] 14 May, 2015 Well woman exam Z01.419 [...] of breast Z12.39 and Subclinical hypothyroidism E03.9 [place] [address] [address] 04 May, 2015 Tinea pedis B35.3 and Metror rhagia N92.[address] [address] Mar, Onychomycosis B35.1 and Nail ingrowing L60.0 [place] [address] [address] Jan, Subclinical hypothyroidism E 03.9 [place] [address] [id number] [address] [place] [id number] Dec, Pain in joint, pain in unspe cified joint M25.50 [place] [address] [id number] [address] [place] [address] Dec, Pain in joint, pain in unspe cified joint M25.50 [place] [address] [address] Dec, Pain in joint, pain in unspe cified joint M25.50 [facility] [address] [id number] [address] [place] [address] 25 Nov, 2014 Hypertension 401.9 [facility] [address] [id number] [address] [place] [phone] 18 Nov, 2014 [facility] [address] [facility] [id number] [address] [place] [phone] 15 Nov, 2014 Chronic airway obstruction, not elsewhere classified 496 and Hypertension 401.9 [facility] [address] [id number] [address] [place] [id number] Oct, Dental examination V72.2 [facility] [address] [facility] [id number] [address] [place] [id number] 30 Aug, 2014 Onychomycosis 110.1 and Ingr own nail 703.0 [facility] [address] [facility] [id number] [address] [place] [id number] Aug, [facility] [address] [id number] [address] [place] [id number] 08 Aug, 2014 Onychomycosis 110.1 and Nail , ingrown 703.0 [facility] [address] [facility] [id number] [address] [place] [id number] 14 Jun, 2014 [facility] [address] [facility] [id number] [address] [place] [id number] Jun, [facility] [address] [facility] [id number] [address] [place] [phone] May, [facility] [address] [facility] [id number] [address] [place] [id number] May, [facility] [address] [facility] [id number] [address] [place] [phone] Apr, [facility] [address] [facility] [id number] [address] [place] [phone] Apr, [facility] [address] [id number] [address] [place] [address], [place] [address] Apr, [facility] [address] [id number] [address] [place] [address], [place] [address] Apr, [facility] [address] [id number] [address] [place] [address], [place] [address] Mar, [facility] [address] [id number] [address] [place] [address], [place] [address] Mar, [facility] [address] [id number] [address] [place] [address], [place] [address] Feb, [facility] [address] [id number] [address] [place] [address], [place] [address] Jan, [facility] [address] [id number] [address] [place] [address], [place] [address] Jan, [facility] [address] [id number] [address] [place] [address], [place] [address] Aug, [facility] [address] [id number] [address] [place] [address], [place] [address] Aug, [facility] [address] [id number] [address] [place] [address], [place] [address] Aug, [facility] [address] [id number] [address] [place] [address], [place] [address] Aug, [facility] [address] [id number] [address] [place] [address], [place] [address] July, [facility] [address] [id number] [address] [place] [address], [place] [address] July, [facility] [address] [id number] [address] [place] [address], [place] [address] July, [facility] [address] [id number] [address] [place] [address], [place] [address] July, [facility] [address] [id number] [address] [place] [address], [place] [address] July, [facility] [address] [id number] [address] [place] [address], [place] [address] July, [facility] [address] [id number] [address] [place] [address], [place] [address] July, [facility] [address] [id number] [address] [place] [address], [place] [address] July, [facility] [address] [id number] [address] [place] [address], [place] [address] Jun, [facility] [address] [id number] [address] [place] [address], [place] [address] May, [facility] [address] [id number] [address] [place] [address], [place] [address] May, [facility] [address] [id number] [address] [place] [address], [place] [address] May, [facility] [address] [id number] [address] [place] [address], [place] [address] May, [facility] [address] [id number] [address] [place] [address], [place] [address] Apr, [facility] [address] [id number] [address] [place] [address], [place] [address] Apr, [facility] [address] [id number] [address] [place] [address], [place] [address] Apr, [facility] [address] [id number] [address] [place] [address], [place] [address] Apr, [facility] [address] [id number] [address] [place] [address], [place] [address] Apr, [facility] [address] [id number] [address] [place] [address], [place] [address] Apr, [facility] [address] [id number] [address] [place] [address], [place] [address] Feb, [facility] [address] [id number] [address] [place] [address], [place] [address] Feb, [facility] [address] [id number] [address] [place] [address], [place] [address] Jan, [facility] [address] [id number] [address] [place] [address], [place] [address] Jan, [facility] [address] [id number] [address] [place] [address], [place] [address] Jan, [facility] [address] [id number] [address] [place] [address], [place] [address] Dec, [facility] [address] [id number] [address] [place] [address], [place] [address] Dec, [facility] [address] [id number] [address] [place] [address], [place] [address] Dec, [facility] [address] [id number] [address] [place] [address], [place] [address] Dec, [facility] [address] [id number] [address] [place] [address], [place] [address] Oct, [facility] [address] [id number] [address] [place] [address], [place] [address] Oct, [facility] [address] [id number] [address] [place] [address], [place] [address] Nov, [facility] [address] [id number] [address] [place] [address], [place] [address] Oct, [facility] [address] [id number] [address] [place] [address], [place] [address] Oct, [facility] [address] [id number] [address] [place] [address], [place] [address] Aug, [facility] [address] [id number] [address] [place] [address], [place] [address] Aug, [facility] [address] [id number] [address] [place] [address], [place] [address] July, [facility] [address] [id number] [address] [place] [address] Jun, [facility] [address] [id number] [address] [place] [address] Jun, [facility] [address] [id number] [address] [place] [address] Jun, [facility] [address] [id number] [address] [place] [address] Feb, [facility] [address] [id number] [address] [place] [address] Feb, [facility] [address] [id number] [address] [place] [address] Feb, [facility] [address] [id number] [address] [place] [address] Jan, [facility] [address] [id number] [address] [place] [address] Jan, [facility] [address] [id number] [address] [place] [address] Jan, [facility] [address] [id number] [address] [place] [address] Dec, [facility] [address] [id number] [address] [place] [address] Dec, [facility] [address] [id number] [address] [place] [phone] Mar, [facility] [address] [id number] [address] [place] [phone] Jan, IMMUNIZATIONS No Known Immunizations SOCIAL HISTORY Never Assessed REASON FOR VISIT EMR[place] CARE VITAL SIGNS MEDICATIONS Medication Instructions Dosage Frequency Start Date End Date Duration S tatus Tylenol Extra Strength 500 mg take 2 tab lets (1,000 mg) by oral route every 6 hours as needed Aug, Active Zantac 150 mg take 1 tablet (150 mg) by oral route 2 t imes per day Dec, Active Metoprolol Tartrate 50 mg take 1 tablet (50 mg) by oral route 2 times per day with meals Apr, Active Albuterol Sulfate 90 mcg/actuation 2 Puffs by In halation route every 6 hours July, Active Ibuprofen 200 mg 2 Tablet every 8 hours PRN Oct, Active Flexeril 10 mg 1 tablet by Oral route 3 times per day PRN muscle spasm May, Active Bystolic 10 mg 1 tablet by Oral route 1 time per day f or 30 day(s) Oct, Active PredniSONE 10 mg 1 tablet by Oral route 2 times per da y for 5 day(s) Oct, Active tramadol 50 mg take 1 tablet (50 mg) by oral ro mike every 4-6 hours as needed July, Active RESULTS No Results PROCEDURES No Known [...]
--- OUTSIDE RECORDS SUMMARY | 2019-05-16 07:01 | XMS REPORT ---
Author Author Marian PAULSON [place] Organization [facility] Address [address] [place] [address] Care Team Providers Care Composition Roofer Name Role Phone NARGIS PAULSONY Unavailable PROBLEMS Type Condition ICD9-CM Code EMX19-BI Code Onset Dates Condition S tatus SNOMED Code Problem Polyarthralgia M25.50 Active 34919 005 Problem Abnormal mammogram R92.8 Active 1 02855692 Problem Hypertension I10 Active 0295296 3 Problem Prediabetes R73.09 Active 08859095 2 Problem Pure hypercholesterolemia E78.0 Acti ve 76451658 Problem COPD (chronic obstructive pulmonary disease) J44.9 Active 56925658 Problem Enlarged lymph node R59.9 Active 72902844 Problem Abnormal uterine bleeding N93.9 Acti ve [id number] Problem BMI 39.0-39.9,adult Z68.39 Active 366194864 Problem Dyshidrotic eczema L30.1 Active 4 85086829 Problem Primary osteoarthritis of right hip M16.11 Active 038764669 Problem Obesity (BMI 30-39.9) E66.9 Active 829527259 Problem Right sided sciatica M54.31 Active 03346725 ALLERGIES No Information ENCOUNTERS Encounter Location Date Diagnosis [facility] [address] [facility] [id number] [address] [place] [phone] Aug, Bronchitis J40 [facility] [address] [facility] [id number] [address] [place] [address] Aug, [facility] [address] [facility] [id number] [address] [place] [phone] Jun, Abnormal mammogram R92.8 [facility] [address] [facility] [id number] [address] [place] [phone] Jun, Abnormal mammogram R92.8 [facility] [address] [address] May, [place] [address] [address] May, Well woman exam Z01.419 ; Pa in of left hand M79.642 ; Pain in right hand M79.641 ; Abnormal uterine bleeding N93.9 and BMI 39.0-39.9,adult Z68.39 [place] [address] [address] Dec, Hypertension I10 ; BMI 39.0- 39.9,adult Z68.39 and Obesity (BMI 30- 39.9) E66.9 [facility] [address] [address] Oct, Asthma exacerbation J45.[address] [address] Oct, Right sided sciatica M54.31 [facility] [address] [address] Sep, Acute seasonal allergic rhin itis, unspecified trigger J30.[address] [address] Aug, Primary osteoarthritis of ri ght hip M16.11 ; Prediabetes R73.09 ; Precordial pain R07.2 ; Hypertension I10 and Skin lesion L98.9 [place] [address] [address] Aug, Hypertension I10 [facility] [address] [address] July, Sore throat J02.9 and Acute upper respiratory infection, unspecified J06.9 [facility] [address] [place] [address] 14 Apr, 2016 Acute bacterial conjunctivit is of right eye H10.31 [place] [address] [facility] [id number] [address] [place] [phone] Mar, Primary osteoarthritis of ri ght hip M16.11 [place] [address] [facility] [id number] [address] [place] [address] Nov, Hypertension I10 and Pure hy percholesterolemia E78.0 [place] [address] [facility] [id number] [address] [place] [phone] Oct, Hypertension I10 ; Pure hype rcholesterolemia E78.0 ; Dyshidrotic eczema L30.1 and Primary osteoarthritis of right hip M16.11 [place] [address] [facility] [id number] [address] [place] [phone] Aug, Hypertension I10 [place] [address] [address] [place] [id number] [address] [place] [address] Aug, Weight gain R63.5 [place] [address] [address] [place] [id number] [address] [place] [phone] 17 Aug, 2015 [place] [id number] [place] [phone] 15 Aug, 2015 Abnormal mammogram R92.8 and Bilateral ovarian cysts N83.20 [place] [address] [address] [place] [id number] [address] [place] [phone] Jun, Abnormal mammogram R92.8 and Enlarged lymph nodes in armpit R59.0 [place] [address] [address] [place] [id number] [address] [place] [phone] Jun, Enlarged lymph node R59.9 ; Bilateral ovarian cysts N83.20 and Polyarthralgia M25.50 [place] [address] [facility] [id number] [address] [place] [phone] May, Bilateral ovarian cysts N83. 20 [place] [address] [address] [place] [id number] [address] [place] [phone] May, Screening for malignant neop lasm of breast Z12.39 and Enlarged lymph node R59.9 [place] [address] [facility] [id number] [address] [place] [address] 16 May, 2015 [place] [address] [facility] [id number] [address] [place] [phone] 14 May, 2015 Well woman exam Z01.419 [...] of breast Z12.39 and Subclinical hypothyroidism E03.9 [place] [address] [address] [place] [id number] [address] [place] [id number] 04 May, 2015 Tinea pedis B35.3 and Metror rhagia N92.1 [place] [address] [address] [place] [id number] [address] [place] [phone] Mar, Onychomycosis B35.1 and Nail ingrowing L60.0 [place] [address] [facility] [id number] [address] [place] [phone] Jan, Subclinical hypothyroidism E 03.9 [place] [address] [facility] [id number] [address] [place] [id number] Dec, Pain in joint, pain in unspe cified joint M25.50 [place] [address] [facility] [id number] [address] [place] [phone] Dec, Pain in joint, pain in unspe cified joint M25.50 [place] [address] [facility] [id number] [address] [place] [phone] Dec, Pain in joint, pain in unspe cified joint M25.50 [place] [address] [address] [place] [id number] [address] [place] [phone] Nov, Hypertension 401.9 [facility] [address] [id number] [address] [place] [phone] 18 Nov, 2014 [facility] [address] [id number] [address] [place] [phone] 15 Nov, 2014 Chronic airway obstruction, not elsewhere classified 496 and Hypertension 401.9 [facility] [address] [id number] [address] [place] [id number] Oct, Dental examination V72.2 [facility] [address] [id number] [address] [place] [phone] 30 Aug, 2014 Onychomycosis 110.1 and Ingr own nail 703.0 [facility] [address] [id number] [address] [place] [phone] Aug, [facility] [address] [id number] [address] [place] [phone] Aug, Onychomycosis 110.1 and Nail , ingrown 703.0 [facility] [address] [id number] [address] [place] [phone] Jun, [facility] [address] [id number] [address] [place] [phone] Jun, [facility] [address] [facility] [id number] [address] [place] [phone] May, [facility] [address] [id number] [address] [place] [phone] May, [facility] [address] [id number] [address] [place] [phone] Apr, [facility] [address] [id number] [address] [place] [phone] Apr, [facility] [address] [id number] [address] [place] [phone] Apr, [facility] [address] [facility] [id number] [address] [place] [phone] Apr, [facility] [address] [id number] [address] [place] [address], [place] [address] Mar, [facility] [address] [id number] [address] [place] [address], [place] [address] Mar, [facility] [address] [id number] [address] [place] [address], [place] [address] Feb, [facility] [address] [id number] [address] [place] [address], [place] [address] Jan, [facility] [address] [id number] [address] [place] [address], [place] [address] Jan, [facility] [address] [id number] [address] [place] [address], [place] [address] Aug, [facility] [address] [id number] [address] [place] [address], [place] [address] Aug, [facility] [address] [id number] [address] [place] [address], [place] [address] Aug, [facility] [address] [id number] [address] [place] [address], [place] [address] Aug, [facility] [address] [id number] [address] [place] [address], [place] [address] July, [facility] [address] [id number] [address] [place] [address], [place] [address] July, [facility] [address] [id number] [address] [place] [address], [place] [address] July, [facility] [address] [id number] [address] [place] [address], [place] [address] July, [facility] [address] [id number] [address] [place] [address], [place] [address] July, [facility] [address] [id number] [address] [place] [address], [place] [address] July, [facility] [address] [id number] [address] [place] [address], [place] [address] July, [facility] [address] [id number] [address] [place] [address], [place] [address] July, [facility] [address] [id number] [address] [place] [address], [place] [address] Jun, [facility] [address] [id number] [address] [place] [address], [place] [address] May, [facility] [address] [id number] [address] [place] [address], [place] [address] May, [facility] [address] [id number] [address] [place] [address], [place] [address] May, [facility] [address] [id number] [address] [place] [address], [place] [address] May, [facility] [address] [id number] [address] [place] [address], [place] [address] Apr, [facility] [address] [id number] [address] [place] [address], [place] [address] Apr, [facility] [address] [id number] [address] [place] [address], [place] [address] Apr, [facility] [address] [id number] [address] [place] [address], [place] [address] Apr, [facility] [address] [id number] [address] [place] [address], [place] [address] Apr, [facility] [address] [id number] [address] [place] [address], [place] [address] Apr, [facility] [address] [id number] [address] [place] [address], [place] [address] Feb, [facility] [address] [id number] [address] [place] [address], [place] [address] Feb, [facility] [address] [id number] [address] [place] [address], [place] [address] Jan, [facility] [address] [id number] [address] [place] [address], [place] [address] Jan, [facility] [address] [id number] [address] [place] [address], [place] [address] Jan, [facility] [address] [id number] [address] [place] [address], [place] [address] Dec, [facility] [address] [id number] [address] [place] [address], [place] [address] Dec, [facility] [address] [id number] [address] [place] [address], [place] [address] Dec, [facility] [address] [id number] [address] [place] [address], [place] [address] Dec, [facility] [address] [id number] [address] [place] [address], [place] [address] Oct, [facility] [address] [id number] [address] [place] [address], [place] [address] Oct, [facility] [address] [id number] [address] [place] [address], [place] [address] Nov, [facility] [address] [id number] [address] [place] [address], [place] [address] Oct, [facility] [address] [id number] [address] [place] [address], [place] [address] Oct, [facility] [address] [id number] [address] [place] [address], [place] [address] Aug, [facility] [address] [id number] [address] [place] [address], [place] [address] Aug, [facility] [address] [id number] [address] [place] [address], [place] [address] July, [facility] [address] [id number] [address] [place] [address], [place] [address] Jun, [facility] [address] [id number] [address] [place] [id number] Jun, [facility] [address] [id number] [address] [place] [phone] Jun, [facility] [address] [id number] [address] [place] [phone] Feb, [facility] [address] [id number] [address] [place] [phone] Feb, [facility] [address] [id number] [address] [place] [address] Feb, [facility] [address] [id number] [address] [place] [phone] Jan, [facility] [address] [id number] [address] [place] [phone] Jan, [facility] [address] [id number] [address] [place] [phone] Jan, [facility] [address] [id number] [address] [place] [phone] Dec, [facility] [address] [id number] [address] [place] [address] Dec, [facility] [address] [id number] [address] [place] [phone] Mar, [facility] [address] [id number] [address] [place] [phone] Jan, IMMUNIZATIONS No Known Immunizations SOCIAL HISTORY Never Assessed REASON FOR VISIT Pap Results History update PLAN OF CARE VITAL SIGNS MEDICATIONS No Known Medications RESULTS No Results [...]
--- OUTSIDE RECORDS SUMMARY | 2019-05-16 07:01 | XMS REPORT ---
Author Author Marian PAULSON [place] Organization [facility] Address [address] [place] [address] Care Team Providers Care Artificial Inseminator Name Role Phone NARGIS PAULSONY Unavailable PROBLEMS Type Condition ICD9-CM Code ZUV59-KE Code Onset Dates Condition S tatus SNOMED Code Problem Polyarthralgia M25.50 Active 73289 005 Problem Abnormal mammogram R92.8 Active 1 37529436 Problem Hypertension I10 Active 7640889 3 Problem Prediabetes R73.09 Active 73069083 2 Problem Pure hypercholesterolemia E78.0 Acti ve 84994352 Problem COPD (chronic obstructive pulmonary disease) J44.9 Active 75409793 Problem Enlarged lymph node R59.9 Active 09813001 Problem Abnormal uterine bleeding N93.9 Acti ve [id number] Problem BMI 39.0-39.9,adult Z68.39 Active 919593223 Problem Dyshidrotic eczema L30.1 Active 4 57498385 Problem Primary osteoarthritis of right hip M16.11 Active 454506236 Problem Obesity (BMI 30-39.9) E66.9 Active 201925183 Problem Right sided sciatica M54.31 Active 27513068 ALLERGIES Substance Reaction Event Type Date Status Codeine Sulfate anaphylaxis Drug Allergy Aug, Active ENCOUNTERS Encounter Location Date Diagnosis [facility] [address] [facility] [id number] [address] [place] [address] Aug, Bronchitis J40 [facility] [address] [facility] [id number] [address] [place] [address] Aug, [facility] [address] [facility] [id number] [address] [place] [address] Jun, Abnormal mammogram R92.8 [facility] [address] [facility] [id number] [address] [place] [address] Jun, Abnormal mammogram R92.8 [place] [address] [address] May, [place] [address] [address] May, Well woman exam Z01.419 ; Pa in of left hand M79.642 ; Pain in right hand M79.641 ; Abnormal uterine bleeding N93.9 and BMI 39.0-39.9,adult Z68.39 [place] [address] [address] Dec, Hypertension I10 ; BMI 39.0- 39.9,adult Z68.39 and Obesity (BMI 30- 39.9) E66.9 [facility] [address] [address] Oct, Asthma exacerbation J45.[address] [address] Oct, Right sided sciatica M54.31 [facility] [address] [address] Sep, Acute seasonal allergic rhin itis, unspecified trigger J30.[address] [address] Aug, Primary osteoarthritis of ri ght hip M16.11 ; Prediabetes R73.09 ; Precordial pain R07.2 ; Hypertension I10 and Skin lesion L98.9 [place] [address] [address] Aug, Hypertension I10 [facility] [address] [address] July, Sore throat J02.9 and Acute upper respiratory infection, unspecified J06.9 [facility] [address] [address] Apr, Acute bacterial conjunctivit is of right eye H10.31 [place] [address] [address] Mar, Primary osteoarthritis of ri ght hip M16.11 [place] [address] [address] [place] [id number] [address] [place] [address] Nov, Hypertension I10 and Pure hy percholesterolemia E78.0 [place] [address] [address] Oct, Hypertension I10 ; Pure hype rcholesterolemia E78.0 ; Dyshidrotic eczema L30.1 and Primary osteoarthritis of right hip M16.11 [place] [address] [address] 29 Aug, 2015 Hypertension I10 [place] [address] [address] Aug, Weight gain R63.5 [place] [address] [address] 17 Aug, 2015 [place] [address] [address] Aug, Bilateral ovarian cysts N83. 20 and Abnormal mammogram R92.8 [place] [address] [address] Jun, Abnormal mammogram R92.8 and Enlarged lymph nodes in armpit R59.0 [place] [address] [address] [place] [id number] [address] [place] [address] Jun, Enlarged lymph node R59.9 ; Bilateral ovarian cysts N83.20 and Polyarthralgia M25.50 [place] [address] [address] [place] [id number] [address] [place] [address] May, Bilateral ovarian cysts N83. 20 [place] [address] [address] 24 May, 2015 Screening for malignant neop lasm of breast Z12.39 and Enlarged lymph node R59.9 [place] [address] [id number] [address] [place] [address] 16 May, 2015 [place] [address] [id number] [address] [place] [address] 14 May, 2015 Well woman exam Z01.419 [...] of breast Z12.39 and Subclinical hypothyroidism E03.9 [place] [address] [id number] [address] [place] [address] 04 May, 2015 Tinea pedis B35.3 and Metror rhagia N92.1 [place] [address] [id number] [address] [place] [address] Mar, Onychomycosis B35.1 and Nail ingrowing L60.0 [place] [address] [id number] [address] [place] [address] Jan, Subclinical hypothyroidism E 03.9 [place] [address] [id number] [address] [place] [address] Dec, Pain in joint, pain in unspe cified joint M25.50 [place] [address] [id number] [address] [place] [address] Dec, Pain in joint, pain in unspe cified joint M25.50 [place] [address] [id number] [address] [place] [address] Dec, Pain in joint, pain in unspe cified joint M25.50 [place] [address] [id number] [address] [place] [address] 25 Nov, 2014 Hypertension 401.9 [facility] [address] [id number] [address] [place] [address] 18 Nov, 2014 [facility] [address] [facility] [id number] [address] [place] [address] 15 Nov, 2014 Chronic airway obstruction, not elsewhere classified 496 and Hypertension 401.9 [facility] [address] [id number] [address] [place] [id number] Oct, Dental examination V72.2 [facility] [address] [facility] [id number] [address] [place] [address] 30 Aug, 2014 Onychomycosis 110.1 and Ingr own nail 703.0 [facility] [address] [facility] [id number] [address] [place] [address] Aug, [facility] [address] [facility] [id number] [address] [place] [address] 08 Aug, 2014 Onychomycosis 110.1 and Nail , ingrown 703.0 [facility] [address] [id number] [address] [place] [address] Jun, [facility] [address] [facility] [id number] [address] [place] [address] Jun, [facility] [address] [facility] [id number] [address] [place] [address] May, [facility] [address] [facility] [id number] [address] [place] [address] May, [facility] [address] [facility] [id number] [address] [place] [address] Apr, [facility] [address] [facility] [id number] [address] [place] [address] Apr, [facility] [address] [facility] [id number] [address] [place] [address] Apr, [facility] [address] [id number] [address] [place] [address], [place] [address] Apr, [facility] [address] [id number] [address] [place] [address], [place] [address] Mar, [facility] [address] [id number] [address] [place] [address], [place] [address] Mar, [facility] [address] [id number] [address] [place] [address], [place] [address] Feb, [facility] [address] [id number] [address] [place] [address], [place] [address] Jan, [facility] [address] [id number] [address] [place] [address], [place] [address] Jan, [facility] [address] [id number] [address] [place] [address], [place] [address] Aug, [facility] [address] [id number] [address] [place] [address], [place] [address] Aug, [facility] [address] [id number] [address] [place] [address], [place] [address] Aug, [facility] [address] [id number] [address] [place] [address], [place] [address] Aug, [facility] [address] [id number] [address] [place] [address], [place] [address] July, [facility] [address] [id number] [address] [place] [address], [place] [address] July, [facility] [address] [id number] [address] [place] [address], [place] [address] July, [facility] [address] [id number] [address] [place] [address], [place] [address] July, [facility] [address] [id number] [address] [place] [address], [place] [address] July, [facility] [address] [id number] [address] [place] [address], [place] [address] July, [facility] [address] [id number] [address] [place] [address], [place] [address] July, [facility] [address] [id number] [address] [place] [address], [place] [address] July, [facility] [address] [id number] [address] [place] [address], [place] [address] Jun, [facility] [address] [id number] [address] [place] [address], [place] [address] May, [facility] [address] [id number] [address] [place] [address], [place] [address] May, [facility] [address] [id number] [address] [place] [address], [place] [address] May, [facility] [address] [id number] [address] [place] [address], [place] [address] May, [facility] [address] [id number] [address] [place] [address], [place] [address] Apr, [facility] [address] [id number] [address] [place] [address], [place] [address] Apr, [facility] [address] [id number] [address] [place] [address], [place] [address] Apr, [facility] [address] [id number] [address] [place] [address], [place] [address] Apr, [facility] [address] [id number] [address] [place] [address], [place] [address] Apr, [facility] [address] [id number] [address] [place] [address], [place] [address] Apr, [facility] [address] [id number] [address] [place] [address], [place] [address] Feb, [facility] [address] [id number] [address] [place] [address], [place] [address] Feb, [facility] [address] [id number] [address] [place] [address], [place] [address] Jan, [facility] [address] [id number] [address] [place] [address], [place] [address] Jan, [facility] [address] [id number] [address] [place] [address], [place] [address] Jan, [facility] [address] [id number] [address] [place] [address], [place] [address] Dec, [facility] [address] [id number] [address] [place] [address], [place] [address] Dec, [facility] [address] [id number] [address] [place] [address], [place] [address] Dec, [facility] [address] [id number] [address] [place] [address], [place] [address] Dec, [facility] [address] [id number] [address] [place] [address], [place] [address] Oct, [facility] [address] [id number] [address] [place] [address], [place] [id number] Oct, [facility] [address] [id number] [address] [place] [address], [place] [address] Nov, [facility] [address] [id number] [address] [place] [address], [place] [address] Oct, [facility] [address] [id number] [address] [place] [address], [place] [address] Oct, [facility] [address] [id number] [address] [place] [address], [place] [address] Aug, [facility] [address] [id number] [address] [place] [address], [place] [address] Aug, [facility] [address] [id number] [address] [place] [address], [place] [address] July, [facility] [address] [id number] [address] [place] [address], [place] [address] Jun, [facility] [address] [id number] [address] [place] [address] Jun, [facility] [address] [id number] [address] [place] [address] Jun, [facility] [address] [id number] [address] [place] [address] Feb, [facility] [address] [id number] [address] [place] [address] Feb, [facility] [address] [id number] [address] [place] [address] Feb, [facility] [address] [id number] [address] [place] [address] Jan, [facility] [address] [id number] [address] [place] [address] Jan, [facility] [address] [id number] [address] [place] [address] Jan, [facility] [address] [id number] [address] [place] [address] Dec, [facility] [address] [id number] [address] [place] [address] Dec, [facility] [address] [id number] [address] [place] [address] Mar, [facility] [address] [id number] [address] [place] [address] Jan, IMMUNIZATIONS No Known Immunizations SOCIAL HISTORY Never Assessed REASON FOR VISIT sosre throat x 3 days, temp max 100.9-----DBennettRN PLAN OF CARE Activity Details Follow Up prn Reason: VITAL SIGNS Height 69 in 2017-08-28 Weight 266 lbs 2017-08-28 Temperature 98.4 degrees Fahrenheit 2017-08-28 Heart Rate 90 bpm 2017-08-28 Respiratory Rate 20 2017-08-28 BMI 39.28 kg/m2 2017-08-28 Blood pressure systolic 134 mmHg 2017-08-28 Blood pressure diastolic 90 mmHg 2017-08-28 MEDICATIONS Medication Instructions Dosage Frequency Start Date End Date Duration S tatus Cetirizine HCl 10 MG Orally Once a day 1 tablet 24h Active Ibuprofen 200 mg 2 Tablet every 8 hours PRN Oct, Active Lisinopril 10 mg Orally Once a day 1 tablet 24h 90 d ays Active Tessalon Perles 100 mg Orally Three times a day 1 capsule as needed 8h Aug, Sep, 10 days Active Tylenol Extra Strength 500 mg take 2 tab lets (1,000 mg) by oral route every 6 hours as needed Aug, Active Metoprolol Tartrate 50 mg Orally Twice a day 1 tablet with food 12h 90 days Active Fluticasone Propionate 50 MCG/ACT Nasally Twice a day 1 spray in each nostril 12h Sep, 30 day(s) Not-Taking Benadryl 25 MG Orally every 6 hrs 1 tablet as needed 6h Active Zantac 150 mg take 1 tablet (150 mg) by oral route 2 t imes per day Dec, Active RESULTS No Results PROCEDURES No Known [...]
--- OUTSIDE RECORDS SUMMARY | 2019-05-16 07:01 | XMS REPORT ---
Author Author Marian PAULSON [place] Organization [facility] Address [address] [place] [address] Care Team Providers Care Precipitator Name Role Phone NARGIS PAULSONY Unavailable PROBLEMS Type Condition ICD9-CM Code [id number] Code Onset Dates Condition S tatus SNOMED Code Problem Polyarthralgia M25.50 Active 68061 005 Problem Abnormal mammogram R92.8 Active 1 65670517 Problem Hypertension I10 Active 3744714 3 Problem Prediabetes R73.09 Active 15498545 2 Problem Pure hypercholesterolemia E78.0 Acti ve 02702702 Problem COPD (chronic obstructive pulmonary disease) J44.9 Active 91668358 Problem Enlarged lymph node R59.9 Active 20592958 Problem Abnormal uterine bleeding N93.9 Acti ve [id number] Problem BMI 39.0-39.9,adult Z68.39 Active 221327792 Problem Dyshidrotic eczema L30.1 Active 4 23912953 Problem Primary osteoarthritis of right hip M16.11 Active 979019829 Problem Obesity (BMI 30-39.9) E66.9 Active 898712951 Problem Right sided sciatica M54.31 Active 66549836 ALLERGIES No Information ENCOUNTERS Encounter Location Date Diagnosis [facility] [address] [facility] [id number] [address] [place] [address] Aug, Bronchitis J40 [facility] [address] [facility] [id number] [address] [place] [address] Aug, [facility] [address] [facility] [id number] [address] [place] [address] Jun, Abnormal mammogram R92.8 [facility] [address] [facility] [id number] [address] [place] [address] Jun, Abnormal mammogram R92.8 [facility] [address] [address] May, [place] [address] [address] May, Well woman exam Z01.419 ; Pa in of left hand M79.642 ; Pain in right hand M79.641 ; Abnormal uterine bleeding N93.9 and BMI 39.0-39.9,adult Z68.39 [place] [address] [address] Dec, Hypertension I10 ; BMI 39.0- 39.9,adult Z68.39 and Obesity (BMI 30- 39.9) E66.9 [facility] [address] [address] Oct, Asthma exacerbation J45.[address] [address] Oct, Right sided sciatica M54.31 [facility] [address] [address] Sep, Acute seasonal allergic rhin itis, unspecified trigger J30.[address] [address] Aug, Primary osteoarthritis of ri ght hip M16.11 ; Prediabetes R73.09 ; Precordial pain R07.2 ; Hypertension I10 and Skin lesion L98.9 [place] [address] [address] Aug, Hypertension I10 [facility] [address] [address] July, Sore throat J02.9 and Acute upper respiratory infection, unspecified J06.9 [facility] [address] [place] [address] 14 Apr, 2016 Acute bacterial conjunctivit is of right eye H10.31 [place] [address] [facility] [id number] [address] [place] [address] Mar, Primary osteoarthritis of ri ght hip M16.11 [place] [address] [facility] [id number] [address] [place] [address] Nov, Hypertension I10 and Pure hy percholesterolemia E78.0 [place] [address] [facility] [id number] [address] [place] [address] Oct, Hypertension I10 ; Pure hype rcholesterolemia E78.0 ; Dyshidrotic eczema L30.1 and Primary osteoarthritis of right hip M16.11 [place] [address] [address] [place] [id number] [address] [place] [address] Aug, Hypertension I10 [place] [address] [address] [place] [id number] [address] [place] [address] Aug, Weight gain R63.5 [place] [address] [address] [place] [id number] [address] [place] [address] 17 Aug, 2015 [place] [address] [place] [address] 15 Aug, 2015 Bilateral ovarian cysts N83. 20 and Abnormal mammogram R92.8 [place] [address] [address] [place] [id number] [address] [place] [address] Jun, Abnormal mammogram R92.8 and Enlarged lymph nodes in armpit R59.0 [place] [address] [address] [place] [id number] [address] [place] [address] Jun, Enlarged lymph node R59.9 ; Bilateral ovarian cysts N83.20 and Polyarthralgia M25.50 [place] [address] [address] [place] [id number] [address] [place] [address] May, Bilateral ovarian cysts N83. 20 [place] [address] [address] [place] [id number] [address] [place] [address] May, Screening for malignant neop lasm of breast Z12.39 and Enlarged lymph node R59.9 [place] [address] [facility] [id number] [address] [place] [address] 16 May, 2015 [place] [address] [facility] [id number] [address] [place] [address] 14 May, 2015 Well woman exam Z01.419 [...] Z12.39 and Subclinical hypothyroidism E03.9 [place] [address] [address] [place] [id number] [address] [place] [address] 04 May, 2015 Tinea pedis B35.3 and Metror rhagia N92.1 [place] [address] [address] [place] [id number] [address] [place] [address] Mar, Onychomycosis B35.1 and Nail ingrowing L60.0 [place] [address] [address] [facility] [id number] [address] [place] [address] Jan, Subclinical hypothyroidism E 03.9 [place] [address] [facility] [id number] [address] [place] [address] Dec, Pain in joint, pain in unspe cified joint M25.50 [place] [address] [address] [facility] [id number] [address] [place] [address] Dec, Pain in joint, pain in unspe cified joint M25.50 [place] [address] [facility] [id number] [address] [place] [address] Dec, Pain in joint, pain in unspe cified joint M25.50 [place] [address] [place] [id number] [address] [place] [address] Nov, Hypertension 401.9 [facility] [address] [id number] [address] [place] [address] 18 Nov, 2014 [facility] [address] [id number] [address] [place] [id number] 15 Nov, 2014 Chronic airway obstruction, not elsewhere classified 496 and Hypertension 401.9 [facility] [address] [id number] [address] [place] [id number] Oct, Dental examination V72.2 [facility] [address] [id number] [address] [place] [address] 30 Aug, 2014 Onychomycosis 110.1 and Ingr own nail 703.0 [facility] [address] [id number] [address] [place] [address] Aug, [facility] [address] [id number] [address] [place] [address] Aug, Onychomycosis 110.1 and Nail , ingrown 703.0 [facility] [address] [id number] [address] [place] [address] Jun, [facility] [address] [id number] [address] [place] [address] Jun, [facility] [address] [facility] [id number] [address] [place] [address] May, [facility] [address] [id number] [address] [place] [phone] May, [facility] [address] [id number] [address] [place] [address] Apr, [facility] [address] [id number] [address] [place] [id number] Apr, [facility] [address] [id number] [address] [place] [address] Apr, [facility] [address] [facility] [id number] [address] [place] [address] Apr, [facility] [address] [id number] [address] [place] [address], [place] [address] Mar, [facility] [address] [id number] [address] [place] [address], [place] [address] Mar, [facility] [address] [id number] [address] [place] [address], [place] [address] Feb, [facility] [address] [id number] [address] [place] [address], [place] [address] Jan, [facility] [address] [id number] [address] [place] [address], [place] [address] Jan, [facility] [address] [id number] [address] [place] [address], [place] [address] Aug, [facility] [address] [id number] [address] [place] [address], [place] [address] Aug, [facility] [address] [id number] [address] [place] [address], [place] [address] Aug, [facility] [address] [id number] [address] [place] [address], [place] [address] Aug, [facility] [address] [id number] [address] [place] [address], [place] [address] July, [facility] [address] [id number] [address] [place] [address], [place] [address] July, [facility] [address] [id number] [address] [place] [address], [place] [address] July, [facility] [address] [id number] [address] [place] [address], [place] [address] July, [facility] [address] [id number] [address] [place] [address], [place] [address] July, [facility] [address] [id number] [address] [place] [address], [place] [address] July, [facility] [address] [id number] [address] [place] [address], [place] [address] July, [facility] [address] [id number] [address] [place] [address], [place] [address] July, [facility] [address] [id number] [address] [place] [address], [place] [address] Jun, [facility] [address] [id number] [address] [place] [address], [place] [address] May, [facility] [address] [id number] [address] [place] [address], [place] [address] May, [facility] [address] [id number] [address] [place] [address], [place] [address] May, [facility] [address] [id number] [address] [place] [address], [place] [address] May, [facility] [address] [id number] [address] [place] [address], [place] [address] Apr, [facility] [address] [id number] [address] [place] [address], [place] [address] Apr, [facility] [address] [id number] [address] [place] [address], [place] [address] Apr, [facility] [address] [id number] [address] [place] [address], [place] [address] Apr, [facility] [address] [id number] [address] [place] [address], [place] [address] Apr, [facility] [address] [id number] [address] [place] [address], [place] [address] Apr, [facility] [address] [id number] [address] [place] [address], [place] [address] Feb, [facility] [address] [id number] [address] [place] [address], [place] [address] Feb, [facility] [address] [id number] [address] [place] [address], [place] [address] Jan, [facility] [address] [id number] [address] [place] [address], [place] [address] Jan, [facility] [address] [id number] [address] [place] [address], [place] [address] Jan, [facility] [address] [id number] [address] [place] [address], [place] [address] Dec, [facility] [address] [id number] [address] [place] [address], [place] [address] Dec, [facility] [address] [id number] [address] [place] [address], [place] [address] Dec, [facility] [address] [id number] [address] [place] [address], [place] [address] Dec, [facility] [address] [id number] [address] [place] [address], [place] [address] Oct, [facility] [address] [id number] [address] [place] [address], [place] [address] Oct, [facility] [address] [id number] [address] [place] [address], [place] [address] Nov, [facility] [address] [id number] [address] [place] [address], [place] [address] Oct, [facility] [address] [id number] [address] [place] [address], [place] [address] Oct, [facility] [address] [id number] [address] [place] [address], [place] [address] Aug, [facility] [address] [id number] [address] [place] [address], [place] [address] Aug, [facility] [address] [id number] [address] [place] [address], [place] [address] July, [facility] [address] [id number] [address] [place] [address], [place] [address] Jun, [facility] [address] [id number] [address] [place] [address] Jun, [facility] [address] [id number] [address] [place] [address] Jun, [facility] [address] [id number] [address] [place] [address] Feb, [facility] [address] [id number] [address] [place] [address] Feb, [facility] [address] [id number] [address] [place] [address] Feb, [facility] [address] [id number] [address] [place] [address] Jan, [facility] [address] [id number] [address] [place] [address] Jan, [facility] [address] [id number] [address] [place] [address] Jan, [facility] [address] [id number] [address] [place] [address] Dec, [facility] [address] [id number] [address] [place] [address] Dec, [facility] [address] [id number] [address] [place] [address] Mar, [facility] [address] [id number] [address] [place] [address] Jan, IMMUNIZATIONS No Known Immunizations SOCIAL HISTORY Never Assessed REASON FOR VISIT Mammogram order PLAN OF CARE VITAL SIGNS MEDICATIONS No Known Medications RESULTS Name Result Date Reference Range Ultrasound : Axilla, Left 2017-06-14 Ultrasound : Axilla, Right 2017-06-14 PROCEDURES No Known procedures INSTRUCTIONS MEDICATIONS [...]
--- OUTSIDE RECORDS SUMMARY | 2019-05-16 07:02 | XMS REPORT ---
Author Author KHURRAM Marian [facility] Address [address] [place] [address] Care Team Providers Care Beverage Server Name Role Phone CAR[place]INA PAULSON Unavailable PROBLEMS Type Condition ICD9-CM Code [id number] Code Onset Dates Condition S tatus SNOMED Code Problem Polyarthralgia M25.50 Active 78539 005 Problem Abnormal mammogram R92.8 Active 1 23891613 Problem Hypertension I10 Active 3424012 3 Problem Prediabetes R73.09 Active 74633245 2 Problem Pure hypercholesterolemia E78.0 Acti ve 37966466 Problem COPD (chronic obstructive pulmonary disease) J44.9 Active 60331193 Problem Enlarged lymph node R59.9 Active 04446828 Problem Abnormal uterine bleeding N93.9 Acti ve [id number] Problem BMI 39.0-39.9,adult Z68.39 Active 284824947 Problem Dyshidrotic eczema L30.1 Active 4 19841354 Problem Primary osteoarthritis of right hip M16.11 Active 281793725 Problem Obesity (BMI 30-39.9) E66.9 Active 051970929 Problem Right sided sciatica M54.31 Active 88347292 ALLERGIES Substance Reaction Event Type Date Status Codeine Sulfate anaphylaxis Drug Allergy Dec, Active ENCOUNTERS Encounter Location Date Diagnosis [facility] [address] [facility] [id number] [address] [place] [id number] Jun, Abnormal mammogram R92.8 [facility] [address] [facility] [id number] [address] [place] [address] Jun, Abnormal mammogram R92.8 [facility] [address] [facility] [id number] [address] [place] [address] May, [facility] [address] [facility] [id number] [address] [place] [address] May, Well woman exam Z01.419 ; Pa in of left hand M79.642 ; Pain in right hand M79.641 ; Abnormal uterine bleeding N93.9 and BMI 39.0-39.9,adult Z68.39 [place] [address] [address] Dec, Hypertension I10 ; BMI 39.0- 39.9,adult Z68.39 and Obesity (BMI 30- 39.9) E66.9 [facility] [place] [address] [address] Oct, Asthma exacerbation J45.[address] [address] Oct, Right sided sciatica M54.31 [facility] [address] [address] Sep, Acute seasonal allergic rhin itis, unspecified trigger J30.2 [place] [address] [address] Aug, Primary osteoarthritis of ri ght hip M16.11 ; Prediabetes R73.09 ; Precordial pain R07.2 ; Hypertension I10 and Skin lesion L98.9 [place] [address] [address] Aug, Hypertension I10 [facility] [address] [address] July, Sore throat J02.9 and Acute upper respiratory infection, unspecified J06.9 [facility] [address] [address] Apr, Acute bacterial conjunctivit is of right eye H10.31 [place] [address] [address] Mar, Primary osteoarthritis of ri ght hip M16.11 [place] [address] [address] Nov, Hypertension I10 and Pure hy percholesterolemia E78.0 [place] [address] [address] Oct, Hypertension I10 ; Pure hype rcholesterolemia E78.0 ; Dyshidrotic eczema L30.1 and Primary osteoarthritis of right hip M16.11 [place] [address] [address] Aug, Hypertension I10 [place] [address] [address] Aug, Weight gain R63.5 [place] [address] [address] 17 Aug, 2015 [place] [address] [address] Aug, Bilateral ovarian cysts N83. 20 and Abnormal mammogram R92.8 [place] [address] [address] Jun, Abnormal mammogram R92.8 and Enlarged lymph nodes in armpit R59.0 [place] [address] [address] 08 Jun, 2015 Enlarged lymph node R59.9 ; Bilateral ovarian cysts N83.20 and Polyarthralgia M25.50 [place] [address] [address] May, Bilateral ovarian cysts N83. 20 [place] [address] [address] May, Screening for malignant neop lasm of breast Z12.39 and Enlarged lymph node R59.9 [place] [address] [address] [place] [id number] [address] [place] [address] 16 May, 2015 [place] [id number] [place] [address] 14 May, 2016 Well woman exam Z01.419 [...] of breast Z12.39 and Subclinical hypothyroidism E03.9 [place] [address] [facility] [id number] [address] [place] [address] 04 May, 2015 Tinea pedis B35.3 and Metror rhagia N92.1 [place] [address] [facility] [id number] [address] [place] [address] Mar, Onychomycosis B35.1 and Nail ingrowing L60.0 [place] [address] [id number] [address] [place] [address] Jan, Subclinical hypothyroidism E 03.9 [place] [address] [id number] [address] [place] [address] Dec, Pain in joint, pain in unspe cified joint M25.50 [place] [address] [id number] [address] [place] [address] Dec, Pain in joint, pain in unspe cified joint M25.50 [place] [address] [id number] [address] [place] [address] Dec, Pain in joint, pain in unspe cified joint M25.50 [place] [address] [id number] [address] [place] [address] Nov, Hypertension 401.9 [place] [address] [id number] [address] [place] [address] 18 Nov, 2014 [place] [address] [id number] [address] [place] [address] 15 Nov, 2014 Chronic airway obstruction, not elsewhere classified 496 and Hypertension 401.9 [facility] [address] [id number] [address] [place] [id number] Oct, Dental examination V72.2 [facility] [address] [id number] [address] [place] [address] 30 Aug, 2014 Onychomycosis 110.1 and Ingr own nail 703.0 [facility] [address] [id number] [address] [place] [address] Aug, [facility] [address] [id number] [address] [place] [address] Aug, Onychomycosis 110.1 and Nail , ingrown 703.0 [facility] [address] [id number] [address] [place] [address] Jun, [facility] [address] [id number] [address] [place] [address] Jun, [facility] [address] [id number] [address] [place] [address] May, [facility] [address] [id number] [address] [place] [address] May, [facility] [address] [id number] [address] [place] [address] Apr, [facility] [address] [id number] [address] [place] [address] Apr, [facility] [address] [id number] [address] [place] [address] Apr, [facility] [address] [id number] [address] [place] [address] Apr, [facility] [address] [id number] [address] [place] [address] Mar, [facility] [address] [id number] [address] [place] [address], [place] [address] Mar, [facility] [address] [id number] [address] [place] [address], [place] [address] Feb, [facility] [address] [id number] [address] [place] [address], [place] [address] Jan, [facility] [address] [id number] [address] [place] [address], [place] [address] Jan, [facility] [address] [id number] [address] [place] [address], [place] [address] Aug, [facility] [address] [id number] [address] [place] [address], [place] [address] Aug, [facility] [address] [id number] [address] [place] [address], [place] [address] Aug, [facility] [address] [id number] [address] [place] [address], [place] [address] Aug, [facility] [address] [id number] [address] [place] [address], [place] [address] July, [facility] [address] [id number] [address] [place] [address], [place] [address] July, [facility] [address] [id number] [address] [place] [address], [place] [address] July, [facility] [address] [id number] [address] [place] [address], [place] [address] July, [facility] [address] [id number] [address] [place] [address], [place] [address] July, [facility] [address] [id number] [address] [place] [address], [place] [address] July, [facility] [address] [id number] [address] [place] [address], [place] [address] July, [facility] [address] [id number] [address] [place] [address], [place] [address] July, [facility] [address] [id number] [address] [place] [address], [place] [address] Jun, [facility] [address] [id number] [address] [place] [address], [place] [address] May, [facility] [address] [id number] [address] [place] [address], [place] [address] May, [facility] [address] [id number] [address] [place] [address], [place] [address] May, [facility] [address] [id number] [address] [place] [address], [place] [address] May, [facility] [address] [id number] [address] [place] [address], [place] [address] Apr, [facility] [address] [id number] [address] [place] [address], [place] [address] Apr, [facility] [address] [id number] [address] [place] [address], [place] [address] Apr, [facility] [address] [id number] [address] [place] [address], [place] [address] Apr, [facility] [address] [id number] [address] [place] [address], [place] [address] Apr, [facility] [address] [id number] [address] [place] [address], [place] [address] Apr, [facility] [address] [id number] [address] [place] [address], [place] [address] Feb, [facility] [address] [id number] [address] [place] [address], [place] [address] Feb, [facility] [address] [id number] [address] [place] [address], [place] [address] Jan, [facility] [address] [id number] [address] [place] [address], [place] [address] Jan, [facility] [address] [id number] [address] [place] [address], [place] [address] Jan, [facility] [address] [id number] [address] [place] [address], [place] [address] Dec, [facility] [address] [id number] [address] [place] [address], [place] [address] Dec, [facility] [address] [id number] [address] [place] [address], [place] [address] Dec, [facility] [address] [id number] [address] [place] [address], [place] [address] Dec, [facility] [address] [id number] [address] [place] [address], [place] [address] Oct, [facility] [address] [id number] [address] [place] [address], [place] [address] Oct, [facility] [address] [id number] [address] [place] [address], [place] [address] Nov, [facility] [address] [id number] [address] [place] [address], [place] [address] Oct, [facility] [address] [id number] [address] [place] [address], [place] [address] Oct, [facility] [address] [id number] [address] [place] [address], [place] [address] Aug, [facility] [address] [id number] [address] [place] [address], [place] [address] Aug, [facility] [address] [id number] [address] [place] [address], [place] [address] July, [facility] [address] [id number] [address] [place] [address], [place] [address] Jun, [facility] [address] [id number] [address] [place] [address], [place] [address] Jun, [facility] [address] [id number] [address] [place] [address], [place] [address] Jun, [facility] [address] [id number] [address] [place] [address] Feb, [facility] [address] [id number] [address] [place] [address] Feb, [facility] [address] [id number] [address] [place] [address] Feb, [facility] [address] [id number] [address] [place] [address] Jan, [facility] [address] [id number] [address] [place] [address] Jan, [facility] [address] [id number] [address] [place] [address] Jan, [facility] [address] [id number] [address] [place] [address] Dec, [facility] [address] [id number] [address] [place] [address] Dec, [facility] [address] [id number] [address] [place] [address] Mar, [facility] [address] [id number] [address] [place] [address] Jan, IMMUNIZATIONS No Known Immunizations SOCIAL HISTORY Never Assessed REASON FOR VISIT [facility] Activity Details Follow Up Next available with Khurram christine EDW in place Reason:well woman VITAL SIGNS Height 69 in 2016-12-27 Weight 270.4 lbs 2016-12-27 Temperature 98.1 degrees Fahrenheit 2016-12-27 Heart Rate 84 bpm 2016-12-27 Respiratory Rate 22 2016-12-27 BMI 39.93 kg/m2 2016-12-27 Blood pressure systolic 114 mmHg 2016-12-27 Blood pressure diastolic 80 mmHg 2016-12-27 MEDICATIONS Medication Instructions Dosage Frequency Start Date End Date Duration S landon Zantac 150 mg take 1 tablet (150 mg) by oral route 2 t imes per day Dec, Active Metoprolol Tartrate 50 mg Orally Twice a day 1 tablet with food 12h 90 days Active Flexeril Active Fluticasone Propionate 50 MCG/ACT Nasally Twice a day 1 spray in each nostril 12h Sep, 30 day(s) Active Cetirizine HCl 10 MG Orally Once a day 1 tablet 24h Active Lisinopril 10 mg Orally Once a day 1 tablet 24h 90 d ays Active RESULTS No Results PROCEDURES No Known [...]
--- OUTSIDE RECORDS SUMMARY | 2019-05-16 07:02 | XMS REPORT ---
Author Author Marian PAULSON [place] Organization [facility] Address [address] [place] [address] Care Team Providers Care Senior Medical Billing Specialist Name Role Phone NARGIS PAULSONY Unavailable PROBLEMS Type Condition ICD9-CM Code AYX52-LX Code Onset Dates Condition S tatus SNOMED Code Problem Polyarthralgia M25.50 Active 06539 005 Problem Abnormal mammogram R92.8 Active 1 41046761 Problem Hypertension I10 Active 2805133 3 Problem Prediabetes R73.09 Active 46538084 2 Problem Pure hypercholesterolemia E78.0 Acti ve 08363659 Problem COPD (chronic obstructive pulmonary disease) J44.9 Active 68489715 Problem Enlarged lymph node R59.9 Active 23053303 Problem Abnormal uterine bleeding N93.9 Acti ve 92265020037215 Problem BMI 39.0-39.9,adult Z68.39 Active 026026914 Problem Dyshidrotic eczema L30.1 Active 4 92005949 Problem Primary osteoarthritis of right hip M16.11 Active 605974277 Problem Obesity (BMI 30-39.9) E66.9 Active 247169832 Problem Right sided sciatica M54.31 Active 18493036 ALLERGIES Substance Reaction Event Type Date Status Codeine Sulfate anaphylaxis Drug Allergy May, Active ENCOUNTERS Encounter Location Date Diagnosis [facility] [address] [facility] [id number] [address] [place] [address] Aug, Bronchitis J40 [facility] [address] [facility] [id number] [address] [place] [address] Aug, [facility] [address] [facility] [id number] [address] [place] [address] Jun, Abnormal mammogram R92.8 [facility] [address] [facility] [id number] [address] [place] [address] Jun, Abnormal mammogram R92.8 [place] [address] [address] May, [place] [address] [address] May, Well woman exam Z01.419 ; Pa in of left hand M79.642 ; Pain in right hand M79.641 ; Abnormal uterine bleeding N93.9 and BMI 39.0-39.9,adult Z68.39 [place] [address] [address] Dec, Hypertension I10 ; BMI 39.0- 39.9,adult Z68.39 and Obesity (BMI 30- 39.9) E66.9 [facility] [address] [address] Oct, Asthma exacerbation J45.[address] [address] Oct, Right sided sciatica M54.31 [facility] [address] [address] Sep, Acute seasonal allergic rhin itis, unspecified trigger J30.[address] [address] Aug, Primary osteoarthritis of ri ght hip M16.11 ; Prediabetes R73.09 ; Precordial pain R07.2 ; Hypertension I10 and Skin lesion L98.9 [place] [address] [address] Aug, Hypertension I10 [facility] [address] [address] July, Sore throat J02.9 and Acute upper respiratory infection, unspecified J06.9 [facility] [address] [address] Apr, Acute bacterial conjunctivit is of right eye H10.31 [place] [address] [place] [id number] [address] [place] [address] Mar, Primary osteoarthritis of ri ght hip M16.11 [place] [address] [place] [id number] [address] [place] [address] Nov, Hypertension I10 and Pure hy percholesterolemia E78.0 [place] [address] [place] [id number] [place] [address] Oct, Hypertension I10 ; Pure hype rcholesterolemia E78.0 ; Dyshidrotic eczema L30.1 and Primary osteoarthritis of right hip M16.11 [place] [address] [place] [id number] [place] [address] 29 Aug, 2015 Hypertension I10 [place] [address] [address] 28 Aug, 2015 Weight gain R63.5 [place] [address] [address] 17 Aug, 2015 [place] [address] [address] 15 Aug, 2015 Abnormal mammogram R92.8 and Bilateral ovarian cysts N83.20 [place] [address] [address] Jun, Abnormal mammogram R92.8 and Enlarged lymph nodes in armpit R59.0 [place] [address] [place] [id number] [address] [place] [address] Jun, Enlarged lymph node R59.9 ; Bilateral ovarian cysts N83.20 and Polyarthralgia M25.50 [place] [address] [place] [id number] [address] [place] [address] May, Bilateral ovarian cysts N83. 20 [place] [address] [place] [id number] [address] [place] [address] 24 May, 2015 Screening for malignant neop lasm of breast Z12.39 and Enlarged lymph node R59.9 [place] [address] [id number] [address] [place] [address] 16 May, 2015 [place] [address] [id number] [address] [place] [address] 14 May, 2015 Well woman exam Z01.419 [...] of breast Z12.39 and Subclinical hypothyroidism E03.9 [place] [address] [id number] [address] [place] [address] 04 May, 2015 Tinea pedis B35.3 and Metror rhagia N92.1 [place] [address] [id number] [address] [place] [address] Mar, Onychomycosis B35.1 and Nail ingrowing L60.0 [place] [address] [id number] [address] [place] [id number] Jan, Subclinical hypothyroidism E 03.9 [place] [address] [id number] [address] [place] [phone] Dec, Pain in joint, pain in unspe cified joint M25.50 [place] [address] [id number] [address] [place] [phone] Dec, Pain in joint, pain in unspe cified joint M25.50 [place] [address] [id number] [address] [place] [address] Dec, Pain in joint, pain in unspe cified joint M25.50 [place] [address] [id number] [address] [place] [address] 25 Nov, 2014 Hypertension 401.9 [facility] [address] [id number] [address] [place] [address] 18 Nov, 2014 [facility] [address] [facility] [id number] [address] [place] [id number] 15 Nov, 2014 Chronic airway obstruction, not elsewhere classified 496 and Hypertension 401.9 [facility] [address] [id number] [address] [place] [id number] Oct, Dental examination V72.2 [facility] [address] [facility] [id number] [address] [place] [phone] 30 Aug, 2014 Onychomycosis 110.1 and Ingr own nail 703.0 [facility] [address] [facility] [id number] [address] [place] [phone] Aug, [facility] [address] [facility] [id number] [address] [place] [phone] 08 Aug, 2014 Onychomycosis 110.1 and Nail , ingrown 703.0 [facility] [address] [id number] [address] [place] [phone] Jun, [facility] [address] [facility] [id number] [address] [place] [phone] Jun, [facility] [address] [facility] [id number] [address] [place] [phone] May, [facility] [address] [facility] [id number] [address] [place] [phone] May, [facility] [address] [facility] [id number] [address] [place] [phone] Apr, [facility] [address] [facility] [id number] [address] [place] [id number] Apr, [facility] [address] [facility] [id number] [address] [place] [phone] Apr, [facility] [address] [id number] [address] [place] [address], [place] [address] Apr, [facility] [address] [id number] [address] [place] [address], [place] [address] Mar, [facility] [address] [id number] [address] [place] [address], [place] [address] Mar, [facility] [address] [id number] [address] [place] [address], [place] [address] Feb, [facility] [address] [id number] [address] [place] [address], [place] [address] Jan, [facility] [address] [id number] [address] [place] [address], [place] [address] Jan, [facility] [address] [id number] [address] [place] [address], [place] [address] Aug, [facility] [address] [id number] [address] [place] [address], [place] [address] Aug, [facility] [address] [id number] [address] [place] [address], [place] [address] Aug, [facility] [address] [id number] [address] [place] [address], [place] [address] Aug, [facility] [address] [id number] [address] [place] [address], [place] [address] July, [facility] [address] [id number] [address] [place] [address], [place] [address] July, [facility] [address] [id number] [address] [place] [address], [place] [address] July, [facility] [address] [id number] [address] [place] [address], [place] [address] July, [facility] [address] [id number] [address] [place] [address], [place] [address] July, [facility] [address] [id number] [address] [place] [address], [place] [address] July, [facility] [address] [id number] [address] [place] [address], [place] [address] July, [facility] [address] [id number] [address] [place] [address], [place] [address] July, [facility] [address] [id number] [address] [place] [address], [place] [address] Jun, [facility] [address] [id number] [address] [place] [address], [place] [address] May, [facility] [address] [id number] [address] [place] [address], [place] [address] May, [facility] [address] [id number] [address] [place] [address], [place] [address] May, [facility] [address] [id number] [address] [place] [address], [place] [address] May, [facility] [address] [id number] [address] [place] [address], [place] [address] Apr, [facility] [address] [id number] [address] [place] [address], [place] [address] Apr, [facility] [address] [id number] [address] [place] [address], [place] [address] Apr, [facility] [address] [id number] [address] [place] [address], [place] [address] Apr, [facility] [address] [id number] [address] [place] [address], [place] [address] Apr, [facility] [address] [id number] [address] [place] [address], [place] [address] Apr, [facility] [address] [id number] [address] [place] [address], [place] [address] Feb, [facility] [address] [id number] [address] [place] [address], [place] [address] Feb, [facility] [address] [id number] [address] [place] [address], [place] [address] Jan, [facility] [address] [id number] [address] [place] [address], [place] [address] Jan, [facility] [address] [id number] [address] [place] [address], [place] [address] Jan, [facility] [address] [id number] [address] [place] [address], [place] [address] Dec, [facility] [address] [id number] [address] [place] [address], [place] [address] Dec, [facility] [address] [id number] [address] [place] [address], [place] [address] Dec, [facility] [address] [id number] [address] [place] [address], [place] [address] Dec, [facility] [address] [id number] [address] [place] [address], [place] [address] Oct, [facility] [address] [id number] [address] [place] [address], [place] [address] Oct, [facility] [address] [id number] [address] [place] [address], [place] [address] Nov, [facility] [address] [id number] [address] [place] [address], [place] [address] Oct, [facility] [address] [id number] [address] [place] [address], [place] [address] Oct, [facility] [address] [id number] [address] [place] [address], [place] [address] Aug, [facility] [address] [id number] [address] [place] [address], [place] [address] Aug, [facility] [address] [id number] [address] [place] [address], [place] [address] July, [facility] [address] [id number] [address] [place] [address], [place] [address] Jun, [facility] [address] [id number] [address] [place] [address] Jun, [facility] [address] [id number] [address] [place] [address] Jun, [facility] [address] [id number] [address] [place] [address] Feb, [facility] [address] [id number] [address] [place] [phone] Feb, [facility] [address] [id number] [address] [place] [address] Feb, [facility] [address] [id number] [address] [place] [address] Jan, [facility] [address] [id number] [address] [place] [phone] Jan, [facility] [address] [id number] [address] [place] [address] Jan, [facility] [address] [id number] [address] [place] [address] Dec, [facility] [address] [id number] [address] [place] [phone] Dec, [facility] [address] [id number] [address] [place] [address] Mar, [facility] [address] [id number] [address] [place] [phone] Jan, IMMUNIZATIONS No Known Immunizations SOCIAL HISTORY Never Assessed REASON FOR VISIT Well Woman Exam -- amy antoine PLAN OF CARE Activity Details Follow Up 1 Year Reason:well woman VITAL SIGNS Height 69 in 2017-05-09 Weight 267.0 lbs 2017-05-09 Temperature 98.0 degrees Fahrenheit 2017-05-09 Heart Rate 80 bpm 2017-05-09 Respiratory Rate 22 2017-05-09 BMI 39.42 kg/m2 2017-05-09 Blood pressure systolic 128 mmHg 2017-05-09 Blood pressure diastolic 80 mmHg 2017-05-09 MEDICATIONS Medication Instructions Dosage Frequency Start Date End Date Duration S landon Ibuprofen 200 mg 2 Tablet every 8 hours PRN Oct, Active Claritin Not-Taking Lisinopril 10 mg Orally Once a day 1 tablet 24h 90 d ays Active Flexeril Active Metoprolol Tartrate 50 mg Orally Twice a day 1 tablet with food 12h 90 days Active Zantac 150 mg take 1 tablet (150 mg) by oral route 2 t imes per day Dec, Active Benadryl 25 MG Orally every 6 hrs 1 tablet as needed 6h Not-Taking Tylenol Extra Strength 500 mg take 2 tab lets (1,000 mg) by oral route every 6 hours as needed Aug, Not-Taking Cetirizine HCl 10 MG Orally Once a day 1 tablet 24h Active Fluticasone Propionate 50 MCG/ACT Nasally Twice a day 1 spray in each nostril 12h Sep, 30 day(s) Active RESULTS No Results PROCEDURES Procedure Date Ordered Result Body Site X-RAY EXAM OF HAND May 09, 2017 SPECIMEN HANDLING May 09, 2017 INSTRUCTIONS MEDICATIONS ADMINISTERED No Known Medications MEDICAL [...]
--- OUTSIDE RECORDS SUMMARY | 2019-05-16 07:02 | XMS REPORT ---
Author Author Marian Siddiqui [facility] WALK IN [facility] Address [address] [place] [address] Care Team Providers Care Freelance Operator Name Role Phone MIGEL Siddiqui Unavailable PROBLEMS Type Condition ICD9-CM Code [id number] Code Onset Dates Condition S tatus SNOMED Code Problem Polyarthralgia M25.50 Active 65985 005 Problem Abnormal mammogram R92.8 Active 1 24421666 Problem Hypertension I10 Active 3325113 3 Problem Prediabetes R73.09 Active 83918677 2 Problem Pure hypercholesterolemia E78.0 Acti ve 39760401 Problem COPD (chronic obstructive pulmonary disease) J44.9 Active 65577187 Problem Enlarged lymph node R59.9 Active 91610518 Problem Abnormal uterine bleeding N93.9 Acti ve [id number] Problem BMI 39.0-39.9,adult Z68.39 Active 851817268 Problem Dyshidrotic eczema L30.1 Active 4 25679127 Problem Primary osteoarthritis of right hip M16.11 Active 688285789 Problem Obesity (BMI 30-39.9) E66.9 Active 123076805 Problem Right sided sciatica M54.31 Active 02145268 ALLERGIES Substance Reaction Event Type Date Status Codeine Sulfate anaphylaxis Drug Allergy Sep, Active ENCOUNTERS Encounter Location Date Diagnosis [facility] [address] [facility] [id number] [address] [place] [address] Jun, Abnormal mammogram R92.8 [facility] [address] [facility] [id number] [address] [place] [address] Jun, Abnormal mammogram R92.8 [facility] [address] [facility] [id number] [address] [place] [address] May, [facility] [address] [facility] [id number] [address] [place] [address] May, Well woman exam Z01.419 ; Pa in of left hand M79.642 ; Pain in right hand M79.641 ; Abnormal uterine bleeding N93.9 and BMI 39.0-39.9,adult Z68.39 [place] [address] [address] Dec, Hypertension I10 ; BMI 39.0- 39.9,adult Z68.39 and Obesity (BMI 30- 39.9) E66.9 [facility] WALK IN [place] [address] [address] Oct, Asthma exacerbation J45.[address] [address] Oct, Right sided sciatica M54.31 [facility] WALK IN [address] [address] Sep, Acute seasonal allergic rhin itis, unspecified trigger J30.[address] [address] Aug, Primary osteoarthritis of ri ght hip M16.11 ; Prediabetes R73.09 ; Precordial pain R07.2 ; Hypertension I10 and Skin lesion L98.[address] [address] Aug, Hypertension I10 [facility] WALK IN [address] [address] July, Sore throat J02.9 and Acute upper respiratory infection, unspecified J06.9 [facility] WALK IN [address] [address] Apr, Acute bacterial conjunctivit is of right eye H10.[address] [address] Mar, Primary osteoarthritis of ri ght hip M16.11 [place] [address] [place] [id number] [address] [place] [address] Nov, Hypertension I10 and Pure hy percholesterolemia E78.0 [place] [address] [place] [id number] [address] [place] [address] Oct, Hypertension I10 ; Pure hype rcholesterolemia E78.0 ; Dyshidrotic eczema L30.1 and Primary osteoarthritis of right hip M16.11 [place] [address] [address] Aug, Hypertension I10 [place] [address] [address] 28 Aug, 2015 Weight gain R63.5 [place] [address] [place] [id number] [place] [address] 17 Aug, 2015 [place] [address] [address] 15 Aug, 2015 Bilateral ovarian cysts N83. 20 and Abnormal mammogram R92.8 [place] [address] [address] Jun, Abnormal mammogram R92.8 and Enlarged lymph nodes in armpit R59.0 [place] [address] [place] [id number] [address] [place] [address] Jun, Enlarged lymph node R59.9 ; Bilateral ovarian cysts N83.20 and Polyarthralgia M25.50 [place] [address] [place] [id number] [address] [place] [address] May, Bilateral ovarian cysts N83. 20 [place] [address] [place] [id number] [place] [address] May, Screening for malignant neop lasm of breast Z12.39 and Enlarged lymph node R59.9 [place] [address] [place] [id number] [address] [place] [address] May, [place] [address] [facility] [id number] [address] [place] [address] 14 May, 2016 Well woman exam Z01.419 [...] of breast Z12.39 and Subclinical hypothyroidism E03.9 [place] [address] [facility] [id number] [address] [place] [address] 04 May, 2015 Tinea pedis B35.3 and Metror rhagia N92.1 [place] [address] [place] [id number] [address] [place] [address] Mar, Onychomycosis B35.1 and Nail ingrowing L60.0 [place] [address] [facility] [id number] [address] [place] [address] Jan, Subclinical hypothyroidism E 03.9 [place] [address] [facility] [id number] [address] [place] [address] Dec, Pain in joint, pain in unspe cified joint M25.50 [place] [address] [facility] [id number] [address] [place] [address] Dec, Pain in joint, pain in unspe cified joint M25.50 [place] [address] [facility] [id number] [address] [place] [address] Dec, Pain in joint, pain in unspe cified joint M25.50 [place] [address] [facility] [id number] [address] [place] [address] Nov, Hypertension 401.9 [place] [address] [facility] [id number] [address] [place] [address] 18 Nov, 2014 [place] [address] [facility] [id number] [address] [place] [address] 15 Nov, 2014 Chronic airway obstruction, not elsewhere classified 496 and Hypertension 401.9 [facility] [address] [id number] [address] [place] [id number] Oct, Dental examination V72.2 [facility] [address] [id number] [address] [place] [address] 30 Aug, 2014 Onychomycosis 110.1 and Ingr own nail 703.0 [facility] [address] [id number] [address] [place] [address] Aug, [facility] [address] [id number] [address] [place] [address] Aug, Onychomycosis 110.1 and Nail , ingrown 703.0 [facility] [address] [id number] [address] [place] [address] Jun, [facility] [address] [id number] [address] [place] [address] Jun, [facility] [address] [id number] [address] [place] [address] May, [facility] [address] [id number] [address] [place] [address] May, [facility] [address] [id number] [address] [place] [address] Apr, [facility] [address] [id number] [address] [place] [address] Apr, [facility] [address] [id number] [address] [place] [address] Apr, [facility] [address] [id number] [address] [place] [address] Apr, [facility] [address] [id number] [address] [place] [address] Mar, [facility] [address] [id number] [address] [place] [address], [place] [address] Mar, [facility] [address] [id number] [address] [place] [address], [place] [address] Feb, [facility] [address] [id number] [address] [place] [address], [place] [address] Jan, [facility] [address] [id number] [address] [place] [address], [place] [address] Jan, [facility] [address] [id number] [address] [place] [address], [place] [address] Aug, [facility] [address] [id number] [address] [place] [address], [place] [address] Aug, [facility] [address] [id number] [address] [place] [address], [place] [address] Aug, [facility] [address] [id number] [address] [place] [address], [place] [address] Aug, [facility] [address] [id number] [address] [place] [address], [place] [address] July, [facility] [address] [id number] [address] [place] [address], [place] [address] July, [facility] [address] [id number] [address] [place] [address], [place] [address] July, [facility] [address] [id number] [address] [place] [address], [place] [address] July, [facility] [address] [id number] [address] [place] [address], [place] [address] July, [facility] [address] [id number] [address] [place] [address], [place] [address] July, [facility] [address] [id number] [address] [place] [address], [place] [address] July, [facility] [address] [id number] [address] [place] [address], [place] [address] July, [facility] [address] [id number] [address] [place] [address], [place] [address] Jun, [facility] [address] [id number] [address] [place] [address], [place] [address] May, [facility] [address] [id number] [address] [place] [address], [place] [address] May, [facility] [address] [id number] [address] [place] [address], [place] [address] May, [facility] [address] [id number] [address] [place] [address], [place] [address] May, [facility] [address] [id number] [address] [place] [address], [place] [address] Apr, [facility] [address] [id number] [address] [place] [address], [place] [address] Apr, [facility] [address] [id number] [address] [place] [address], [place] [address] Apr, [facility] [address] [id number] [address] [place] [address], [place] [address] Apr, [facility] [address] [id number] [address] [place] [address], [place] [address] Apr, [facility] [address] [id number] [address] [place] [address], [place] [address] Apr, [facility] [address] [id number] [address] [place] [address], [place] [address] Feb, [facility] [address] [id number] [address] [place] [address], [place] [address] Feb, [facility] [address] [id number] [address] [place] [address], [place] [address] Jan, [facility] [address] [id number] [address] [place] [address], [place] [address] Jan, [facility] [address] [id number] [address] [place] [address], [place] [address] Jan, [facility] [address] [id number] [address] [place] [address], [place] [address] Dec, [facility] [address] [id number] [address] [place] [address], [place] [address] Dec, [facility] [address] [id number] [address] [place] [address], [place] [address] Dec, [facility] [address] [id number] [address] [place] [address], [place] [address] Dec, [facility] [address] [id number] [address] [place] [address], [place] [address] Oct, [facility] [address] [id number] [address] [place] [address], [place] [address] Oct, [facility] [address] [id number] [address] [place] [address], [place] [address] Nov, [facility] [address] [id number] [address] [place] [address], [place] [address] Oct, [facility] [address] [id number] [address] [place] [address], [place] [address] Oct, [facility] [address] [id number] [address] [place] [address], [place] [address] Aug, [facility] [address] [id number] [address] [place] [address], [place] [address] Aug, [facility] [address] [id number] [address] [place] [address], [place] [address] July, [facility] [address] [id number] [address] [place] [address], [place] [address] Jun, [facility] [address] [id number] [address] [place] [address], [place] [address] Jun, [facility] [address] [id number] [address] [place] [address], [place] [address] Jun, [facility] [address] [id number] [address] [place] [address] Feb, [facility] [address] [id number] [address] [place] [address] Feb, [facility] [address] [id number] [address] [place] [address] Feb, [facility] [address] [id number] [address] [place] [address] Jan, [facility] [address] [id number] [address] [place] [address] Jan, [facility] [address] [id number] [address] [place] [address] Jan, [facility] [address] [id number] [address] [place] [address] Dec, [facility] [address] [id number] [address] [place] [address] Dec, [facility] [address] [id number] [address] [place] [address] Mar, [facility] [address] [facility] [id number] [address] [place] [address] Jan, IMMUNIZATIONS Vaccine Route Administration Date Status DEXAMETHASONE 4MG/ML (PER 1 MG) IM Intramuscular September 29, 2016 Administered DEPO MEDROL 40 MG/ML IM Intramuscular September 29, 2016 Administer ed SOCIAL HISTORY Never Assessed REASON FOR VISIT Congestion. States she was told by Dr. Palacios to stop taking her benadryl due to some GI problems she was having at the hospital. Congestion has gotten worse sin ce then. PETE Latham. PLAN OF CARE Activity Details Follow Up prn Reason: VITAL SIGNS Height 69 in 2016-09-29 Weight 271.6 lbs 2016-09-29 Temperature 97.7 degrees Fahrenheit 2016-09-29 Heart Rate 84 bpm 2016-09-29 Respiratory Rate 20 2016-09-29 BMI 40.10 kg/m2 2016-09-29 Blood pressure systolic 132 mmHg 2016-09-29 Blood pressure diastolic 80 mmHg 2016-09-29 MEDICATIONS Medication Instructions Dosage Frequency Start Date End Date Duration S tatus Metoprolol Tartrate 50 mg Orally Twice a day 1 tablet with food 12h 90 days Active Lisinopril 10 mg Orally Once a day 1 tablet 24h 90 d ays Active Flexeril Active Zantac 150 mg take 1 tablet (150 mg) by oral route 2 t imes per day Dec, Active Cetirizine HCl 10 MG Orally Once a day 1 tablet 24h Sep, 7 Oct, 30 day(s) Active Fluticasone Propionate 50 MCG/ACT Nasally Twice a day 1 spray in each nostril 12h Sep, 30 day(s) Active Claritin Active RESULTS No Results PROCEDURES Procedure Date Ordered Result Body Site DEPO MEDROL 40 MG/ML September 29, 2016 THER/PROPH/DIAG INJ, SC/IM September 29, 2016 DEXAMETHASONE 4MG/ML (PER 1 MG) September 29, 2016 INSTRUCTIONS MEDICATIONS ADMINISTERED No Known Medications MEDICAL [...]
--- OUTSIDE RECORDS SUMMARY | 2019-05-16 07:02 | XMS REPORT ---
Author Author Marian PAULSON Organization [facility] Address [address] [place] [address] Care Team Providers Care Human Resources Technician Name Role Phone CAROLINA PAULSON Unavailable PROBLEMS Type Condition ICD9-CM Code BQE79-TO Code Onset Dates Condition S tatus SNOMED Code Problem Pure hypercholesterolemia E78.0 Acti ve 24951279 Problem Hypertension I10 Active 6509044 3 Problem COPD (chronic obstructive pulmonary disease) J44.9 Active 84868729 Problem Prediabetes R73.09 Active 78104619 2 Problem Right sided sciatica M54.31 Active 78061033 Problem Primary osteoarthritis of right hip M16.11 Active 440991064 Problem Polyarthralgia M25.50 Active 23337 005 Problem Enlarged lymph node R59.9 Active 79163858 Problem Dyshidrotic eczema L30.1 Active 4 76720440 Problem Abnormal mammogram R92.8 Active 1 39086610 ALLERGIES Unknown Allergies SOCIAL HISTORY No smoking Hx information available PLAN OF CARE VITAL SIGNS MEDICATIONS Medication Instructions Dosage Frequency Start Date End Date Duration S tatus tramadol 50 mg take 1 tablet (50 mg) by oral ro mike every 4-6 hours as needed July, Active RESULTS No Results PROCEDURES No Known procedures IMMUNIZATIONS No Known Immunizations
--- OUTSIDE RECORDS SUMMARY | 2019-05-16 07:02 | XMS REPORT ---
Author Author Marian PAULSON Organization [facility] Address [address] [place] [address] Care Team Providers Care Orchestra Leader Name Role Phone KHURRAMLUNA BROOKSHANY Unavailable PROBLEMS Type Condition ICD9-CM Code CXC28-OM Code Onset Dates Condition S tatus SNOMED Code Problem Polyarthralgia M25.50 Active 43459 005 Problem Abnormal mammogram R92.8 Active 1 41912697 Problem Hypertension I10 Active 8096562 3 Problem Prediabetes R73.09 Active 34646693 2 Problem Pure hypercholesterolemia E78.0 Acti ve 08103264 Problem COPD (chronic obstructive pulmonary disease) J44.9 Active 55387312 Problem Enlarged lymph node R59.9 Active 98234706 Problem Abnormal uterine bleeding N93.9 Acti ve 09635919303328 Problem BMI 39.0-39.9,adult Z68.39 Active 435609611 Problem Dyshidrotic eczema L30.1 Active 4 94877317 Problem Primary osteoarthritis of right hip M16.11 Active 419563170 Problem Obesity (BMI 30-39.9) E66.9 Active 105602353 Problem Right sided sciatica M54.31 Active 06326038 ALLERGIES No Information ENCOUNTERS Encounter Location Date Diagnosis [facility] [address] [facility] [id number] [address] [place] [address] May, [facility] [address] [facility] [id number] [address] [place] [address] May, Well woman exam Z01.419 ; Pa in of left hand M79.642 ; Pain in right hand M79.641 ; Abnormal uterine bleeding N93.9 and BMI 39.0-39.9,adult Z68.39 [facility] [address] [facility] [id number] [address] [place] [address] Dec, Hypertension I10 ; BMI 39.0- 39.9,adult Z68.39 and Obesity (BMI 30- 39.9) E66.9 [facility] [place] [address] [address] Oct, Asthma exacerbation J45.901 [place] [address] [address] Oct, Right sided sciatica M54.31 [facility] W[facility] IN [address] [address] Sep, Acute seasonal allergic rhin itis, unspecified trigger J30.[address] [address] Aug, Primary osteoarthritis of ri ght hip M16.11 ; Prediabetes R73.09 ; Precordial pain R07.2 ; Hypertension I10 and Skin lesion L98.[address] [address] Aug, Hypertension I10 [facility] WALK IN [address] [address] July, Sore throat J02.9 and Acute upper respiratory infection, unspecified J06.9 [facility] WALK IN [address] [address] 14 Apr, 2016 Acute bacterial conjunctivit is of right eye H10.31 [place] [address] [address] Mar, Primary osteoarthritis of ri ght hip M16.[address] [address] Nov, Hypertension I10 and Pure hy percholesterolemia E78.[address] [address] Oct, Hypertension I10 ; Pure hype rcholesterolemia E78.0 ; Dyshidrotic eczema L30.1 and Primary osteoarthritis of right hip M16.11 [place] [address] [address] [place] [id number] [address] [place] [address] 29 Aug, 2015 Hypertension I10 [place] [address] [address] [place] [id number] [address] [place] [address] 28 Aug, 2015 Weight gain R63.5 [place] [address] [address] 17 Aug, 2015 [place] [address] [address] 15 Aug, 2015 Bilateral ovarian cysts N83. 20 and Abnormal mammogram R92.8 [place] [address] [address] [place] [id number] [place] [address] Jun, Abnormal mammogram R92.8 and Enlarged lymph nodes in armpit R59.0 [place] [address] [address] Jun, Enlarged lymph node R59.9 ; Bilateral ovarian cysts N83.20 and Polyarthralgia M25.50 [place] [address] [address] 24 May, 2015 Bilateral ovarian cysts N83. 20 [place] [address] [address] [place] [id number] [place] [address] 24 May, 2015 Screening for malignant neop lasm of breast Z12.39 and Enlarged lymph node R59.9 [place] [address] [address] [place] [id number] [address] [place] [address] 16 May, 2015 [place] [address] [address] 14 May, 2015 Well woman exam Z01.419 [...] of breast Z12.39 and Subclinical hypothyroidism E03.9 [place] [address] [place] [id number] [address] [place] [address] May, Tinea pedis B35.3 and Metror rhagia N92.1 [place] [address] [address] [place] [id number] [address] [place] [address] Mar, Onychomycosis B35.1 and Nail ingrowing L60.0 [place] [address] [address] [place] [id number] [place] [address] Jan, Subclinical hypothyroidism E 03.9 [place] [address] [address] [place] [id number] [place] [address] Dec, Pain in joint, pain in unspe cified joint M25.50 [place] [address] [address] [place] [id number] [address] [place] [address] Dec, Pain in joint, pain in unspe cified joint M25.50 [place] [address] [address] Dec, Pain in joint, pain in unspe cified joint M25.50 [place] [address] [address] [place] [id number] [address] [place] [address] Nov, Hypertension 401.9 [place] [address] [address] [place] [id number] [address] [place] [address] 18 Nov, 2014 [place] [address] [facility] [id number] [address] [place] [address] 15 Nov, 2014 Chronic airway obstruction, not elsewhere classified 496 and Hypertension 401.9 [facility] [address] [id number] [address] [place] [id number] Oct, Dental examination V72.2 [facility] [address] [place] [id number] [address] [place] [address] 30 Aug, 2014 Onychomycosis 110.1 and Ingr own nail 703.0 [facility] [address] [id number] [address] [place] [address] Aug, [facility] [address] [id number] [address] [place] [address] 08 Aug, 2014 Onychomycosis 110.1 and Nail , ingrown 703.0 [facility] [address] [id number] [address] [place] [address] Jun, [facility] [address] [id number] [address] [place] [address] Jun, [facility] [address] [id number] [address] [place] [address] May, [facility] [address] [id number] [address] [place] [address] May, [facility] [address] [id number] [address] [place] [address] Apr, [facility] [address] [id number] [address] [place] [address] Apr, [facility] [address] [id number] [address] [place] [address] Apr, [facility] [address] [id number] [address] [place] [address] Apr, [facility] [address] [id number] [address] [place] [address] Mar, [facility] [address] [id number] [address] [place] [address] Mar, [facility] [address] [id number] [address] [place] [address] Feb, [facility] [address] [id number] [address] [place] [address] Jan, [facility] [address] [id number] [address] [place] [address], [place] [address] Jan, [facility] [address] [id number] [address] [place] [address], [place] [address] Aug, [facility] [address] [id number] [address] [place] [address], [place] [address] Aug, [facility] [address] [id number] [address] [place] [address], [place] [address] Aug, [facility] [address] [id number] [address] [place] [address], [place] [address] Aug, [facility] [address] [id number] [address] [place] [address], [place] [address] July, [facility] [address] [id number] [address] [place] [address], [place] [address] July, [facility] [address] [id number] [address] [place] [address], [place] [address] July, [facility] [address] [id number] [address] [place] [address], [place] [address] July, [facility] [address] [id number] [address] [place] [address], [place] [address] July, [facility] [address] [id number] [address] [place] [address], [place] [address] July, [facility] [address] [id number] [address] [place] [address], [place] [address] July, [facility] [address] [id number] [address] [place] [address], [place] [address] July, [facility] [address] [id number] [address] [place] [address], [place] [address] Jun, [facility] [address] [id number] [address] [place] [address], [place] [address] May, [facility] [address] [id number] [address] [place] [address], [place] [address] May, [facility] [address] [id number] [address] [place] [address], [place] [address] May, [facility] [address] [id number] [address] [place] [address], [place] [address] May, [facility] [address] [id number] [address] [place] [address], [place] [address] Apr, [facility] [address] [id number] [address] [place] [address], [place] [address] Apr, [facility] [address] [id number] [address] [place] [address], [place] [address] Apr, [facility] [address] [id number] [address] [place] [address], [place] [address] Apr, [facility] [address] [id number] [address] [place] [address], [place] [address] Apr, [facility] [address] [id number] [address] [place] [address], [place] [address] Apr, [facility] [address] [id number] [address] [place] [address], [place] [address] Feb, [facility] [address] [id number] [address] [place] [address], [place] [address] Feb, [facility] [address] [id number] [address] [place] [address], [place] [address] Jan, [facility] [address] [id number] [address] [place] [address], [place] [address] Jan, [facility] [address] [id number] [address] [place] [address], [place] [address] Jan, [facility] [address] [id number] [address] [place] [address], [place] [address] Dec, [facility] [address] [id number] [address] [place] [address], [place] [address] Dec, [facility] [address] [id number] [address] [place] [address], [place] [address] Dec, [facility] [address] [id number] [address] [place] [address], [place] [address] Dec, [facility] [address] [id number] [address] [place] [address], [place] [address] Oct, [facility] [address] [id number] [address] [place] [address], [place] [address] Oct, [facility] [address] [id number] [address] [place] [address], [place] [address] Nov, [facility] [address] [id number] [address] [place] [address], [place] [address] Oct, [facility] [address] [id number] [address] [place] [address], [place] [address] Oct, [facility] [address] [id number] [address] [place] [address], [place] [address] Aug, [facility] [address] [id number] [address] [place] [address], [place] [address] Aug, [facility] [address] [id number] [address] [place] [address], [place] [address] July, [facility] [address] [id number] [address] [place] [address], [place] [address] Jun, [facility] [address] [id number] [address] [place] [address], [place] [address] Jun, [facility] [address] [id number] [address] [place] [address], [place] [address] Jun, [facility] [address] [id number] [address] [place] [address], [place] [address] Feb, [facility] [address] [id number] [address] [place] [address], [place] [address] Feb, [facility] [address] [id number] [address] [place] [address], [place] [address] Feb, [facility] [address] [id number] [address] [place] [address] Jan, [facility] [address] [id number] [address] [place] [address] Jan, [facility] [address] [id number] [address] [place] [address] Jan, [facility] [address] [id number] [address] [place] [address] Dec, [facility] [address] [id number] [address] [place] [address] Dec, [facility] [address] [id number] [address] [place] [address] Mar, [facility] [address] [facility] [id number] [address] [place] [address] Jan, IMMUNIZATIONS No Known Immunizations SOCIAL HISTORY Never Assessed REASON FOR VISIT Refill Request PLAN OF CARE VITAL SIGNS MEDICATIONS Medication Instructions Dosage Frequency Start Date End Date Duration S tatus Lisinopril 10 mg Orally Once a day 1 tablet 24h 90 d ays Active Metoprolol Tartrate 50 mg Orally Twice a day 1 tablet with food 12h 90 days Active RESULTS No Results PROCEDURES No Known [...]
--- OUTSIDE RECORDS SUMMARY | 2019-05-16 07:02 | XMS REPORT ---
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 Name Role Phone MIGEL PRESTON Unavailable PROBLEMS Type Condition ICD9-CM Code RUI47-[place] Code Onset Dates Condition S tatus SNOMED Code Problem COPD (chronic obstructive pulmonary disease) J44.9 Active 08308137 Problem Enlarged lymph node R59.9 Active 10520114 Problem Hypertension I10 Active 0017900 3 Problem Prediabetes R73.09 Active 37639651 2 Problem Pure hypercholesterolemia E78.0 Acti ve 05885655 Problem Asthma exacerbation J45.901 Active 639797895 Problem Right sided sciatica M54.31 Active 65810870 Problem Abnormal mammogram R92.8 Active 1 29754133 Problem Polyarthralgia M25.50 Active 25257 005 Problem Primary osteoarthritis of right hip M16.11 Active 222127832 Problem Dyshidrotic eczema L30.1 Active 4 77315727 ALLERGIES Substance Reaction Event Type Date Status Codeine Sulfate anaphylaxis Drug Allergy Apr, Active SOCIAL HISTORY Never Assessed PLAN OF CARE Activity Details Follow Up prn Reason: VITAL SIGNS Height 69 in 2016-04-19 Weight 271.4 lbs 2016-04-19 Temperature 97.1 degrees Fahrenheit 2016-04-19 Heart Rate 84 bpm 2016-04-19 Respiratory Rate 20 2016-04-19 BMI 40.07 kg/m2 2016-04-19 Blood pressure systolic 130 mmHg 2016-04-19 Blood pressure diastolic 82 mmHg 2016-04-19 MEDICATIONS Medication Instructions Dosage Frequency Start Date End Date Duration S tatus Tylenol Extra Strength 500 mg take 2 tab lets (1,000 mg) by oral route every 6 hours as needed Aug, Active Ibuprofen 200 mg 2 Tablet every 8 hours PRN Oct, Active Zantac 150 mg take 1 tablet (150 mg) by oral route 2 t imes per day Dec, Active Benadryl 25 MG Orally every 6 hrs 1 tablet as needed 6h Active Polytrim 83432-8.1 UNIT/ML Ophthalmic Four times a day 1 drop in to affected eye 6h Apr, Apr, 7 days Active Metoprolol Tartrate 50 mg Orally Twice a day 1 tablet with food 12h 90 days Active tramadol 50 mg take 1 tablet (50 mg) by oral ro table mountain every 4-6 hours as needed July, Active Lisinopril 10 mg Orally Once a day 1 tablet 24h 90 d ays Active Albuterol Sulfate 90 mcg/actuation 2 Puffs by In halation route every 6 hours July, Active RESULTS No Results PROCEDURES No Known procedures IMMUNIZATIONS No Known Immunizations MEDICAL (GENERAL) HISTORY Type Description Date Medical [...]
--- OUTSIDE RECORDS SUMMARY | 2019-05-16 07:03 | XMS REPORT ---
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 Developer Name Role Phone GOYO STRINGER Unavailable PROBLEMS Type Condition ICD9-CM Code SYN74-DC Code Onset Dates Condition S tatus SNOMED Code Problem Polyarthralgia M25.50 Active 79015 005 Problem Abnormal mammogram R92.8 Active 1 98875775 Problem Hypertension I10 Active 8730713 3 Problem Prediabetes R73.09 Active 17385711 2 Problem Pure hypercholesterolemia E78.0 Acti ve 09319220 Problem COPD (chronic obstructive pulmonary disease) J44.9 Active 71305602 Problem Enlarged lymph node R59.9 Active 82838723 Problem Abnormal uterine bleeding N93.9 Acti ve [id number] Problem BMI 39.0-39.9,adult Z68.39 Active 565764162 Problem Dyshidrotic eczema L30.1 Active 4 90376460 Problem Primary osteoarthritis of right hip M16.11 Active 464145937 Problem Obesity (BMI 30-39.9) E66.9 Active 228972100 Problem Right sided sciatica M54.31 Active 10355650 ALLERGIES No Information ENCOUNTERS Encounter Location Date Diagnosis [facility] [address] [facility] [id number] [address] [place] [address] Jun, Abnormal mammogram R92.8 [facility] [address] [facility] [id number] [address] [place] [address] Jun, Abnormal mammogram R92.8 [facility] [address] [facility] [id number] [address] [place] [address] May, [facility] [address] [facility] [id number] [address] [place] [address] May, Well woman exam Z01.419 ; Pa in of left hand M79.642 ; Pain in right hand M79.641 ; Abnormal uterine bleeding N93.9 and BMI 39.0-39.9,adult Z68.39 [place] [address] [address] Dec, Hypertension I10 ; BMI 39.0- 39.9,adult Z68.39 and Obesity (BMI 30- 39.9) E66.9 [facility] [place] [address] [address] Oct, Asthma exacerbation J45.[address] [address] Oct, Right sided sciatica M54.31 [facility] [address] [address] Sep, Acute seasonal allergic rhin itis, unspecified trigger J30.[address] [address] Aug, Primary osteoarthritis of ri ght hip M16.11 ; Prediabetes R73.09 ; Precordial pain R07.2 ; Hypertension I10 and Skin lesion L98.[address] [address] Aug, Hypertension I10 [facility] [address] [address] July, Sore throat J02.9 and Acute upper respiratory infection, unspecified J06.9 [facility] [address] [address] Apr, Acute bacterial conjunctivit is of right eye H10.31 [place] [address] [address] Mar, Primary osteoarthritis of ri ght hip M16.[address] [address] Nov, Hypertension I10 and Pure hy percholesterolemia E78.0 [place] [address] [address] Oct, Hypertension I10 ; Pure hype rcholesterolemia E78.0 ; Dyshidrotic eczema L30.1 and Primary osteoarthritis of right hip M16.11 [place] [address] [address] Aug, Hypertension I10 [place] [address] [address] 28 Aug, 2015 Weight gain R63.5 [place] [address] [address] 17 Aug, 2015 [place] [address] [address] 15 Aug, 2015 Abnormal mammogram R92.8 and Bilateral ovarian cysts N83.20 [place] [address] [address] [place] [id number] [address] [place] [address] Jun, Abnormal mammogram R92.8 and Enlarged lymph nodes in armpit R59.0 [place] [address] [address] Jun, Enlarged lymph node R59.9 ; Bilateral ovarian cysts N83.20 and Polyarthralgia M25.50 [place] [address] [address] [place] [id number] [address] [place] [address] May, Bilateral ovarian cysts N83. 20 [place] [address] [address] [place] [id number] [address] [place] [address] 24 May, 2015 Screening for malignant neop lasm of breast Z12.39 and Enlarged lymph node R59.9 [place] [address] [address] [place] [id number] [address] [place] [address] 16 May, 2015 [place] [address] [address] 14 May, 2016 Well woman exam Z01.419 [...] of breast Z12.39 and Subclinical hypothyroidism E03.9 [place] [address] [address] [facility] [id number] [address] [place] [address] 04 May, 2016 Tinea pedis B35.3 and Metror rhagia N92.1 [place] [address] [address] [facility] [id number] [address] [place] [address] 26 Mar, 2015 Onychomycosis B35.1 and Nail ingrowing L60.0 [place] [address] [address] [facility] [id number] [address] [place] [address] Jan, Subclinical hypothyroidism E 03.9 [place] [address] [id number] [address] [place] [address] Dec, Pain in joint, pain in unspe cified joint M25.50 [place] [address] [address] [facility] [id number] [address] [place] [address] Dec, Pain in joint, pain in unspe cified joint M25.50 [place] [address] [id number] [address] [place] [address] Dec, Pain in joint, pain in unspe cified joint M25.50 [place] [address] [address] [facility] [id number] [address] [place] [address] Nov, Hypertension 401.9 [place] [address] [address] [facility] [id number] [address] [place] [address] 18 Nov, 2014 [place] [address] [address] [facility] [id number] [address] [place] [address] Nov, Chronic airway obstruction, not elsewhere classified 496 and Hypertension 401.9 [facility] [address] [id number] [address] [place] [id number] Oct, Dental examination V72.2 [facility] [address] [id number] [address] [place] [address] 30 Aug, 2014 Onychomycosis 110.1 and Ingr own nail 703.0 [facility] [address] [id number] [address] [place] [address] Aug, [facility] [address] [id number] [address] [place] [address] Aug, Onychomycosis 110.1 and Nail , ingrown 703.0 [facility] [address] [id number] [address] [place] [address] Jun, [facility] [address] [id number] [address] [place] [address] Jun, [facility] [address] [id number] [address] [place] [address] May, [facility] [address] [id number] [address] [place] [address] May, [facility] [address] [id number] [address] [place] [address] Apr, [facility] [address] [id number] [address] [place] [address] Apr, [facility] [address] [id number] [address] [place] [address] Apr, [facility] [address] [id number] [address] [place] [address] Apr, [facility] [address] [id number] [address] [place] [address] Mar, [facility] [address] [id number] [address] [place] [address] Mar, [facility] [address] [id number] [address] [place] [address], [place] [address] Feb, [facility] [address] [id number] [address] [place] [address], [place] [address] Jan, [facility] [address] [id number] [address] [place] [address], [place] [address] Jan, [facility] [address] [id number] [address] [place] [address], [place] [address] Aug, [facility] [address] [id number] [address] [place] [address], [place] [address] Aug, [facility] [address] [id number] [address] [place] [address], [place] [address] Aug, [facility] [address] [id number] [address] [place] [address], [place] [address] Aug, [facility] [address] [id number] [address] [place] [address], [place] [address] July, [facility] [address] [id number] [address] [place] [address], [place] [address] July, [facility] [address] [id number] [address] [place] [address], [place] [address] July, [facility] [address] [id number] [address] [place] [address], [place] [address] July, [facility] [address] [id number] [address] [place] [address], [place] [address] July, [facility] [address] [id number] [address] [place] [address], [place] [address] July, [facility] [address] [id number] [address] [place] [address], [place] [address] July, [facility] [address] [id number] [address] [place] [address], [place] [address] July, [facility] [address] [id number] [address] [place] [address], [place] [address] Jun, [facility] [address] [id number] [address] [place] [address], [place] [address] May, [facility] [address] [id number] [address] [place] [address], [place] [address] May, [facility] [address] [id number] [address] [place] [address], [place] [address] May, [facility] [address] [id number] [address] [place] [address], [place] [address] May, [facility] [address] [id number] [address] [place] [address], [place] [address] Apr, [facility] [address] [id number] [address] [place] [address], [place] [address] Apr, [facility] [address] [id number] [address] [place] [address], [place] [address] Apr, [facility] [address] [id number] [address] [place] [address], [place] [address] Apr, [facility] [address] [id number] [address] [place] [address], [place] [address] Apr, [facility] [address] [id number] [address] [place] [address], [place] [address] Apr, [facility] [address] [id number] [address] [place] [address], [place] [address] Feb, [facility] [address] [id number] [address] [place] [address], [place] [address] Feb, [facility] [address] [id number] [address] [place] [address], [place] [address] Jan, [facility] [address] [id number] [address] [place] [address], [place] [address] Jan, [facility] [address] [id number] [address] [place] [address], [place] [address] Jan, [facility] [address] [id number] [address] [place] [address], [place] [address] Dec, [facility] [address] [id number] [address] [place] [address], [place] [address] Dec, [facility] [address] [id number] [address] [place] [address], [place] [address] Dec, [facility] [address] [id number] [address] [place] [address], [place] [address] Dec, [facility] [address] [id number] [address] [place] [address], [place] [address] Oct, [facility] [address] [id number] [address] [place] [address], [place] [address] Oct, [facility] [address] [id number] [address] [place] [address], [place] [address] Nov, [facility] [address] [id number] [address] [place] [address], [place] [address] Oct, [facility] [address] [id number] [address] [place] [address], [place] [address] Oct, [facility] [address] [id number] [address] [place] [address], [place] [address] Aug, [facility] [address] [id number] [address] [place] [address], [place] [address] Aug, [facility] [address] [id number] [address] [place] [address], [place] [address] July, [facility] [address] [id number] [address] [place] [address], [place] [address] Jun, [facility] [address] [id number] [address] [place] [address], [place] [address] Jun, [facility] [address] [id number] [address] [place] [address], [place] [address] Jun, [facility] [address] [id number] [address] [place] [address] Feb, [facility] [address] [id number] [address] [place] [address] Feb, [facility] [address] [id number] [address] [place] [address] Feb, [facility] [address] [id number] [address] [place] [address] Jan, [facility] [address] [id number] [address] [place] [address] Jan, [facility] [address] [id number] [address] [place] [address] Jan, [facility] [address] [id number] [address] [place] [address] Dec, [facility] [address] [id number] [address] [place] [address] Dec, [facility] [address] [id number] [address] [place] [address] Mar, [facility] [address] [id number] [address] [place] [address] Jan, IMMUNIZATIONS No Known Immunizations SOCIAL HISTORY Never Assessed REASON FOR VISIT Right hip pain-xray done 10/2015. Consult Goyo Mo RT(R) PLAN OF CARE Activity Details Follow Up prn Reason: VITAL SIGNS MEDICATIONS Unknown Medications RESULTS No [...]
--- OUTSIDE RECORDS SUMMARY | 2019-05-16 07:03 | XMS REPORT ---
Author Author Marian PAULSON CAROLINA Organization [facility] Address [address] [place] [address] Care Team Providers Care Recording Studio Intern Name Role Phone KHURRAMNARGIS BROOKSY Unavailable PROBLEMS Type Condition ICD9-CM Code VAZ24-BG Code Onset Dates Condition S tatus SNOMED Code Problem Polyarthralgia M25.50 Active 24043 005 Problem Abnormal mammogram R92.8 Active 1 90088959 Problem Hypertension I10 Active 8372409 3 Problem Prediabetes R73.09 Active 37876366 2 Problem Pure hypercholesterolemia E78.0 Acti ve 92703228 Problem COPD (chronic obstructive pulmonary disease) J44.9 Active 59958717 Problem Enlarged lymph node R59.9 Active 32074081 Problem Abnormal uterine bleeding N93.9 Acti ve [id number] Problem BMI 39.0-39.9,adult Z68.39 Active 112304950 Problem Dyshidrotic eczema L30.1 Active 4 57502453 Problem Primary osteoarthritis of right hip M16.11 Active 804441151 Problem Obesity (BMI 30-39.9) E66.9 Active 457560104 Problem Right sided sciatica M54.31 Active 56899776 ALLERGIES Substance Reaction Event Type Date Status Codeine Sulfate anaphylaxis Drug Allergy Aug, Active ENCOUNTERS Encounter Location Date Diagnosis [facility] [address] [facility] [id number] [address] [place] [id number] May, [facility] [address] [facility] [id number] [address] [place] [address] May, Well woman exam Z01.419 ; Pa in of left hand M79.642 ; Pain in right hand M79.641 ; Abnormal uterine bleeding N93.9 and BMI 39.0-39.9,adult Z68.39 [facility] [address] [facility] [id number] [address] [place] [id number] Dec, Hypertension I10 ; BMI 39.0- 39.9,adult Z68.39 and Obesity (BMI 30- 39.9) E66.9 [facility] [address] [address] Oct, Asthma exacerbation J45.[address] [address] Oct, Right sided sciatica M54.31 [facility] [address] [address] Sep, Acute seasonal allergic rhin itis, unspecified trigger J30.[address] [address] Aug, Primary osteoarthritis of ri ght hip M16.11 ; Prediabetes R73.09 ; Precordial pain R07.2 ; Hypertension I10 and Skin lesion L98.[address] [address] Aug, Hypertension I10 [facility] [address] [address] July, Sore throat J02.9 and Acute upper respiratory infection, unspecified J06.9 [facility] [address] [address] Apr, Acute bacterial conjunctivit is of right eye H10.[address] [address] Mar, Primary osteoarthritis of ri ght hip M16.[address] [address] Nov, Hypertension I10 and Pure hy percholesterolemia E78.[address] [address] Oct, Hypertension I10 ; Pure hype rcholesterolemia E78.0 ; Dyshidrotic eczema L30.1 and Primary osteoarthritis of right hip M16.11 [place] [address] [address] 29 Aug, 2015 Hypertension I10 [place] [address] [address] 28 Aug, 2015 Weight gain R63.5 [place] [address] [address] 17 Aug, 2015 [place] [address] [address] 15 Aug, 2015 Bilateral ovarian cysts N83. 20 and Abnormal mammogram R92.8 [place] [address] [address] Jun, Abnormal mammogram R92.8 and Enlarged lymph nodes in armpit R59.0 [place] [address] [address] 08 Jun, 2015 Enlarged lymph node R59.9 ; Bilateral ovarian cysts N83.20 and Polyarthralgia M25.50 [place] [address] [address] May, Bilateral ovarian cysts N83. 20 [place] [address] [address] 24 May, 2015 Screening for malignant neop lasm of breast Z12.39 and Enlarged lymph node R59.9 [place] [address] [place] [id number] [address] [place] [id number] 16 May, 2015 [place] [address] [address] 14 May, 2015 Well woman exam Z01.419 [...] Z12.39 and Subclinical hypothyroidism E03.9 [place] [address] [place] [id number] [address] [place] [id number] 04 May, 2015 Tinea pedis B35.3 and Metror rhagia N92.1 [place] [address] [place] [id number] [address] [place] [id number] Mar, Onychomycosis B35.1 and Nail ingrowing L60.0 [place] [address] [place] [id number] [address] [place] [phone] Jan, Subclinical hypothyroidism E 03.9 [place] [address] [place] [id number] [address] [place] [id number] Dec, Pain in joint, pain in unspe cified joint M25.50 [place] [address] [place] [id number] [address] [place] [id number] Dec, Pain in joint, pain in unspe cified joint M25.50 [place] [address] [place] [id number] [address] [place] [id number] Dec, Pain in joint, pain in unspe cified joint M25.50 [place] [address] [place] [id number] [address] [place] [phone] Nov, Hypertension 401.9 [facility] [address] [facility] [id number] [address] [place] [id number] Nov, [place] [address] [address] Nov, Chronic airway obstruction, not elsewhere classified 496 and Hypertension 401.9 [facility] [address] [id number] [address] [place] [id number] Oct, Dental examination V72.2 [facility] [place] [facility] [address] [id number] [address] [place] [address], [place] [address] 30 Aug, 2014 Onychomycosis 110.1 and Ingr own nail 703.0 [facility] [address] [id number] [address] [place] [address], [place] [address] 22 Aug, 2014 [facility] [address] [id number] [address] [place] [address], [place] [address] 08 Aug, 2014 Onychomycosis 110.1 and Nail , ingrown 703.0 [facility] [address] [id number] [address] [place] [address], [place] [address] 14 Jun, 2014 [facility] [address] [id number] [address] [place] [address], [place] [address] Jun, [facility] [address] [id number] [address] [place] [phone] May, [facility] [address] [id number] [address] [place] [phone] May, [facility] [address] [id number] [address] [place] [id number] Apr, [facility] [address] [id number] [address] [place] [phone] Apr, [facility] [address] [id number] [address] [place] [id number] Apr, [facility] [address] [id number] [address] [place] [phone] Apr, [facility] [address] [id number] [address] [place] [phone] Mar, [facility] [address] [id number] [address] [place] [phone] Mar, [facility] [address] [id number] [address] [place] [phone] Feb, [facility] [address] [id number] [address] [place] [id number] Jan, [facility] [address] [id number] [address] [place] [address], [place] [address] Jan, [facility] [address] [id number] [address] [place] [address], [place] [address] Aug, [facility] [address] [id number] [address] [place] [address], [place] [address] Aug, [facility] [place] [facility] [address] [id number] [address] [place] [address], [place] [address] Aug, [facility] [address] [id number] [address] [place] [address], [place] [address] Aug, [facility] [address] [id number] [address] [place] [address], [place] [address] July, [facility] [address] [id number] [address] [place] [address], [place] [address] July, [facility] [address] [id number] [address] [place] [address], [place] [address] July, [facility] [address] [id number] [address] [place] [address], [place] [address] July, [facility] [address] [id number] [address] [place] [address], [place] [address] July, [facility] [address] [id number] [address] [place] [address], [place] [address] July, [facility] [place] [facility] [address] [id number] [address] [place] [address], [place] [address] July, [facility] [place] [facility] [address] [id number] [address] [place] [address], [place] [address] July, [facility] [place] [facility] [address] [id number] [address] [place] [address], [place] [address] Jun, [facility] [place] [facility] [address] [id number] [address] [place] [address], [place] [address] May, [facility] [place] [facility] [address] [id number] [address] [place] [address] May, [facility] [address] [id number] [address] [place] [address], [place] [address] May, [facility] [place] [facility] [address] [id number] [address] [place] [address], [place] [address] May, [facility] [place] [facility] [address] [id number] [address] [place] [address], [place] [address] Apr, [facility] [place] [facility] [address] [id number] [address] [place] [address], [place] [address] Apr, [facility] [address] [id number] [address] [place] [address], [place] [address] Apr, [facility] [address] [id number] [address] [place] [address], [place] [address] Apr, [facility] [place] [facility] [address] [id number] [address] [place] [address], [place] [address] Apr, [facility] [address] [id number] [address] [place] [address], [place] [address] Apr, [facility] [address] [id number] [address] [place] [address], [place] [address] Feb, [facility] [address] [id number] [address] [place] [address], [place] [address] Feb, [facility] [place] [facility] [address] [id number] [address] [place] [address], [place] [address] Jan, [facility] [place] [facility] [address] [id number] [address] [place] [address], [place] [address] Jan, [facility] [place] [facility] [address] [id number] [address] [place] [address], [place] [address] Jan, [facility] [place] [facility] [address] [id number] [address] [place] [address], [place] [address] Dec, [facility] [place] [facility] [address] [id number] [address] [place] [address], [place] [address] Dec, [facility] [address] [id number] [address] [place] [address], [place] [address] Dec, [facility] [address] [id number] [address] [place] [address], [place] [address] Dec, [facility] [address] [id number] [address] [place] [address], [place] [address] Oct, [facility] [address] [id number] [address] [place] [address], [place] [address] Oct, [facility] [address] [id number] [address] [place] [address], [place] [address] Nov, [facility] [address] [id number] [address] [place] [address], [place] [address] Oct, [facility] [address] [id number] [address] [place] [address], [place] [address] Oct, [facility] [address] [id number] [address] [place] [address], [place] [address] Aug, [facility] [address] [id number] [address] [place] [address], [place] [address] Aug, [facility] [address] [id number] [address] [place] [address], [place] [address] July, [facility] [address] [id number] [address] [place] [address], [place] [address] Jun, [facility] [address] [id number] [address] [place] [address], [place] [address] Jun, [facility] [address] [id number] [address] [place] [address], [place] [address] Jun, [facility] [address] [id number] [address] [place] [address], [place] [address] Feb, [facility] [place] [facility] [address] [id number] [address] [place] [address], [place] [address] Feb, [facility] [address] [id number] [address] [place] [id number] Feb, [facility] [address] [id number] [address] [place] [id number] Jan, [facility] [address] [id number] [address] [place] [id number] Jan, [facility] [address] [id number] [address] [place] [phone] Jan, [facility] [address] [id number] [address] [place] [id number] Dec, [facility] [address] [id number] [address] [place] [phone] Dec, [facility] [address] [id number] [address] [place] [phone] Mar, [facility] [address] [facility] [id number] [address] [place] [phone] Jan, IMMUNIZATIONS No Known Immunizations SOCIAL HISTORY Never Assessed REASON FOR VISIT Blood Pressure fu -- jasso ma PLAN OF CARE Activity Details Follow Up 6 Months Reason:HTN VITAL SIGNS Height 69 in 2016-09-02 Weight 272.0 lbs 2016-09-02 Temperature 97.4 degrees Fahrenheit 2016-09-02 Heart Rate 76 bpm 2016-09-02 Respiratory Rate 22 2016-09-02 BMI 40.16 kg/m2 2016-09-02 Blood pressure systolic 138 mmHg 2016-09-02 Blood pressure diastolic 72 mmHg 2016-09-02 MEDICATIONS Medication Instructions Dosage Frequency Start Date End Date Duration S tatus Zantac 150 mg take 1 tablet (150 mg) by oral route 2 t imes per day Dec, Active Lisinopril 10 mg Orally Once a day 1 tablet 24h 90 d ays Active Metoprolol Tartrate 50 mg Orally Twice a day 1 tablet with food 12h 90 days Active RESULTS Name Result Date Reference Range TROPONIN I 2016-09-02 Please note Troponin I CBC 2016-09-02 Please note WBC RBC Hemoglobin Hematocrit MCV MCH MCHC RDW Platelets NRBC Neutrophils Lymphs Monocytes Eos Basos Immature Granulocytes Neutrophils (Absolute) Lymphs (Absolute) Monocytes(Absolute) Eos (Absolute) Baso (Absolute) Immature Grans (Abs) Immature Cells Bands Blasts/blast like cells Megakaryocytes Metamyelocytes Myelocytes Other, Lineage Uncertain Promyelocytes Hematology Comments: Request Problem Request Problem [facility] 2016-09-02 Request Problem NTI Urine Tube (Stephen) Benjamin Colindres [facility]14 Default Request Problem Request Problem Sodium, Serum Potassium, Serum Chloride, Serum Carbon Dioxide, Total BUN Creatinine, Serum eGFR If NonAfricn Am eGFR If Africn Am BUN/Creatinine Ratio Glucose, Serum Calcium, Serum Bilirubin, Total AST (SGOT) ALT (SGPT) Alkaline Phosphatase, S Protein, Total, Serum Albumin, Serum Globulin, Total A/G Ratio Specimen Identification Status Please note TROPONIN I 2016-09-02 Please note Troponin I MAGNESIUM, SERUM 2016-09-02 NTI Urine Tube (Stephen) Please note Request Problem Request Problem Request Problem Magnesium, Serum TSH 2016-09-02 Benjamin Colindres [facility]14 Default Ambiguous Test Order NTI Urine Tube (Stephen) Request Problem Specimen Identification Status Specimen Identification Status Please note Request Problem Request Problem TSH CBC 2016-09-02 Please note WBC RBC Hemoglobin Hematocrit MCV MCH MCHC RDW Platelets NRBC Neutrophils Lymphs Monocytes Eos Basos Immature Granulocytes Neutrophils (Absolute) Lymphs (Absolute) Monocytes(Absolute) Eos (Absolute) Baso (Absolute) Immature Grans (Abs) Immature Cells Bands Blasts/blast like cells Megakaryocytes Metamyelocytes Myelocytes Other, Lineage Uncertain Promyelocytes Hematology Comments: Request Problem Request Problem LIPID PANEL 2016-09-02 Benjamin Colindres [facility]14 Default Comment Please note Request Problem Request Problem Specimen Identification Status LDL Cholesterol Calc 110 Comment: VLDL Cholesterol Bertin HDL Cholesterol 40 Triglycerides 94 Cholesterol, Total Comment: [facility] 2016-09-02 Request Problem NTI Urine Tube (Stephen) Benjamin Colindres [facility]14 Default Request Problem Request Problem Sodium, Serum Potassium, Serum Chloride, Serum Carbon Dioxide, Total BUN Creatinine, Serum eGFR If NonAfricn Am eGFR If Africn Am BUN/Creatinine Ratio Glucose, Serum Calcium, Serum Bilirubin, Total AST (SGOT) ALT (SGPT) Alkaline Phosphatase, S Protein, Total, Serum Albumin, Serum Globulin, Total A/G Ratio Specimen Identification Status Please note PROCEDURES Procedure Date Ordered Result Body Site EKG, TRACING (IN-HOUSE) 2016-09-02 N/A ELECTROCARDIOGRAM, TRACING September 02, 2016 INSTRUCTIONS MEDICATIONS ADMINISTERED No Known Medications [...]
--- OUTSIDE RECORDS SUMMARY | 2019-05-16 07:04 | XMS REPORT | Continuity of Care Document ---
Author Organization Unknown Address Unknown Phone Unavailable Allergies Active Description Code Type Severity Reaction Onset Reported/Identified Relationship to Patient Clinical Status Yes codeine Drug Allergy N/A N/A 09/01/2008 Yes codeine [id number] Drug Allergy Severe THROAT SWELLS S 06/28/2013 Medications There is no data. Problems Date Dx Coded Attending Type Code Diagnosis Diagnosed By 09/01/2008 616.0 Cerv icitis And Endocervicitis 09/01/2008 V72.3 GYNE COLOGICAL EXAMINATION 09/01/2008 YOHANNES TABOR DO 616.0 Cervicitis And Endocervicitis 09/01/2008 YOHANNES TABOR DO V72.3 GYNECOLOGICAL EXAMINATION 09/01/2008 DRAKE PENA APRN 61 6.0 Cervicitis And Endocervicitis 09/01/2008 DRAKE PENA APRN V7 2.3 GYNECOLOGICAL EXAMINATION 09/01/2008 CAROLINA PAULSON MD 616 .0 Cervicitis And Endocervicitis 09/01/2008 CAROLINA PAULSON MD V72 .3 GYNECOLOGICAL EXAMINATION 09/01/2008 CAROLINA PAULSON MD 616 .0 Cervicitis And Endocervicitis 09/01/2008 CAROLINA PAULSON MD V72 .3 GYNECOLOGICAL EXAMINATION 09/01/2008 CAROLINA PAULSON MD 616 .0 Cervicitis And Endocervicitis 09/01/2008 CAROLINA PAULSON MD V72 .3 GYNECOLOGICAL EXAMINATION 09/01/2008 YOHANNES TABOR DO 616.0 Cervicitis And Endocervicitis 09/01/2008 YOHANNES TABOR DO V72.3 GYNECOLOGICAL EXAMINATION 09/01/2008 RIO MOULTON MD 616.0 Cervicitis And Endocervicitis 09/01/2008 RIO MOULTON MD V72.3 GYNECOLOGICAL EXAMINATION 09/01/2008 ROE CALERO APRN 616 .0 Cervicitis And Endocervicitis 09/01/2008 ROE CALERO APRN L V72 .3 GYNECOLOGICAL EXAMINATION 09/01/2008 CIERRA CALERO APRNA L 616 .0 Cervicitis And Endocervicitis 09/01/2008 [facility], ROE L V72 .3 GYNECOLOGICAL EXAMINATION 09/01/2008 KHURRAM GALVIN, CAROLINA N 616 .0 Cervicitis And Endocervicitis 09/01/2008 CAROLINA PAULSON MD N V72 .3 GYNECOLOGICAL EXAMINATION 09/01/2008 DRAKE PENA APRN A 61 6.0 Cervicitis And Endocervicitis 09/01/2008 DRAKE PENA APRN V7 2.3 GYNECOLOGICAL EXAMINATION 09/01/2008 YOHANNES TABOR DO 616.0 Cervicitis And Endocervicitis 09/01/2008 YOHANNES TABOR DO V72.3 GYNECOLOGICAL EXAMINATION 01/06/2009 724.3 Sciatica 01/06/2009 YOHANNES TABOR DO 724.3 Sciatica 01/06/2009 DRAKE PENA APRN A 72 4.3 Sciatica 01/06/2009 CAROLINA PAULSON MD N 724 .3 Sciatica 01/06/2009 CAROLINA PAULSON MD N 724 .3 Sciatica 01/06/2009 CAROLINA PAULSON MD 724 .3 Sciatica 01/06/2009 YOHANNES TABOR DO 724.3 Sciatica 01/06/2009 RIO MOULTON MD 724.3 Sciatica 01/06/2009 CIERRA CALERO APRNA L 724 .3 [facility] [place] [facility] 724 .3 Sciatica 01/06/2009 CAROLINA PAULSON MD N 724 .3 Sciatica 01/06/2009 DRAKE PENA APRN A 72 4.3 Sciatica 01/06/2009 YOHANNES TABOR DO 724.3 Sciatica 12/23/2009 Ot 401.9 12/23/2009 Ot 490 12/23/2009 Ot 786.50 12/25/2009 NODX No Di agnosis 12/25/2009 YOHANNES TABOR DO NODX No Diagnosis 12/25/2009 JEAN PARKING PATROLLER, DRAKE A NO DX No Diagnosis 12/25/2009 CAROLINA PAULSON MD NOD X No Diagnosis 12/25/2009 CAROLINA PAULSON MD NOD X No Diagnosis 12/25/2009 CAROLINA PAULSON MD NOD X No Diagnosis 12/25/2009 YOHANNES TABOR DO K NODX No Diagnosis 12/25/2009 RIO MOULTON MD NODX No Diagnosis 12/25/2009 MADL PARKING PATROLLER, ROE L NOD X No Diagnosis 12/25/2009 MADL PARKING PATROLLER, ROE L NOD X No Diagnosis 12/25/2009 CAROLINA PAULSON MD NOD X No Diagnosis 12/25/2009 JEAN PARKING PATROLLER, DRAKE A NO DX No Diagnosis 12/25/2009 FARNAZ TABOR DOA K NODX No Diagnosis 12/29/2009 401.1 ESSE NTIAL HYPERTENSION BENIGN 12/29/2009 V17.49 FAM LALO HISTORY OF OTHER CARDIOVASCULAR DISEASES 12/29/2009 FARNAZ TABOR DOA K 401.1 ESSENTIAL HYPERTENSION BENIGN 12/29/2009 YOHANNES TABOR DO V17.49 FAMILY HISTORY OF OTHER CARDIOVASCULAR DISEASES 12/29/2009 JEANNAVA GUPTA, DRAKE A 40 1.1 ESSENTIAL HYPERTENSION BENIGN 12/29/2009 JEAN APRN, RDAKE A V17.49 FAMILY HISTORY OF OTHER CARDIOVASCULAR DISEASES 12/29/2009 CAROLINA PAULSON MD 401 .1 ESSENTIAL HYPERTENSION BENIGN 12/29/2009 CAROLINA PAULSON MD V17 .49 FAMILY HISTORY OF OTHER CARDIOVASCULAR DISEASES 12/29/2009 CAROLINA PAULSON MD 401 .1 ESSENTIAL HYPERTENSION BENIGN 12/29/2009 CAROLINA PAULSON MD V17 .49 FAMILY HISTORY OF OTHER CARDIOVASCULAR DISEASES 12/29/2009 CAROLINA PAULSON MD 401 .1 ESSENTIAL HYPERTENSION BENIGN 12/29/2009 CAROLINA PAULSON MD V17 .49 FAMILY HISTORY OF OTHER CARDIOVASCULAR DISEASES 12/29/2009 YOHANNES TABOR DO 401.1 ESSENTIAL HYPERTENSION BENIGN 12/29/2009 YOHANNES TABOR DO V17.49 FAMILY HISTORY OF OTHER CARDIOVASCULAR DISEASES 12/29/2009 RIO MOULTON MD 401.1 ESSENTIAL HYPERTENSION BENIGN 12/29/2009 RIO MOULTON MD V17.4 9 FAMILY HISTORY OF OTHER CARDIOVASCULAR DISEASES 12/29/2009 MADL PARKING PATROLLER, ROE L 401 .1 ESSENTIAL HYPERTENSION BENIGN 12/29/2009 MADL PARKING PATROLLER, ROE L V17 .49 FAMILY HISTORY OF OTHER CARDIOVASCULAR DISEASES 12/29/2009 MADL PARKING PATROLLER, ROE L 401 .1 ESSENTIAL HYPERTENSION BENIGN 12/29/2009 MADL PARKING PATROLLER, ROE L V17 .49 FAMILY HISTORY OF OTHER CARDIOVASCULAR DISEASES 12/29/2009 CAROLINA PAULSON MD 401 .1 ESSENTIAL HYPERTENSION BENIGN 12/29/2009 CAROLINA PAULSON MD V17 .49 FAMILY HISTORY OF OTHER CARDIOVASCULAR DISEASES 12/29/2009 JEANShannon GUPTA DRAKE A 40 1.1 ESSENTIAL HYPERTENSION BENIGN 12/29/2009 JEAN APRN, DRAKE A V17.49 FAMILY HISTORY OF OTHER CARDIOVASCULAR DISEASES 12/29/2009 YOHANNES TABOR DO K 401.1 ESSENTIAL HYPERTENSION BENIGN 12/29/2009 YOHANNES TABOR DO K V17.49 FAMILY HISTORY OF OTHER CARDIOVASCULAR DISEASES 02/01/2010 Ot 288.60 02/01/2010 Ot 305.1 02/01/2010 Ot 401.9 02/01/2010 Ot 466.0 02/01/2010 Ot 530.81 02/01/2010 Ot 790.29 02/01/2010 Ot 799.02 02/01/2010 Ot E932.0 02/05/2010 493.90 AST HMA UNSPECIFIED 02/05/2010 YOHANNES TABOR DO K 493.90 ASTHMA UNSPECIFIED 02/05/2010 SHEKHAR PENA APRNIDI A 493.90 ASTHMA UNSPECIFIED 02/05/2010 CAROLINA PAULSON MD 493 .90 ASTHMA UNSPECIFIED 02/05/2010 CAROLINA PAULSON MD 493 .90 ASTHMA UNSPECIFIED 02/05/2010 CAROLINA PAULSON MD 493 .90 ASTHMA UNSPECIFIED 02/05/2010 YOHNANES TABOR DO 493.90 ASTHMA UNSPECIFIED 02/05/2010 RIO MOULTON MD 493.9 0 ASTHMA UNSPECIFIED 02/05/2010 MADDarvin PARKING PATROLLER, ROE L 493 .90 ASTHMA UNSPECIFIED 02/05/2010 MADL PARKING PATROLLER, ROE L 493 .90 ASTHMA UNSPECIFIED 02/05/2010 CAROLINA PAULSON MD 493 .90 ASTHMA UNSPECIFIED 02/05/2010 JEAN PARKING PATROLLER, DRAKE A 493.90 ASTHMA UNSPECIFIED 02/05/2010 TABOR DO, YOHANNES K 493.90 ASTHMA UNSPECIFIED 02/22/2010 462 Sore T hroat 02/22/2010 478.75 Corn Press Operator up Spasmodic 02/22/2010 TABOR DO, YOHANNES K 462 Sore Throat 02/22/2010 TABOR DO, YOHANNES K 478.75 Croup Spasmodic 02/22/2010 JEAN PARKING PATROLLER, DRAKE A 46 2 Sore Throat 02/22/2010 JEAN PARKING PATROLLER, DRAKE A 478.75 Croup Spasmodic 02/22/2010 CAROLINA PAULSON MD N 462 Sore Throat 02/22/2010 CAROLINA PAULSON MD 478 .75 Croup Spasmodic 02/22/2010 CAROLINA PAULSON MD N 462 Sore Throat 02/22/2010 CAROLINA PAULSON MD N 478 .75 Croup Spasmodic 02/22/2010 CAROLINA PAULSON MD N 462 Sore Throat 02/22/2010 CAROLINA PAULSON MD N 478 .75 Croup Spasmodic 02/22/2010 TABOR DO, YOHANNES K 462 Sore Throat 02/22/2010 TABOR DO, YOHANNES K 478.75 Croup Spasmodic 02/22/2010 RIO MOULTON MD 462 Sore Throat 02/22/2010 RIO MOULTON MD 478.7 5 Croup Spasmodic 02/22/2010 MADL PARKING PATROLLER, ROE L 462 Sore Throat 02/22/2010 MADL PARKING PATROLLER, ROE L 478 .75 Croup Spasmodic 02/22/2010 MADL PARKING PATROLLER, ROE L 462 Sore Throat 02/22/2010 MADL PARKING PATROLLER, ROE L 478 .75 Croup Spasmodic 02/22/2010 CAROLINA PAULSON MD N 462 Sore Throat 02/22/2010 CAROLINA PAULSON MD N 478 .75 Croup Spasmodic 02/22/2010 JEAN PARKING PATROLLER, DRAKE A 46 2 Sore Throat 02/22/2010 JEAN PARKING PATROLLER, DRAKE A 478.75 Croup Spasmodic 02/22/2010 TABOR DO, YOHANNES K 462 Sore Throat 02/22/2010 YOHANNES TABOR DO K 478.75 Croup Spasmodic 08/18/2011 Ot 278.00 08/18/2011 Ot 305.1 08/18/2011 Ot 401.9 08/18/2011 Ot 491.22 08/18/2011 Ot 530.81 08/18/2011 Ot 799.02 08/18/2011 Ot V85.33 08/30/2011 305.1 NOND EPENDENT TOBACCO USE DISORDER 08/30/2011 466.0 Acut e Bronchitis 08/30/2011 YOHANNES TABOR DO K 305.1 NONDEPENDENT TOBACCO USE DISORDER 08/30/2011 YOHANNES TABOR DO K 466.0 Acute Bronchitis 08/30/2011 JEANSHEKHAR VICK APRNIDI A 30 5.1 NONDEPENDENT TOBACCO USE DISORDER 08/30/2011 SHEKHAR PENA APRNIDI A 46 6.0 Acute Bronchitis 08/30/2011 CAROLINA PAULSON MD 305 .1 NONDEPENDENT TOBACCO USE DISORDER 08/30/2011 CAROLINA PAULSON MD N 466 .0 Acute Bronchitis 08/30/2011 CAROLINA PAULSON MD N 305 .1 NONDEPENDENT TOBACCO USE DISORDER 08/30/2011 CAROLINA PAULSON MD N 466 .0 Acute Bronchitis 08/30/2011 CAROLINA PAULSON MD N 305 .1 NONDEPENDENT TOBACCO USE DISORDER 08/30/2011 CAROLINA PAULSON MD N 466 .0 Acute Bronchitis 08/30/2011 YOHANNES TABOR DO K 305.1 NONDEPENDENT TOBACCO USE DISORDER 08/30/2011 YOHANNES TABOR DO K 466.0 Acute Bronchitis 08/30/2011 RIO MOULTON MD 305.1 NONDEPENDENT TOBACCO USE DISORDER 08/30/2011 RIO MOULTON MD 466.0 Acute Bronchitis 08/30/2011 GALILEA GUPTA ROE L 305 .1 NONDEPENDENT TOBACCO USE DISORDER 08/30/2011 GALILEA GUPTA ROE L 466 .0 Acute Bronchitis 08/30/2011 GALILEA GUPTA ROE L 305 .1 NONDEPENDENT TOBACCO USE DISORDER 08/30/2011 GALILEA GUPTA ROE L 466 .0 Acute Bronchitis 08/30/2011 CAROLINA PAULSON MD N 305 .1 NONDEPENDENT TOBACCO USE DISORDER 08/30/2011 CAROLINA PAULSON MD N 466 .0 Acute Bronchitis 08/30/2011 DRAKE PENA APRN A 30 5.1 NONDEPENDENT TOBACCO USE DISORDER 08/30/2011 DRAKE PENA APRN A 46 6.0 Acute Bronchitis 08/30/2011 YOHANNES TABOR DO K 305.1 NONDEPENDENT TOBACCO USE DISORDER 08/30/2011 YOHANNES TABOR DO K 466.0 Acute Bronchitis 10/08/2012 692.9 CONT ACT DERMATITIS AND OTHER ECZEMA UNSPECIFIED CAUSE 10/08/2012 YOHANNES TABOR DO 692.9 CONTACT DERMATITIS AND OTHER ECZEMA UNSPECIFIED CAUSE 10/08/2012 DRAKE PENA APRN A 69 2.9 CONTACT DERMATITIS AND OTHER ECZEMA UNSPECIFIED CAUSE 10/08/2012 CAROLINA PAULSON MD 692 .9 CONTACT DERMATITIS AND OTHER ECZEMA UNSPECIFIED CAUSE 10/08/2012 CAROLINA PAULSON MD 692 .9 CONTACT DERMATITIS AND OTHER ECZEMA UNSPECIFIED CAUSE 10/08/2012 CAROLINA PAULSON MD 692 .9 CONTACT DERMATITIS AND OTHER ECZEMA UNSPECIFIED CAUSE 10/08/2012 YOHANNES TABOR DO 692.9 CONTACT DERMATITIS AND OTHER ECZEMA UNSPECIFIED CAUSE 10/08/2012 IRO MOULTON MD 692.9 CONTACT DERMATITIS AND OTHER ECZEMA UNSPECIFIED CAUSE 10/08/2012 ROE CALERO APRN 692 .9 CONTACT DERMATITIS AND OTHER ECZEMA UNSPECIFIED CAUSE 10/08/2012 ROE CALERO APRN 692 .9 CONTACT DERMATITIS AND OTHER ECZEMA UNSPECIFIED CAUSE 10/08/2012 CAROLINA PAULSON MD 692 .9 CONTACT DERMATITIS AND OTHER ECZEMA UNSPECIFIED CAUSE 10/08/2012 DRAKE PENA APRN A 69 2.9 CONTACT DERMATITIS AND OTHER ECZEMA UNSPECIFIED CAUSE 10/08/2012 YOHANNES TABOR DO 692.9 CONTACT DERMATITIS AND OTHER ECZEMA UNSPECIFIED CAUSE 01/03/2013 DRAKE PENA APRN 62 6.2 MENORRHAGIA 01/03/2013 DRAKE PENA APRN V73.81 HPV SCREENING 01/03/2013 DRAKE PENA APRN V76.10 BREAST CANCER SCREENING 01/03/2013 DRAKE PENA APRN V7 6.2 CERVICAL CANCER SCREENING (PAP SMEAR) 01/03/2013 CAROLINA PAULSON MD 626 .2 MENORRHAGIA 01/03/2013 CAROLINA PAULSON MD V73 .81 HPV SCREENING 01/03/2013 ACROLINA PAULSON MD V76 .10 BREAST CANCER SCREENING 01/03/2013 CAROLINA PAULSON MD V76 .2 CERVICAL CANCER SCREENING (PAP SMEAR) 01/03/2013 CAROLINA PAULSON MD 626 .2 MENORRHAGIA 01/03/2013 CAROLINA PAULSON MD V73 .81 HPV SCREENING 01/03/2013 CAROLINA PAULSON MD V76 .10 BREAST CANCER SCREENING 01/03/2013 CAROLINA PAULSON MD V76 .2 CERVICAL CANCER SCREENING (PAP SMEAR) 01/03/2013 CAROLINA PAULSON MD 626 .2 MENORRHAGIA 01/03/2013 CAROLINA PAULSON MD V73 .81 HPV SCREENING 01/03/2013 CAROLINA PAULSON MD V76 .10 BREAST CANCER SCREENING 01/03/2013 CAROLINA PAULSON MD V76 .2 CERVICAL CANCER SCREENING (PAP SMEAR) 01/03/2013 YOHANNES TABOR DO K 626.2 MENORRHAGIA 01/03/2013 FARNAZ TABOR DOA K V73.81 HPV SCREENING 01/03/2013 YOHANNES TABOR DO K V76.10 BREAST CANCER SCREENING 01/03/2013 YOHANNES TABOR DO K V76.2 CERVICAL CANCER SCREENING (PAP SMEAR) 01/03/2013 RIO MOULTON MD 626.2 MENORRHAGIA 01/03/2013 RIO MOULTON MD V73.8 1 HPV SCREENING 01/03/2013 RIO MOULTON MD V76.1 0 BREAST CANCER SCREENING 01/03/2013 RIO MOULTON MD V76.2 CERVICAL CANCER SCREENING (PAP SMEAR) 01/03/2013 ROE CALERO APRN 626 .2 MENORRHAGIA 01/03/2013 ROE CALERO APRN L V73 .81 HPV SCREENING 01/03/2013 ROE CALERO APRN L V76 .10 BREAST CANCER SCREENING 01/03/2013 ROE CALERO APRN L V76 .2 CERVICAL CANCER SCREENING (PAP SMEAR) 01/03/2013 MADL PARKING PATROLLER, ROE L 626 .2 MENORRHAGIA 01/03/2013 ROE CALERO APRN L V73 .81 HPV SCREENING 01/03/2013 CIERRA CALERO APRNA L V76 .10 BREAST CANCER SCREENING 01/03/2013 GALILEA GUPTA, ROE L V76 .2 CERVICAL CANCER SCREENING (PAP SMEAR) 01/03/2013 CAROLINA PAULSON MD N 626 .2 MENORRHAGIA 01/03/2013 CAROLINA PAULSON MD V73 .81 HPV SCREENING 01/03/2013 CAROLINA PAULSON MD V76 .10 BREAST CANCER SCREENING 01/03/2013 CAROLINA PAULSON MD V76 .2 CERVICAL CANCER SCREENING (PAP SMEAR) 01/03/2013 JEANNAVA GUPTA DRAKE A 62 6.2 MENORRHAGIA 01/03/2013 JEANNAVA GUPTA DRAKE A V73.81 HPV SCREENING 01/03/2013 JEAN GUPTA DRAKE A V76.10 BREAST CANCER SCREENING 01/03/2013 JEAN GUPTA DRAKE A V7 6.2 CERVICAL CANCER SCREENING (PAP SMEAR) 01/03/2013 YOHANNES TABOR DO K 626.2 MENORRHAGIA 01/03/2013 FARNAZ TABOR DOA K V73.81 HPV SCREENING 01/03/2013 FARNAZ TABOR DOA K V76.10 BREAST CANCER SCREENING 01/03/2013 LEANDER CHRISTIAN YOHANNES K V76.2 CERVICAL CANCER SCREENING (PAP SMEAR) 02/22/2013 AROLDO BEGUM APRN Ot 724 .2 LUMBAGO 02/22/2013 AROLDO BEGUM APRN Ot 724 .3 SCIATICA 04/25/2013 CAROLINA PAULSON MD N 724 .3 SCIATICA 04/25/2013 CAROLINA PAULSON MD 724 .3 SCIATICA 04/25/2013 CAROLINA PAULSON MD 724 .3 SCIATICA 04/25/2013 YOHANNES TABOR DO 724.3 SCIATICA 04/25/2013 RIO MOULTON MD 724.3 SCIATICA 04/25/2013 ROE CALERO APRN L 724 .3 SCIATICA 04/25/2013 ROE CALERO APRN 724 .3 SCIATICA 04/25/2013 CAROLINA PAULSON MD 724 .3 SCIATICA 04/25/2013 DRAKE PENA APRN A 72 4.3 SCIATICA 04/25/2013 YOHANNES TABOR DO K 724.3 SCIATICA 06/25/2013 CAROLINA PAULSON MD Ot 305 .1 TOBACCO USE DISORDER 06/25/2013 CAROLINA PAULSON MD Ot 401 .9 HYPERTENSION NOS 06/25/2013 CAROLINA PAULSON MD Ot 491.20 OBSTR CHRONIC BRONCHITIS, W/O EXACERBATI 06/25/2013 CAROLINA PAULSON MD Ot 530.81 ESOPHAGEAL REFLUX 06/25/2013 CAROLINA PAULSON MD Ot 591 HYDRONEPHROSIS 06/25/2013 CAROLINA PAULSON MD Ot 592 .0 CALCULUS OF KIDNEY 06/25/2013 CAROLINA PAULSON MD Ot 592 .1 CALCULUS OF URETER 06/25/2013 CAROLINA PAULSON MD Ot 618.01 CYSTOCELE, MIDLINE 07/01/2013 RIO MOULTON MD Ot 256 .4 POLYCYSTIC OVARIES 07/01/2013 RIO MOULTON MD Ot 278.00 OBESITY, NOS 07/01/2013 RIO MOULTON MD Ot 288.60 LEUKOCYTOSIS, UNSPECIFIED 07/01/2013 RIO MOULTON MD Ot 305 .1 TOBACCO USE DISORDER 07/01/2013 RIO MOULTON MD Ot 401 .9 HYPERTENSION NOS 07/01/2013 RIO MOULTON MD Ot 491.21 OBSTR CHRONIC BRONCHITIS, W (ACUTE) EXAC 07/01/2013 RIO MOULTON MD Ot 530.81 ESOPHAGEAL REFLUX 07/01/2013 RIO MOULTON MD Ot 592 .0 CALCULUS OF KIDNEY 07/01/2013 RIO MOULTON MD Ot 799.02 HYPOXEMIA 07/01/2013 RIO MOULTON MD Ot E932.0 ADV EFF CORTICOSTEROIDS 07/01/2013 RIO MOULTON MD Ot V85.34 BODY MASS INDEX 34.0-34.9, ADULT 07/08/2013 YOHANNES TABOR DO 496 CHRONIC AIRWAY OBSTRUCTION NOT ELSEWHERE CLASSIFIED 07/08/2013 YOHANNES TABOR DO K 786.09 RESPIRATORY ABNORMALITY OTHER 07/08/2013 RIO MOULTON MD CHRONIC AIRWAY OBSTRUCTION NOT ELSEWHERE CLASSIFIED 07/08/2013 KENNEY GALVIN, RIO 786.0 9 RESPIRATORY ABNORMALITY OTHER 07/08/2013 MADL PARKING PATROLLER, ROE L 496 CHRONIC AIRWAY OBSTRUCTION NOT ELSEWHERE CLASSIFIED 07/08/2013 MADL PARKING PATROLLER, ROE L 786 .09 RESPIRATORY ABNORMALITY OTHER 07/08/2013 MADL PARKING PATROLLER, ROE L 496 CHRONIC AIRWAY OBSTRUCTION NOT ELSEWHERE CLASSIFIED 07/08/2013 MADL PARKING PATROLLER, ROE L 786 .09 RESPIRATORY ABNORMALITY OTHER 07/08/2013 CAROLINA PAULSON MD 496 CHRONIC AIRWAY OBSTRUCTION NOT ELSEWHERE CLASSIFIED 07/08/2013 CAROLINA PAULSON MD 786 .09 RESPIRATORY ABNORMALITY OTHER 07/08/2013 JEANShannon GUPTA DRAKE A 49 6 CHRONIC AIRWAY OBSTRUCTION NOT ELSEWHERE CLASSIFIED 07/08/2013 JEANShannon GUPTA DRAKE A 786.09 RESPIRATORY ABNORMALITY OTHER 07/08/2013 TABOR DO YOHANNES K 496 CHRONIC AIRWAY OBSTRUCTION NOT ELSEWHERE CLASSIFIED 07/08/2013 TABOR DO YOHANNES K 786.09 RESPIRATORY ABNORMALITY OTHER 07/16/2013 MOHAMUD FONG MD A Ot 592.1 CALCULUS OF URETER 07/18/2013 CINTHIA DO, DAMIEN K Ot 592.0 CALCULUS OF KIDNEY 07/18/2013 CINTHIA DO, DAMIEN K Ot 789.09 ABDOMINAL PAIN, OTHER SPECIFIED SITE 07/31/2013 GALILEA BOSTONN, ROE L 724 .2 BACK PAIN, LOWER 07/31/2013 MADL PARKING PATROLLER, ROE L 724 .2 BACK PAIN, LOWER 07/31/2013 CAROLINA PAULSON MD 724 .2 BACK PAIN, LOWER 07/31/2013 JEAN GUPTA DRAKE A 72 4.2 BACK PAIN, LOWER 07/31/2013 TABOR DO, YOHANNES K 724.2 BACK PAIN, LOWER 12/03/2013 CAROLINA PAULSON MD Ot 305 .1 TOBACCO USE DISORDER 12/03/2013 CAROLINA PAULSON MD Ot 401 .9 HYPERTENSION NOS 12/03/2013 CAROLINA PAULSON MD Ot 496 CHR AIRWAY OBSTRUCT NEC 12/03/2013 CAROLINA PAULSON MD Ot 530.81 ESOPHAGEAL REFLUX 12/03/2013 CAROLINA PAULSON MD Ot 780 .4 DIZZINESS AND GIDDINESS 12/03/2013 KHURRAM GALVIN, CAROLINA Ortega Ot 786.50 CHEST PAIN NOS 03/31/2014 DRAKE PENA APRN 00 8.8 GASTROENTERITIS, VIRAL 03/31/2014 YOHANNES TABOR DO 008.8 GASTROENTERITIS, VIRAL 05/29/2014 DRAKE PENA APRN 62 6.1 SCANTY OR INFREQUENT MENSTRUATION 05/29/2014 YOHANNES TABOR DO 626.1 SCANTY OR INFREQUENT MENSTRUATION 06/10/2014 YOHANNES TABOR DO V65.42 COUNSELING - SMOKING CESSATION 06/10/2014 YOHANNES TABOR DO V72.31 SKEIN WINDER EXAM, ROUTINE 06/22/2014 BELINDA ESTRELLA NURSING ASSISTANT Ot V76.12 06/22/2014 AJIT GALVIN, MOHAMUD Gonzales Ot 592.0 06/22/2014 AJIT GALVIN, MOHAMUD A Ot V72.6 3 06/22/2014 AJIT GALVIN, MOHAMUD A Ot V72.8 1 06/22/2014 AJIT GALVIN, MOHAMUD A Ot V72.8 3 06/22/2014 AJIT GALVIN, MOHAMUD A Ot V72.8 4 06/22/2014 AJIT GALVIN, MOHAMUD A Ot 592.1 06/22/2014 AJIT GALVIN, MOHAMUD A Ot 592.1 06/22/2014 RU GALVIN, PANCHITO Salazar Ot 682 .4 CELLULITIS OF HAND 06/22/2014 RU GALVIN, PANCHITO Salazar Ot 729 .5 PAIN IN LIMB 07/03/2014 BELINDA ESTRELLA NURSING ASSISTANT Ot V76.12 07/03/2014 AJIT GALVIN, MOHAMUD A Ot 592.0 07/03/2014 AJIT GALVIN, MOHAMUD A Ot V72.6 3 07/03/2014 AJIT GALVIN, MOHAMUD A Ot V72.8 1 07/03/2014 AJIT GALVIN, MOHAMUD A Ot V72.8 3 07/03/2014 AJIT GALVIN, MOHAMUD A Ot V72.8 4 07/03/2014 AJIT GALVIN, MOHAMUD Gonzales Ot 592.1 07/03/2014 AJIT GALVIN, MOHAMUD Gonzales Ot 592.1 07/03/2014 DRAKE PENA APRN Ot V76.12 07/03/2014 DRAKE PENA PARKING PATROLLER Ot V76.12 07/25/2014 DRAKE PENA PARKING PATROLLER Ot V76.12 11/12/2014 DRAKE PENA PARKING PATROLLER Ot V76.12 11/12/2014 TYREE GALVIN, DARLENE Hewitt Ot 466.0 ACUTE BRONCHITIS 11/12/2014 TYREE GALVIN, DARLENE Hewitt Ot 491.21 OBSTR CHRONIC BRONCHITIS, W (ACUTE) EXAC 11/12/2014 TYREE GALVIN, DARLENE Hewitt Ot 786.2 COUGH 11/12/2014 TYREE GALVIN, DARLENE Hewitt Ot 786.59 CHEST PAIN NEC 03/19/2015 DRAKE PENA PARKING PATROLLER Ot V76.12 03/20/2015 DRAKE PENA PARKING PATROLLER Ot V76.12 03/20/2015 DAMIEN VICENTE DO Ot F17.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, CIGARETTES, IN JESSY 03/20/2015 DAMIEN VICENTE DO Ot N13.2 HYDRONEPHROSIS WITH RENAL AND URETERAL C 03/20/2015 DAMIEN VICENTE DO Ot N39.0 URINARY TRACT INFECTION, SITE NOT SPECIF 03/20/2015 DRAKE PENA PARKING PATROLLER Ot V76.12 05/27/2015 DRAKE PENA PARKING PATROLLER Ot V76.12 06/24/2015 BOBBI KATE PARKING PATROLLER Ot R59.0 LOCALIZED ENLARGED LYMPH NODES 06/25/2015 BOBBI KATE PARKING PATROLLER Ot R59.0 LOCALIZED ENLARGED LYMPH NODES 06/30/2015 BOBBI KATE PARKING PATROLLER Ot R59.0 LOCALIZED ENLARGED LYMPH NODES 08/26/2015 DRAKE PENA PARKING PATROLLER Ot V76.12 OTH SCREEN MAMMO-MALIGN NEOPLASM OF RONNA 08/26/2015 BOBBI KATE PARKING PATROLLER Ot 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 08/26/2015 BOBBI KATE PARKING PATROLLER Ot N60.12 DIFFUSE CYSTIC MASTOPATHY OF LEFT BREAST 08/26/2015 BOBBI KATE PARKING PATROLLER Ot N92.6 IRREGULAR MENSTRUATION, UNSPECIFIED 08/26/2015 BOBBI KATE PARKING PATROLLER Ot R14.0 ABDOMINAL DISTENSION (GASEOUS) 08/26/2015 BOBBI KATE PARKING PATROLLER Ot R59.0 LOCALIZED ENLARGED LYMPH NODES 08/27/2015 CAROLINA PAULSON MD Ot R92 .8 OTH ABN AND INCONCLUSIVE FINDINGS ON DX 08/27/2015 CAROLINA PAULSON MD Ot R92 .8 OTH ABN AND INCONCLUSIVE FINDINGS ON DX 08/31/2015 CAROLINA PAULSON MD Ot N83.20 UNSPECIFIED OVARIAN CYSTS 09/03/2015 CAROLINA PAULSON MD Ot N83.20 UNSPECIFIED OVARIAN CYSTS 10/30/2015 CAROLINA PAULSON MD Ot R59 .0 LOCALIZED ENLARGED LYMPH NODES 10/30/2015 CAROLINA PAULSON MD Ot R92 .8 OTH ABN AND INCONCLUSIVE FINDINGS ON DX 11/03/2015 CAROLINA PAULSON MD Ot R59 .0 LOCALIZED ENLARGED LYMPH NODES 11/03/2015 CAROLINA PAULSON MD Ot R92 .8 OTH ABN AND INCONCLUSIVE FINDINGS ON DX 03/16/2016 DRAKE PENA PARKING PATROLLER Ot V76.12 OTH SCREEN MAMMO-MALIGN NEOPLASM OF RONNA 03/16/2016 BOBBI KATE PARKING PATROLLER Ot 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 03/16/2016 BOBBI KATE PARKING PATROLLER Ot N60.12 DIFFUSE CYSTIC MASTOPATHY OF LEFT BREAST 03/16/2016 BOBBI KATE PARKING PATROLLER Ot N92.6 IRREGULAR MENSTRUATION, UNSPECIFIED 03/16/2016 BOBBI KATE PARKING PATROLLER Ot R14.0 ABDOMINAL DISTENSION (GASEOUS) 03/16/2016 BOBBI KATE PARKING PATROLLER Ot R59.0 LOCALIZED ENLARGED LYMPH NODES 03/16/2016 CAROLINA PAULSON MD Ot N83.20 UNSPECIFIED OVARIAN CYSTS 03/16/2016 CAROLINA PAULSON MD Ot R92 .8 OTH ABN AND INCONCLUSIVE FINDINGS ON DX 03/16/2016 CAROLINA PAULSON MD Ot R59 .0 LOCALIZED ENLARGED LYMPH NODES 03/16/2016 CAROLINA PAULSON MD Ot R92 .8 OTH ABN AND INCONCLUSIVE FINDINGS ON DX 09/17/2016 DECLAN FUNEZ MD Ot E66.01 MORBID (SEVERE) OBESITY DUE TO EXCESS CA 09/17/2016 DECLAN FUNEZ MD Ot I10 ESSENTIAL (PRIMARY) HYPERTENSION 09/17/2016 DECLAN FUNEZ MD Ot J44 .9 CHRONIC OBSTRUCTIVE PULMONARY DISEASE, U 09/17/2016 DECLAN FUNEZ MD Ot K21 .9 GASTRO-ESOPHAGEAL REFLUX DISEASE WITHOUT 09/17/2016 DECLAN FUNEZ MD Ot L40 .9 PSORIASIS, UNSPECIFIED 09/17/2016 DECLAN FUNEZ MD Ot R07 .9 CHEST PAIN, UNSPECIFIED 09/17/2016 DECLAN FUNEZ MD Ot R73 .9 HYPERGLYCEMIA, UNSPECIFIED 09/17/2016 DECLAN FUNEZ MD Ot Z79.899 OTHER CASTING COORDINATOR (CURRENT) DRUG THERAPY 09/17/2016 DECLAN FUNEZ MD Ot Z87.442 PERSONAL HISTORY OF URINARY CALCULI 09/17/2016 DECLAN FUNEZ MD Ot Z87.891 PERSONAL HISTORY OF NICOTINE DEPENDENCE 09/17/2016 DECLAN FUNEZ MD Ot Z96 .0 PRESENCE OF UROGENITAL IMPLANTS 09/17/2016 DECLAN FUNEZ MD Ot E66.01 MORBID (SEVERE) OBESITY DUE TO EXCESS CA 09/17/2016 DECLAN FUNEZ MD Ot I10 ESSENTIAL (PRIMARY) HYPERTENSION 09/17/2016 DECLAN FUNEZ MD, Ot J44 .9 CHRONIC OBSTRUCTIVE PULMONARY DISEASE, U 09/17/2016 DECLAN FUNEZ MD Ot K21 .9 GASTRO-ESOPHAGEAL REFLUX DISEASE WITHOUT 09/17/2016 DECLAN FUNEZ MD Ot L40 .9 PSORIASIS, UNSPECIFIED 09/17/2016 DECLAN FUNEZ MD Ot R07 .9 CHEST PAIN, UNSPECIFIED 09/17/2016 DECLAN FUNEZ MD Ot R73 .9 HYPERGLYCEMIA, UNSPECIFIED 09/17/2016 DECLAN FUNEZ MD, Ot Z79.899 OTHER DETENTION (CURRENT) DRUG THERAPY 09/17/2016 DECLAN FUNEZ MD Ot Z87.442 PERSONAL HISTORY OF URINARY CALCULI 09/17/2016 DECLAN FUNEZ MD Ot Z87.891 PERSONAL HISTORY OF NICOTINE DEPENDENCE 09/17/2016 DECLAN FUNEZ MD Ot Z96 .0 PRESENCE OF UROGENITAL IMPLANTS 06/08/2017 JEAN, DRAKE A PARKING PATROLLER Ot V76.12 OTH SCREEN MAMMO-MALIGN NEOPLASM OF RONNA 06/08/2017 BOBBI KATE PARKING PATROLLER Ot 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 06/08/2017 BOBBI KATE PARKING PATROLLER Ot N60.12 DIFFUSE CYSTIC MASTOPATHY OF LEFT BREAST 06/08/2017 BOBBI KATE PARKING PATROLLER Ot N92.6 IRREGULAR MENSTRUATION, UNSPECIFIED 06/08/2017 BOBBI KATE PARKING PATROLLER Ot R14.0 ABDOMINAL DISTENSION (GASEOUS) 06/08/2017 BOBBI KATE A PARKING PATROLLER Ot R59.0 LOCALIZED ENLARGED LYMPH NODES 06/08/2017 CAROLINA PAULSON MD Ot N83.20 UNSPECIFIED OVARIAN CYSTS 06/08/2017 CAROLINA PAULSON MD Ot R92 .8 OTH ABN AND INCONCLUSIVE FINDINGS ON DX 06/08/2017 CAROLINA PAULSON MD Ot R59 .0 LOCALIZED ENLARGED LYMPH NODES 06/08/2017 CAROLINA PAULSON MD Ot R92 .8 OTH ABN AND INCONCLUSIVE FINDINGS ON DX 06/08/2017 CAROLINA PAULSON MD Ot I10 ESSENTIAL (PRIMARY) HYPERTENSION 06/08/2017 CAROLINA PAULSON MD Ot R73.09 OTHER ABNORMAL GLUCOSE 06/08/2017 ABELARDO STRINGER NURSING ASSISTANT Ot M54. 31 SCIATICA, RIGHT SIDE 06/12/2017 BELINDA ESTRELLA NURSING ASSISTANT Ot V76.12 OTH SCREEN MAMMO-MALIGN NEOPLASM OF RONNA 06/12/2017 MOHAMUD FONG MD Ot 592.0 CALCULUS OF KIDNEY 06/12/2017 MOHAMUD FONG MD Ot V72.6 3 PRE-PROCEDURAL LABORATORY EXAMINATION 06/12/2017 MOHAMUD FONG MD Ot V72.8 1 [id number] CARDIOVASCULAR 06/12/2017 MOHAMUD FONG MD Ot V72.8 3 EXAM PRE-OPERATIVE NEC 06/12/2017 MOHAMUD FONG MD Ot V72.8 4 EXAM PRE-OPERATIVE NOS 06/12/2017 MOHAMUD FONG MD Ot 592.1 CALCULUS OF URETER 06/12/2017 MOHAMUD FONG MD Ot 592.1 CALCULUS OF URETER 06/12/2017 DRAKE PENA PARKING PATROLLER Ot V76.12 OTH SCREEN MAMMO-MALIGN NEOPLASM OF RON[place] 06/14/2017 BELINDA ESTRELLA NURSING ASSISTANT Ot V76.12 OTH SCREEN MAMMO-MALIGN NEOPLASM OF RON[place] 06/14/2017 MOHAMUD FONG MD Ot 592.0 CALCULUS OF KIDNEY 06/14/2017 MOHAMUD FONG MD Ot V72.6 3 PRE-PROCEDURAL LABORATORY EXAMINATION 06/14/2017 MOHAMUD FONG MD Ot V72.8 1 [id number] CARDIOVASCULAR 06/14/2017 MOHAMUD FONG MD Ot V72.8 3 EXAM PRE-OPERATIVE NEC 06/14/2017 MOHAMUD FONG MD Ot V72.8 4 EXAM PRE-OPERATIVE NOS 06/14/2017 MOHAMUD FONG MD Ot 592.1 CALCULUS OF URETER 06/14/2017 MOHAMUD FONG MD Ot 592.1 CALCULUS OF URETER 06/14/2017 DRAKE PENA PARKING PATROLLER Ot V76.12 OTH SCREEN MAMMO-MALIGN NEOPLASM OF RON[place] 06/14/2017 BELINDA ESTRELLA NURSING ASSISTANT Ot V76.12 OTH SCREEN MAMMO-MALIGN NEOPLASM OF RON[place] 06/14/2017 MOHAMUD FONG MD Ot 592.0 CALCULUS OF KIDNEY 06/14/2017 MOHAMUD FONG MD Ot V72.6 3 PRE-PROCEDURAL LABORATORY EXAMINATION 06/14/2017 MOHAMUD FONG MD Ot V72.8 1 [id number] CARDIOVASCULAR 06/14/2017 MOHAMUD FONG MD Ot V72.8 3 EXAM PRE-OPERATIVE NEC 06/14/2017 MOHAMUD FONG MD Ot V72.8 4 EXAM PRE-OPERATIVE NOS 06/14/2017 MOHAMUD FONG MD Ot 592.1 CALCULUS OF URETER 06/14/2017 MOHAMUD FONG MD Ot 592.1 CALCULUS OF URETER 06/14/2017 DRAKE PENA PARKING PATROLLER Ot V76.12 OTH SCREEN MAMMO-MALIGN NEOPLASM OF RONAN 06/15/2017 RAVI DANIELS APRN Ot R92.8 OTH ABN AND INCONCLUSIVE FINDINGS ON DX 06/15/2017 RAVI DANIELS PARKING PATROLLER Ot R92.8 OTH ABN AND INCONCLUSIVE FINDINGS ON DX 06/15/2017 CAROLINA PAULSON MD Ot R59 .0 LOCALIZED ENLARGED LYMPH NODES 06/15/2017 KHURRAM GALIVN, CAROLINA Ortega Ot R92 .8 OTH ABN AND INCONCLUSIVE FINDINGS ON DX 06/15/2017 CAROLINA PAULSON MD Ot R92 .8 OTH ABN AND INCONCLUSIVE FINDINGS ON DX 09/10/2018 MOHAMUD FONG MD Ot 592.0 CALCULUS OF KIDNEY 09/10/2018 MOHAMUD FONG MD Ot V72.6 3 PRE-PROCEDURAL LABORATORY EXAMINATION 09/10/2018 MOHAMUD FONG MD Ot V72.8 1 [id number]-[id number] CARDIOVASCULAR 09/10/2018 MOHAMUD FONG MD Ot V72.8 3 EXAM PRE-OPERATIVE NEC 09/10/2018 MOHAMUD FONG MD Ot V72.8 4 EXAM PRE-OPERATIVE NOS 09/10/2018 MOHAMUD FONG MD Ot 592.1 CALCULUS OF URETER 09/10/2018 MOHAMUD FONG MD Ot 592.1 CALCULUS OF URETER 09/10/2018 DRAKE PENA PARKING PATROLLER Ot V76.12 OTH SCREEN MAMMO-MALIGN NEOPLASM OF [place] 09/10/2018 RAVI DANIELS PARKING PATROLLER Ot R92.8 OTH ABN AND INCONCLUSIVE FINDINGS ON DX 09/10/2018 CAROLINA PAULSON MD Ot R92 .8 OTH ABN AND INCONCLUSIVE FINDINGS ON DX 09/10/2018 MOHAMUD FONG MD Ot 592.0 CALCULUS OF KIDNEY 09/10/2018 MOHAMUD FONG MD Ot V72.6 3 PRE-PROCEDURAL LABORATORY EXAMINATION 09/10/2018 MOHAMUD FONG MD Ot V72.8 1 FQJN-[id number] CARDIOVASCULAR 09/10/2018 MOHAMUD FONG MD Ot V72.8 3 EXAM PRE-OPERATIVE NEC 09/10/2018 MOHAMUD FONG MD Ot V72.8 4 EXAM PRE-OPERATIVE NOS 09/10/2018 MOHAMUD FONG MD Ot 592.1 CALCULUS OF URETER 09/10/2018 AJIT MD, MOHAMUD A Ot 592.1 CALCULUS OF URETER 09/10/2018 DRAKE PENA PARKING PATROLLER Ot V76.12 OTH SCREEN MAMMO-MALIGN NEOPLASM OF [place] 09/10/2018 DANIELSRAVI Perez PARKING PATROLLER Ot R92.8 OTH ABN AND INCONCLUSIVE FINDINGS ON DX 09/10/2018 CAROLINA PAULSON MD Ot R92 .8 OTH ABN AND INCONCLUSIVE FINDINGS ON DX 09/15/2018 CINTHIAKRANTHI Gomez DOA Martin Ot E03.9 HYPOTHYROIDISM, UNSPECIFIED 09/15/2018 CINTHIA DO DAMIEN K Ot E11.9 TYPE 2 DIABETES MELLITUS WITHOUT COMPLIC 09/15/2018 CINTHIA DO DAMIEN K Ot F32.9 MAJOR DEPRESSIVE DISORDER, SINGLE EPISOD 09/15/2018 CINTHIAJason CHRISTIAN DAMIEN K Ot I10 ESSENTIAL (PRIMARY) HYPERTENSION 09/15/2018 CINTHIA CHRISTIAN DAMIEN K Ot J44.9 CHRONIC OBSTRUCTIVE PULMONARY DISEASE, U 09/15/2018 CINTHIA CHRISTIAN DAMIEN K Ot K21.9 GASTRO-ESOPHAGEAL REFLUX DISEASE WITHOUT 09/15/2018 CINTHIAKRANTHI Gomez DOA K Ot N39.0 URINARY TRACT INFECTION, SITE NOT SPECIF 09/15/2018 CINTHIA CHRISTIAN DAMIEN K Ot R10.10 UPPER ABDOMINAL PAIN, UNSPECIFIED 09/15/2018 CINTHIA CHRISTIAN DAMIEN K Ot Z79.82 CASTING COORDINATOR (CURRENT) USE OF ASPIRIN 09/15/2018 CINTHIA CHRISTIAN DAMIEN K Ot Z79.84 DETENTION (CURRENT) USE OF ORAL HYPOGLYC 09/15/2018 CINTHIA CHRISTIAN DAMIEN K Ot Z82.49 FAMILY HX OF ISCHEM HEART DIS AND OTH DI 09/15/2018 KRANTHI VICENTE DOA K Ot Z87.442 PERSONAL HISTORY OF URINARY CALCULI 09/15/2018 KRANTHI VICENTE DOA K Ot Z87.891 PERSONAL HISTORY OF NICOTINE DEPENDENCE 09/15/2018 KRANTHI VICENTE DOA K Ot Z88.5 ALLERGY STATUS TO NARCOTIC AGENT STATUS 09/15/2018 CINTHIA CHRISTIAN DAMIEN K Ot Z90.49 ACQUIRED ABSENCE OF OTHER SPECIFIED PART 09/15/2018 KRANTHI VICENTE DOA K Ot Z95.5 PRESENCE OF CORONARY ANGIOPLASTY IMPLANT 09/16/2018 KRANTHI VICENTE DOA Martin Ot E03.9 HYPOTHYROIDISM, UNSPECIFIED 09/16/2018 CINTHIA DO DAMIEN K Ot E11.9 TYPE 2 DIABETES MELLITUS WITHOUT COMPLIC 09/16/2018 CINTHIA CHRISTIAN DAMIEN K Ot F32.9 MAJOR DEPRESSIVE DISORDER, SINGLE EPISOD 09/16/2018 CINTHIA DAMIEN Ot I10 ESSENTIAL (PRIMARY) HYPERTENSION 09/16/2018 CINTHIA DAMIEN Martin Ot J44.9 CHRONIC OBSTRUCTIVE PULMONARY DISEASE, U 09/16/2018 CINTHIA DAMIEN K Ot K21.9 GASTRO-ESOPHAGEAL REFLUX DISEASE WITHOUT 09/16/2018 CINTHIA DAMIEN K Ot N39.0 URINARY TRACT INFECTION, SITE NOT SPECIF 09/16/2018 CINTHIA DODAMIEN Ot R10.10 UPPER ABDOMINAL PAIN, UNSPECIFIED 09/16/2018 CINTHIA DAMIEN Ot Z79.82 DETENTION (CURRENT) USE OF ASPIRIN 09/16/2018 CINTHIA DAMIEN Ot Z79.84 DETENTION (CURRENT) USE OF ORAL HYPOGLYC 09/16/2018 CINTHIA DAMIEN K Ot Z82.49 FAMILY HX OF ISCHEM HEART DIS AND OTH DI 09/16/2018 CINTHIA DAMIEN Martin Ot Z87.442 PERSONAL HISTORY OF URINARY CALCULI 09/16/2018 CINTHIA DAMIEN Martin Ot Z87.891 PERSONAL HISTORY OF NICOTINE DEPENDENCE 09/16/2018 DAMIEN VICENTE DO Ot Z88.5 ALLERGY STATUS TO NARCOTIC AGENT STATUS 09/16/2018 CINTHIA DO DAMIEN Martin Ot Z90.49 ACQUIRED ABSENCE OF OTHER SPECIFIED PART 09/16/2018 CINTHIA DAMIEN Martin Ot Z95.5 PRESENCE OF CORONARY ANGIOPLASTY IMPLANT 05/14/2019 FELIZ BARROS APRN Ot Z12.31 ENCNTR SCREEN MAMMOGRAM FOR MALIGNANT NE Procedures Code [place] [address] UA W / CULTURE IF INDICATED 10/08/2012 61858 CULT URE URINE 10/09/2012 67425 MAMM OGRAM, SCREENING 01/03/2013 Q0091 PAP SMEAR OBTAIN SMEAR 01/03/2013 00827 PAP SMEAR 01/07/2013 40570 ROUT INE VENIPUNCTURE 04/29/2013 82613 LIPI D PANEL 04/29/2013 77060 XRAY HIP RIGHT UNILATERAL MIN 2 VIEWS 05/23/2013 56.0 TU RE MOV URETER OBSTRUCT 06/25/2013 59.8 URETE RAL CATHETERIZATION 06/25/2013 75297 ROUT INE VENIPUNCTURE 07/08/2013 31983 CMP 07/08/2013 07205 CBC 07/08/2013 98910 OXIMETRY 07/08/2013 84325 XRAY SI JOINTS LESS THAN 3 VIEWS 08/08/2013 05816 PREG SINA TEST, URINE (IN- HOUSE) 05/29/2014 17832 MAMM OGRAM, SCREENING 06/10/2014 Results Test Result Range Automated blood complete blood count (he mogram) panel - 09/02/16 11:48 Blood leukocytes automated count (number/volume) 6.8 10*3/uL 4.3-11.0 Blood erythrocytes automated count (number/volume) 4.09 10*6/uL 4.35-5.85 Venous blood hemoglobin measurement (mass/volume) 11.8 g/dL 11.5-16.0 Blood hematocrit (volume fraction) 36 % 35-52 Automated erythrocyte mean corpuscular volume 88 [ foz_us] 80-99 Automated erythrocyte mean corpuscular h emoglobin (mass per erythrocyte) 29 pg 25-34 Automated erythrocyte mean corpuscular h emoglobin concentration measurement (mass/volume) 33 g/dL 32-36 Automated erythrocyte distribution width ratio 13. 6 % 10.0- 14.5 Automated blood platelet count (count/volume) 340 10*3/uL 130-400 Automated blood platelet mean volume measurement 9.4 [foz_us] 7.4-10.4 Comprehensive metabolic panel - 09/02/16 11:48 Serum or plasma sodium measurement (moles/volume) 138 mmol/L 135-145 Serum or plasma potassium measurement (moles/volume) 4.3 mmol/L 3.6-5.0 Serum or plasma chloride measurement (moles/volume) 106 mmol/L 98-107 Carbon dioxide 27 mmol/L 21-32 Serum or plasma anion gap determination (moles/volume) 5 mmol/L 5-14 Serum or plasma urea nitrogen measurement (mass/volume ) 8 mg/dL 7-18 Serum or plasma creatinine measurement (mass/volume) 0.73 mg/dL 0.60-1.30 Serum or plasma urea nitrogen/creatinine mass ratio 11 NRG Serum or plasma creatinine measurement w ith calculation of estimated glomerular filtration rate > NRG Serum or plasma glucose measurement (mass/volume) 125 mg/dL 70-105 Serum or plasma calcium measurement (mass/volume) 9.3 mg/dL 8.5-10.1 Serum or plasma total bilirubin measurement (mass/volu me) 0.8 mg/dL 0.1-1.0 Serum or plasma alkaline phosphatase alma surement (enzymatic activity/volume) 97 U/L 40-136 Serum or plasma aspartate aminotransfera se measurement (enzymatic activity/volume) 10 U/L 5-34 Serum or plasma alanine aminotransferase measurement (enzymatic activity/volume) 18 U/L 0-55 Serum or plasma protein measurement (mass/volume) 7.3 g/dL 6.4-8.2 Serum or plasma albumin measurement (mass/volume) 4.0 g/dL 3.2-4.5 Magnesium - 09/02/16 11:48 Magnesium 2.0 mg/dL 1.8-2.4 Serum or plasma troponin i.cardiac measu rement (mass/volume) - 09/02/16 11:48 Serum or plasma troponin i.cardiac measurement (mass/v olume) < ng/mL <0.30 Lipid 1996 panel - 09/02/16 11:48 Serum or plasma triglyceride measurement (mass/volume) 94 mg/dL <150 Serum or plasma cholesterol measurement (mass/volume) 169 mg/dL < 200 Serum or plasma cholesterol in HDL measurement (mass/v olume) 40 mg/dL 40-60 Cholesterol in LDL [mass/volume] in serum or plasma by direct assay 110 mg/dL 1-129 Serum or plasma cholesterol in VLDL measurement (mass/ volume) 19 mg/dL 5-40 THYROID STIMULATING HORMONE - 09/02/16 1 1:48 THYROID STIMULATING HORMONE 2.21 u[iU]/mL 0.35-4.94 Complete blood count (CBC) with automate d white blood cell (WBC) differential - 09/16/16 13:53 Blood leukocytes automated count (number/volume) 8.1 10*3/uL 4.3-11.0 Blood erythrocytes automated count (number/volume) 4.14 10*6/uL 4.35-5.85 Venous blood hemoglobin measurement (mass/volume) 11.9 g/dL 11.5-16.0 Blood hematocrit (volume fraction) 36 % 35-52 Automated erythrocyte mean corpuscular volume 87 [ foz_us] 80-99 Automated erythrocyte mean corpuscular h emoglobin (mass per erythrocyte) 29 pg 25-34 Automated erythrocyte mean corpuscular h emoglobin concentration measurement (mass/volume) 33 g/dL 32-36 Automated erythrocyte distribution width ratio 13. 7 % 10.0- 14.5 Automated blood platelet count (count/volume) 325 10*3/uL 130-400 Automated blood platelet mean volume measurement 9.3 [foz_us] 7.4-10.4 Automated blood neutrophils/100 leukocytes 61 % 42-75 Automated blood lymphocytes/100 leukocytes 29 % 12-44 Blood monocytes/100 leukocytes 5 % 0-12 Automated blood eosinophils/100 leukocytes 5 % 0-10 Automated blood basophils/100 leukocytes 0 % 0-10 Blood neutrophils automated count (number/volume) 5.0 10*3 1.8-7.8 Blood lymphocytes automated count (number/volume) 2.3 10*3 1.0-4.0 Blood monocytes automated count (number/volume) 0. 4 10*3 0.0-1.0 Automated eosinophil count 0.4 10*3/uL 0 .0-0.3 Automated blood basophil count (count/volume) 0.0 10*3/uL 0.0-0.1 PT panel in platelet poor plasma by coag ulation assay - 09/16/16 13:53 Prothrombin time (PT) in platelet poor plasma by coagu lation assay 11.5 s 12.2-14.7 INR in platelet poor plasma or blood by coagulation as say 0.9 0.8-1.4 Activated partial thromboplastin time (a PTT) in platelet poor plasma bycoagulation assay - 09/16/16 13:53 Activated partial thromboplastin time (a PTT) in platelet poor plasma bycoagulation assay 34 s 24-35 Fibrin D-dimer FEU measurement in platel et poor plasma (mass/volume) - 09/16/16 13:53 Fibrin D-dimer FEU measurement in platelet poor plasma (mass/volume) 0.42 ug/mL 0.00-0.49 Comprehensive metabolic panel - 09/16/16 13:53 Serum or plasma sodium measurement (moles/volume) 138 mmol/L 135-145 Serum or plasma potassium measurement (moles/volume) 3.7 mmol/L 3.6-5.0 Serum or plasma chloride measurement (moles/volume) 106 mmol/L 98-107 Carbon dioxide 23 mmol/L 21-32 Serum or plasma anion gap determination (moles/volume) 9 mmol/L 5-14 Serum or plasma urea nitrogen measurement (mass/volume ) 8 mg/dL 7-18 Serum or plasma creatinine measurement (mass/volume) 0.77 mg/dL 0.60-1.30 Serum or plasma urea nitrogen/creatinine mass ratio 10 NRG Serum or plasma creatinine measurement w ith calculation of estimated glomerular filtration rate > NRG Serum or plasma glucose measurement (mass/volume) 156 mg/dL 70-105 Serum or plasma calcium measurement (mass/volume) 9.0 mg/dL 8.5-10.1 Serum or plasma total bilirubin measurement (mass/volu me) 0.6 mg/dL 0.1-1.0 Serum or plasma alkaline phosphatase alma surement (enzymatic activity/volume) 110 U/L 40-136 Serum or plasma aspartate aminotransfera se measurement (enzymatic activity/volume) 8 U/L 5-34 Serum or plasma alanine aminotransferase measurement (enzymatic activity/volume) 18 U/L 0-55 Serum or plasma protein measurement (mass/volume) 7.1 g/dL 6.4-8.2 Serum or plasma albumin measurement (mass/volume) 3.9 g/dL 3.2-4.5 Magnesium - 09/16/16 13:53 Magnesium 2.0 mg/dL 1.8-2.4 Myoglobin, serum - 09/16/16 13:53 Myoglobin, serum 18.3 ng/mL 10.0-92.0 Serum or plasma troponin i.cardiac measu rement (mass/volume) - 09/16/16 13:53 Serum or plasma troponin i.cardiac measurement (mass/v olume) < ng/mL <0.30 Lipase - 09/16/16 13:53 Lipase 17 U/L 8-78 Myoglobin, serum - 09/16/16 13:53 Myoglobin, serum 18.3 ng/mL 10.0-92.0 Lipase - 09/16/16 13:53 Lipase 17 U/L 8-78 Serum or plasma lithium measurement (mol es/volume) - 09/16/16 13:53 BNP level 10.4 pg/mL <100.0 Serum or plasma troponin i.cardiac measu rement (mass/volume) - 09/16/16 20:05 Serum or plasma troponin i.cardiac measurement (mass/v olume) < ng/mL <0.30 Comprehensive metabolic panel - 09/17/16 02:10 Serum or plasma sodium measurement (moles/volume) 138 mmol/L 135-145 Serum or plasma potassium measurement (moles/volume) 3.8 mmol/L 3.6-5.0 Serum or plasma chloride measurement (moles/volume) 106 mmol/L 98-107 Carbon dioxide 24 mmol/L 21-32 Serum or plasma anion gap determination (moles/volume) 8 mmol/L 5-14 Serum or plasma urea nitrogen measurement (mass/volume ) 10 mg/dL 7-18 Serum or plasma creatinine measurement (mass/volume) 0.75 mg/dL 0.60-1.30 Serum or plasma urea nitrogen/creatinine mass ratio 13 NRG Serum or plasma creatinine measurement w ith calculation of estimated glomerular filtration rate > NRG Serum or plasma glucose measurement (mass/volume) 159 mg/dL 70-105 Serum or plasma calcium measurement (mass/volume) 8.8 mg/dL 8.5-10.1 Serum or plasma total bilirubin measurement (mass/volu me) 0.5 mg/dL 0.1-1.0 Serum or plasma alkaline phosphatase alma surement (enzymatic activity/volume) 96 U/L 40-136 Serum or plasma aspartate aminotransfera se measurement (enzymatic activity/volume) 8 U/L 5-34 Serum or plasma alanine aminotransferase measurement (enzymatic activity/volume) 17 U/L 0-55 Serum or plasma protein measurement (mass/volume) 6.3 g/dL 6.4-8.2 Serum or plasma albumin measurement (mass/volume) 3.5 g/dL 3.2-4.5 Lipid 1996 panel - 09/17/16 02:10 Serum or plasma triglyceride measurement (mass/volume) 86 mg/dL <150 Serum or plasma cholesterol measurement (mass/volume) 153 mg/dL < 200 Serum or plasma cholesterol in HDL measurement (mass/v olume) 37 mg/dL 40-60 Cholesterol in LDL [mass/volume] in serum or plasma by direct assay 98 mg/dL 1-129 Serum or plasma cholesterol in VLDL measurement (mass/ volume) 17 mg/dL 5-40 Complete blood count (CBC) with automate d white blood cell (WBC) differential - 09/17/16 02:10 Blood leukocytes automated count (number/volume) 6.9 10*3/uL 4.3-11.0 Blood erythrocytes automated count (number/volume) 3.86 10*6/uL 4.35-5.85 Venous blood hemoglobin measurement (mass/volume) 11.0 g/dL 11.5-16.0 Blood hematocrit (volume fraction) 34 % 35-52 Automated erythrocyte mean corpuscular volume 88 [ foz_us] 80-99 Automated erythrocyte mean corpuscular h emoglobin (mass per erythrocyte) 29 pg 25-34 Automated erythrocyte mean corpuscular h emoglobin concentration measurement (mass/volume) 32 g/dL 32-36 Automated erythrocyte distribution width ratio 13. 8 % 10.0- 14.5 Automated blood platelet count (count/volume) 276 10*3/uL 130-400 Automated blood platelet mean volume measurement 9.3 [foz_us] 7.4-10.4 Automated blood neutrophils/100 leukocytes 53 % 42-75 Automated blood lymphocytes/100 leukocytes 34 % 12-44 Blood monocytes/100 leukocytes 7 % 0-12 Automated blood eosinophils/100 leukocytes 6 % 0-10 Automated blood basophils/100 leukocytes 0 % 0-10 Blood neutrophils automated count (number/volume) 3.7 10*3 1.8-7.8 Blood lymphocytes automated count (number/volume) 2.4 10*3 1.0-4.0 Blood monocytes automated count (number/volume) 0. 5 10*3 0.0-1.0 Automated eosinophil count 0.4 10*3/uL 0 .0-0.3 Automated blood basophil count (count/volume) 0.0 10*3/uL 0.0-0.1 Serum or plasma troponin i.cardiac measu rement (mass/volume) - 09/17/16 02:10 Serum or plasma troponin i.cardiac measurement (mass/v olume) < ng/mL <0.30 Serum or plasma troponin i.cardiac measu rement (mass/volume) - 09/17/16 08:24 Serum or plasma troponin i.cardiac measurement (mass/v olume) < ng/mL <0.30 SUREPATH PAP AND HPV mRNA E6/E7 - 14:25 CLINICAL INFORMATION: NRG LMP: 04/11/2017 NRG PREV. PAP: NORMAL NRG PREV. BX: NONE NRG SOURCE: [employer] NRG STATEMENT OF ADEQUACY: NRG INTERPRETATION/RESULT: NRG EXTRACTOR MACHINE OPERATOR: NRG HPV mRNA E6/E7, SUREPATH VIAL Not Detected NOT DETECTED LIPID PANEL - 07/18/18 09:17 CHOLESTEROL, TOTAL 165 mg/dL <200 HDL CHOLESTEROL 55 mg/dL >50 TRIGLYCERIDES 86 mg/dL <150 LDL-CHOLESTEROL 92 mg/dL (calc) NRG CHOL/HDLC RATIO 3.0 (calc) <5.0 NON HDL CHOLESTEROL 110 mg/dL (calc) <13 0 CMP - 07/18/18 09:17 GLUCOSE 265 mg/dL 65-99 UREA NITROGEN (BUN) 11 mg/dL 7-25 CREATININE 0.52 mg/dL 0.50-1.10 eGFR NON-AFR. [place] 115 mL/min/1.73m2 > OR = 60 eGFR 133 mL/min/1.73m2 > OR = 60 BUN/CREATININE RATIO NOT APPLICABLE (calc) 6-22 SODIUM 135 mmol/L 135-146 POTASSIUM 4.1 mmol/L 3.5-5.3 CHLORIDE 103 mmol/L 98-110 CARBON DIOXIDE 23 mmol/L 20-32 CALCIUM 9.0 mg/dL 8.6-10.2 PROTEIN, TOTAL 6.7 g/dL 6.1-8.1 ALBUMIN 4.1 g/dL 3.6-5.1 GLOBULIN 2.6 g/dL (calc) 1.9-3.7 ALBUMIN/GLOBULIN RATIO 1.6 (calc) 1.0-2. 5 BILIRUBIN, TOTAL 0.6 mg/dL 0.2-1.2 ALKALINE PHOSPHATASE 112 U/L 33-115 AST 8 U/L 10-35 ALT 16 U/L 6-29 CBC - 07/18/18 09:17 WHITE BLOOD CELL COUNT 7.9 Thousand/uL 3 .8-10.8 RED BLOOD CELL COUNT 4.37 Million/uL 3.8 0-5.10 HEMOGLOBIN 12.0 g/dL 11.7-15.5 HEMATOCRIT 38.6 % 35.0-45.0 MCV 88.3 fL 80.0-100.0 MCH 27.5 pg 27.0-33.0 MCHC 31.1 g/dL 32.0-36.0 RDW 13.6 % 11.0-15.0 PLATELET COUNT 299 Thousand/uL 140-400 MPV 9.8 fL 7.5-12.5 ABSOLUTE NEUTROPHILS 4882 cells/uL 1500- 7800 ABSOLUTE LYMPHOCYTES 2370 cells/uL 850-3 900 ABSOLUTE MONOCYTES 419 cells/uL 200-950 ABSOLUTE EOSINOPHILS 190 cells/uL 15-500 ABSOLUTE BASOPHILS 40 cells/uL 0-200 NEUTROPHILS 61.8 % NRG LYMPHOCYTES 30.0 % NRG MONOCYTES 5.3 % NRG EOSINOPHILS 2.4 % NRG BASOPHILS 0.5 % NRG TSH - 07/18/18 09:17 TSH 5.97 mIU/L NRG ESR/SED RATE - 08/22/18 12:33 SED RATE BY MODIFIED WESTERGREN 14 mm/h < OR = 20 ASO - 08/22/18 12:33 ANTI-STREPTOLYSIN O <50 IU/mL <200 RA (RHEUMATOID) FACTOR - 08/22/18 12:33 RHEUMATOID FACTOR <14 IU/mL <14 SHARLENE - 08/22/18 12:33 SHARLENE SCREEN, IFA NEGATIVE NEGATIVE TSH - 08/22/18 12:33 TSH 4.89 mIU/L NRG Complete blood count (CBC) with automate d white blood cell (WBC) differential - 09/10/18 08:50 Blood leukocytes automated count (number/volume) 6.3 10*3/uL 4.3-11.0 Blood erythrocytes automated count (number/volume) 4.02 10*6/uL 4.35-5.85 Venous blood hemoglobin measurement (mass/volume) 11.4 g/dL 11.5-16.0 Blood hematocrit (volume fraction) 35 % 35-52 Automated erythrocyte mean corpuscular volume 88 [ foz_us] 80-99 Automated erythrocyte mean corpuscular h emoglobin (mass per erythrocyte) 28 pg 25-34 Automated erythrocyte mean corpuscular h emoglobin concentration measurement (mass/volume) 32 g/dL 32-36 Automated erythrocyte distribution width ratio 14. 6 % 10.0- 14.5 Automated blood platelet count (count/volume) 290 10*3/uL 130-400 Automated blood platelet mean volume measurement 9.4 [foz_us] 7.4-10.4 Automated blood neutrophils/100 leukocytes 59 % 42-75 Automated blood lymphocytes/100 leukocytes 30 % 12-44 Blood monocytes/100 leukocytes 7 % 0-12 Automated blood eosinophils/100 leukocytes 3 % 0-10 Automated blood basophils/100 leukocytes 0 % 0-10 Blood neutrophils automated count (number/volume) 3.8 10*3 1.8-7.8 Blood lymphocytes automated count (number/volume) 1.9 10*3 1.0-4.0 Blood monocytes automated count (number/volume) 0. 5 10*3 0.0-1.0 Automated eosinophil count 0.2 10*3/uL 0 .0-0.3 Automated blood basophil count (count/volume) 0.0 10*3/uL 0.0-0.1 Comprehensive metabolic panel - 09/10/18 08:50 Serum or plasma sodium measurement (moles/volume) 135 mmol/L 135-145 Serum or plasma potassium measurement (moles/volume) 4.0 mmol/L 3.6-5.0 Serum or plasma chloride measurement (moles/volume) 105 mmol/L 98-107 Carbon dioxide 24 mmol/L 21-32 Serum or plasma anion gap determination (moles/volume) 6 mmol/L 5-14 Serum or plasma urea nitrogen measurement (mass/volume ) 13 mg/dL 7-18 Serum or plasma creatinine measurement (mass/volume) 0.70 mg/dL 0.60-1.30 Serum or plasma urea nitrogen/creatinine mass ratio 19 NRG Serum or plasma creatinine measurement w ith calculation of estimated glomerular filtration rate > NRG Serum or plasma glucose measurement (mass/volume) 123 mg/dL 70-105 Serum or plasma calcium measurement (mass/volume) 9.1 mg/dL 8.5-10.1 Serum or plasma total bilirubin measurement (mass/volu me) 0.5 mg/dL 0.1-1.0 Serum or plasma alkaline phosphatase alma surement (enzymatic activity/volume) 106 U/L 40-136 Serum or plasma aspartate aminotransfera se measurement (enzymatic activity/volume) 10 U/L 5-34 Serum or plasma alanine aminotransferase measurement (enzymatic activity/volume) 19 U/L 0-55 Serum or plasma protein measurement (mass/volume) 6.9 g/dL 6.4-8.2 Serum or plasma albumin measurement (mass/volume) 4.0 g/dL 3.2-4.5 CALCIUM CORRECTED 9.1 mg/dL 8.5-10.1 Serum or plasma amylase measurement (enz ymatic activity/volume) - 09/10/18 08:50 Serum or plasma amylase measurement (enzymatic activit y/volume) 41 U/L 25-125 Lipase - 09/10/18 08:50 Lipase 13 U/L 8-78 Complete urinalysis with reflex to cultu re - 09/10/18 09:45 Urine color determination YELLOW NRG Urine clarity determination CLEAR NR G Urine pH measurement by test strip 6 5-9 Specific gravity of urine by test strip 1.020 1.016-1.022 Urine protein assay by test strip, semi-quantitative NEGATIVE NEGATIVE Urine glucose detection by automated test strip NE GATIVE NEGATIVE Erythrocytes detection in urine sediment by light micr oscopy NEGATIVE NEGATIVE Urine ketones detection by automated test strip NE GATIVE NEGATIVE Urine nitrite detection by test strip NEGATIVE NEGATIVE Urine total bilirubin detection by test strip NEGA TIVE NEGATIVE Urine urobilinogen measurement by automated test strip (mass/volume) NORMAL NORMAL Urine leukocyte esterase detection by dipstick 1+ NEGATIVE Automated urine sediment erythrocyte cou nt by microscopy (number/high power field) NONE NRG Automated urine sediment leukocyte count by microscopy (number/high power field) [HPF] NRG Bacteria detection in urine sediment by light microsco py MODERATE NRG Crystals detection in urine sediment by light microsco py NONE NRG Casts detection in urine sediment by light microscopy NONE NRG Mucus detection in urine sediment by light microscopy MODERATE NRG Complete urinalysis with reflex to culture YES NRG Bacterial urine culture - 09/10/18 09:45 Bacterial urine culture [id number] NRG COLONY COUNT >100,000/ML NRG FTX;REPORTABLE SUSCEPTIBILITY REPORTED 09/13/18 9:4 5 NRG FREE TEXT ENTRY 2 ID REPORTED 09/11/18 14:05 NRG Dirithromycin susceptibility test by dis k diffusion - 09/10/18 09:45 Gentamicin susceptibility test by minimum inhibitory c oncentration <= NRG Trimethoprim/sulfamethoxazole susceptibi lity test by minimum inhibitoryconcentration <= NRG Levofloxacin susceptibility test by minimum inhibitory concentration <= NRG Ampicillin susceptibility test by minimum inhibitory c oncentration <= NRG Cefazolin susceptibility test by minimum inhibitory co ncentration <= NRG Ceftriaxone susceptibility test by minimum inhibitory concentration <= NRG Ciprofloxacin susceptibility test by minimum inhibitor y concentration <= NRG Meropenem susceptibility test by minimum inhibitory co ncentration <= NRG Nitrofurantoin susceptibility test by mi nimum inhibitory concentration <= NRG Amoxicillin and clavulanate potassium susc KEYSHAWN <= NRG TSH - 09/26/18 09:14 TSH 2.98 mIU/L NRG Influenza virus A and B antigen detectio n - 05/13/19 23:14 FLU RESULT NEGATIVE FOR INFLUENZA A AND B ANTIGENS BY IA NR Complete blood count (CBC) with automate d white blood cell (WBC) differential - 05/13/19 23:15 Blood leukocytes automated count (number/volume) 4.3 10*3/uL 4.3-11.0 Blood erythrocytes automated count (number/volume) 4.61 10*6/uL 4.35-5.85 Venous blood hemoglobin measurement (mass/volume) 12.9 g/dL 11.5-16.0 Blood hematocrit (volume fraction) 40 % 35-52 Automated erythrocyte mean corpuscular volume 88 [ foz_us] 80-99 Automated erythrocyte mean corpuscular h emoglobin (mass per erythrocyte) 28 pg 25-34 Automated erythrocyte mean corpuscular h emoglobin concentration measurement (mass/volume) 32 g/dL 32-36 Automated erythrocyte distribution width ratio 14. 9 % 10.0- 14.5 Automated blood platelet count (count/volume) 289 10*3/uL 130-400 Automated blood platelet mean volume measurement 9.0 [foz_us] 7.4-10.4 Automated blood neutrophils/100 leukocytes 44 % 42-75 Automated blood lymphocytes/100 leukocytes 37 % 12-44 Blood monocytes/100 leukocytes 15 % 0-12 Automated blood eosinophils/100 leukocytes 4 % 0-10 Automated blood basophils/100 leukocytes 1 % 0-10 Blood neutrophils automated count (number/volume) 1.9 10*3 1.8-7.8 Blood lymphocytes automated count (number/volume) 1.6 10*3 1.0-4.0 Blood monocytes automated count (number/volume) 0. 6 10*3 0.0-1.0 Automated eosinophil count 0.2 10*3/uL 0 .0-0.3 Automated blood basophil count (count/volume) 0.0 10*3/uL 0.0-0.1 Comprehensive metabolic panel - 05/13/19 23:15 Serum or plasma sodium measurement (moles/volume) 138 mmol/L 135-145 Serum or plasma potassium measurement (moles/volume) 3.9 mmol/L 3.6-5.0 Serum or plasma chloride measurement (moles/volume) 103 mmol/L 98-107 Carbon dioxide 23 mmol/L 21-32 Serum or plasma anion gap determination (moles/volume) 12 mmol/L 5-14 Serum or plasma urea nitrogen measurement (mass/volume ) 11 mg/dL 7-18 Serum or plasma creatinine measurement (mass/volume) 0.76 mg/dL 0.60-1.30 Serum or plasma urea nitrogen/creatinine mass ratio 14 NRG Serum or plasma creatinine measurement w ith calculation of estimated glomerular filtration rate > NRG Serum or plasma glucose measurement (mass/volume) 150 mg/dL 70-105 Serum or plasma calcium measurement (mass/volume) 9.0 mg/dL 8.5-10.1 Serum or plasma total bilirubin measurement (mass/volu me) 0.5 mg/dL 0.1-1.0 Serum or plasma alkaline phosphatase alma surement (enzymatic activity/volume) 110 U/L 40-136 Serum or plasma aspartate aminotransfera se measurement (enzymatic activity/volume) 22 U/L 5-34 Serum or plasma alanine aminotransferase measurement (enzymatic activity/volume) 36 U/L 0-55 Serum or plasma protein measurement (mass/volume) 7.4 g/dL 6.4-8.2 Serum or plasma albumin measurement (mass/volume) 4.1 g/dL 3.2-4.5 CALCIUM CORRECTED 8.9 mg/dL 8.5-10.1 Serum or plasma C reactive protein measu rement (mass/volume) - 05/13/19 23:15 Serum or plasma C reactive protein measurement (mass/v olume) 2.78 mg/dL 0.00-0.50 Serum or plasma choriogonadotropin (preg sina test) detection - 05/13/19 23:15 Serum or plasma choriogonadotropin ( test) de tection NEGATIVE NEGATIVE Blood lactic acid measurement (moles/vol ume) - 05/14/19 00:40 Blood lactic acid measurement (moles/volume) 1.63 mmol/L 0.50-2.00 Bacterial blood culture - 05/14/19 00:40 QUANTITY OF GROWTH . NRG Bacterial blood culture POSITIVE NRG Bacterial blood culture - 05/14/19 00:55 Bacterial blood culture NG NRG Capillary blood glucose measurement by g lucometer (mass/volume) - 05/14/19 06:36 Capillary blood glucose measurement by glucometer (mas s/volume) 314 mg/dL 70-110 Complete blood count (CBC) with automate d white blood cell (WBC) differential - 05/14/19 06:48 Blood leukocytes automated count (number/volume) 4.3 10*3/uL 4.3-11.0 Blood erythrocytes automated count (number/volume) 4.21 10*6/uL 4.35-5.85 Venous blood hemoglobin measurement (mass/volume) 11.9 g/dL 11.5-16.0 Blood hematocrit (volume fraction) 37 % 35-52 Automated erythrocyte mean corpuscular volume 88 [ foz_us] 80-99 Automated erythrocyte mean corpuscular h emoglobin (mass per erythrocyte) 28 pg 25-34 Automated erythrocyte mean corpuscular h emoglobin concentration measurement (mass/volume) 32 g/dL 32-36 Automated erythrocyte distribution width ratio 14. 8 % 10.0- 14.5 Automated blood platelet count (count/volume) 273 10*3/uL 130-400 Automated blood platelet mean volume measurement 9.3 [foz_us] 7.4-10.4 Automated blood neutrophils/100 leukocytes 88 % 42-75 Automated blood lymphocytes/100 leukocytes 10 % 12-44 Blood monocytes/100 leukocytes 2 % 0-12 Automated blood eosinophils/100 leukocytes 0 % 0-10 Automated blood basophils/100 leukocytes 0 % 0-10 Blood neutrophils automated count (number/volume) 3.8 10*3 1.8-7.8 Blood lymphocytes automated count (number/volume) 0.4 10*3 1.0-4.0 Blood monocytes automated count (number/volume) 0. 1 10*3 0.0-1.0 Automated eosinophil count 0.0 10*3/uL 0 .0-0.3 Automated blood basophil count (count/volume) 0.0 10*3/uL 0.0-0.1 Whole blood basic metabolic panel - 05/04 06:48 Serum or plasma sodium measurement (moles/volume) 135 mmol/L 135-145 Serum or plasma potassium measurement (moles/volume) 4.2 mmol/L 3.6-5.0 Serum or plasma chloride measurement (moles/volume) 103 mmol/L 98-107 Carbon dioxide 19 mmol/L 21-32 Serum or plasma anion gap determination (moles/volume) 13 mmol/L 5-14 Serum or plasma urea nitrogen measurement (mass/volume ) 8 mg/dL 7-18 Serum or plasma creatinine measurement (mass/volume) 0.76 mg/dL 0.60-1.30 Serum or plasma urea nitrogen/creatinine mass ratio 11 NRG Serum or plasma creatinine measurement w ith calculation of estimated glomerular filtration rate > NRG Serum or plasma glucose measurement (mass/volume) 325 mg/dL 70-105 Serum or plasma calcium measurement (mass/volume) 8.3 mg/dL 8.5-10.1 Serum or plasma C reactive protein measu rement (mass/volume) - 05/14/19 06:48 Serum or plasma C reactive protein measurement (mass/v olume) 2.16 mg/dL 0.00-0.50 Manual absolute plasma cell count - 05/04 06:48 Blood monocytes/100 leukocytes 1 % NRG Manual blood segmented neutrophils/100 leukocytes 85 % NRG Blood band neutrophils/100 leukocytes 6 % NRG Manual blood lymphocytes/100 leukocytes 8 % NRG Manual eosinophils/100 leukocytes in nose 0 % NRG Manual blood basophils/100 leukocytes 0 % NRG Blood anisocytosis detection by light microscopy S LIGHT NRG Capillary blood glucose measurement by g lucometer (mass/volume) - 05/14/19 10:39 Capillary blood glucose measurement by glucometer (mas s/volume) 276 mg/dL 70-110 Capillary blood glucose measurement by g lucometer (mass/volume) - 05/14/19 15:38 Capillary blood glucose measurement by glucometer (mas s/volume) 294 mg/dL 70-110 Capillary blood glucose measurement by g lucometer (mass/volume) - 05/14/19 20:32 Capillary blood glucose measurement by glucometer (mas s/volume) 325 mg/dL 70-110 Serum or plasma troponin i.cardiac measu rement (mass/volume) - 05/14/19 21:05 Serum or plasma troponin i.cardiac measurement (mass/v olume) < ng/mL <0.028 Serum or plasma lithium measurement (mol es/volume) - 05/14/19 21:05 BNP PT 19.2 pg/mL <100.0 Fibrin D-dimer FEU measurement in platel et poor plasma (mass/volume) - 05/14/19 21:05 Fibrin D-dimer FEU measurement in platelet poor plasma (mass/volume) 0.60 ug/mL 0.00-0.49 Arterial blood gas measurement - 0 21:30 Blood pCO2 35 mm[Hg] 35-45 Blood pO2 62 mm[Hg] 79-93 Arterial blood bicarbonate measurement (moles/volume) 22 mmol/L 23-27 Arterial blood base excess by calculation -1.8 mmo l/L -2.5-2.5 Arterial blood oxygen saturation measurement 90 % 94-100 * Inhaled oxygen flow rate NOT INDICATED NRG Arterial blood pH measurement with patient temperature correction 7.42 7.37-7.43 Arterial blood carbon dioxide, total measurement (mole s/volume) 23.2 mmol/L 21.0-31.0 Body site RIGHT RADIAL NRG Assessment of wrist artery patency prior to arterial p uncture YES-POS NRG Setting of ventilation mode NO NR G Measurement of body temperature 37.0 NRG Capillary blood glucose measurement by g lucometer (mass/volume) - 05/15/19 00:29 Capillary blood glucose measurement by glucometer (mas s/volume) 276 mg/dL 70-110 Capillary blood glucose measurement by g lucometer (mass/volume) - 05/15/19 06:00 Capillary blood glucose measurement by glucometer (mas s/volume) 291 mg/dL 70-110 Complete blood count (CBC) with automate d white blood cell (WBC) differential - 05/15/19 06:05 Blood leukocytes automated count (number/volume) 8.4 10*3/uL 4.3-11.0 Blood erythrocytes automated count (number/volume) 4.37 10*6/uL 4.35-5.85 Venous blood hemoglobin measurement (mass/volume) 12.1 g/dL 11.5-16.0 Blood hematocrit (volume fraction) 38 % 35-52 Automated erythrocyte mean corpuscular volume 88 [ foz_us] 80-99 Automated erythrocyte mean corpuscular h emoglobin (mass per erythrocyte) 28 pg 25-34 Automated erythrocyte mean corpuscular h emoglobin concentration measurement (mass/volume) 32 g/dL 32-36 Automated erythrocyte distribution width ratio 15. 1 % 10.0- 14.5 Automated blood platelet count (count/volume) 315 10*3/uL 130-400 Automated blood platelet mean volume measurement 9.3 [foz_us] 7.4-10.4 Automated blood neutrophils/100 leukocytes 86 % 42-75 Automated blood lymphocytes/100 leukocytes 11 % 12-44 Blood monocytes/100 leukocytes 4 % 0-12 Automated blood eosinophils/100 leukocytes 0 % 0-10 Automated blood basophils/100 leukocytes 0 % 0-10 Blood neutrophils automated count (number/volume) 7.1 10*3 1.8-7.8 Blood lymphocytes automated count (number/volume) 0.9 10*3 1.0-4.0 Blood monocytes automated count (number/volume) 0. 3 10*3 0.0-1.0 Automated eosinophil count 0.0 10*3/uL 0 .0-0.3 Automated blood basophil count (count/volume) 0.0 10*3/uL 0.0-0.1 Comprehensive metabolic panel - 05/15/19 06:05 Serum or plasma sodium measurement (moles/volume) 134 mmol/L 135-145 Serum or plasma potassium measurement (moles/volume) 4.7 mmol/L 3.6-5.0 Serum or plasma chloride measurement (moles/volume) 103 mmol/L 98-107 Carbon dioxide 21 mmol/L 21-32 Serum or plasma anion gap determination (moles/volume) 10 mmol/L 5-14 Serum or plasma urea nitrogen measurement (mass/volume ) 14 mg/dL 7-18 Serum or plasma creatinine measurement (mass/volume) 0.75 mg/dL 0.60-1.30 Serum or plasma urea nitrogen/creatinine mass ratio 19 NRG Serum or plasma creatinine measurement w ith calculation of estimated glomerular filtration rate > NRG Serum or plasma glucose measurement (mass/volume) 305 mg/dL 70-105 Serum or plasma calcium measurement (mass/volume) 9.2 mg/dL 8.5-10.1 Serum or plasma total bilirubin measurement (mass/volu me) 0.4 mg/dL 0.1-1.0 Serum or plasma alkaline phosphatase alma surement (enzymatic activity/volume) 98 U/L 40-136 Serum or plasma aspartate aminotransfera se measurement (enzymatic activity/volume) 12 U/L 5-34 Serum or plasma alanine aminotransferase measurement (enzymatic activity/volume) 29 U/L 0-55 Serum or plasma protein measurement (mass/volume) 7.3 g/dL 6.4-8.2 Serum or plasma albumin measurement (mass/volume) 4.1 g/dL 3.2-4.5 CALCIUM CORRECTED 9.1 mg/dL 8.5-10.1 PROCALCITONIN (PCT) - 05/15/19 06:05 PROCALCITONIN (PCT) 0.04 ng/mL <0.10 Capillary blood glucose measurement by g lucometer (mass/volume) - 05/15/19 11:15 Capillary blood glucose measurement by glucometer (mas s/volume) 290 mg/dL 70-110 Capillary blood glucose measurement by g lucometer (mass/volume) - 05/15/19 15:42 Capillary blood glucose measurement by glucometer (mas s/volume) 318 mg/dL 70-110 Blood lactic acid measurement (moles/vol ume) - 05/15/19 17:00 Blood lactic acid measurement (moles/volume) 1.37 mmol/L 0.50-2.00 Capillary blood glucose measurement by g lucometer (mass/volume) - 05/15/19 19:45 Capillary blood glucose measurement by glucometer (mas s/volume) 332 mg/dL 70-110 Complete blood count (CBC) with automate d white blood cell (WBC) differential - 05/16/19 04:26 Blood leukocytes automated count (number/volume) 10.0 10*3/uL 4.3-11.0 Blood erythrocytes automated count (number/volume) 4.40 10*6/uL 4.35-5.85 Venous blood hemoglobin measurement (mass/volume) 12.3 g/dL 11.5-16.0 Blood hematocrit (volume fraction) 38 % 35-52 Automated erythrocyte mean corpuscular volume 87 [ foz_us] 80-99 Automated erythrocyte mean corpuscular h emoglobin (mass per erythrocyte) 28 pg 25-34 Automated erythrocyte mean corpuscular h emoglobin concentration measurement (mass/volume) 32 g/dL 32-36 Automated erythrocyte distribution width ratio 15. 3 % 10.0- 14.5 Automated blood platelet count (count/volume) 345 10*3/uL 130-400 Automated blood platelet mean volume measurement 9.3 [foz_us] 7.4-10.4 Automated blood neutrophils/100 leukocytes 82 % 42-75 Automated blood lymphocytes/100 leukocytes 15 % 12-44 Blood monocytes/100 leukocytes 3 % 0-12 Automated blood eosinophils/100 leukocytes 0 % 0-10 Automated blood basophils/100 leukocytes 0 % 0-10 Blood neutrophils automated count (number/volume) 8.2 10*3 1.8-7.8 Blood lymphocytes automated count (number/volume) 1.5 10*3 1.0-4.0 Blood monocytes automated count (number/volume) 0. 3 10*3 0.0-1.0 Automated eosinophil count 0.0 10*3/uL 0 .0-0.3 Automated blood basophil count (count/volume) 0.0 10*3/uL 0.0-0.1 Blood blood smear finding identification by light micr oscopy YES NR Comprehensive metabolic panel - 05/16/19 04:26 Serum or plasma sodium measurement (moles/volume) 133 mmol/L 135-145 Serum or plasma potassium measurement (moles/volume) 4.7 mmol/L 3.6-5.0 Serum or plasma chloride measurement (moles/volume) 102 mmol/L 98-107 Carbon dioxide 22 mmol/L 21-32 Serum or plasma anion gap determination (moles/volume) 9 mmol/L 5-14 Serum or plasma urea nitrogen measurement (mass/volume ) 18 mg/dL 7-18 Serum or plasma creatinine measurement (mass/volume) 0.91 mg/dL 0.60-1.30 Serum or plasma urea nitrogen/creatinine mass ratio 20 NRG Serum or plasma creatinine measurement w ith calculation of estimated glomerular filtration rate > NRG Serum or plasma glucose measurement (mass/volume) 360 mg/dL 70-105 Serum or plasma calcium measurement (mass/volume) 9.0 mg/dL 8.5-10.1 Serum or plasma total bilirubin measurement (mass/volu me) 0.4 mg/dL 0.1-1.0 Serum or plasma alkaline phosphatase alma surement (enzymatic activity/volume) 97 U/L 40-136 Serum or plasma aspartate aminotransfera se measurement (enzymatic activity/volume) 15 U/L 5-34 Serum or plasma alanine aminotransferase measurement (enzymatic activity/volume) 33 U/L 0-55 Serum or plasma protein measurement (mass/volume) 7.1 g/dL 6.4-8.2 Serum or plasma albumin measurement (mass/volume) 4.0 g/dL 3.2-4.5 CALCIUM CORRECTED 9.0 mg/dL 8.5-10.1 Encounters ACCT No. Visit Date/Time Discharge Status Pt. Type Provider Facility Loc./Unit Complaint [id number] 06/10/2014 10:19:00 06/10/2014 23:59: 59 CLS Outpatient YOHANNES TABOR DO [id number] 05/29/2014 14:48:00 05/29/2014 23:59: 59 CLS Outpatient DRAKE PENA APRN [id number] 01/14/2014 14:42:00 01/14/2014 23:59: 59 CLS Outpatient CAROLINA PAULSON MD [id number] 08/07/2013 10:01:00 08/07/2013 23:59: 59 CLS Outpatient ROE CALERO APRN [id number] 07/31/2013 13:56:00 07/31/2013 23:59: 59 CLS Outpatient ROE CALERO APRN [id number] 07/11/2013 06:13:00 07/11/2013 23:59: 59 CLS Outpatient RIO MOULTON MD [id number] 07/08/2013 14:08:00 07/08/2013 23:59: 59 CLS Outpatient YOHANNES TABOR DO [id number] 05/23/2013 14:54:00 05/23/2013 23:59: 59 CLS Outpatient CAROLINA PAULSON MD [id number] 04/29/2013 15:02:00 04/29/2013 23:59: 59 CLS Outpatient CAROLINA PAULSON MD [id number] 04/25/2013 14:34:00 04/25/2013 23:59: 59 CLS Outpatient CAROLINA PAULSON MD [id number] 01/03/2013 09:26:00 01/03/2013 23:59: 59 CLS Outpatient DRAKE PENA APRN [id number] 01/01/2013 09:51:00 01/01/2013 23:59: 59 CLS Outpatient YOHANNES TABOR DO [id number] 10/08/2012 08:36:00 Document Registration [id number] 12/06/2018 10:22:00 23:59:59 CLS Outpatient FELIZ BARROS APRN [facility] RAD SCREENING [id number] 09/10/2018 08:16:00 019 11:39:00 DIS Outpatient CINTHIA CHRISTIANDAMIEN [facility] ER UPPER ABD PAIN [id number] 06/14/2017 13:42:00 018 23:59:59 CLS Outpatient CAROLINA PAULSON MD [facility] RAD R92.8 ABNORMAL MAMMO [id number] 06/14/2017 13:32:00 018 23:59:59 CLS Outpatient RAVI DANIELS PARKING PATROLLER [facility] RAD ABN MAMMO [id number] 10/28/2016 09:48:00 017 23:59:59 CLS Outpatient ABELARDO STRINGER [facility] RAD RIGHT SIDED [place]AT[place] [id number] 09/16/2016 15:14:00 017 13:25:00 DIS Inpatient DECLAN FUNEZ MD [facility] ICU CHEST PAIN, RELIEVED WI TH NITRO [id number] 09/02/2016 11:40:00 017 23:59:59 CLS Outpatient CAROLINA PAULSON MD [facility] LAB R73.09 I10 [id number] 10/28/2015 12:51:00 016 23:59:59 CLS Outpatient CAROLINA PAULSON MD [facility] RAD ABNORMAL MAMMO [id number] 08/28/2015 09:55:00 016 23:59:59 CLS Outpatient CAROLINA PAULSON MD [facility] RAD BILATERAL OVARIAN CYSTS [id number] 08/26/2015 08:08:00 016 23:59:59 CLS Outpatient CAROLINA PAULSON MD [facility] RAD ABNORMAL MAMOGRAM [id number] 06/24/2015 08:57:00 016 23:59:59 CLS Outpatient BOBBI KATE [employer]ER [facility] RAD ENLARGED LYMNPH NODES ON BILATER BREASTS [id number] 05/27/2015 12:26:00 016 23:59:59 CLS Outpatient HILDALEANASILVESTRE BOBBI Janet PARK[employer]ROLLER [facility] RAD ABDOMINAL BLOAT ING [id number] 03/20/2015 04:35:00 016 06:47:00 DIS Emergency CINTHIA DAMIEN [facility] ER KIDNEY PAIN,VOMITING [id number] 11/12/2014 07:41:00 015 11:01:00 DIS Emergency TYREE GALVIN, DARLENE Hewitt [facility] ER COUGH/SOA/FEVER [id number] 06/25/2014 09:31:00 23:59:59 CLS Outpatient DRAKE PENA [employer] [facility] RAD SCREENING [id number] 06/22/2014 07:39:00 09:53:00 DIS Emergency PANCHITO VENCES MD [facility] ER L HAND PAIN AND SWELLIN G [id number] 12/03/2013 01:14:00 014 12:25:00 DIS Inpatient KHURRAM GALVIN, CAROLINA Ortega [facility] CSD CHEST PAIN,HYPERTENSIVE URGENCY [id number] 08/05/2013 07:42:00 23:59:59 CLS Outpatient MOHAMUD FONG MD [facility] LAB RT ELEVATED URET STONE [id number] 07/18/2013 10:25:00 014 12:31:00 DIS Emergency CINTHIA DAMIEN [facility] ER RIGHT SIDE PAIN/VOMITIN G [id number] 07/16/2013 05:59:00 014 10:12:00 DIS Outpatient MOHAMUD FONG MD [facility] SDC RIGHT STONE [id number] 07/15/2013 09:20:00 014 23:59:59 CLS Outpatient MOHAMUD FONG MD [facility] RAD STONES [id number] 07/15/2013 07:38:00 23:59:59 CLS Outpatient AJIT GALVIN, MOHAMUD Gonzales [facility] PREOP RIGHT STONE [id number] 06/28/2013 06:35:00 16:45:00 DIS Inpatient KENNEY GALVIN, RIO Dorantes [facility] 4TH ACUTE COPD EXACERBATION /HYPOXEMIA [id number] 06/23/2013 23:40:00 16:22:00 DIS Inpatient CAROLINA PAULSON MD [facility] 4TH KIDNEY STONE [id number] 06/19/2013 17:38:00 23:59:59 CLS Outpatient [id number] 02/22/2013 21:12:00 21:49:00 DIS Emergency AROLDO BEGUM APRN [facility] ER BACK PAIN; NO INJ [id number] 01/21/2013 10:12:00 23:59:59 CLS Outpatient BELINDA ESTRELLA [facility] RAD SCREENING [id number] 05/14/2019 00:43:[address] Inpatient TSANG DEVI [facility] 4TH COPD EXACERBATION,HYPOXIA [id number] 08/15/2011 07:36:00 Document Registration [id number] 01/30/2010 09:24:00 Document Registration [id number] 12/23/2009 08:50:00 Document Registration [id number] 10/26/2018 08:00:00 10/26/2018 23:59:5 9 CLS Outpatient KAREN MARTELL APRN [facility] [id number] 09/26/2018 08:40:00 Document Registration [id number] 08/22/2018 12:20:00 Document Registration [id number] 07/18/2018 09:00:00 Document Registration [id number] 05/09/2017 11:00:00 Document Registration
[2019-05-16 08:39] VITALS: BP 126/62
[2019-05-16] MEDS: AZITHROMYCIN 250 MG TAB (ZITHROMAX) PO SCH (09:08)
[2019-05-16] MEDS: lisINopril 10 MG (PRINIVIL) TABLET PO SCH (09:08)
[2019-05-16] MEDS: ENOXAPARIN 40 MG/0.4 ML (LOVENOX) SYR SC SCH ×2 (09:08→20:06)
[2019-05-16] MEDS: meTOprolol TARTRATE 25 MG (LOPRESSOR) TABLET PO SCH ×2 (09:08→20:07)
[2019-05-16] MEDS: FLUTICASONE NASAL SPRAY (FLONASE) 16 GM BTL NS SCH (09:09)
[2019-05-16] MEDS: RT-ADVAIR HFA 115/21 MCG PER PUFF IH SCH ×3 (09:10→22:21)
--- NOTE | 2019-05-16 11:06 | Progress Note - Hospitalist ---
CASIMIRO HERNANDEZ [facility] 05/16/19 1105: Subjective HPI/CC On Admission Date Seen by Provider: May 16, 2019 Time Seen by Provider: 08:15 CC: SOB HPI: This is a 48yoWF clinic Pt of Jerry Delgadillo at [facility] who presented with an exacerbation of COPD and hypoxia, workup was negative, influenza was negative, she quit smoking five years ago and does not use O2 or inhalers and does not check her sugars and does have DM. She was placed on Rocephin and Zithromax empirically, and IV steroids, will be able to heplock IV fluid and ambulate today to see if we will be able to discharge tomorrow. Subjective/Events-last exam Patient reports SOB has improved. Still requiring o2 and still feeling HU. NC O2 was stepped down to 2L from 5L. Patient uses no breathing treatments and uses no oxygen at home. bowels are moving. Sleeping ok. Tolerating diet. Dr. Ellis is following and requiring further workup. Focused Exam Lactate Level 05/14/19 00:40: Lactic Acid Level 1.63 05/15/19 17:00: Lactic Acid Level 1.37 Objective Exam Vital Signs Vital Signs Date Time Temp Pulse Resp B/P (MAP) Pulse Ox O2 Delivery O2 Flow Rate FiO2 05/16/19 08:39 36.8 95 20 126/62 (83) 93 Nasal Cannula 2.00 Capillary Refill : Less Than 3 SecondsLess Than 3 Seconds Results/Procedures Lab Laboratory Tests 05/16/19 04:26 Patient resulted labs reviewed. Assessment/Plan Assessment and Plan Assess & Plan/Chief Complaint Acute COPD exacerbation Productive cough SOB Hyperglycemia HTN Previous Smoker Worsening episode of SOB, better now positive blood cultures Consult pulmonology - Dr. Ellis is requesting PCT, BCx3 CT Angio of chest - long standing changes, no acute process. neg for PE Gram positive cocci in chains found on blood culture waiting for susceptibility to return Continue Abx - may change depend on susceptibility O2 - on 2L now, may require o2 on discharge Hep Lock Fluids Neb Treatments - continue Glyburide Clinical Quality Measures DVT/VTE Risk/Contraindication: Risk Factor Score Per Nursin RFS Level Per Nursing on Admit: 3=High MARIAN TSANG DO 05/16/19 1502: Subjective Subjective/Events-last exam Blood cultures and procalcitonin ordered by Dr. Ellis Doesn't appear to be a pneumonia on CT scan Updated her on CT scan results Dr. Ellis has provided consultation services and will likely be ready to go home for discharge tomorrow Ambulating around and doing pretty well May certainly need home O2at discharge Review of Systems Pulmonary: Dyspnea, Cough Objective Exam General Appearance: No Apparent Distress, WD/WN Respiratory: No Accessory Muscle Use, No Respiratory Distress, Wheezing (Subtle ) Cardiovascular: Regular Rate, Rhythm, No Edema, No Gallop, No JVD, No Murmur, Normal Peripheral Pulses Assessment/Plan Assessment and Plan Assess & Plan/Chief Complaint Dr Ellis appreciated Home O2 evaluation Supervisory-Addendum Brief Verification & Attestation Participated in pt care: history, MDM, physical Personally performed: exam, history, MDM, supervision of care Care discussed with: Medical Student Procedures: n/a Results interpretation: Verified all documentation Verification and Attestation of Medical Student E/M Service A medical student performed and documented this service in my presence. I reviewed and verified all information documented by the medical student and made modifications to such information, when appropriate. I personally performed the physical exam and medical decision making. Marian Tsang, May 16, 2019,21:48 CASIMIRO HERNANDEZ [facility] May 16, 2019 11:05 MARIAN TSANG DO May 16, 2019 15:02
--- NOTE | 2019-05-16 15:29 | NUR ---
titrated O2 to 3L from 1L to get best effect above 90% in 6 mins while walking about 300 ft
[2019-05-16 16:00] VITALS: BP 123/63
[2019-05-16] MEDS: MONTELUKAST 10 MG (SINGULAIR) TAB PO SCH (20:07)
[2019-05-16] MEDS: cefTRIAXone 1,000 MG/SWFI 10 ML IV PUSH IV SCH ×2 (22:04)
[2019-05-16 23:55] VITALS: BP 143/69
[2019-05-17] MEDS: methylPREDNISolone 40 MG/ML (Solu-MEDROL) VIAL IV SCH ×3 (00:16→12:29)
[2019-05-17] MEDS: RT-ALBUTEROL/IPRATROPIUM 3 ML (DUONEB) VIAL INH SCH ×4 (01:54→14:56)
[2019-05-17 04:37] LABS: BASOPHILS % (AUTO) 0 % (0-10); EOSINOPHILS % (AUTO) 0 % (0-10); HEMATOCRIT 38 % (35-52); HEMOGLOBIN 12.4 G/DL (11.5-16.0); LYMPHOCYTES # (AUTO) 1.8 X 10^3 (1.0-4.0); LYMPHOCYTES % (AUTO) 17 % (12-44); MEAN CORPUSCULAR HEMOGLOBIN 28 PG (25-34); MEAN CORPUSCULAR HGB CONC 33 G/DL (32-36); MEAN CORPUSCULAR VOLUME 86 FL (80-99); MEAN PLATELET VOLUME 9.4 FL (7.4-10.4); MONOCYTES # (AUTO) 0.6 X 10^3 (0.0-1.0); MONOCYTES % (AUTO) 5 % (0-12); NEUTROPHILS # (AUTO) 8.2 X 10^3 (1.8-7.8); NEUTROPHILS % (AUTO) 78 % (42-75); PLATELET COUNT 315 10^3/uL (130-400); WHITE BLOOD COUNT 10.5 10^3/uL (4.3-11.0)
[2019-05-17 04:55] LABS: ALANINE AMINOTRANSFERASE 51 U/L (0-55); ALBUMIN 3.9 GM/DL (3.2-4.5); ALKALINE PHOSPHATASE 106 U/L (40-136); BILIRUBIN,TOTAL 0.3 MG/DL (0.1-1.0); BUN/CREATININE RATIO 27; CARBON DIOXIDE 20 MMOL/L (21-32); CHLORIDE 101 MMOL/L (98-107); CREATININE SERUM 0.83 MG/DL (0.60-1.30); GFR ESTIMATED > 60; SODIUM 132 MMOL/L (135-145); TOTAL PROTEIN 6.7 GM/DL (6.4-8.2)
[2019-05-17 04:56] LABS: GLUCOSE 414 MG/DL (70-105)
[2019-05-17] MEDS: LEVOTHYROXINE 125 MCG (LEVOTHROID) TABLET PO SCH (05:21)
[2019-05-17] MEDS: GLIMEPIRIDE 4 MG (AMARYL) TAB PO SCH (05:22)
[2019-05-17] MEDS: inSUlin ASPART (NovoLOG) 1 UNIT/0.01 ML (CHARGE PER UNIT) SC SCH ×3 (05:24→16:45)
[2019-05-17] MEDS: RT-ADVAIR HFA 115/21 MCG PER PUFF IH SCH (07:24)
[2019-05-17 08:00] VITALS: BP 143/68
[2019-05-17] MEDS: meTOprolol TARTRATE 25 MG (LOPRESSOR) TABLET PO SCH (08:13)
[2019-05-17] MEDS: lisINopril 10 MG (PRINIVIL) TABLET PO SCH (08:13)
[2019-05-17] MEDS: AZITHROMYCIN 250 MG TAB (ZITHROMAX) PO SCH (08:13)
[2019-05-17] MEDS: ENOXAPARIN 40 MG/0.4 ML (LOVENOX) SYR SC SCH (08:13)
[2019-05-17] MEDS: FLUTICASONE NASAL SPRAY (FLONASE) 16 GM BTL NS SCH (08:13)
[2019-05-17] MEDS ORDERED: METO-333 PO (10:44)
[2019-05-17] MEDS ORDERED: FLUT16SP22 NS (10:44)
[2019-05-17] MEDS ORDERED: IPRA3AMP31 INH (10:44)
[2019-05-17] MEDS ORDERED: LEVO125T PO (10:44)
[2019-05-17] MEDS ORDERED: CEFD300C3 PO (10:44)
[2019-05-17] MEDS ORDERED: GLIM4TAB5 PO (10:44)
[2019-05-17] MEDS ORDERED: FLUT12AE4 IH (10:44)
[2019-05-17] MEDS ORDERED: MONT10TA26 PO (10:44)
[2019-05-17] MEDS ORDERED: PRED10TA22 PO (10:44)
--- NOTE | 2019-05-17 11:06 | Discharge Summary ---
CASIMIRO HERNANDEZ [facility] 05/17/19 1106: Diagnosis/Chief Complaint Date of Admission May 14, 2019 at 00:43 Date of Discharge Discharge Date: May 17, 2019 Admission Diagnosis Assessment: AECOPD Hypoxia Former smoker Obesity DM HTN Plan: IV steroids HLIVF Nebs O2 ICS Singulair Flonase PFT out patient Primary Care Maurice Delgadillo Discharge Diagnosis (1) COPD exacerbation Status: Acute (2) Diabetes (3) Acute bronchitis Status: Acute (4) Hypoxia Status: Acute Discharge Summary Discharge Physical Exam Allergies: Coded Allergies: codeine (Verified Allergy, Severe, THROAT SWELLS SHUT, 06/28/13) Vitals & I&Os Vital Signs Date Time Temp Pulse Resp B/P (MAP) Pulse Ox O2 Delivery O2 Flow Rate FiO2 05/17/19 08:00 36.9 68 18 143/68 (93) 93 Nasal Cannula 3.00 Hospital Course Patient reported to ED for COPD exacerbation and hypoxia. Septic work up was negative. She has not been oxygen dependent until this time but during her course required 5L of oxygen. She was weaned off o2 a bit to 2L but required increasing o2 at night. This is likely due to undiagnosed AMANDA. Patient would benefit from having a sleep study done and evaluation for CPAP machine. At time of discharge, patients bowels are moving, she is tolerating her diet, SOB at rest has resolved and she is having minimal SOB on exertion. She will need a home eval and will need oxygen at home. Will also need a nebulizer machine and will need to continue breathing treatments at home. Will follow up with Dr. Ellis after discharge for evaluation of pulmonary status. Labs (last 24 hrs) Laboratory Tests 05/16/19 16:19: Glucometer 263H 05/16/19 21:26: Glucometer 325H 05/17/19 04:30: White Blood Count 10.5, Red Blood Count 4.41, Hemoglobin 12.4, Hematocrit 38, Mean Corpuscular Volume 86, Mean Corpuscular Hemoglobin 28, Mean Corpuscular Hemoglobin Concent 33, Red Cell Distribution Width 15.0H, Platelet Count 315, Mean Platelet Volume 9.4, Neutrophils (%) (Auto) 78H, Lymphocytes (%) (Auto) 17, Monocytes (%) (Auto) 5, Eosinophils (%) (Auto) 0, Basophils (%) (Auto) 0, Neutrophils # (Auto) 8.2H, Lymphocytes # (Auto) 1.8, Monocytes # (Auto) 0.6, Eosinophils # (Auto) 0.0, Basophils # (Auto) 0.0, Sodium Level 132L, Potassium Level 5.0, Chloride Level 101, Carbon Dioxide Level 20L, Anion Gap 11, Blood Urea Nitrogen 22H, Creatinine 0.83, Estimat Glomerular Filtration Rate > 60, BUN/Creatinine Ratio 27, Glucose Level 414*H, Calcium Level 9.0, Corrected Calcium 9.1, Total Bilirubin 0.3, Aspartate Amino Transf (AST/SGOT) 17, Alanine Aminotransferase (ALT/SGPT) 51, Alkaline Phosphatase 106, Total Protein 6.7, Albumin 3.9 Microbiology 05/15/19 Blood Culture - Preliminary, Resulted No growth 05/13/19 Influenza Types A,B Antigen ([place]) - Final, Complete Patient resulted labs reviewed. Pending Labs Laboratory Tests 05/17/19 04:30: White Blood Count 10.5, Red Blood Count 4.41, Hemoglobin 12.4, Hematocrit 38, Mean Corpuscular Volume 86, Mean Corpuscular Hemoglobin 28, Mean Corpuscular Hemoglobin Concent 33, Red Cell Distribution Width 15.0, Platelet Count 315, Mean Platelet Volume 9.4, Neutrophils (%) (Auto) 78, Lymphocytes (%) (Auto) 17, Monocytes (%) (Auto) 5, Eosinophils (%) (Auto) 0, Basophils (%) (Auto) 0, Neutrophils # (Auto) 8.2, Lymphocytes # (Auto) 1.8, Monocytes # (Auto) 0.6, Eosinophils # (Auto) 0.0, Basophils # (Auto) 0.0, Sodium Level 132, Potassium Level 5.0, Chloride Level 101, Carbon Dioxide Level 20, Anion Gap 11, Blood Urea Nitrogen 22, Creatinine 0.83, Estimat Glomerular Filtration Rate > 60, BUN/Creatinine Ratio 27, Glucose Level 414, Calcium Level 9.0, Corrected Calcium 9.1, Total Bilirubin 0.3, Aspartate Amino Transf (AST/SGOT) 17, Alanine Aminotransferase (ALT/SGPT) 51, Alkaline Phosphatase 106, Total Protein 6.7, Albumin 3.9 Discharge Home Medications: Active Scripts Active Prednisone 10 Mg Tab.ds.pk 10 Mg PO DAILY Take 4 tabs(60mg)daily,decrease by 1 tab(10MG)daily. Cefdinir 300 Mg Capsule 300 Mg PO BID Glimepiride 4 Mg Tablet 4 Mg PO DAILY@0630 Synthroid (Levothyroxine Sodium) 125 Mcg Tablet 125 Mcg PO DAILY@0630 Fluticasone Propionate 16 Gm [place].susp 0 [place] NS DAILY Montelukast Sodium 10 Mg Tablet 10 Mg PO HS Advair Hfa 115-21 Mcg Inhaler (Fluticasone/Salmeterol) 12 Gm Hfa.aer.ad 2 Puff IH BID@08,20 Metoprolol Tartrate 25 Mg Tablet 25 Mg PO BID Iprat-Albut 0.5-3(2.5) mg/3 ml (Ipratropium/Albuterol Sulfate) 3 Ml Ampul.neb 3 Ml INH RTQ4HR Reported Escitalopram Oxalate 10 Mg Tablet 10 Mg PO DAILY Tizanidine HCl 4 Mg Tablet 4 Mg PO DAILY PRN Glimepiride 2 Mg Tablet 2 Mg PO 2200 Tylenol (Acetaminophen) 325 Mg Tablet 650 Mg PO Q8H PRN Aspirin EC (Aspirin) 81 Mg Tablet.dr 81 Mg PO 2200 Celebrex (Celecoxib) 200 Mg Capsule 200 Mg PO 2200 Levothyroxine Sodium 50 Mcg Tablet 50 Mcg PO 2200 Metoprolol Tartrate 50 Mg Tablet 50 Mg PO BID LAST FILLED 12-07-2018 #180/90 DAY SUPPLY Lisinopril 10 Mg Tablet 10 Mg PO 2200 LAST FILLED 12-07-2018 #90/90 DAY SUPPLY Instructions to patient/family Please see electronic discharge instructions given to patient. Clinical Quality Measures DVT/VTE Risk/Contraindication: Risk Factor Score Per Nursin RFS Level Per Nursing on Admit: 3=High MARIAN TSANG DO 05/17/192133: Discharge Summary Discharge Physical Exam Allergies: Coded Allergies: codeine (Verified Allergy, Severe, THROAT SWELLS SHUT, 06/28/13) General Appearance: No Apparent Distress, WD/WN, Chronically ill Respiratory: Lungs Clear Cardiovascular: Regular Rate, Rhythm Hospital Course Was the Problem List Reviewed?: Yes Hospital course: Pt had a lengthy hospital course for four days for exacerbation of COPD, antibiotics was initiated for bacterial bronchitis, no evidence of any pneumonia on CT scan, Dr. Ellis was consulted and recommended inhaled corticosteroids along with Singulair, those were initiated, Solumedrol maintained oxygen requirement was put in for home O2 use and overall she was deemed stable for discharge in improved condition. Discussion & Recommendations Discharge Planning: <30 minutes discharge planning Supervisory-Addendum Brief Verification & Attestation Participated in pt care: history, MDM, physical Personally performed: exam, history, MDM, supervision of care Care discussed with: Medical Student Procedures: n/a Results interpretation: Verified all documentation Verification and Attestation of Medical Student E/M Service A medical student performed and documented this service in my presence. I reviewed and verified all information documented by the medical student and made modifications to such information, when appropriate. I personally performed the physical exam and medical decision making. Marian Tsang, May 17, 2019,21:34 Problem Qualifiers (1) Acute bronchitis: Qualified Codes: J20.9 - Acute bronchitis, unspecified CASIMIRO HERNANDEZ [facility] May 17, 2019 11:06 MARIAN TSANG DO May 17, 2019 21:34
--- NOTE | 2019-05-17 12:21 | NUR ---
Final Discharge plan: Upon repeat Ambulation RT study is is determined that patient does not qualify for Oxygen at rest nor with Activity. Have sent order to [facility] for a nebulizer with our Financial assistance application pending. o other needs at this time.
--- NOTE | 2019-05-17 12:36 | NUR ---
PATIENT WALKED 800 FEET ON ROOM AIR. PATIENT DIDN'T QUALIFY FOR OXYGEN AT THIS TIME.
[2019-05-17 16:00] VITALS: BP 146/79
[2019-05-17 17:40] VITALS: BP 146/79
== END 2019-05-17 17:40 | disposition home or self-care (01) | DRG 191 ==
LOC: EDUNIT# 23:06 → ER 23:08 → 4TH 05-14 00:43 → OBSVTOIN 05-14 00:43 → 4TH 05-14 05:11
PROVIDERS: ADMIT Internal Medicine; ATTEND Internal Medicine
DX: J44.1 Chronic obstructive pulmonary disease with (acute) exacerbation (principal); Z68.41 Body mass index [BMI] 40.0-44.9, adult; J20.9 Acute bronchitis, unspecified; J44.0 Chronic obstructive pulmonary disease with (acute) lower respiratory infection; G89.29 Other chronic pain; K21.9 Gastro-esophageal reflux disease without esophagitis; M54.9 Dorsalgia, unspecified; E03.9 Hypothyroidism, unspecified; I10 Essential (primary) hypertension; F32.9 Major depressive disorder, single episode, unspecified; L40.9 Psoriasis, unspecified; M16.10 Unilateral primary osteoarthritis, unspecified hip; E66.9 Obesity, unspecified; R09.02 Hypoxemia; G47.33 Obstructive sleep apnea (adult) (pediatric); E11.65 Type 2 diabetes mellitus with hyperglycemia; J45.909 Unspecified asthma, uncomplicated; Z87.440 Personal history of urinary (tract) infections; Z79.82 Long term (current) use of aspirin; Z79.84 Long term (current) use of oral hypoglycemic drugs; Z87.442 Personal history of urinary calculi; Z87.891 Personal history of nicotine dependence
CPT/HCPCS: 36415; 71046; 71275; 80048; 80053; 82805; 82962; 83605; 83880; 84145; 84484; 84703; 85007; 85025; 85027; 85379; 86141; 87040; 87077; 87449; 87804; 87899; 93005; 94640; 94664; 94760; 94761

== ENCOUNTER → 2020-01-23 | Outpatient (CLI) | payer OTHER ==
[~2020-01-23] MED LIST changes: +ACET325T38 PO; +ASPI-1238 PO; +CEFD300C3 PO; +ESCI10TA55 PO; +FLUT12AE4 IH; +FLUT16SP22 NS; +GLIM2TAB4 PO; +GLIM4TAB5 PO; +IPRA3AMP31 INH; +LEVO125T PO; +METO-333 PO; +MONT10TA26 PO; +PRED10TA22 PO; +TIZA4TAB4 PO
--- NOTE | 2020-01-23 16:42 | Diagnostic Imaging Report ---
INDICATION: Palpable lump right axilla. CORRELATION is made with prior mammograms from 12/06/2018 and 06/14/2017. 2-D and 3-D bilateral diagnostic mammography was performed with CAD. A marker was placed at the area of palpable abnormality right axilla. Scattered fibroglandular densities are noted bilaterally. No mass or malignant appearing microcalcifications are seen. Axillae are unremarkable. IMPRESSION: BI-RADS 0 No mammographic features suspicious for malignancy are identified. Even so, directed sonographic interrogation of the area of palpable abnormality in the right axilla is recommended and will be performed today. Dictated by: Dictated on workstation # [id number]
--- NOTE | 2020-01-23 16:42 | Diagnostic Imaging Report ---
INDICATION: Right axillary lump. COMPARISON: Correlation is made with diagnostic mammogram from earlier the same day. EXAMINATION: Sonographic interrogation of lump in the right axilla was performed. FINDINGS: There is a tiny hypoechoic lesion in the subcutaneous soft tissues at the area of lump approximately 3 mm in size. This most likely represents a small sebaceous cyst. No other abnormality detected. IMPRESSION: Probable tiny sebaceous cyst at the area of palpable abnormality in right axilla. No other significant abnormality is seen. ACR BI-RADS Category 2: Benign findings. Result letter will be mailed to the patient. Note: At least 10% of breast cancer is not imaged by mammography. Dictated by: Dictated on workstation # [id number]
== END ==
LOC: RAD 14:15
PROVIDERS: ATTEND Physician Assistant
DX: N63.31 Unspecified lump in axillary tail of the right breast (principal)
CPT/HCPCS: 76642; 77066; G0279; 77062

== ENCOUNTER 2020-03-15 18:25 | Emergency (ER) | payer SELFPAY ==
[~2020-03-15] VITALS: Ht 175 cm; Wt 122.4 kg
[~2020-03-15 18:25] MED LIST changes: -MONT10TA26 PO; +MONT10TA97 PO
[2020-03-15 19:24] LABS: BILIRUBIN,URINE NEGATIVE (NEGATIVE); CLARITY,URINE CLEAR; COLOR,URINE YELLOW; GLUCOSE, URINE (UA) 3+ (NEGATIVE); KETONES,URINE NEGATIVE (NEGATIVE); LEUKOCYTE ESTERASE ,URINE NEGATIVE (NEGATIVE); NITRITE,URINE NEGATIVE (NEGATIVE); PROTEIN,URINE NEGATIVE (NEGATIVE)
--- NOTE | 2020-03-15 19:29 | ED Abdominal Pain ---
General Stated Complaint: ABD PAIN Source of Information: Patient Exam Limitations: No Limitations History of Present Illness Date Seen by Provider: Mar 15, 2020 Time Seen by Provider: 19:29 Initial Comments This is a 49-year-old female who presents to the ER with complaints of diffuse abdominal pain. Pain is intermittent and sharp. States she has a history of IBS and Diverticulitis. States she is concerned she may have diverticulitis again or something is wrong with her gallbladder. States her PCP is scheduling her for a GB ultrasound. Additionally reports some nausea without emesis and soft brown stools. No fever, chills, cough, shortness of breath, chest pain, dysuria or hematuria. Allergies and Home Medications Allergies Coded Allergies: codeine (Verified Allergy, Severe, THROAT SWELLS SHUT, 06/28/13) Home Medications Acetaminophen 325 Mg Tablet, 650 MG PO Q8H PRN for PAIN-MILD (1-4), (Reported) Aspirin 81 Mg Tablet.dr, 81 MG PO 2200, (Reported) Cefdinir 300 Mg Capsule, 300 MG PO BID Prescribed by: DEVI TSANG on 05/17/19 1044 Celecoxib 200 Mg Capsule, 200 MG PO 2200, (Reported) Escitalopram Oxalate 10 Mg Tablet, 10 MG PO DAILY, (Reported) Fluticasone Propionate 16 Gm [place].susp, 0 SPRAY NS DAILY Prescribed by: DEVI TSANG on 05/17/19 1044 Fluticasone/Salmeterol 12 Gm Hfa.aer.ad, 2 PUFF IH BID@08,20 Prescribed by: DEVI TSANG on 05/17/19 1044 Glimepiride 4 Mg Tablet, 4 MG PO DAILY@0630 Prescribed by: DEVI TSANG on 05/17/19 1044 Ipratropium/Albuterol Sulfate 3 Ml Ampul.neb, 3 ML INH RTQ4HR Prescribed by: DEVI TSANG on 05/17/19 1044 Levothyroxine Sodium 125 Mcg Tablet, 125 MCG PO DAILY@0630 Prescribed by: DEVI TSANG on 05/17/19 1044 Lisinopril 10 Mg Tablet, 10 MG PO 2200, (Reported) LAST FILLED 12-07-2018 #90/90 DAY SUPPLY Metoprolol Tartrate 25 Mg Tablet, 25 MG PO BID Prescribed by: DEVI TSANG on 05/17/19 1044 Montelukast Sodium 10 Mg Tablet, 10 MG PO HS Prescribed by: DEVI TSANG on 05/17/19 104 Prednisone 10 Mg Tab.ds.pk, 10 MG PO DAILY Take 4 tabs(60mg)daily,decrease by 1 tab(10MG)daily. Prescribed by: DEVI TSANG on 05/17/19 104 Tizanidine HCl 4 Mg Tablet, 4 MG PO DAILY PRN for MUSCLE CRAMPS, (Reported) Patient Home Medication List Home Medication List Reviewed: Yes Review of Systems Review of Systems Constitutional: no symptoms reported EENTM: No Symptoms Reported Respiratory: No Symptoms Reported Cardiovascular: No Symptoms Reported Gastrointestinal: See HPI Genitourinary: No Symptoms Reported Musculoskeletal: no symptoms reported Skin: no symptoms reported Psychiatric/Neurological: No Symptoms Reported Endocrine: No Symptoms Reported Hematologic/Lymphatic: No Symptoms Reported Past Aoswuqe-Lrzrlj-Wglmkx Hx Patient Social History Type Used: Cigarettes Former Smoker, Quit: May 08, 2014 2nd Hand Smoke Exposure: No Recent Foreign Travel: No Contact w/Someone Who Travel: No Recent Hopitalizations: Yes (Kidney stones//premature labor) Immunizations Up To Date Tetanus Booster (TDap): Unknown PED Vaccines UTD: Yes Date of Pneumonia Vaccine: Jun 29, 2013 Date of Influenza Vaccine: Dec 13, 2018 Seasonal Allergies Seasonal Allergies: No Past Medical History Surgeries: Yes Abdominal, Appendectomy, Cardiac, Orthopedic, Renal Respiratory: Yes Asthma, COPD Cardiac: Yes Hypertension Neurological: Yes (CONCUSSION AT AGE 22) Concussion Reproductive Disorders: Yes (POLYCYSTIC OVARY--SURGERY 1999) Female Reproductive Disorders: Ovarian Cyst, Polycystic Ovarian Dis Sexually Transmitted Disease: No HIV/AIDS: No Genitourinary: Yes Kidney Stones Gastrointestinal: Yes Gastroesophageal Reflux Musculoskeletal: Yes (BULGING DISC) Degenerate Disk Disease, Arthritis, Chronic Back Pain Endocrine: Yes Diabetes, Non-Insulin dep HEENT: Yes (SINUS DRAINAGE) Loss of Vision: Denies Cancer: No Psychosocial: Yes Depression Integumentary: Yes Psoriasis Blood Disorders: No Adverse Reaction/Blood Tranf: No Family Medical History Family history: Diabetes mellitus 03 MOTHER Family history: Hypertension 03 MOTHER Family history: Osteoporosis 03 MOTHER Family history: Thyroid disorder 03 MOTHER Heart disease 03 MOTHER (TRIPLE BYPASS 2009) History of - disorder 09 SISTER (lupus) History of - respiratory disease 03 FATHER (COPD) Kidney disease 03 MOTHER (KINDEY FAILURE) Myocardial infarction 03 FATHER (1990-TRIPLE BYPASS [address] DIFIB[address]ES) 09 BROTHER (2010) Seizure disorder 03 FATHER (GRAND MAL) Heart Disease, Cancer, COPD, Diabetes, Hypertension, Renal Disease Physical Exam Vital Signs Vital Signs - First Documented 03/15/20 03/15/20 19:16 22:47 Temp 36.1 Pulse 87 Resp 16 B/P (MAP) 135/77 (96) Pulse Ox 96 O2 Delivery Room Air Capillary Refill : Height/Weight/BMI Height: 5'2.00" Weight: 180lbs. 5.0oz. [id number]; 42.08 BMI Method:Estimated General Appearance: WD/WN, no apparent distress HEENT: PERRL/EOMI, pharynx normal Neck: full range of motion, normal inspection Respiratory: lungs clear, normal breath sounds Cardiovascular: regular rate, rhythm, no murmur Peripheral Pulses: 2+ Radial Pulses (R), 2+ Radial Pulses (L) Gastrointestinal: normal bowel sounds, soft, other (diffuse tenderness) Extremities: normal range of motion, non-tender, normal inspection, no pedal edema Neurologic/Psychiatric: no motor/sensory deficits, alert, normal mood/affect, oriented x 3 Skin: normal color, warm/dry Progress/Results/Core Measures Results/Orders Lab Results Laboratory Tests Test 03/15/20 19:20 03/15/20 20:18 Range/Units Urine Color YELLOW Urine Clarity CLEAR Urine pH 6.0 5-9 Urine Specific [place] 1.020 1.016-1.022 Urine Protein NEGATIVE NEGATIVE Urine Glucose (UA) 3+ H NEGATIVE Urine Ketones NEGATIVE NEGATIVE Urine Nitrite NEGATIVE NEGATIVE Urine Bilirubin NEGATIVE NEGATIVE Urine Urobilinogen 0.2 < = 1.0 MG/DL Urine Leukocyte Esterase NEGATIVE NEGATIVE Urine RBC (Auto) NEGATIVE NEGATIVE Urine RBC NONE /HPF Urine WBC RARE /HPF Urine Squamous Epithelial Cells 5-10 /HPF Urine Crystals NONE /LPF Urine Bacteria TRACE /HPF Urine Casts NONE /LPF Urine Mucus SMALL H /LPF Urine Yeast FEW H /HPF Urine Culture Indicated NO White Blood Count 6.5 4.3-11.0 10^3/uL Red Blood Count 4.53 3.80-5.11 10^6/uL Hemoglobin 12.6 11.5-16.0 g/dL Hematocrit 40 35-52 % Mean Corpuscular Volume 88 80-99 fL Mean Corpuscular Hemoglobin 28 25-34 pg Mean Corpuscular Hemoglobin Concent 32 32-36 g/dL Red Cell Distribution Width 14.3 10.0-14.5 % Platelet Count 251 130-400 10^3/uL Mean Platelet Volume 9.2 9.0-12.2 fL Immature Granulocyte % (Auto) 1 % Neutrophils (%) (Auto) 61 42-75 % Lymphocytes (%) (Auto) 29 12-44 % Monocytes (%) (Auto) 6 0-12 % Eosinophils (%) (Auto) 3 0-10 % Basophils (%) (Auto) 0 0-10 % Neutrophils # (Auto) 4.0 1.8-7.8 10^3/uL Lymphocytes # (Auto) 1.9 1.0-4.0 10^3/uL Monocytes # (Auto) 0.4 0.0-1.0 10^3/uL Eosinophils # (Auto) 0.2 0.0-0.3 10^3/uL Basophils # (Auto) 0.0 0.0-0.1 10^3/uL Immature Granulocyte # (Auto) 0.0 0.0-0.1 10^3/uL Sodium Level 136 135-145 MMOL/L Potassium Level 3.6 3.6-5.0 MMOL/L Chloride Level 102 98-107 MMOL/L Carbon Dioxide Level 25 21-32 MMOL/L Anion Gap 9 5-14 MMOL/L Blood Urea Nitrogen 12 7-18 MG/DL Creatinine 0.63 0.60-1.30 MG/DL Estimat Glomerular Filtration Rate > 60 BUN/Creatinine Ratio 19 Glucose Level 144 H 70-105 MG/DL Calcium Level 9.0 8.5-10.1 MG/DL Corrected Calcium 9.1 8.5-10.1 MG/DL Total Bilirubin 0.5 0.1-1.0 MG/DL Aspartate Amino Transf (AST/SGOT) 9 5-34 U/L Alanine Aminotransferase (ALT/SGPT) 22 0-55 U/L Alkaline Phosphatase 124 40-136 U/L Total Protein 7.0 6.4-8.2 GM/DL Albumin 3.9 3.2-4.5 GM/DL Lipase 25 8-78 U/L My Orders Orders - DERIC ROMAN PROCUREMENT AGENT Ua Culture If Indicated (03/15/20 19:01) Fentanyl Injection (Sublimaze Injection (03/15/20 20:00) Ondansetron Injection (Zofran Injectio (03/15/20 20:15) Cbc With Automated Diff (03/15/20 20:06) Comprehensive Metabolic Panel (03/15/20 20:06) Lipase (03/15/20 20:06) Ct Abdomen/Pelvis W (03/15/20 20:06) Ondansetron Injection (Zofran Injectio (03/15/20 20:06) Iohexol Injection (Omnipaque 350 Mg/Ml 1 (03/15/20 20:30) Received Contrast (Hold Metformin- Contr (03/15/20 20:30) Ns (Ivpb) (Sodium Chloride 0.9% Ivpb Bag (03/15/20 20:30) Rx-Ondansetron Po (Rx-Zofran Po) (03/15/20 21:37) Medications Given in ED Vital Signs/I&O 03/15/20 03/15/20 19:16 22:47 Temp 36.1 Pulse 87 78 Resp 16 14 B/P (MAP) 135/77 (96) 136/88 Pulse Ox 96 O2 Delivery Room Air Room Air Progress Progress Note : Progress Note Pt. examined. States pain feels similar to gas pain. Labs and imaging ordered. Zofran 4mg IVP and Fentanyl 50mcg IVP ordered. Labs reviewed and are unremarkable. CT abd/pelvis shows NAD, fatty liver noted. Reported improvement of symptoms with Zofran and Fentanyl. Discussed having her follow up with her primary care provider for GB US and returning for any new or worsening symptoms. Reviewed discharge POC and she is agreeable with plan. Diagnostic Imaging Diagonstic Imaging: CT Plain Films/CT/US/NM/MRI: abdomen Comments NAME: DEVI COELLO MED REC#: [id number] PT STATUS: REG ER : 1970 PHYSICIAN: DERIC ROMAN APRN ADMIT DATE: 03/15/20/ER Signed Date of Exam:03/15/20 CT ABDOMEN/PELVIS W INDICATION: Abdominal pain. TECHNIQUE: Multiple contiguous axial images were obtained through the abdomen and pelvis after administration of intravenous contrast. Auto Exposure Controls were utilized during the CT exam to meet ALARA standards for radiation dose reduction. All CT scans use one or more of the following dose optimizing techniques: automated exposure control, MA and/or KvP adjustment based on patient size and exam type or iterative reconstruction. COMPARISON: 09/10/2018. FINDINGS: The visualized portions of the lung bases are clear. There is no pleural fluid collection. There is no free intraperitoneal air. The liver shows diffuse low-density change compatible with fatty infiltration. Gallbladder appears normal. Spleen is not enlarged and shows no focal lesion. The right adrenal gland appears normal. The left adrenal shows a stable 1.9 cm nodule, likely adenoma. This is unchanged from 09/10/2018 is unchanged compared to older study of 03/20/2015. The kidneys, bilaterally, appear normal. There is no retroperitoneal mass or adenopathy. There is no ascites or abnormal fluid collection. Visualized bowel loops appear unremarkable. There is no pelvic mass or adnexal lesion. IMPRESSION: There is diffuse fatty infiltration of the liver. There is a stable left adrenal nodule compatible with adenoma. There is no acute appearing abnormality in the abdomen or pelvis. Dictated by: Dictated on workstation # [id number] Dict: 03/15/202113 Trans: 03/15/202146 [facility] [id number] Interpreted by: ZENAIDA DALLAS MD Electronically signed by: ZENAIDA DALLAS MD 03/15/202146 Departure Impression Primary Impression: Abdominal pain Disposition: 01 HOME, SELF-CARE Condition: Improved Departure-Patient Inst. Decision time for Depature: 21:50 Referrals: [facility] [place] (PCP) Primary Care Physician KAREN MARTELL (Family) Primary Care Physician Patient Instructions: Nausea and Vomiting, Adult (DC) Add. Discharge Instructions: Plan: 1. Discharge home. Use Zofran as needed every 6 hours for nausea. Clear liquid diet and advance as tolerated. 2. May take Tylenol or Ibuprofen as needed for pain per package instructions. 3. Follow up with your primary care provider if your symptoms persist. 4. Return for any new or concerning symptoms. DERIC ROMAN PROCUREMENT AGENT Mar 15, 2020 19:29
[2020-03-15 19:30] LABS: BACTERIA,URINE TRACE /HPF; WBC,URINE RARE /HPF; YEAST,URINE FEW /HPF
[2020-03-15] MEDS ORDERED: fentaNYL INJECTION 100 MCG/2 ML AMP IVP ONE (20:00)
[2020-03-15] MEDS ORDERED: ONDANSETRON 4 MG/2 ML (SDV) Z0FRAN ONE (20:06)
[2020-03-15] MEDS ORDERED: ONDANSETRON 4 MG/2 ML (SDV) Z0FRAN IVP ONE (20:15)
[2020-03-15 20:30] LABS: BASOPHILS % (AUTO) 0 % (0-10); EOSINOPHILS # (AUTO) 0.2 10^3/uL (0.0-0.3); EOSINOPHILS % (AUTO) 3 % (0-10); HEMATOCRIT 40 % (35-52); HEMOGLOBIN 12.6 g/dL (11.5-16.0); LYMPHOCYTES # (AUTO) 1.9 10^3/uL (1.0-4.0); LYMPHOCYTES % (AUTO) 29 % (12-44); MEAN CORPUSCULAR HEMOGLOBIN 28 pg (25-34); MEAN CORPUSCULAR HGB CONC 32 g/dL (32-36); MEAN CORPUSCULAR VOLUME 88 fL (80-99); MEAN PLATELET VOLUME 9.2 fL (9.0-12.2); MONOCYTES # (AUTO) 0.4 10^3/uL (0.0-1.0); MONOCYTES % (AUTO) 6 % (0-12); NEUTROPHILS % (AUTO) 61 % (42-75); PLATELET COUNT 251 10^3/uL (130-400); WHITE BLOOD COUNT 6.5 10^3/uL (4.3-11.0)
[2020-03-15] MEDS ORDERED: HOLD METFORMIN - RECEIVED CONTRAST 20 ML VIAL IV SCH (20:30)
[2020-03-15] MEDS ORDERED: NS 100 ML (IVPB) BAG IV ONE (20:30)
[2020-03-15] MEDS ORDERED: IOHEXOL 350 MG/ML 100 ML (OMNIPAQUE 350) VIAL IV ONE (20:30)
[2020-03-15 20:51] LABS: ALANINE AMINOTRANSFERASE 22 U/L (0-55); ALBUMIN 3.9 GM/DL (3.2-4.5); ALKALINE PHOSPHATASE 124 U/L (40-136); BILIRUBIN,TOTAL 0.5 MG/DL (0.1-1.0); BUN/CREATININE RATIO 19; CARBON DIOXIDE 25 MMOL/L (21-32); CHLORIDE 102 MMOL/L (98-107); CREATININE SERUM 0.63 MG/DL (0.60-1.30); GFR ESTIMATED > 60; GLUCOSE 144 MG/DL (70-105); LIPASE 25 U/L (8-78); POTASSIUM 3.6 MMOL/L (3.6-5.0); SODIUM 136 MMOL/L (135-145)
--- NOTE | 2020-03-15 21:24 | Diagnostic Imaging Report ---
INDICATION: Abdominal pain. TECHNIQUE: Multiple contiguous axial images were obtained through the abdomen and pelvis after administration of intravenous contrast. Auto Exposure Controls were utilized during the CT exam to meet ALARA standards for radiation dose reduction. All CT scans use one or more of the following dose optimizing techniques: automated exposure control, MA and/or KvP adjustment based on patient size and exam type or iterative reconstruction. COMPARISON: 09/10/2018. FINDINGS: The visualized portions of the lung bases are clear. There is no pleural fluid collection. There is no free intraperitoneal air. The liver shows diffuse low-density change compatible with fatty infiltration. Gallbladder appears normal. Spleen is not enlarged and shows no focal lesion. The right adrenal gland appears normal. The left adrenal shows a stable 1.9 cm nodule, likely adenoma. This is unchanged from 09/10/2018 is unchanged compared to older study of 03/20/2015. The kidneys, bilaterally, appear normal. There is no retroperitoneal mass or adenopathy. There is no ascites or abnormal fluid collection. Visualized bowel loops appear unremarkable. There is no pelvic mass or adnexal lesion. IMPRESSION: There is diffuse fatty infiltration of the liver. There is a stable left adrenal nodule compatible with adenoma. There is no acute appearing abnormality in the abdomen or pelvis. Dictated by: Dictated on workstation # [id number]
[2020-03-15] MEDS ORDERED: RX-ONDANSETRON 4 MG ODT (ZOFRAN) PPK #4 PO STA (21:37)
[2020-03-15 22:47] VITALS: BP 136/88
== END 2020-03-15 22:50 | disposition home or self-care (01) ==
LOC: EDUNIT# 18:25 → ER 18:26
DX: R10.84 Generalized abdominal pain (principal); J44.9 Chronic obstructive pulmonary disease, unspecified; I10 Essential (primary) hypertension; F32.9 Major depressive disorder, single episode, unspecified; E11.9 Type 2 diabetes mellitus without complications; Z88.5 Allergy status to narcotic agent; Z87.891 Personal history of nicotine dependence; Z87.820 Personal history of traumatic brain injury; Z82.49 Family history of ischemic heart disease and other diseases of the circulatory system; Z83.3 Family history of diabetes mellitus; Z80.9 Family history of malignant neoplasm, unspecified; Z79.82 Long term (current) use of aspirin; Z79.52 Long term (current) use of systemic steroids
CPT/HCPCS: 36415; 74177; 80053; 81000; 83690; 85025

== ENCOUNTER 2020-04-07 17:11 | Observation (INO) | payer SELFPAY ==
[~2020-04-07] VITALS: Ht 175 cm; Wt 136.9 kg
[~2020-04-07 17:11] MED LIST changes: +ESCI-2 PO; -ESCI10TA55 PO; +LISI10TA25 PO; +MONT10TA32 PO; -MONT10TA97 PO
--- NOTE | 2020-04-07 17:43 | ED Cough/URI ---
General Chief Complaint: Respiratory Problems Stated Complaint: COVID +, SOB, FEVER, CHEST TIGHTNESS Source: patient Exam Limitations: no limitations History of Present Illness Date Seen by Provider: Apr 07, 2020 Time Seen by Provider: 17:41 Initial Comments To ER with reports that she is Covid positive. Symptoms began on Monday of last week, 04/01/2020. She is short of breath and has a cough with fevers at night and chest tightness. History of COPD and is not oxygen dependent. Upon arrival to ER she is 88% on room air. 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 Timing/Duration: constant Severity/Quality: moderate Associated Symptoms: cough, shortness of breath Allergies and Home Medications Allergies Coded Allergies: codeine (Verified Allergy, Severe, THROAT SWELLS SHUT, 06/28/13) Home Medications Acetaminophen 325 Mg Tablet, 650 MG PO Q8H PRN for PAIN-MILD (1-4), (Reported) TAKES 2 (325MG) TABLETS Canagliflozin 300 Mg Tablet, 300 MG PO DAILY, (Reported) Celecoxib 200 Mg Capsule, 200 MG PO DAILY, (Reported) Escitalopram Oxalate 10 Mg Tablet, 10 MG PO DAILY, (Reported) Ibuprofen 200 Mg Tablet, 600 MG PO Q6H PRN for PAIN-MILD (1-4), (Reported) TAKES 3 (200MG) TABLETS Lisinopril 10 Mg Tablet, 10 MG PO DAILY, (Reported) LAST FILLED 10/12/2019 #90 90 DAY SUPPLY Metoprolol Tartrate 25 Mg Tablet, 25 MG PO BID, (Reported) Montelukast Sodium 10 Mg Tablet, 10 MG PO DAILY, (Reported) Pantoprazole Sodium 40 Mg Tablet.dr, 40 MG PO DAILY, (Reported) Tizanidine HCl 4 Mg Tablet, 4 MG PO HS PRN for MUSCLE CRAMPS, (Reported) Patient Home Medication List Home Medication List Reviewed: Yes Review of Systems Review of Systems Constitutional: see HPI, fever EENTM: see HPI Respiratory: cough, dyspnea on exertion, short of breath Cardiovascular: no symptoms reported Genitourinary: no symptoms reported Musculoskeletal: no symptoms reported Skin: no symptoms reported Psychiatric/Neurological: No Symptoms Reported Past Kqmivdt-Vhapvq-Ldiquq Hx Patient Social History Type Used: Cigarettes Former Smoker, Quit: May 08, 2014 2nd Hand Smoke Exposure: No Recent Hopitalizations: Yes (Kidney stones//premature labor) Immunizations Up To Date Tetanus Booster (TDap): Unknown PED Vaccines UTD: Yes Date of Pneumonia Vaccine: Jun 29, 2013 Date of Influenza Vaccine: Dec 13, 2018 Seasonal Allergies Seasonal Allergies: No Past Medical History Surgeries: Yes Abdominal, Appendectomy, Cardiac, Orthopedic, Renal Respiratory: Yes Asthma, COPD Cardiac: Yes Hypertension Neurological: Yes (CONCUSSION AT AGE 22) Concussion Reproductive Disorders: Yes (POLYCYSTIC OVARY--SURGERY 1999) Female Reproductive Disorders: Ovarian Cyst, Polycystic Ovarian Dis Sexually Transmitted Disease: No HIV/AIDS: No Genitourinary: Yes Kidney Stones Gastrointestinal: Yes Gastroesophageal Reflux Musculoskeletal: Yes (BULGING DISC) Degenerate Disk Disease, Arthritis, Chronic Back Pain Endocrine: Yes Diabetes, Non-Insulin dep HEENT: Yes (SINUS DRAINAGE) Loss of Vision: Denies Cancer: No Psychosocial: Yes Depression Integumentary: Yes Psoriasis Blood Disorders: No Adverse Reaction/Blood Tranf: No Family Medical History Family history: Diabetes mellitus 03 MOTHER Family history: Hypertension 03 MOTHER Family history: Osteoporosis 03 MOTHER Family history: Thyroid disorder 03 MOTHER Heart disease 03 MOTHER (TRIPLE BYPASS 2009) History of - disorder 09 SISTER (lupus) History of - respiratory disease 03 FATHER (COPD) Kidney disease 03 MOTHER (KINDEY FAILURE) Myocardial infarction 03 FATHER (1990-TRIPLE BYPASS [address]IB[address]ES) 09 BROTHER (2010) Seizure disorder 03 FATHER (GRAND MAL) Heart Disease, Cancer, COPD, Diabetes, Hypertension, Renal Disease Physical Exam Vital Signs - First Documented 04/07/20 17:30 Temp 37.8 Pulse 130 Resp 22 B/P (MAP) 142/102 (115) Pulse Ox 94 O2 Delivery Nasal Cannula O2 Flow Rate 2.00 Capillary Refill : Height: 5'2.00" Weight: 180lbs. 5.0oz. 81.601717rz; 39.00 BMI Method:Estimated General Appearance: WD/WN, no apparent distress, other (No distress very pleasant. She is overweight. She is diabetic. She is hypertensive. Oxygen saturation 88% on room air upon arrival. Increases to 93% with 2 L of supplemental oxygen. She has a history of COPD. She does have some faint expiratory wheeze.) Eyes: Bilateral Eye Normal Inspection, Bilateral Eye PERRL, Bilateral Eye EOMI Neck: non-tender, full range of motion Respiratory: no respiratory distress, no accessory muscle use, wheezing Cardiovascular: regular rate, rhythm, no murmur Gastrointestinal: normal bowel sounds, non tender, soft Neurologic/Psychiatric: alert, normal mood/affect, oriented x 3 Skin: normal color, warm/dry Progress/Results/Core Measures Suspected Sepsis SIRS Temperature: Pulse: Respiratory Rate: Laboratory Tests 04/07/20 17:35: White Blood Count 4.1L Blood Pressure / Mean: Laboratory Tests 04/07/20 17:35: Creatinine 0.76, Platelet Count 229, Total Bilirubin 0.6 Results/Orders Lab Results Laboratory Tests Test 04/07/20 17:35 Range/Units White Blood Count 4.1 L 4.3-11.0 10^3/uL Red Blood Count 5.26 H 3.80-5.11 10^6/uL Hemoglobin 14.7 11.5-16.0 g/dL Hematocrit 46 35-52 % Mean Corpuscular Volume 87 80-99 fL Mean Corpuscular Hemoglobin 28 25-34 pg Mean Corpuscular Hemoglobin Concent 32 32-36 g/dL Red Cell Distribution Width 14.3 10.0-14.5 % Platelet Count 229 130-400 10^3/uL Mean Platelet Volume 9.6 9.0-12.2 fL Immature Granulocyte % (Auto) 0 % Neutrophils (%) (Auto) 61 42-75 % Lymphocytes (%) (Auto) 29 12-44 % Monocytes (%) (Auto) 8 0-12 % Eosinophils (%) (Auto) 0 0-10 % Basophils (%) (Auto) 1 0-10 % Neutrophils # (Auto) 2.5 1.8-7.8 10^3/uL Lymphocytes # (Auto) 1.2 1.0-4.0 10^3/uL Monocytes # (Auto) 0.3 0.0-1.0 10^3/uL Eosinophils # (Auto) 0.0 0.0-0.3 10^3/uL Basophils # (Auto) 0.0 0.0-0.1 10^3/uL Immature Granulocyte # (Auto) 0.0 0.0-0.1 10^3/uL D-Dimer 0.87 H 0.00-0.49 UG/ML Blood Gas Puncture Site LFT RAD Blood Gas Patient Temperature 37.8 Arterial Blood pH 7.40 7.37-7.43 Arterial Blood Partial Pressure CO2 36 35-45 MMHG Arterial Blood Partial Pressure O2 97 H 79-93 MMHG Arterial Blood HCO3 22 L 23-27 MMOL/L Arterial Blood Total CO2 22.7 21.0-31.0 MMOL/L Arterial Blood Oxygen Saturation 97 94-100 % Arterial Blood Base Excess -2.2 -2.5-2.5 MMOL/L Cosmo Test POS Blood Gas Ventilator Setting NO Blood Gas Inspired Oxygen RA Sodium Level 135 135-145 MMOL/L Potassium Level 4.0 3.6-5.0 MMOL/L Chloride Level 101 98-107 MMOL/L Carbon Dioxide Level 22 21-32 MMOL/L Anion Gap 12 5-14 MMOL/L Blood Urea Nitrogen 12 7-18 MG/DL Creatinine 0.76 0.60-1.30 MG/DL Estimat Glomerular Filtration Rate > 60 BUN/Creatinine Ratio 16 Glucose Level 151 H 70-105 MG/DL Calcium Level 8.8 8.5-10.1 MG/DL Corrected Calcium 8.8 8.5-10.1 MG/DL Total Bilirubin 0.6 0.1-1.0 MG/DL Aspartate Amino Transf (AST/SGOT) 21 5-34 U/L Alanine Aminotransferase (ALT/SGPT) 31 0-55 U/L Alkaline Phosphatase 119 40-136 U/L C-Reactive Protein High Sensitivity 3.93 H 0.00-0.50 MG/DL Total Protein 7.8 6.4-8.2 GM/DL Albumin 4.0 3.2-4.5 GM/DL My Orders Orders - AROLDO BEGUM APRN Cbc With Automated Diff (04/07/20 17:15) Hs C Reactive Protein (04/07/20 17:15) Comprehensive Metabolic Panel (04/07/20 17:15) Fibrin Degradation Products (04/07/20 17:15) Ekg Tracing (04/07/20 17:15) Chest 1 View, Ap/Pa Only (04/07/20 17:15) Ed Iv/Invasive Line Start (04/07/20 17:15) Dexamethasone Tablet (Decadron Tablet) (04/07/20 17:45) Ibuprofen Tablet (Motrin Tablet) (04/07/20 17:45) Arterial Blood Gas (04/07/20 17:43) Albuterol/Ipratropium Inhaler (Combivent (04/07/20 21:00) Rt Request For Service (04/07/20 17:43) Albuterol Inhaler (Ventolin Hfa) (04/07/20 18:00) Albuterol Inhaler (Ventolin Hfa) (04/07/20 17:47) Lactated Ringers (Lr 1000 Ml Iv Solution (04/07/20 18:15) Ct Angio Chest W (04/07/20 18:17) Medications Given in ED Vital Signs/I&O 04/07/20 04/07/20 17:30 17:52 Temp 37.8 37.8 Pulse 130 Resp 22 B/P (MAP) 142/102 (115) Pulse Ox 94 O2 Delivery Nasal Cannula O2 Flow Rate 2.00 Capillary Refill : Diagnostic Imaging Diagonstic Imaging: Xray Comments NAME: DEVI COELLO MED REC#: [id number] PT STATUS: REG ER : 1970 PHYSICIAN: AROLDO BEGUM APRN ADMIT DATE: 04/07/20/ER Draft Date of Exam:04/07/20 CHEST 1 VIEW, AP/PA ONLY INDICATION: Shortness of air and COVID positive. Time of exam: 5:30 PM Correlation is made with prior chest from 05/14/2019. The heart size is normal. The pulmonary vascularity is unremarkable. The lungs are clear. No infiltrate, effusion or pneumothorax is detected. IMPRESSION: No acute cardiopulmonary process is detected. Dictated on workstation # [id number] Dict: 04/07/20 1740 Trans: 04/07/20 1746 WALTER [id number] Interpreted by: HENRRY HERNANDEZ MD Electronically signed by: Departure Impression Primary Impression: COVID-19 Additional Impression: Hypoxia Disposition: ADMITTED INPATIENT Condition: Stable Departure-Patient Inst. Referrals: [facility]/ (PCP) Primary Care Physician KAREN MARTELL (Family) Primary Care Physician AROLDO BEGUM APRN Apr 07, 2020 17:43
[2020-04-07] MEDS ORDERED: IBUPROFEN 800 MG (MOTRIN) TAB PO ONE (17:45)
[2020-04-07] MEDS ORDERED: dexAMETHasone 6 MG TAB (DECADRON) PO SCH (17:45)
--- NOTE | 2020-04-07 17:46 | Diagnostic Imaging Report ---
INDICATION: Shortness of air and COVID positive. Time of exam: 5:30 PM Correlation is made with prior chest from 05/14/2019. The heart size is normal. The pulmonary vascularity is unremarkable. The lungs are clear. No infiltrate, effusion or pneumothorax is detected. IMPRESSION: No acute cardiopulmonary process is detected. Dictated by: Dictated on workstation # [id number]
[2020-04-07] MEDS ORDERED: RT-ALBUTEROL INHALER HFA (VENTOLIN HFA) 18 GM IH ONE (17:47)
[2020-04-07 17:53] LABS: ABG BASE EXCESS -2.2 MMOL/L (-2.5-2.5); ABG OXYGEN SATURATION 97 % (94-100); ABG PCO2 36 MMHG (35-45); ABG PO2 97 MMHG (79-93); ABG TCO2 22.7 MMOL/L (21.0-31.0)
[2020-04-07 17:54] LABS: BASOPHILS % (AUTO) 1 % (0-10); EOSINOPHILS % (AUTO) 0 % (0-10); HEMATOCRIT 46 % (35-52); HEMOGLOBIN 14.7 g/dL (11.5-16.0); LYMPHOCYTES # (AUTO) 1.2 10^3/uL (1.0-4.0); LYMPHOCYTES % (AUTO) 29 % (12-44); MEAN CORPUSCULAR HEMOGLOBIN 28 pg (25-34); MEAN CORPUSCULAR HGB CONC 32 g/dL (32-36); MEAN CORPUSCULAR VOLUME 87 fL (80-99); MEAN PLATELET VOLUME 9.6 fL (9.0-12.2); MONOCYTES # (AUTO) 0.3 10^3/uL (0.0-1.0); MONOCYTES % (AUTO) 8 % (0-12); NEUTROPHILS # (AUTO) 2.5 10^3/uL (1.8-7.8); NEUTROPHILS % (AUTO) 61 % (42-75); PLATELET COUNT 229 10^3/uL (130-400); WHITE BLOOD COUNT 4.1 10^3/uL (4.3-11.0)
[2020-04-07] MEDS: RT-ALBUTEROL INHALER HFA (VENTOLIN HFA) 18 GM IH PRN ×2 (17:57→19:30)
[2020-04-07] MEDS: ALBUTEROL/IPRATROP (COMBIVENT RESPIMAT) 4 GM INHALER IH ONE ×2 (17:57→17:58)
[2020-04-07 17:58] LABS: ALLENS TEST POS; INSPIRED O2 RA; PATIENT TEMP 37.8; VENTILATOR NO
[2020-04-07 18:04] LABS: CHLORIDE 101 MMOL/L (98-107); SODIUM 135 MMOL/L (135-145)
[2020-04-07 18:05] LABS: CALCIUM 8.8 MG/DL (8.5-10.1)
[2020-04-07 18:06] LABS: GLUCOSE 151 MG/DL (70-105); TOTAL PROTEIN 7.8 GM/DL (6.4-8.2)
[2020-04-07 18:07] LABS: CARBON DIOXIDE 22 MMOL/L (21-32)
[2020-04-07 18:08] LABS: BILIRUBIN,TOTAL 0.6 MG/DL (0.1-1.0)
[2020-04-07 18:09] LABS: ALKALINE PHOSPHATASE 119 U/L (40-136)
[2020-04-07 18:10] LABS: CREATININE SERUM 0.76 MG/DL (0.60-1.30); GFR ESTIMATED > 60
[2020-04-07 18:11] LABS: BUN/CREATININE RATIO 16
[2020-04-07 18:13] LABS: ALANINE AMINOTRANSFERASE 31 U/L (0-55)
[2020-04-07] MEDS ORDERED: LACTATED RINGERS 1,000 ML IV SCH (18:15)
[2020-04-07] MEDS ORDERED: HOLD METFORMIN - RECEIVED CONTRAST 20 ML VIAL IV SCH (19:00)
[2020-04-07] MEDS ORDERED: CATHETER FLUSH 10 ML SYR IV PRN (19:00)
[2020-04-07] MEDS ORDERED: IOHEXOL 350 MG/ML 100 ML (OMNIPAQUE 350) VIAL IV ONE (19:00)
[2020-04-07] MEDS ORDERED: NS 100 ML (IVPB) BAG IV ONE (19:00)
--- NOTE | 2020-04-07 19:16 | Diagnostic Imaging Report ---
PROCEDURE: CT angiography of the chest with contrast. TECHNIQUE: Multiple contiguous axial images were obtained through the chest after uneventful bolus administration of intravenous contrast. 3D reconstructed CTA MIP acquisitions were also performed. Auto Exposure Controls were utilized during the CT exam to meet ALARA standards for radiation dose reduction. INDICATION: Elevated D-dimer. Covid positive. COMPARISON: Chest radiograph performed earlier the same date. CT abdomen and pelvis on 03/15/2020. FINDINGS: This helical CT pulmonary angiogram is diagnostic to the segmental level branches of the pulmonary artery and demonstrates no pulmonary emboli. The heart and great vessels are unremarkable. There is no pericardial effusion. There is no axillary, mediastinal, or hilar adenopathy. Scattered groundglass opacities are visualized in the periphery of the lungs bilaterally. No central endobronchial obstructing lesions. No evidence of mass. No pleural effusion or pneumothorax. Osseous structures appear normal. Stable nodule in the left adrenal gland. IMPRESSION: 1. No acute pulmonary embolus. 2. Scattered groundglass opacities throughout the lungs, consistent with a history of Covid infection. 3. Stable nodule in the left adrenal gland. Dictated by: Dictated on workstation # [id number]
[2020-04-07 20:05] VITALS: BP 125/65
[2020-04-07] MEDS ORDERED: ONDANSETRON 4 MG/2 ML (SDV) Z0FRAN IVP PRN (21:30)
[2020-04-07] MEDS ORDERED: ACETAMINOPHEN 325 MG TABLET PO PRN (21:30)
[2020-04-07] MEDS ORDERED: IBUPROFEN 800 MG (MOTRIN) TAB PO PRN (21:30)
[2020-04-07] MEDS: ENOXAPARIN 40 MG/0.4 ML (LOVENOX) SYR SC SCH (22:20)
[2020-04-08] VITALS (7 sets, daily range): BP systolic 106–155; BP diastolic 52–102
[2020-04-08] MEDS ORDERED: RT-ALBUTEROL INHALER HFA (VENTOLIN HFA) 18 GM IH PRN (02:30)
[2020-04-08] MEDS: inSUlin ASPART (NovoLOG) 1 UNIT/0.01 ML (CHARGE PER UNIT) SC SCH ×4 (05:51→21:04)
[2020-04-08] MEDS: dexAMETHasone 6 MG TAB (DECADRON) PO SCH (06:36)
[2020-04-08] MEDS: RT-ALBUTEROL INHALER HFA (VENTOLIN HFA) 18 GM IH SCH ×5 (06:37→22:59)
[2020-04-08] MEDS: ENOXAPARIN 40 MG/0.4 ML (LOVENOX) SYR SC SCH ×2 (08:39→21:03)
[2020-04-08] MEDS ORDERED: CANA300T PO (11:20)
[2020-04-08] MEDS ORDERED: IBUP-2473 PO (11:20)
[2020-04-08] MEDS ORDERED: MONT10TA32 PO (11:20)
[2020-04-08] MEDS ORDERED: METO-333 PO (11:20)
[2020-04-08] MEDS ORDERED: PANT40TA52 PO (11:29)
--- NOTE | 2020-04-08 13:16 | History & Physical ---
HPI History of Present Illness: Pt diagnosed with COVID, had symptoms starting one week ago, yesterday had worsening shortness of breath and fatigue. Required supplemental oxygen on eval in ER. Today she feels much better already, but still has desaturation when oxygen is removed. Date seen by provider: Apr 08, 2020 Time Seen by Provider: 12:30 Attending Physician Lina Unger MD PCP [facility] Consult Date of Admission Apr 07, 2020 at 18:32 Home Medications Home Medications Reviewed patient Home Medication Reconciliation performed by pharmacy medication reconciliations crime scene technician and/or nursing. Patients Allergies have been reviewed. Allergies Coded Allergies: codeine (Verified Allergy, Severe, THROAT SWELLS SHUT, 06/28/13) [id number] Hx Patient Social History Smoking Status: Former Smoker Former smoker/When Quit: Nov 12, 2014 2nd Hand Smoke Exposure: No Recent Hopitalizations: No Alcohol Use?: No Have you traveled recently?: No Immunizations Up To Date Tetanus Booster (TDap): Unknown Date of Pneumonia Vaccine: Jun 29, 2013 Date of Influenza Vaccine: Jan 05, 2020 Past Medical History Past Medical History 1. PCOS 2. HTN 3. COPD with chronic bronchitis 4. Tobaccoism 5. Obesity 6. GERD 7. Right ureteral stone sp. JJ stent placement 8. Chronic Back Pain with "sciatica" 9. 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 Psoriasis Past Surgical History 1. Appendectomy 2. Abdominal Surgery with lysis of adhesions 3. Rt. shoulder surgery 4. Cardiac Cath with normal coronaries 2010 [place] 5.Cystoscopy with right ureteroscopy, JJ stent placement right ureter with Lithotripsy- [place] 06-25-13 6. Right ESWL cysto with removal of stent Family Medical History Significant Family History: Heart Disease, Cancer, COPD, Diabetes, Hypertension, Renal Disease Review of Systems ([facility]) Constitutional: fever Respiratory: dyspnea on exertion, short of breath Cardiovascular: no symptoms reported Gastrointestinal: no symptoms reported Genitourinary: no symptoms reported Musculoskeletal: no symptoms reported Skin: no symptoms reported Psychiatric/Neurological: No Symptoms Reported Reviewed Test Results Reviewed Test Results Lab Laboratory Tests Test 04/07/20 17:35 04/08/20 05:46 04/08/20 11:22 Range/Units White Blood Count 4.1 L 4.3-11.0 10^3/uL Red Blood Count 5.26 H 3.80-5.11 10^6/uL Hemoglobin 14.7 11.5-16.0 g/dL Hematocrit 46 35-52 % Mean Corpuscular Volume 87 80-99 fL Mean Corpuscular Hemoglobin 28 25-34 pg Mean Corpuscular Hemoglobin Concent 32 32-36 g/dL Red Cell Distribution Width 14.3 10.0-14.5 % Platelet Count 229 130-400 10^3/uL Mean Platelet Volume 9.6 9.0-12.2 fL Immature Granulocyte % (Auto) 0 % Neutrophils (%) (Auto) 61 42-75 % Lymphocytes (%) (Auto) 29 12-44 % Monocytes (%) (Auto) 8 0-12 % Eosinophils (%) (Auto) 0 0-10 % Basophils (%) (Auto) 1 0-10 % Neutrophils # (Auto) 2.5 1.8-7.8 10^3/uL Lymphocytes # (Auto) 1.2 1.0-4.0 10^3/uL Monocytes # (Auto) 0.3 0.0-1.0 10^3/uL Eosinophils # (Auto) 0.0 0.0-0.3 10^3/uL Basophils # (Auto) 0.0 0.0-0.1 10^3/uL Immature Granulocyte # (Auto) 0.0 0.0-0.1 10^3/uL D-Dimer 0.87 H 0.00-0.49 UG/ML Blood Gas Puncture Site LFT RAD Blood Gas Patient Temperature 37.8 Arterial Blood pH 7.40 7.37-7.43 Arterial Blood Partial Pressure CO2 36 35-45 MMHG Arterial Blood Partial Pressure O2 97 H 79-93 MMHG Arterial Blood HCO3 22 L 23-27 MMOL/L Arterial Blood Total CO2 22.7 21.0-31.0 MMOL/L Arterial Blood Oxygen Saturation 97 94-100 % Arterial Blood Base Excess -2.2 -2.5-2.5 MMOL/L Cosmo Test POS Blood Gas Ventilator Setting NO Blood Gas Inspired Oxygen RA Sodium Level 135 135-145 MMOL/L Potassium Level 4.0 3.6-5.0 MMOL/L Chloride Level 101 98-107 MMOL/L Carbon Dioxide Level 22 21-32 MMOL/L Anion Gap 12 5-14 MMOL/L Blood Urea Nitrogen 12 7-18 MG/DL Creatinine 0.76 0.60-1.30 MG/DL Estimat Glomerular Filtration Rate > 60 BUN/Creatinine Ratio 16 Glucose Level 151 H 70-105 MG/DL Calcium Level 8.8 8.5-10.1 MG/DL Corrected Calcium 8.8 8.5-10.1 MG/DL Total Bilirubin 0.6 0.1-1.0 MG/DL Aspartate Amino Transf (AST/SGOT) 21 5-34 U/L Alanine Aminotransferase (ALT/SGPT) 31 0-55 U/L Alkaline Phosphatase 119 40-136 U/L C-Reactive Protein High Sensitivity 3.93 H 0.00-0.50 MG/DL Total Protein 7.8 6.4-8.2 GM/DL Albumin 4.0 3.2-4.5 GM/DL Glucometer 163 H 231 H 70-110 MG/DL Radiology CTA chest: IMPRESSION: 1. No acute pulmonary embolus. 2. Scattered groundglass opacities throughout the lungs, consistent with a history of Covid infection. 3. Stable nodule in the left adrenal gland. Physical Exam-([facility]) Physical Exam Vital Signs VS - Last 72 Hours, by Label 04/07/20 04/07/20 04/07/20 04/07/20 17:30 17:52 19:45 20:05 Temp 37.8 37.8 37.4 36.0 Pulse 130 100 92 Resp 22 20 20 B/P (MAP) 142/102 (115) 142/87 (115) 125/65 (85) Pulse Ox 94 97 96 O2 Delivery Nasal Cannula Nasal Cannula Nasal Cannula O2 Flow Rate 2.00 2.00 2.50 04/07/20 04/08/20 04/08/20 04/08/20 22:52 00:06 02:21 04:21 Temp 36.2 37.8 36.8 Pulse 82 130 75 Resp 20 20 B/P (MAP) 114/57 (76) 124/74 (91) Pulse Ox 95 94 88 92 O2 Delivery Nasal Cannula Nasal Cannula Nasal Cannula O2 Flow Rate 2.50 2.50 2.50 04/08/20 04/08/20 04/08/20 04/08/20 08:00 08:00 11:20 12:00 Temp 36.0 36.0 Pulse 85 81 Resp 20 20 B/P (MAP) 146/75 (98) 114/59 (77) Pulse Ox 92 93 95 94 87 O2 Delivery Nasal Cannula Nasal Cannula Nasal Cannula O2 Flow Rate 2.50 2.50 2.50 2.50 04/08/20 12:02 Pulse Ox 92 O2 Delivery Nasal Cannula O2 Flow Rate 2.00 Capillary Refill : Less Than 3 Seconds General Appearance: WD/WN, no apparent distress Respiratory: lungs clear, normal breath sounds Cardiovascular: regular rate, rhythm, no murmur Extremities: no pedal edema Neurologic/Psychiatric: alert, normal mood/affect Skin: normal color, warm/dry Assessment/Plan Assessment/Plan Admission Status: Observation (1) COVID-19 Status: Acute Assessment & Plan: Dexamethasone, albuterol, supplemental oxygen. Discussed remdesevir and CVP with patient and marginal evidence of benefit, she wants to continue with dexamethasone alone. (2) Chronic obstructive lung disease Onset Date: 07/01/2013 Status: Chronic Assessment & Plan: Albuterol q4h and prn Qualifiers: Qualified Codes: J44.9 - Chronic obstructive pulmonary disease, unspecified (3) Diabetes Status: Chronic Assessment & Plan: Typically requires insulin when on steroids. Sliding scale insulin, diabetic diet. Holding home Invokana. Qualifiers: Qualified Codes: E11.65 - Type 2 diabetes mellitus with hyperglycemia (4) Hypoxia Status: Acute Assessment & Plan: Secondary to COVID19, requiring 2 lpm supplemental oxygen. (5) Hypertension Status: Chronic Assessment & Plan: Resume home medications. Qualifiers: Qualified Codes: I10 - Essential (primary) hypertension (6) Elevated d-dimer Status: Acute Assessment & Plan: CTA chest negative for PE (7) Obesity Status: Chronic Qualifiers: Qualified Codes: E66.01 - Morbid (severe) obesity due to excess calories; Z68.41 - Body mass index [BMI]40.0-44.9, adult (8) Leukopenia Status: Acute Assessment & Plan: Likely secondary to COVID19, monitor. (9) DVT prophylaxis Status: Acute Assessment & Plan: Enoxaparin LINA UNGER MD Apr 08, 2020 13:16
[2020-04-08] MEDS: meTOprolol TARTRATE 25 MG (LOPRESSOR) TABLET PO SCH (21:03)
[2020-04-09 00:11] VITALS: BP 116/60
[2020-04-09] MEDS: RT-ALBUTEROL INHALER HFA (VENTOLIN HFA) 18 GM IH SCH ×3 (02:42→11:25)
[2020-04-09 04:03] VITALS: BP 116/62
[2020-04-09 05:41] LABS: HEMOGLOBIN 14.1 g/dL (11.5-16.0); MEAN PLATELET VOLUME 9.8 fL (9.0-12.2); WHITE BLOOD COUNT 5.9 10^3/uL (4.3-11.0)
[2020-04-09 05:56] LABS: BUN/CREATININE RATIO 26; CALCIUM 8.9 MG/DL (8.5-10.1); CARBON DIOXIDE 24 MMOL/L (21-32); CHLORIDE 103 MMOL/L (98-107); CREATININE SERUM 0.78 MG/DL (0.60-1.30); GFR ESTIMATED > 60; GLUCOSE 221 MG/DL (70-105); POTASSIUM 4.1 MMOL/L (3.6-5.0); SODIUM 137 MMOL/L (135-145)
[2020-04-09] MEDS: inSUlin ASPART (NovoLOG) 1 UNIT/0.01 ML (CHARGE PER UNIT) SC SCH ×2 (06:47→11:35)
[2020-04-09] MEDS: dexAMETHasone 6 MG TAB (DECADRON) PO SCH (06:47)
[2020-04-09 08:00] VITALS: BP 124/59
[2020-04-09] MEDS ORDERED: DEXA6TAB PO (08:04)
[2020-04-09] MEDS ORDERED: INSU100I29 SQ (08:04)
[2020-04-09] MEDS: meTOprolol TARTRATE 25 MG (LOPRESSOR) TABLET PO SCH (08:07)
[2020-04-09] MEDS: ENOXAPARIN 40 MG/0.4 ML (LOVENOX) SYR SC SCH (08:08)
[2020-04-09] MEDS ORDERED: MONTELUKAST 10 MG (SINGULAIR) TAB PO SCH (09:00)
[2020-04-09] MEDS ORDERED: PANTOPRAZOLE 40 MG (PROTONIX) TAB PO SCH (09:00)
[2020-04-09] MEDS ORDERED: lisINopril 10 MG (PRINIVIL) TABLET PO SCH (09:00)
[2020-04-09 12:00] VITALS: BP 115/51
--- NOTE | 2020-04-09 13:16 | Discharge Summary ---
Discharge [facility] Discharge Medications New, Converted or Re-Newed RX: Transmitted to Pharmacy New Medications: Insulin Detemir (Levemir Flextouch) 100 Unit/1 Ml Insuln.pen 5 UNIT SQ HS for 5 Days, #1 EA 0 Refills Dexamethasone (Dexamethasone) 6 Mg Tablet 6 MG PO DAILY@0700 for 5 Days, #5 TAB 0 Refills Continued Medications: Acetaminophen (Tylenol) 325 Mg Tablet 650 MG PO Q8H PRN for PAIN-MILD (1-4), TAB TAKES 2 (325MG) TABLETS Canagliflozin (Invokana) 300 Mg Tablet 300 MG PO DAILY, TAB Celecoxib (Celebrex) 200 Mg Capsule 200 MG PO DAILY, CAP Escitalopram Oxalate (Escitalopram Oxalate) 10 Mg Tablet 10 MG PO DAILY, TAB Ibuprofen (Ibuprofen) 200 Mg Tablet 600 MG PO Q6H PRN for PAIN-MILD (1-4), TAB TAKES 3 (200MG) TABLETS Lisinopril (Lisinopril) 10 Mg Tablet 10 MG PO DAILY, TAB LAST FILLED 10/12/2019 #90 90 DAY SUPPLY Metoprolol Tartrate (Metoprolol Tartrate) 25 Mg Tablet 25 MG PO BID, TAB Montelukast Sodium (Montelukast Sodium) 10 Mg Tablet 10 MG PO DAILY, TAB Pantoprazole Sodium (Pantoprazole Sodium) 40 Mg Tablet.dr 40 MG PO DAILY, TAB Tizanidine HCl (Tizanidine HCl) 4 Mg Tablet 4 MG PO HS PRN for MUSCLE CRAMPS, TAB Patient Instructions Goal/Follow Up Appt: Follow up with Binu Mercado via phone visit on 04/15 at 11:40 am. Patient Instructions: Monitor blood sugar fasting and before each meal, if blood sugar consistently below 140, do not use levemir. If consistently above 180, call clinic for instructions. Activity & Diet Discharge Diet: ADA Diet Activity as Tolerated: Yes CAROLINA PAULSON MD Apr 09, 2020 13:16
[2020-04-09 16:00] VITALS: BP 115/51
--- NOTE | 2020-04-09 21:36 | Discharge Summary ---
Discharge Summary Hospital Course Problems/Diagnosis: (1) COVID-19 Status: Acute Assessment & Plan: Dexamethasone, albuterol, supplemental oxygen. Discussed remdesevir and CVP with patient and marginal evidence of benefit, she wants to continue with dexamethasone alone. 04/09 discharged with few more days of dexamethasone. Required home O2 which was set up for 2 lpm. (2) Chronic obstructive lung disease Onset Date: 07/01/2013 Status: Chronic Assessment & Plan: Albuterol q4h and prn Qualifiers: Qualified Codes: J44.9 - Chronic obstructive pulmonary disease, unspecified (3) Diabetes Status: Chronic Assessment & Plan: Typically requires insulin when on steroids. Sliding scale insulin, diabetic diet. Holding home Invokana. Sent home with script for levemir to use if blood sugar remains above 140. To call clinic if blood sugar running above 200. Qualifiers: Qualified Codes: E11.65 - Type 2 diabetes mellitus with hyperglycemia (4) Hypoxia Status: Acute Assessment & Plan: Secondary to COVID19, requiring 2 lpm supplemental oxygen. (5) Hypertension Status: Chronic Assessment & Plan: Resume home medications. Qualifiers: Qualified Codes: I10 - Essential (primary) hypertension (6) Elevated d-dimer Status: Acute Assessment & Plan: CTA chest negative for PE (7) Obesity Status: Chronic Qualifiers: Qualified Codes: E66.01 - Morbid (severe) obesity due to excess calories; Z68.41 - Body mass index [BMI]40.0-44.9, adult (8) Leukopenia Status: Acute Assessment & Plan: Likely secondary to COVID19, monitor. Hospital Course Date of Admission: Apr 07, 2020 at 18:32 Admission Diagnosis : Family Physician/Provider: Maurice Delgadillo Date of Discharge: 04/09/20 Discharge Diagnosis: See problem list Hospital Course: See problem list Labs and Pending Lab Test: Laboratory Tests 04/09/20 05:30: White Blood Count 5.9, Red Blood Count 5.10, Hemoglobin 14.1, Hematocrit 44, Mean Corpuscular Volume 86, Mean Corpuscular Hemoglobin 28, Mean Corpuscular Hemoglobin Concent 32, Red Cell Distribution Width 13.7, Platelet Count 225, Mean Platelet Volume 9.8, Sodium Level 137, Potassium Level 4.1, Chloride Level 103, Carbon Dioxide Level 24, Anion Gap 10, Blood Urea Nitrogen 20H, Creatinine 0.78, Estimat Glomerular Filtration Rate > 60, BUN/Creatinine Ratio 26, Glucose Level 221H, Calcium Level 8.9 04/09/20 06:06: Glucometer 188H 04/09/20 11:04: Glucometer 285H Home Meds Active Levemir Flextouch (Insulin Detemir) 100 Unit/1 Ml Insuln.pen 5 Unit SQ HS 5 Days Dexamethasone 6 Mg Tablet 6 Mg PO DAILY@0700 5 Days Reported Pantoprazole Sodium 40 Mg Tablet.dr 40 Mg PO DAILY Montelukast Sodium 10 Mg Tablet 10 Mg PO DAILY Invokana (Canagliflozin) 300 Mg Tablet 300 Mg PO DAILY Ibuprofen 200 Mg Tablet 600 Mg PO Q6H PRN TAKES 3 (200MG) TABLETS Metoprolol Tartrate 25 Mg Tablet 25 Mg PO BID Escitalopram Oxalate 10 Mg Tablet 10 Mg PO DAILY Tizanidine HCl 4 Mg Tablet 4 Mg PO HS PRN Tylenol (Acetaminophen) 325 Mg Tablet 650 Mg PO Q8H PRN TAKES 2 (325MG) TABLETS Celebrex (Celecoxib) 200 Mg Capsule 200 Mg PO DAILY Lisinopril 10 Mg Tablet 10 Mg PO DAILY LAST FILLED 10/12/2019 #90 90 DAY SUPPLY Assessment/Pt DC Instructions Follow up at [facility] as directed in d/c instructions. Discharge Diet: ADA Diet Activity as Tolerated: Yes Discharge Physical Examination Allergies: Coded Allergies: codeine (Verified Allergy, Severe, THROAT SWELLS SHUT, 06/28/13) General Appearance: No Apparent Distress, WD/WN Respiratory: Lungs Clear, Normal Breath Sounds Cardiovascular: Regular Rate, Rhythm, No Murmur Skin: Normal Color, Warm/Dry Neurologic/Psychiatric: Alert, Normal Mood/Affect Copy Copies To 1: АННА Nixon BETHANY N MD Apr 09, 2020 21:36
== END 2020-04-09 13:14 | disposition home or self-care (01) ==
LOC: EDUNIT# 17:11 → ER 17:13 → 4TH 18:32 → UNDOADMOB 18:32 → 4TH 20:00 → UNDODISOB 04-09 16:00
PROVIDERS: ADMIT Family Medicine; ATTEND Family Medicine
DX: U07.1 COVID-19 (principal); J44.9 Chronic obstructive pulmonary disease, unspecified; D72.819 Decreased white blood cell count, unspecified; K21.9 Gastro-esophageal reflux disease without esophagitis; G89.29 Other chronic pain; M19.90 Unspecified osteoarthritis, unspecified site; F32.9 Major depressive disorder, single episode, unspecified; E28.2 Polycystic ovarian syndrome; E11.65 Type 2 diabetes mellitus with hyperglycemia; E66.01 Morbid (severe) obesity due to excess calories; Z68.41 Body mass index [BMI] 40.0-44.9, adult; Z79.899 Other long term (current) drug therapy; Z88.5 Allergy status to narcotic agent; Z87.442 Personal history of urinary calculi; Z87.891 Personal history of nicotine dependence
CPT/HCPCS: 36415; 71045; 71275; 80048; 80053; 82805; 82962; 85025; 85027; 85379; 86141; 93005; 94640; 94760; 94761; 96360

== ENCOUNTER 2021-07-26 14:21 | Observation (INO) | payer SELFPAY ==
[~2021-07-26] VITALS: Ht 175.2 cm; Wt 123.2 kg
[~2021-07-26 14:21] MED LIST changes: +CANA300T PO; +CYCL10TA25 PO; -CYCL10TA9 PO; +DEXA6TAB PO; +DICY20TA PO; -DICY20TA10 PO; +IBUP-2473 PO; +INSU100I29 SQ; +MONT-40 PO; -MONT10TA32 PO; +PANT40TA52 PO; +TIZA-186 PO; -TIZA4TAB4 PO
--- NOTE | 2021-07-26 14:44 | ED Chest Pain ---
General Chief Complaint: Chest Pain Stated Complaint: CP, ARM NUMBNESS Nursing Triage Note: PT AMBULATORY TO ROOM. PT STATES SHE HAD CHEST PAIN AND TINGLES IN HER LEFT ARM "OFF AND ON" THROUGHOUT THE WEEKEND. 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 At worst it was 8.5 out of 10. Presently is 7 out of 10. She has not taken anything for it. She does not have a personal history of heart disease. She quit smoking 7 years ago however she has diabetes on Victoza, hypertension on lisinopril and a very significant family history with her brother having a heart attack in his late 30s and her father having a heart attack and bypass in his early 50s as well as her mother had bypass prior to 70 years old. Her father of a heart attack and heart failure. She is not having any nausea but she does have shortness of breath is worse with exertion. 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 She is not having indigestion fevers chills or cough. She does have COPD. She denies wheezing. No swelling in her hands or feet nor pain in her calves. No periods of immobility or surgery recently. She is perimenopausal. Allergies and Home Medications Allergies Coded Allergies: codeine (Verified Allergy, Severe, THROAT SWELLS SHUT, 06/28/13) Patient Home Medication List Home Medication List Reviewed: Yes Acetaminophen (Tylenol) 325 Mg Tablet, 650 MG PO Q8H PRN for PAIN-MILD (1-4), (Reported) Entered as Reported by: TAI ACUNA on 05/14/19 1406 Canagliflozin (Invokana) 300 Mg Tablet, 300 MG PO DAILY, (Reported) Entered as Reported by: ALYSSA SELF on 04/08/20 1120 Celecoxib (Celebrex) 200 Mg Capsule, 200 MG PO DAILY, (Reported) Entered as Reported by: DI PATTERSON on 09/10/18 0904 Dexamethasone (Dexamethasone) 6 Mg Tablet, 6 MG PO DAILY@0700 Prescribed by: CAROLINA PAULSON on 04/09/20 0804 Escitalopram Oxalate (Escitalopram Oxalate) 10 Mg Tablet, 10 MG PO DAILY, (Repor suraj) Entered as Reported by: TAI ACUNA on 05/14/19 1407 Ibuprofen (Ibuprofen) 200 Mg Tablet, 600 MG PO Q6H PRN for PAIN-MILD (1-4), (Reported) Entered as Reported by: ALYSSA SELF on 04/08/20 1120 Insulin Detemir (Levemir Flextouch) 100 Unit/1 Ml Insuln.pen, 5 UNIT SQ HS Prescribed by: CAROLINA PAULSON on 04/09/20 0804 Lisinopril (Lisinopril) 10 Mg Tablet, 10 MG PO DAILY, (Reported) Entered as Reported by: JEANNE PALOMINO on 09/16/16 1527 Metoprolol Tartrate (Metoprolol Tartrate) 25 Mg Tablet, 25 MG PO BID, (Reported) Entered as Reported by: ALYSSA SELF on 04/08/20 1120 Montelukast Sodium (Montelukast Sodium) 10 Mg Tablet, 10 MG PO DAILY, (Reported) Entered as Reported by: ALYSSA SELF on 04/08/20 1120 Pantoprazole Sodium (Pantoprazole Sodium) 40 Mg Tablet.dr, 40 MG PO DAILY, (Reported) Entered as Reported by: ALYSSA SELF on 04/08/20 1129 Tizanidine HCl (Tizanidine HCl) 4 Mg Tablet, 4 MG PO HS PRN for MUSCLE CRAMPS, (Reported) Entered as Reported by: TAI ACUNA on 05/14/19 1406 Review of Systems Review of Systems Constitutional: see HPI (Hot flashes); No chills, No diaphoresis EENTM: No Blurred Vision, No Double Vision Respiratory: Denies Cough, Denies Shortness of Air Cardiovascular: Chest Pain; Denies Lightheadedness Gastrointestinal: Denies Abdominal Pain, Denies Constipated, Denies Diarrhea, Denies Nausea Genitourinary: Denies Burning, Denies Discharge Musculoskeletal: No back pain, No joint pain All Other Systems Reviewed Negative Unless Noted: Yes Past Oevwpvz-Dxanok-Llmlvf Hx Patient Social History Tobacco Use?: No Smoking Status: Former Smoker Smokeless Tobacco Frequency: Former User (Quit 2014) Substance use?: No Alcohol Use?: No Immunizations Up To Date Tetanus Booster (TDap): Unknown PED Vaccines UTD: Yes Seasonal Allergies Seasonal Allergies: No Past Medical History Surgeries: Yes Abdominal, Appendectomy, Cardiac, Orthopedic, Renal Respiratory: Yes Asthma, COPD Cardiac: Yes (TACHYCARDIA) Hypertension Neurological: Yes (CONCUSSION AT AGE 22) Concussion Reproductive Disorders: Yes (POLYCYSTIC OVARY--SURGERY 1999) Female Reproductive Disorders: Ovarian Cyst, Polycystic Ovarian Dis Sexually Transmitted Disease: No HIV/AIDS: No Genitourinary: Yes Kidney Stones Gastrointestinal: Yes Gastroesophageal Reflux Musculoskeletal: Yes (BULGING DISC) Degenerate Disk Disease, Arthritis, Chronic Back Pain Endocrine: Yes Diabetes, Non-Insulin dep HEENT: Yes (SINUS DRAINAGE) Loss of Vision: Denies Cancer: No Psychosocial: Yes Depression Integumentary: Yes Psoriasis Blood Disorders: No Adverse Reaction/Blood Tranf: No Family Medical History Family history: Diabetes mellitus 03 MOTHER Family history: Hypertension 03 MOTHER Family history: Osteoporosis 03 MOTHER Family history: Thyroid disorder 03 MOTHER Heart disease 03 MOTHER (TRIPLE BYPASS 2009) History of - disorder 09 SISTER (lupus) History of - respiratory disease 03 FATHER (COPD) Kidney disease 03 MOTHER (KINDEY FAILURE) Myocardial infarction 03 FATHER (1990-TRIPLE BYPASS [address] DIFIB[address]ES) 09 BROTHER (2010) Seizure disorder 03 FATHER (GRAND MAL) Heart Disease, Cancer, COPD, Diabetes, Hypertension, Renal Disease Physical Exam Vital Signs Vital Signs - First Documented 07/26/21 14:25 Temp 36.2 Pulse 75 Resp 22 B/P (MAP) 125/83 (97) Pulse Ox 97 Capillary Refill : Height, Weight, BMI Height: 5'2.00" Weight: 180lbs. 5.0oz. 81.360863se; 39.00 BMI Method:Estimated General Appearance: Anxious, Obese HEENT: PERRL/EOMI, Pharynx Normal, Moist Mucous Membranes Neck: Full Range of Motion, Normal Inspection Respiratory: Chest Non Tender, Lungs Clear, Normal Breath Sounds, No Accessory Muscle Use, No Respiratory Distress Cardiovascular: Regular Rate, Rhythm, No Edema, Normal Peripheral Pulses Gastrointestinal: Normal Bowel Sounds, Non Tender, Soft Extremity: Normal Capillary Refill, Normal Inspection, No Pedal Edema Neurologic/Psychiatric: Alert, Oriented x3, No Motor/Sensory Deficits Skin: Normal Color, Warm/Dry Progress/Results/Core Measures Results/Orders Lab Results Laboratory Tests Test 07/26/21 14:29 07/26/21 16:00 Range/Units White Blood Count 6.4 4.3-11.0 10^3/uL Red Blood Count 4.83 3.80-5.11 10^6/uL Hemoglobin 13.7 11.5-16.0 g/dL Hematocrit 43 35-52 % Mean Corpuscular Volume 88 80-99 fL Mean Corpuscular Hemoglobin 28 25-34 pg Mean Corpuscular Hemoglobin Concent 32 32-36 g/dL Red Cell Distribution Width 13.8 10.0-14.5 % Platelet Count 270 130-400 10^3/uL Mean Platelet Volume 9.4 9.0-12.2 fL Immature Granulocyte % (Auto) 0 % Neutrophils (%) (Auto) 56 42-75 % Lymphocytes (%) (Auto) 34 12-44 % Monocytes (%) (Auto) 7 0-12 % Eosinophils (%) (Auto) 3 0-10 % Basophils (%) (Auto) 1 0-10 % Neutrophils # (Auto) 3.6 1.8-7.8 10^3/uL Lymphocytes # (Auto) 2.2 1.0-4.0 10^3/uL Monocytes # (Auto) 0.5 0.0-1.0 10^3/uL Eosinophils # (Auto) 0.2 0.0-0.3 10^3/uL Basophils # (Auto) 0.0 0.0-0.1 10^3/uL Immature Granulocyte # (Auto) 0.0 0.0-0.1 10^3/uL Prothrombin Time 12.5 12.2-14.7 SEC INR Comment 0.9 0.8-1.4 Activated Partial Thromboplast Time 34 24-35 SEC D-Dimer 0.31 0.00-0.49 UG/ML Sodium Level 135 135-145 MMOL/L Potassium Level 4.3 3.6-5.0 MMOL/L Chloride Level 101 98-107 MMOL/L Carbon Dioxide Level 25 21-32 MMOL/L Anion Gap 9 5-14 MMOL/L Blood Urea Nitrogen 11 7-18 MG/DL Creatinine 0.66 0.60-1.30 MG/DL Estimat Glomerular Filtration Rate 107 BUN/Creatinine Ratio 17 Glucose Level 231 H 70-105 MG/DL Calcium Level 9.3 8.5-10.1 MG/DL Corrected Calcium 9.3 8.5-10.1 MG/DL Magnesium Level 1.6 1.6-2.4 MG/DL Total Bilirubin 1.0 0.1-1.0 MG/DL Aspartate Amino Transf (AST/SGOT) 11 5-34 U/L Alanine Aminotransferase (ALT/SGPT) 25 0-55 U/L Alkaline Phosphatase 143 H 40-136 U/L Myoglobin 21.3 10.0-92.0 NG/ML Troponin I < 0.028 <0.028 NG/ML B-Type Natriuretic Peptide 13.5 <100.0 PG/ML Total Protein 7.2 6.4-8.2 GM/DL Albumin 4.0 3.2-4.5 GM/DL Lipase 34 8-78 U/L Urine Color YELLOW Urine Clarity SL CLOUDY Urine pH 6.0 5-9 Urine Specific [place] 1.010 L 1.016-1.022 Urine Protein NEGATIVE NEGATIVE Urine Glucose (UA) TRACE H NEGATIVE Urine Ketones NEGATIVE NEGATIVE Urine Nitrite NEGATIVE NEGATIVE Urine Bilirubin NEGATIVE NEGATIVE Urine Urobilinogen 0.2 < = 1.0 MG/DL Urine Leukocyte Esterase 1+ H NEGATIVE Urine RBC (Auto) NEGATIVE NEGATIVE Urine RBC NONE /HPF Urine WBC 0-2 /HPF Urine Squamous Epithelial Cells 0-2 /HPF Urine Renal Epithelial Cells NONE /HPF Urine Crystals NONE /LPF Urine Bacteria TRACE /HPF Urine Casts NONE /LPF Urine Mucus NEGATIVE /LPF Urine Culture Indicated NO My Orders Orders - RONAKUSHA J Ekg Tracing (07/26/21 14:23) Cbc With Automated Diff (07/26/21 14:35) Magnesium (07/26/21 14:35) Chest 1 View, Ap/Pa Only (07/26/21 14:35) Comprehensive Metabolic Panel (07/26/21 14:35) Myoglobin Serum (07/26/21 14:35) Protime With Inr (07/26/21 14:35) Partial Thromboplastin Time (07/26/21 14:35) O2 (07/26/21 14:35) Monitor-Rhythm Ecg Trace Only (07/26/21 14:35) Lipid Panel (07/27/21 06:00) Ed Iv/Invasive Line Start (07/26/21 14:35) Lipase (07/26/21 14:35) Bnp Shalini (07/26/21 14:35) Fibrin Degradation Products (07/26/21 14:35) Troponin I [place] (07/26/21 14:35) Nitroglycerin 0.4 Mg Btl 25's (Nitrostat (07/26/21 14:45) Aspirin Chewable Tablet (Baby Aspirin Ch (07/26/21 14:45) Ua Culture If Indicated (07/26/21 15:28) Medications Given in ED Current Medications Medications Dose Ordered Sig/Edgardo Route Start Time Stop Time Status Last Admin Dose Admin Aspirin 324 mg ONCE ONCE PO 07/26/21 14:45 07/26/21 14:46 DC 07/26/21 14:46 324 MG Nitroglycerin 0.4 mg UD PRN SL 07/26/21 14:45 07/26/21 14:46 0.4 MG Vital Signs/I&O 07/26/21 14:25 Temp 36.2 Pulse 75 Resp 22 B/P (MAP) 125/83 (97) Pulse Ox 97 Blood Pressure Mean: 97 Progress Progress Note #1: Time: 14:40 Progress Note We will give her 324 mg of aspirin to chew and swallow as well as trial some nitroglycerin. Certainly concerning for anginal pain. She does not have hemoptysis or cough but she does have shortness of air so we will get a D-dimer. Well score for PE is 0.0 points. She is satting 92-94% while at rest on room air so her PERC criteria is one-point. Intermediate risk. Abdomen is soft and nontender without mass and negative for Mejia sign. No pneumothorax auscultated. Even with a negative initial troponin she would have 5 points on the heart score: High risk; 12-65% 30-day MACE. We discussed with her plan to rule out on observation. Progress Note #2: Time: 15:58 Progress Note After the first dose of nitroglycerin her blood pressure dipped down to 96/72 although she was asymptomatic and her heart rates remained in the 70s. She states it took a little bit but her pain did go away down to a 1 out of 10 substernal no longer involving her left arm. D-dimer rules out PE. Initial ECG Impression Date: July 26, 2021 Initial ECG Impression Time: 14:32 Initial ECG Rate: 78 Initial ECG Rhythm: Normal Sinus Initial ECG Intervals: Normal Initial ECG Impression: Normal Initial ECG Comparisson: Unchanged Comment Normal sinus rhythm without clinically relevant ST elevation or depression. There is a subtle half block ST depression seen in leads V3, V4, V5 that is conserved on previous EKG from 2020. Diagnostic Imaging Diagonstic Imaging: Xray Plain Films/CT/US/NM/MRI: chest Comments [facility], [place] NAME: DEVI COELLO [employer] REC#: [id number] PT STATUS: REG ER : 1970 PHYSICIAN: USHA SIMONS MD ADMIT DATE: 07/26/21/ER Draft Date of Exam:07/26/21 CHEST 1 VIEW, AP/PA ONLY INDICATION: Chest pain AP view of the chest is obtained with comparison made to study of 04/07/2020. FINDINGS: Heart size and pulmonary vascularity are within normal limits, and the lungs are clear, bilaterally. IMPRESSION: Unremarkable chest. Dictated on workstation # [id number] Dict: 07/26/21 1452 Trans: 07/26/21 1453 CV [id number] Interpreted by: NANCY ENNIS MD Electronically signed by: Reviewed: Reviewed by Me Consults : Consulting Physician: NORMA OBREGON MD Consults Notes Discussed case with Dr. Obregon and he will be by to see the patient and develop a plan. Departure Communication (Admissions) Time/Spoke to Admitting Phy: 16:25 Discussed the case with Dr. Paulson agrees to observe the patient with zander hernandez and plan for stress test with Dr. Obregon, cardiology. Time/Spoke to Consulting Phy: 16:00 Dr. Obregon has visited with the patient and after reviewing her case would like her to have a stress test tomorrow, n.p.o. at midnight. Impression Primary Impression: Chest pain Qualified Codes: R07.9 - Chest pain, unspecified Additional Impression: ACS (acute coronary syndrome) Disposition: ADMITTED INPATIENT Condition: Stable Admissions Decision to Admit Reason: Admit from ER (General) Decision to Admit/Date: July 26, 2021 Time/Decision to Admit Time: 16:00 Departure-Patient Inst. Referrals: [facility] (PCP/Family) Primary Care Physician USHA SIMONS July 26, 2021 14:43
[2021-07-26] MEDS ORDERED: ASPIRIN 81 MG CHEW (CHILDREN'S ASA) PO ONE (14:45)
[2021-07-26] MEDS ORDERED: NITROGLYCERIN 0.4 MG SL TABS BTL 25'S SL PRN ×2 (14:45→17:30)
--- NOTE | 2021-07-26 14:53 | Diagnostic Imaging Report ---
INDICATION: Chest pain AP view of the chest is obtained with comparison made to study of 04/07/2020. FINDINGS: Heart size and pulmonary vascularity are within normal limits, and the lungs are clear, bilaterally. IMPRESSION: Unremarkable chest. Dictated by: Dictated on workstation # [id number]
[2021-07-26 15:04] LABS: BASOPHILS % (AUTO) 1 % (0-10); EOSINOPHILS # (AUTO) 0.2 10^3/uL (0.0-0.3); EOSINOPHILS % (AUTO) 3 % (0-10); HEMATOCRIT 43 % (35-52); HEMOGLOBIN 13.7 g/dL (11.5-16.0); LYMPHOCYTES # (AUTO) 2.2 10^3/uL (1.0-4.0); LYMPHOCYTES % (AUTO) 34 % (12-44); MEAN CORPUSCULAR HEMOGLOBIN 28 pg (25-34); MEAN CORPUSCULAR HGB CONC 32 g/dL (32-36); MEAN CORPUSCULAR VOLUME 88 fL (80-99); MEAN PLATELET VOLUME 9.4 fL (9.0-12.2); MONOCYTES # (AUTO) 0.5 10^3/uL (0.0-1.0); MONOCYTES % (AUTO) 7 % (0-12); NEUTROPHILS # (AUTO) 3.6 10^3/uL (1.8-7.8); NEUTROPHILS % (AUTO) 56 % (42-75); PLATELET COUNT 270 10^3/uL (130-400); WHITE BLOOD COUNT 6.4 10^3/uL (4.3-11.0)
[2021-07-26 15:08] LABS: POTASSIUM 4.3 MMOL/L (3.6-5.0)
[2021-07-26 15:10] LABS: CALCIUM 9.3 MG/DL (8.5-10.1)
[2021-07-26 15:11] LABS: TOTAL PROTEIN 7.2 GM/DL (6.4-8.2)
[2021-07-26 15:14] LABS: CREATININE SERUM 0.66 MG/DL (0.60-1.30)
[2021-07-26 15:17] LABS: MAGNESIUM 1.6 MG/DL (1.6-2.4)
[2021-07-26 15:30] LABS: INR 0.9 (0.8-1.4); PROTHROMBIN TIME PATIENT 12.5 SEC (12.2-14.7)
[2021-07-26 16:08] LABS: BILIRUBIN,URINE NEGATIVE (NEGATIVE); CLARITY,URINE SL CLOUDY; COLOR,URINE YELLOW; GLUCOSE, URINE (UA) TRACE (NEGATIVE); KETONES,URINE NEGATIVE (NEGATIVE); LEUKOCYTE ESTERASE ,URINE 1+ (NEGATIVE); NITRITE,URINE NEGATIVE (NEGATIVE); PROTEIN,URINE NEGATIVE (NEGATIVE)
[2021-07-26 16:20] LABS: BACTERIA,URINE TRACE /HPF; SQUAMOUS EPITHELIAL CELL,UR 0-2 /HPF; WBC,URINE 0-2 /HPF
--- NOTE | 2021-07-26 16:40 | Consultation-Cardiology ---
HPI-Cardiology Cardiology Consultation Date of Consultation 07/26/21 Date of Admission Time Seen by Provider: 16:37 Indication: Chest pain HPI 51-year-old lady with strong family history of heart disease, multiple family members with heart attack at a young age. Came into the emergency room with chest pain dull in nature in the retrosternal area radiating to the left arm associated with diaphoresis and shortness of breath. Reporting episode of dyspnea on exertion which has been worsening recently. Diaphoresis. No syncope or near syncopal episodes. Home Medications & Allergies Allergies: Coded Allergies: codeine (Verified Allergy, Severe, THROAT SWELLS SHUT, 06/28/13) Home Medication List Reviewed: Yes [id number]-Rnkoku Hx Patient Social History Marital Status: Employed/Student: employed Smoking Status: Current Everyday Smoker Former smoker/When Quit: Nov 12, 2014 Type Used: Cigarettes 2nd Hand Smoke Exposure: No Recent Hopitalizations: No Have you traveled recently?: No Alcohol Use?: No Immunizations Up To Date Tetanus Booster (TDap): Unknown Date of Pneumonia Vaccine: Jun 29, 2013 Date of Influenza Vaccine: Jan 05, 2020 Past Medical History Discussed below Family Medical History Significant Family History: Heart Disease, Cancer, COPD, Diabetes, Hypertension, Renal Disease Family History: Family history: Diabetes mellitus 03 MOTHER Family history: Hypertension 03 MOTHER Family history: Osteoporosis 03 MOTHER Family history: Thyroid disorder 03 MOTHER Heart disease 03 MOTHER (TRIPLE BYPASS 2009) History of - disorder 09 SISTER (lupus) History of - respiratory disease 03 FATHER (COPD) Kidney disease 03 MOTHER (KINDEY FAILURE) Myocardial infarction 03 FATHER (1990-TRIPLE BYPASS [address] DIFIB[address]ES) 09 BROTHER (2010) Seizure disorder 03 FATHER (GRAND MAL) Review of Systems-General Review of Systems Constitutional: see HPI (Hot flashes); No chills, No diaphoresis EENTM: see HPI, no symptoms reported Respiratory: see HPI; No cough; dyspnea on exertion; No hemoptysis, No orthopnea, No phlegm; short of breath; No stridor, No wheezing, No other Cardiovascular: see HPI, chest pain; No edema, No Hx of Intervention; palpitations; No syncope, No vascular heart diseas, No other Gastrointestinal: no symptoms reported, see HPI Genitourinary: no symptoms reported, see HPI Musculoskeletal: No back pain, No joint pain Skin: no symptoms reported, see HPI Psychiatric/Neurological: No Symptoms Reported, See HPI All Other Systems Reviewed Negative Unless Noted: Yes Reviewed Test Results Reviewed Test Results Lab Laboratory Tests Test 07/26/21 14:29 07/26/21 16:00 Range/Units White Blood Count 6.4 4.3-11.0 10^3/uL Red Blood Count 4.83 3.80-5.11 10^6/uL Hemoglobin 13.7 11.5-16.0 g/dL Hematocrit 43 35-52 % Mean Corpuscular Volume 88 80-99 fL Mean Corpuscular Hemoglobin 28 25-34 pg Mean Corpuscular Hemoglobin Concent 32 32-36 g/dL Red Cell Distribution Width 13.8 10.0-14.5 % Platelet Count 270 130-400 10^3/uL Mean Platelet Volume 9.4 9.0-12.2 fL Immature Granulocyte % (Auto) 0 % Neutrophils (%) (Auto) 56 42-75 % Lymphocytes (%) (Auto) 34 12-44 % Monocytes (%) (Auto) 7 0-12 % Eosinophils (%) (Auto) 3 0-10 % Basophils (%) (Auto) 1 0-10 % Neutrophils # (Auto) 3.6 1.8-7.8 10^3/uL Lymphocytes # (Auto) 2.2 1.0-4.0 10^3/uL Monocytes # (Auto) 0.5 0.0-1.0 10^3/uL Eosinophils # (Auto) 0.2 0.0-0.3 10^3/uL Basophils # (Auto) 0.0 0.0-0.1 10^3/uL Immature Granulocyte # (Auto) 0.0 0.0-0.1 10^3/uL Prothrombin Time 12.5 12.2-14.7 SEC INR Comment 0.9 0.8-1.4 Activated Partial Thromboplast Time 34 24-35 SEC D-Dimer 0.31 0.00-0.49 UG/ML Sodium Level 135 135-145 MMOL/L Potassium Level 4.3 3.6-5.0 MMOL/L Chloride Level 101 98-107 MMOL/L Carbon Dioxide Level 25 21-32 MMOL/L Anion Gap 9 5-14 MMOL/L Blood Urea Nitrogen 11 7-18 MG/DL Creatinine 0.66 0.60-1.30 MG/DL Estimat Glomerular Filtration Rate 107 BUN/Creatinine Ratio 17 Glucose Level 231 H 70-105 MG/DL Calcium Level 9.3 8.5-10.1 MG/DL Corrected Calcium 9.3 8.5-10.1 MG/DL Magnesium Level 1.6 1.6-2.4 MG/DL Total Bilirubin 1.0 0.1-1.0 MG/DL Aspartate Amino Transf (AST/SGOT) 11 5-34 U/L Alanine Aminotransferase (ALT/SGPT) 25 0-55 U/L Alkaline Phosphatase 143 H 40-136 U/L Myoglobin 21.3 10.0-92.0 NG/ML Troponin I < 0.028 <0.028 NG/ML B-Type Natriuretic Peptide 13.5 <100.0 PG/ML Total Protein 7.2 6.4-8.2 GM/DL Albumin 4.0 3.2-4.5 GM/DL Lipase 34 8-78 U/L Urine Color YELLOW Urine Clarity SL CLOUDY Urine pH 6.0 5-9 Urine Specific [place] 1.010 L 1.016-1.022 Urine Protein NEGATIVE NEGATIVE Urine Glucose (UA) TRACE H NEGATIVE Urine Ketones NEGATIVE NEGATIVE Urine Nitrite NEGATIVE NEGATIVE Urine Bilirubin NEGATIVE NEGATIVE Urine Urobilinogen 0.2 < = 1.0 MG/DL Urine Leukocyte Esterase 1+ H NEGATIVE Urine RBC (Auto) NEGATIVE NEGATIVE Urine RBC NONE /HPF Urine WBC 0-2 /HPF Urine Squamous Epithelial Cells 0-2 /HPF Urine Renal Epithelial Cells NONE /HPF Urine Crystals NONE /LPF Urine Bacteria TRACE /HPF Urine Casts NONE /LPF Urine Mucus NEGATIVE /LPF Urine Culture Indicated NO Physical Exam Physical Exam Vital Signs Vital Signs - First Documented 07/26/21 14:25 Temp 36.2 Pulse 75 Resp 22 B/P (MAP) 125/83 (97) Pulse Ox 97 Capillary Refill : Height, Weight, BMI Height: 5'2.00" Weight: 180lbs. 5.0oz. 81.712701yk; 39.00 BMI Method:Estimated General Appearance: Anxious, Obese Eyes: Bilateral Eye Normal Inspection, Bilateral Eye PERRL, Bilateral Eye EOMI HEENT: PERRL/EOMI, Pharynx Normal, Moist Mucous Membranes Neck: Full Range of Motion, Normal Inspection Respiratory: Chest Non Tender, Lungs Clear, Normal Breath Sounds, No Accessory Muscle Use, No Respiratory Distress Cardiovascular: Regular Rate, Rhythm, No Edema, Normal Peripheral Pulses Gastrointestinal: Normal Bowel Sounds, Non Tender, Soft Back: Normal Inspection, No CVA Tenderness, No Vertebral Tenderness Extremity: Normal Capillary Refill, Normal Inspection, No Pedal Edema Neurologic/Psychiatric: Alert, Oriented x3, No Motor/Sensory Deficits Skin: Normal Color, Warm/Dry Lymphatic: No Adenopathy A/P-Cardiology Admission Diagnosis Chest pain Shortness of breath Diabetes mellitus Obesity Assessment/Plan Chest pain, resembling angina, EKG showed nonspecific T wave abnormality in the anterolateral leads. No change compared to the baseline. Patient has multiple risk factors for coronary artery disease, recommend stress test. Planning to proceed with Lexiscan stress test. Dyspnea, has been having increasing dyspnea on exertion and had episode of dyspnea and diaphoresis during chest pain. I will evaluate stress test. Coronary artery disease, reporting cardiac catheterization done over 10 years ago showing mild disease nonobstructive disease Diabetes mellitus, followed and managed by primary care physician Questionable hyperlipidemia I will evaluate lipid profile Strong family history of heart disease BMI 39, we discussed weight loss and exercise. Clinical Quality Measures AMI/AHF: ASA po Prior to arrival: NORMA Jones MD July 26, 2021 16:40
[2021-07-26 17:23] VITALS: BP 118/79
[2021-07-26] MEDS ORDERED: morphine INJ 4 MG/ML 1 ML (VIAL/SYRINGE) IV PRN (17:30)
[2021-07-26] MEDS ORDERED: ACETAMINOPHEN 325 MG TABLET PO PRN (17:30)
[2021-07-26] MEDS ORDERED: ONDANSETRON 4 MG/2 ML (SDV) Z0FRAN IV PRN (17:30)
[2021-07-26] MEDS ORDERED: LORazepam 0.5 MG (ATIVAN) TABLET PO PRN (17:30)
[2021-07-26] MEDS ORDERED: PATIENT MAY USE OWN MEDS, ALL PO SCH (17:30)
[2021-07-26] MEDS ORDERED: CATHETER FLUSH 10 ML SYR IV PRN (17:30)
[2021-07-26 17:39] VITALS: BP 107/70
[2021-07-26 17:54] VITALS: BP 121/78
[2021-07-26] MEDS: ENOXAPARIN 120 MG/0.8 ML (LOVENOX) SQ SCH (17:57)
[2021-07-26 18:09] VITALS: BP 120/73
[2021-07-26 18:39] VITALS: BP 116/82
[2021-07-26 20:00] VITALS: BP 107/69
[2021-07-26] MEDS: meTOprolol TARTRATE 25 MG (LOPRESSOR) TABLET PO SCH (21:17)
[2021-07-26] MEDS: inSUlin ASPART (NovoLOG) 1 UNIT/0.01 ML (CHARGE PER UNIT) SC SCH (21:20)
[2021-07-26] MEDS: CATHETER FLUSH 10 ML SYR IV SCH (22:33)
[2021-07-27] VITALS (7 sets, daily range): BP systolic 102–132; BP diastolic 67–83
[2021-07-27] MEDS: ENOXAPARIN 120 MG/0.8 ML (LOVENOX) SQ SCH (05:12)
[2021-07-27] MEDS: inSUlin ASPART (NovoLOG) 1 UNIT/0.01 ML (CHARGE PER UNIT) SC SCH ×2 (05:23→12:50)
[2021-07-27] MEDS: CATHETER FLUSH 10 ML SYR IV SCH (05:24)
[2021-07-27 05:52] LABS: BASOPHILS % (AUTO) 1 % (0-10); EOSINOPHILS # (AUTO) 0.2 10^3/uL (0.0-0.3); EOSINOPHILS % (AUTO) 3 % (0-10); HEMATOCRIT 40 % (35-52); HEMOGLOBIN 12.9 g/dL (11.5-16.0); LYMPHOCYTES # (AUTO) 2.1 10^3/uL (1.0-4.0); LYMPHOCYTES % (AUTO) 33 % (12-44); MEAN CORPUSCULAR HEMOGLOBIN 28 pg (25-34); MEAN CORPUSCULAR HGB CONC 32 g/dL (32-36); MEAN CORPUSCULAR VOLUME 88 fL (80-99); MEAN PLATELET VOLUME 9.7 fL (9.0-12.2); MONOCYTES # (AUTO) 0.5 10^3/uL (0.0-1.0); MONOCYTES % (AUTO) 7 % (0-12); NEUTROPHILS # (AUTO) 3.5 10^3/uL (1.8-7.8); NEUTROPHILS % (AUTO) 56 % (42-75); PLATELET COUNT 238 10^3/uL (130-400); WHITE BLOOD COUNT 6.3 10^3/uL (4.3-11.0)
[2021-07-27 06:03] LABS: CHLORIDE 102 MMOL/L (98-107); SODIUM 136 MMOL/L (135-145)
[2021-07-27 06:04] LABS: CALCIUM 9.3 MG/DL (8.5-10.1)
[2021-07-27 06:05] LABS: GLUCOSE 206 MG/DL (70-105)
[2021-07-27 06:06] LABS: CARBON DIOXIDE 23 MMOL/L (21-32)
[2021-07-27 06:09] LABS: CREATININE SERUM 0.59 MG/DL (0.60-1.30); GFR ESTIMATED 110
[2021-07-27 06:10] LABS: BUN/CREATININE RATIO 22
[2021-07-27] MEDS ORDERED: PANTOPRAZOLE 40 MG (PROTONIX) TAB PO SCH (09:00)
[2021-07-27] MEDS ORDERED: ASPIRIN E.C. 81 MG (ECOTRIN) TAB PO SCH (09:00)
--- NOTE | 2021-07-27 09:01 | Cardiology Progress Note ---
Subjective Date Seen by Provider: July 27, 2021 Time Seen by Provider: 07:55 Subjective/Events-last exam [facility] test this morning. Denies any active chest pain. Objective-Cardiology Exam Last Set of Vital Signs Vital Signs 07/27/21 11:02 Temp 35.8 Pulse 90 Resp 20 B/P (MAP) 111/77 (88) Pulse Ox 95 O2 Delivery Room Air I&O Intake and Output 07/27/21 00:00 Intake Total 1000 ml Output Total 600 ml Balance 400 ml Intake Oral 1000 ml Output Urine Total 600 ml Daily Weight Change No General: Alert, Oriented X3 Lungs: Clear to Auscultation, Normal Air Movement Heart: Regular Rate, Normal S1, Normal S2, No Murmurs Abdomen: Normal Bowel Sounds, Soft, No Tenderness Extremities: No Edema Neuro: Cranial Nerves 3-12 NL Psych/Mental Status: Mental Status NL, Mood NL Results Lab Laboratory Tests 07/26/21 14:29 07/27/21 05:17 A/P-Cardiology Admission Diagnosis Chest pain Shortness of breath Diabetes mellitus Obesity Assessment/Plan Chest pain, resembling angina, EKG showed nonspecific T wave abnormality in the anterolateral leads. No change compared to the baseline. Patient has multiple risk factors for coronary artery disease, planning for stress test this morning. Dyspnea, has been having increasing dyspnea on exertion and had episode of dyspnea and diaphoresis during chest pain. I will evaluate stress test. Coronary artery disease, reporting cardiac catheterization done over 10 years ago showing mild disease nonobstructive disease Diabetes mellitus, followed and managed by primary care physician Questionable hyperlipidemia I will evaluate lipid profile Strong family history of heart disease BMI 39, we discussed weight loss and exercise. Addendum: Patient was seen and evaluated, feeling better, no further episodes of chest pain Stress test was done on July 27, 2021 showing fair exercise tolerance for 4 minutes on Matt protocol with no significant ischemia or infarction on SPECT images She has hypertensive response to exercise, continue lisinopril as an outpatient Arrange for follow-up as an outpatient, okay for discharge JOSE MOYA July 27, 2021 09:01 NORMA VIGIL MD July 27, 2021 12:26
[2021-07-27] MEDS: meTOprolol TARTRATE 25 MG (LOPRESSOR) TABLET PO SCH (10:00)
[2021-07-27] MEDS ORDERED: NAPR-1033 PO (10:06)
[2021-07-27] MEDS ORDERED: DAPA5TAB PO (10:06)
[2021-07-27] MEDS ORDERED: ONDA4TAB11 PO (10:06)
[2021-07-27] MEDS ORDERED: ACET-3075 PO (10:06)
[2021-07-27] MEDS ORDERED: LIRA0.6P SQ (10:06)
[2021-07-27] MEDS ORDERED: ATOR40TA70 PO (10:06)
[2021-07-27] MEDS ORDERED: ATOR10TA66 PO (11:19)
--- NOTE | 2021-07-27 12:24 | Cardiology Stress Test Report ---
Stress Test Report Date of Procedure/Referring: Date of Procedure: July 27, 2021 PCP [place] Admitting Physician Admitting Physician: Lina Unger MD Attending Physician: Lina Unger MD Indications: CP Baseline Heart Rate: 92 Baseline Blood Pressure: Blood Pressure Systolic: 111 Blood Pressure Diastolic: 77 Vital Signs Date Time Temp Pulse Resp B/P (MAP) Pulse Ox O2 Delivery O2 Flow Rate FiO2 07/26/21 14:25 36.2 75 22 125/83 (97) 97 07/26/21 17:23 Room Air Baseline Vital Signs Vital Signs Date Time Temp Pulse Resp B/P (MAP) Pulse Ox O2 Delivery O2 Flow Rate FiO2 07/26/21 14:25 36.2 75 22 125/83 (97) 97 07/26/21 17:23 Room Air Baseline EKG: Baseline EKG: NSR Summary: After explaining the procedure and details to the patient, she signed the consent and was brought to the stress nuclear laboratory. Patient exercised on standard Matt protocol, EKG, heart rate and blood pressure were monitored continuously, resting and stress doses of radio tracer were injected, imaging was acquired and reviewed in the short axis, horizontal long axis and vertical long axis views Patient was able to exercise for a total of 5 minutes on Matt protocol, METs 7 Maximum heart rate 150 Maximum blood pressure 191/91 Stress EKG, Minimal nondiagnostic changes Recovery EKG, Return to baseline TID: 0.91 SSS: 3 SDS: 3 EF: 62 Conclusion: 1. Good exercise tolerance for a total of 5 minutes on standard Matt protocol, 7 METS achieving 87% of maximal expected heart rate 2. Appropriate heart rate response to exercise with hypertensive response to exercise, peak blood pressure 191/91 returned to baseline during recovery 3. Breast attenuation with typical female pattern, no significant ischemia or infarction on SPECT images 4. Normal left ventricular size, EF 62% NORMA VIGIL MD July 27, 2021 12:24
--- NOTE | 2021-07-27 12:47 | Discharge Summary ---
Discharge [facility] Discharge Medications Continued Medications: Acetaminophen (Tylenol) 325 Mg Tablet 650 MG PO Q8H PRN for PAIN-MILD (1-4), TAB TAKES 2 (325MG) TABLETS Acetaminophen/Diphenhydramine (Tylenol Pm Ex-Strength Caplet) 500 Mg-25 Mg Tablet 2 EACH PO HS PRN for RESTLESSNESS/PAIN, TAB Atorvastatin Calcium (Atorvastatin Calcium) 10 Mg Tablet 10 MG PO DAILY, TAB Celecoxib (Celebrex) 200 Mg Capsule 200 MG PO DAILY, CAP Dapagliflozin Propanediol (Farxiga) 5 Mg Tablet 5 MG PO DAILY, TAB Escitalopram Oxalate (Escitalopram Oxalate) 10 Mg Tablet 10 MG PO DAILY, TAB Liraglutide (Victoza 2-Gerardo) 0.6 Mg/0.1 Ml (18 Mg/3 Ml) Pen.injctr 1.8 MG SQ HS, EA Lisinopril (Lisinopril) 10 Mg Tablet 10 MG PO DAILY, TAB Metoprolol Tartrate (Metoprolol Tartrate) 25 Mg Tablet 25 MG PO BID, TAB LAST FILLED 05-09-2021 #60/30 DAY SUPPLY Montelukast Sodium (Montelukast Sodium) 10 Mg Tablet 10 MG PO DAILY, TAB Ondansetron (Ondansetron Odt) 4 Mg Tab.rapdis 4 MG PO Q4H PRN for NAUSEA-1ST LINE, TAB Pantoprazole Sodium (Pantoprazole Sodium) 40 Mg Tablet.dr 40 MG PO DAILY, TAB Patient Instructions Goal/Follow Up Appt: Follow up with Dr. Obregon in 2-4 weeks. Follow up with your primary physician within a week. Patient Instructions: Don't take both Celebrex and naproxen (or ibuprofen) together. Return to [facility] For: Chest pain, shortness of breath, inability to keep down medications. Activity & Diet Discharge Diet: ADA Diet Activity as Tolerated: Yes CAROLINA PAULSON MD July 27, 2021 12:47
--- NOTE | 2021-07-27 13:25 | Short Stay Summary ---
GUILLERMO SYLVESTER 07/27/21 1324: HPI History of Present Illness: Chief Complaint: Chest Pain History of Present Illness: Marian Stiles is a 51 year old female who drove herself from home to the ER on 07/26/21 for complaint of chest pain. Medical history includes Diabetes, COPD, Asthma, HTN, PCOS, Kidney Stones, GERD, Arthritis, Chronic Back pain, Depression, Psoriasis, and previous smoking history. Chest pain started Monday07/25/21. Pain was in the left side of her chest and progressed to radiating down her left arm. Pain at its worse was 8.5/10. Patient did have near syncopal episode and dizziness. Denies syncopal episode. Denies shortness of air, did have shortness of air on exertion. Patient reports no personal history of cardiovascular events. She did have an event of chest pain in 2010 which she reports having a stress test and catheterization procedure, and patient reports she had no signs of cardiovascular disease at that time. Patient does have a strong family history of cardiac events with both parents and her siblings. Source: patient Exam Limitations: no limitations Date seen by provider: July 27, 2021 Time Seen by Provider: 10:27 Attending Physician Center/[facility] PCP Admitting Physician: Carolina Paulson MD Attending Physician: Carolina Paulson MD Consult NORMA OBREGON MD Date of Admission July 26, 2021 at 16:30 Home Medications Home Medications Reviewed patient Home Medication Reconciliation performed by pharmacy medication reconciliations machine shop repair technician and/or nursing. Patients Allergies have been reviewed. Allergies Coded Allergies: codeine (Verified Allergy, Severe, THROAT SWELLS SHUT, 07/26/21) PT HAS RECEIVED HYDROCODONE, HYDROMORPHONE AND MORPHINE IN THE PAST [id number] Patient Social History Marrital Status: Employed/Student: employed Smoking Status: Former Smoker (35 pack year history (smoked since age 11 until 2014)) Former smoker/When Quit: Nov 12, 2014 2nd Hand Smoke Exposure: No Recent Hopitalizations: No Alcohol Use?: No Have you traveled recently?: No Immunizations Up To Date Tetanus Booster (TDap): Unknown Influenza Vaccine Up-to-Date: Yes; Up-to-Date Past Medical History Past Medical History: Diabetes HTN COPD with chronic bronchitis Asthma Previous Smoker, cessation in 2014 PCOS Obesity GERD Right ureteral stone sp. 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 shoulder surgery Cardiac Cath with normal coronaries 2010 Baqir Cystoscopy with right ureteroscopy, JJ stent placement right ureter with Lithotripsy- [place] 06-25-13 Right ESWL cysto with removal of stent Exploratory Laparoscopy 2000 for scar tissue removal around fallopian tubes Family Medical History Significant Family History: Heart Disease, Cancer, COPD, Diabetes, Hypertension, Renal Disease Family History: FHx: melanoma 03 FATHER Paternal Grandfather Family history: Diabetes mellitus 03 MOTHER Family history: Hypertension 03 MOTHER Family history: Osteoporosis 03 MOTHER Family history: Thyroid disorder 03 MOTHER Heart disease 03 MOTHER (TRIPLE BYPASS 2009) History of - disorder 09 SISTER (lupus) History of - respiratory disease 03 FATHER (COPD) Kidney disease 03 MOTHER (KINDEY FAILURE) Myocardial infarction 03 FATHER (1990-TRIPLE BYPASS [address] DIFIB[address]ES) 09 BROTHER (2010) Seizure disorder 03 FATHER (GRAND MAL) Review of Systems ([facility]) Constitutional: No chills, No diaphoresis; dizziness; No fever, No malaise, No weakness EENTM: No hearing loss, No vision loss Respiratory: dyspnea on exertion Cardiovascular: chest pain; No edema; Hx of Intervention (Cardiac Catheterization in 2010); No palpitations, No syncope; other (Near syncope) Gastrointestinal: No abdominal pain, No constipation, No diarrhea, No heartburn Genitourinary: No decreased output, No frequency : No Musculoskeletal: No back pain, No joint pain Skin: No change in color, No dryness Psychiatric/Neurological: Denies Anxiety, Denies Depressed Physical Exam-([facility]) Physical Exam Vital Signs VS - Last 72 Hours, by Label 07/26/21 07/26/21 07/26/21 07/26/21 14:25 17:05 17:23 17:39 Temp 36.2 36.0 Pulse 75 76 74 Resp 22 12 18 B/P (MAP) 125/83 (97) 114/85 118/79 (92) 107/70 (82) Pulse Ox 97 96 97 O2 Delivery Room Air 07/26/21 07/26/21 07/26/21 07/26/21 17:54 17:57 17:57 18:09 Pulse 74 B/P (MAP) 121/78 (92) 120/73 (89) Pulse Ox 98 O2 Delivery Room Air 07/26/21 07/26/21 07/26/21 07/26/21 18:39 19:00 20:00 20:00 Temp 36.7 Pulse 87 78 Resp 20 B/P (MAP) 116/82 (93) 107/69 (82) Pulse Ox 96 O2 Delivery Room Air Room Air 07/27/21 07/27/21 07/27/21 07/27/21 00:07 01:00 04:00 07:10 Temp 36.7 36.5 Pulse 75 69 79 80 Resp 16 16 B/P (MAP) 102/67 (79) 109/76 (87) Pulse Ox 96 96 O2 Delivery Room Air Room Air 07/27/21 07/27/21 07/27/21 07/27/21 07:10 08:00 08:07 10:33 Temp 35.9 Pulse 90 81 80 Resp 18 20 B/P (MAP) 113/76 (88) 132/83 (99) Pulse Ox 96 O2 Delivery Room Air Room Air 07/27/21 11:02 Temp 35.8 Pulse 90 Resp 20 B/P (MAP) 111/77 (88) Pulse Ox 95 O2 Delivery Room Air Capillary Refill : General Appearance: WD/WN, no apparent distress, obese HEENT: PERRL/EOMI; No scleral icterus (R), No scleral icterus (L), No pale conjunctivae (R), No pale conjunctivae (L) Neck: non-tender, full range of motion, supple, normal inspection Respiratory: chest non-tender, lungs clear, normal breath sounds, no respiratory distress, no accessory muscle use Cardiovascular: regular rate, rhythm, no edema, no murmur Peripheral Pulses: 2+ Dorsalis Pedis (R), 2+ Left Dors-Pedis (L), 2+ Radial Pulses (R), 2+ Radial Pulses (L) Gastrointestinal: normal bowel sounds, non tender, soft, no organomegaly, no pulsatile mass Extremities: no pedal edema, no calf tenderness Neurologic/Psychiatric: alert, normal mood/affect, oriented x 3 Skin: normal color, warm/dry Lymphatic: no adenopathy (Cervical and Supraclavicular) Short Stay Diagnosis Discharge Diagnosis-Short Stay Admission Diagnosis Chest Pain Final Discharge Diagnosis Chest Pain Clinical Quality Measures AMI/AHF: ASA po Prior to arrival: No Assessment/Plan Assessment/Plan Admission Dx Chest Pain Admission Status: Observation Assessment & Plan Assessment: Chest Pain Family History of Cardiac Events Diabetes COPD HTN GERD Previous Smoking History Obesity, Class 3, BMI 40.1 Depression Psoriasis Plan: Chest Pain/Stable Angina: Troponin I <0.028, EKG unremarkable showing normal sinus rhythm with nonspecific T wave abnormalities. Dr. Obregon performed a stress echocardiogram on 07/26 which was unremarkable, patient had appropriate heart rate response to exercise with hypertensive response to exercise, no significant ischemia or infarction on SPECT images, normal left ventricular size, EF 62%. Patient has multiple risk factors for cardiovascular disease including severe obesity, diabetes, and strong family history of cardiac events. Vital signs are stable, and patient appears in no acute distress. States she is no longer having chest pain. Will be discharged today, was admitted on observation status. CAROLINA PAULSON MD 07/27/21 1414: Home Medications Allergies Coded Allergies: codeine (Verified Allergy, Severe, THROAT SWELLS SHUT, 07/26/21) PT HAS RECEIVED HYDROCODONE, HYDROMORPHONE AND MORPHINE IN THE PAST [id number] Hx Family Medical History Family History: FHx: melanoma 03 FATHER Paternal Grandfather Family history: Diabetes mellitus 03 MOTHER Family history: Hypertension 03 MOTHER Family history: Osteoporosis 03 MOTHER Family history: Thyroid disorder 03 MOTHER Heart disease 03 MOTHER (TRIPLE BYPASS 2009) History of - disorder 09 SISTER (lupus) History of - respiratory disease 03 FATHER (COPD) Kidney disease 03 MOTHER (KINDEY FAILURE) Myocardial infarction 03 FATHER (1990-TRIPLE BYPASS [address] DIFIB[address]ES) 09 BROTHER (2010) Seizure disorder 03 FATHER (GRAND MAL) Physical Exam-([facility]) Physical Exam General Appearance: WD/WN, no apparent distress Respiratory: lungs clear, normal breath sounds Cardiovascular: regular rate, rhythm, no murmur Gastrointestinal: normal bowel sounds, non tender, soft Extremities: no pedal edema Neurologic/Psychiatric: alert, normal mood/affect Skin: normal color, warm/dry Short Stay Diagnosis Conclusion Plan See admission assessment plan Supervisory-Addendum Brief Verification & Attestation Participated in pt care: history, MDM, physical Personally performed: exam, history, MDM, supervision of care Care discussed with: Medical Student Procedures: n/a I personally saw and examined patient today and confirmed the history documented by the medical student. I did my own physical exam, see my notes. I directed the plan of care as documented by the medical student. GUILLERMO SYLVESTER July 27, 2021 13:24 CAROLINA PAULSON MD July 27, 2021 14:14
[2021-07-27] MEDS ORDERED: NON-FORMULARY MEDICATION 1 EA EA (Liraglutide (Victoza 2-Pak) 1.8 MG) SQ SCH (21:00)
[2021-07-28] MEDS ORDERED: NON-FORMULARY MEDICATION 1 EA EA (Dapagliflozin Propanediol (Farxiga) 5 MG) PO SCH (09:00)
[2021-07-28] MEDS ORDERED: lisINopril 10 MG (PRINIVIL) TABLET PO SCH (09:00)
[2021-07-28] MEDS ORDERED: NON-FORMULARY MEDICATION 1 EA EA (Escitalopram Oxalate 10 MG) PO SCH (09:00)
[2021-07-28] MEDS ORDERED: MONTELUKAST 10 MG (SINGULAIR) TAB PO SCH (09:00)
[2021-07-28] MEDS ORDERED: AtorvaSTATin TABLET 10 MG TABLET PO SCH (09:00)
== END 2021-07-27 12:45 | disposition home or self-care (01) ==
LOC: EDUNIT# 14:21 → ER 14:22 → UNDOADMOB 16:30 → 4TH 16:30 → UNDODISOB 07-27 13:45
PROVIDERS: ADMIT Family Medicine; ATTEND Family Medicine
DX: R07.89 Other chest pain (principal); E11.9 Type 2 diabetes mellitus without complications; J44.9 Chronic obstructive pulmonary disease, unspecified; I10 Essential (primary) hypertension; K21.9 Gastro-esophageal reflux disease without esophagitis; L40.9 Psoriasis, unspecified; E66.9 Obesity, unspecified; F17.210 Nicotine dependence, cigarettes, uncomplicated; F32.A Depression, unspecified; Z68.41 Body mass index [BMI] 40.0-44.9, adult; Z79.4 Long term (current) use of insulin; Z79.899 Other long term (current) drug therapy
CPT/HCPCS: 71045; 78452; 80048; 80053; 81000; 82947 ×2; 83690; 83735; 83874; 83880; 84484 ×2; 85025 ×2; 85379; 85610; 85730; 93005 ×2; 93017; 93041; 93306; 99284; A9502; 36415; 96372; G0378

== ENCOUNTER 2022-02-27 20:16 | Emergency (ER) | payer SELFPAY ==
[~2022-02-27 20:16] MED LIST changes: +ACET-3075 PO; +ATOR10TA66 PO; +ATOR40TA70 PO; +DAPA5TAB PO; +LIRA0.6P SQ; +NAPR-1033 PO
--- NOTE | 2022-02-27 20:40 | ED GU-Female ---
General Chief Complaint: - Reproductive Stated Complaint: BACK PAIN/BLOOD IN URINE/BURNING W/URINATION Source: patient Exam Limitations: no limitations History of Present Illness Date Seen by Provider: Feb 27, 2022 Time Seen by Provider: 20:40 Initial Comments 51 y/o female presents this evening with c/o dysuria, hematuria, urinary frequency, urgency, pressure in bladder, and bilateral lower back pain. Symptoms started last night. She denies fever, chills, flank pain, abdominal pain, n/v/d. Timing/Duration: constant, other (last night) Severity/Quality: mild, aching Location: other (bilateral lower back) Radiation: none Prior Genitourinary Problems: similar symptoms Modifying Factors: Improves With Other (denies) Associated Symptoms: No abdominal pain, No diaphoresis; dysuria; No fever/chills, No loss of bladder control; lower back pain; No lumps, No mass, No nausea/vomiting, No nocturia, No polyuria, No swelling, No syncope; urinary frequency Allergies and Home Medications Allergies Coded Allergies: codeine (Verified Allergy, Severe, THROAT SWELLS SHUT, 07/26/21) PT HAS RECEIVED HYDROCODONE, HYDROMORPHONE AND MORPHINE IN THE PAST Patient Home Medication List Home Medication List Reviewed: Yes Acetaminophen (Tylenol) 325 Mg Tablet, 650 MG PO Q8H PRN for PAIN-MILD (1-4), (Reported) Entered as Reported by: TAI ACUNA on 05/14/19 1406 Acetaminophen/Diphenhydramine (Tylenol Pm Ex-Strength Caplet) 500 Mg-25 Mg Tablet, 2 EACH PO HS PRN for RESTLESSNESS/PAIN, (Reported) Entered as Reported by: CAROLINA PAULSON on 07/27/21 1006 Atorvastatin Calcium (Atorvastatin Calcium) 10 Mg Tablet, 10 MG PO DAILY, (Reported) Entered as Reported by: TAI ACUNA on 07/27/21 1119 Cefdinir (Cefdinir) 300 Mg Capsule, 300 MG PO BID Prescribed by: Chico Brantley on 02/27/222101 Celecoxib (Celebrex) 200 Mg Capsule, 200 MG PO DAILY, (Reported) Entered as Reported by: DI PATTERSON on 09/10/18 0904 Dapagliflozin Propanediol (Farxiga) 5 Mg Tablet, 5 MG PO DAILY, (Reported) Entered as Reported by: CAROLINA PAULSON on 07/27/21 1006 Escitalopram Oxalate (Escitalopram Oxalate) 10 Mg Tablet, 10 MG PO DAILY, (Reported) Entered as Reported by: TAI ACUNA on 05/14/19 1407 Liraglutide (Victoza 2-Gerardo) 0.6 Mg/0.1 Ml (18 Mg/3 Ml) Pen.injctr, 1.8 MG SQ HS, (Reported) Entered as Reported by: CAROLINA PAULSON on 07/27/21 1006 Lisinopril (Lisinopril) 10 Mg Tablet, 10 MG PO DAILY, (Reported) Entered as Reported by: JEANNE PALOMINO on 09/16/16 1527 Metoprolol Tartrate (Metoprolol Tartrate) 25 Mg Tablet, 25 MG PO BID, (Reported) Entered as Reported by: ALYSSA SELF on 04/08/20 1120 Montelukast Sodium (Montelukast Sodium) 10 Mg Tablet, 10 MG PO DAILY, (Reported) Entered as Reported by: ALYSSA SELF on 04/08/20 1120 Ondansetron (Ondansetron Odt) 4 Mg Tab.rapdis, 4 MG PO Q4H PRN for NAUSEA-1ST LINE, (Reported) Entered as Reported by: CAROLINA PAULSON on 07/27/21 1006 Pantoprazole Sodium (Pantoprazole Sodium) 40 Mg Tablet.dr, 40 MG PO DAILY, (Reported) Entered as Reported by: ALYSSA SELF on 04/08/20 1129 Review of Systems Review of Systems Constitutional: no symptoms reported Respiratory: no symptoms reported Cardiovascular: no symptoms reported Gastrointestinal: no symptoms reported Genitourinary: burning; denies discharge; dysuria, frequency; denies flank pain; hematuria; denies incontinence; urgency : No Musculoskeletal: back pain (bilateral lumbar region) Endocrine: No Symptoms Reported Hematologic/Lymphatic: No Symptoms Reported Past [id number] Hx Immunizations Up To Date Tetanus Booster (TDap): Unknown PED Vaccines UTD: Yes Seasonal Allergies Seasonal Allergies: No Past Medical History Surgeries: Yes Abdominal, Appendectomy, Cardiac, Orthopedic, Renal Respiratory: Yes Asthma, COPD Cardiac: Yes (TACHYCARDIA) Hypertension Neurological: Yes (CONCUSSION AT AGE 22) Concussion Reproductive Disorders: Yes (POLYCYSTIC OVARY--SURGERY 1999) Female Reproductive Disorders: Ovarian Cyst, Polycystic Ovarian Dis Sexually Transmitted Disease: No HIV/AIDS: No Genitourinary: Yes Kidney Stones Gastrointestinal: Yes Gastroesophageal Reflux Musculoskeletal: Yes (BULGING DISC) Degenerate Disk Disease, Arthritis, Chronic Back Pain Endocrine: Yes Diabetes, Non-Insulin dep HEENT: Yes (SINUS DRAINAGE) Loss of Vision: Denies Cancer: No Psychosocial: Yes Depression Integumentary: Yes Psoriasis Blood Disorders: No Adverse Reaction/Blood Tranf: No Family Medical History FHx: melanoma 03 FATHER Paternal Grandfather Family history: Diabetes mellitus 03 MOTHER Family history: Hypertension 03 MOTHER Family history: Osteoporosis 03 MOTHER Family history: Thyroid disorder 03 MOTHER Heart disease 03 MOTHER (TRIPLE BYPASS 2009) History of - disorder 09 SISTER (lupus) History of - respiratory disease 03 FATHER (COPD) Kidney disease 03 MOTHER (KINDEY FAILURE) Myocardial infarction 03 FATHER (1990-TRIPLE BYPASS [address] DIFIB[address]ES) 09 BROTHER (2010) Seizure disorder 03 FATHER (GRAND MAL) Heart Disease, Cancer, COPD, Diabetes, Hypertension, Renal Disease Physical Exam Vital Signs Vital Signs - First Documented 02/27/22 20:39 Temp 36.5 Pulse 98 Resp 16 B/P (MAP) 150/81 (104) Pulse Ox 97 O2 Delivery Room Air Capillary Refill : Height, Weight, BMI Height: 5'2.00" Weight: 180lbs. 5.0oz. 81.756678lc; 40.13 BMI Method:Estimated General Appearance: WD/WN, no apparent distress Cardiovascular: normal peripheral pulses, regular rate, rhythm Respiratory: chest non-tender, lungs clear Gastrointestinal: soft; No guarding, No rebound; tenderness (suprapubic) Back: normal inspection, no CVA tenderness, no vertebral tenderness Skin: normal color, warm/dry Progress/Results/Core Measures Suspected Sepsis SIRS Temperature: Pulse: Respiratory Rate: Blood Pressure / Mean: Results/Orders Lab Results Laboratory Tests Test 02/27/22 20:38 Range/Units Urine Color YELLOW Urine Clarity SL CLOUDY Urine pH 6.0 5-9 Urine Specific [place] 1.015 L 1.016-1.022 Urine Protein 1+ H NEGATIVE Urine Glucose (UA) 3+ H NEGATIVE Urine Ketones NEGATIVE NEGATIVE Urine Nitrite NEGATIVE NEGATIVE Urine Bilirubin NEGATIVE NEGATIVE Urine Urobilinogen 1.0 < = 1.0 MG/DL Urine Leukocyte Esterase 2+ H NEGATIVE Urine RBC (Auto) 3+ H NEGATIVE Urine RBC >100 H /HPF Urine WBC >100 H /HPF Urine Squamous Epithelial Cells 0-2 /HPF Urine Crystals NONE /LPF Urine Bacteria MODERATE H /HPF Urine Casts NONE /LPF Urine Mucus NEGATIVE /LPF Urine Culture Indicated YES Urine Test NEGATIVE NEGATIVE My Orders Orders - CHICO BRANTLEY APRN Urinalysis (02/27/22 20:32) Hcg,Qualitative Urine (02/27/22 20:32) Urine Culture (02/27/22 20:38) Ketorolac Injection (Toradol Injection) (02/27/22 21:00) Ceftriaxone (Rocephin) (02/27/22 21:00) Lidocaine 1% Inj 20 Ml (Xylocaine 1% Inj (02/27/22 21:00) Vital Signs/I&O 02/27/22 20:39 Temp 36.5 Pulse 98 Resp 16 B/P (MAP) 150/81 (104) Pulse Ox 97 O2 Delivery Room Air Capillary Refill : Departure Impression Primary Impression: Urinary tract infection Disposition: HOME, SELF-CARE Condition: Stable Departure-Patient Inst. Decision time for Depature: 21:00 Referrals: [facility] (PCP/Family) Primary Care Physician Patient Instructions: Urinary Tract Infection, Adult (DC) Add. Discharge Instructions: Push fluids, drink at least 2 liters of water daily. Tylenol and motrin as needed for low back pain. Take antibiotic as prescribed. Follow up with any new/worsening concerns. All discharge instructions reviewed with patient and/or family. Voiced understanding. Scripts Cefdinir (Cefdinir) 300 Mg Capsule 300 MG PO BID for 5 Days, #10 CAP Prov: CHICO BRANTLEY APRN 02/27/22 CHICO BRANTLEY APRN Feb 27, 2022 20:40
[2022-02-27 20:45] LABS: BILIRUBIN,URINE NEGATIVE (NEGATIVE); CLARITY,URINE SL CLOUDY; COLOR,URINE YELLOW; GLUCOSE, URINE (UA) 3+ (NEGATIVE); KETONES,URINE NEGATIVE (NEGATIVE); LEUKOCYTE ESTERASE ,URINE 2+ (NEGATIVE); NITRITE,URINE NEGATIVE (NEGATIVE); PROTEIN,URINE 1+ (NEGATIVE)
[2022-02-27 20:52] LABS: BACTERIA,URINE MODERATE /HPF; RBC,URINE >100 /HPF; SQUAMOUS EPITHELIAL CELL,UR 0-2 /HPF; WBC,URINE >100 /HPF
[2022-02-27] MEDS ORDERED: cefTRIAXone 1,000 MG VIAL IM ONE (21:00)
[2022-02-27] MEDS ORDERED: LIDOCAINE 1% INJ 20 ML VIAL INJ ONE (21:00)
[2022-02-27] MEDS ORDERED: KETOROLAC 60 MG/2 ML VIAL IM ONE (21:00)
[2022-02-27] MEDS ORDERED: CEFD300C3 PO (21:02)
[2022-02-27 21:35] VITALS: BP 147/98
== END 2022-02-27 21:35 | disposition home or self-care (01) ==
LOC: EDUNIT# 20:16 → ER 20:18
DX: N39.0 Urinary tract infection, site not specified (principal); Z87.442 Personal history of urinary calculi; Z88.5 Allergy status to narcotic agent
CPT/HCPCS: 81000; 84703; 87077; 87088; 87186; 99284